=== PATIENT | female | born 1995 | race Caucasian/White ===

== ENCOUNTER 2022-11-03 11:28 | Emergency (ER) | payer MEDICAID, SELFPAY ==
[2022-11-03 11:31] VITALS: BP 125/95; PULSE 77; RESP 18; TEMP 36.7; O2SAT 98
--- NOTE | 2022-11-03 11:47 | ED.GENADUL1 ---
HPI - General Adult General Chief complaint: Weakness Stated complaint: GENERAL WEAKNESS Time Seen by Provider: 11/03/22 11:36 Source: patient Mode of arrival: walk-in Limitations: no limitations History of Present Illness HPI narrative: patient is a 27-year-old female presents to the Emergency Room with multiple concerns. Her chief concern is that her multiple complaints may be related to early . Patient states for the past week she has felt weak and tired, nauseous daily. Patient admits to having symptoms of a urinary tract infection last week but did not get treatment. Those symptoms have since resolved. Patient states she has had diarrhea frequently and a bhze-wq-wnttgzgn headache which she describes as a migraine. Paatient notes symptoms seem to come and go. Water makes her abdomen felt better. Patient states her last menstrual cycle was October 09. She is taken multiple home tests which have been negative. Patient states her [employer] is Dr. Esparza. She has been having hot flashes and cold intolerance over the past several months and reports having a order for thyroid testing out pt which was not preformed. is tolerating water at the bedside, notes nausea but denies any recent vomiting. Diarrhea occurs with meals. Pain Consistency: Reports other (denies pain, feels bloated at time) Relieving factors: Reports none Exacerbating factors: Reports none (food) Treatments prior to arrival: Reports other (water) Related Data Previous Rx's Medication Instructions Recorded ondansetron HCl 4 mg tablet 4 mg PO Q6H PRN nausea and 11/03/22 vomiting #12 tabs Allergies Allergy/AdvReac Type Severity Reaction Status Date / Time No Known Drug Allergies Allergy Verified 11/03/22 11:35 Review of Systems ROS Constitutional Denies: fever or chills Eyes Denies: change in vision or blurry vision Ears, nose, mouth, and throat Denies: throat pain, neck pain or throat swelling Cardiovascular Denies: chest pain, palpitations or edema Respiratory Denies: shortness of breath, cough or wheezing Gastrointestinal Reports: nausea, diarrhea and bloating; Denies: abdominal pain, vomiting, painful bowel movements or blood in stool Genitourinary Reports: urinary frequency (last week ( now resolved)) Musculoskeletal Denies: back pain Integumentary/Breast Denies: rash Neurological Reports: headache; Denies: numbness in extremities, weakness in extremities, lack of coordination or dizziness Psychiatric Denies: anxiety, mood swings or panic attacks Endocrine Reports: fatigue, cold intolerance and heat intolerance Hematologic/Lymphatic Denies: easy bruising Exam Narrative Exam Narrative: Nurses notes and vital signs reviewed and patient is not hypoxic. General: The patient appears well and in no apparent distress. Patient is resting comfortably on cart. Skin: Warm, dry, no pallor noted. Head: Normocephalic, atraumatic Neck: Supple, trachea mid-line, no tenderness, no lymphadenopathy Eye: Pupils are equal, round and reactive to light, EOMI Ears, Nose, Mouth, and Throat: TM are clear, normal light reflex, oral mucosa is moist, no posterior oropharynx erythema or hypertrophy, uvula is mid-line Cardiovascular: Regular Rate and Rhythm Respiratory: Patient is in no distress, no accessory muscle use, lungs are clear to auscultation, no wheezing, rales or rhonchi. Chest Wall: no tenderness Back: non-tender, no CVA tenderness Musculoskeletal: normal ROM, no tenderness, no swelling GI: Normal bowel sounds, no tenderness to palpation, no masses appreciated. No rebound, guarding, or rigidity noted.abdomen nonsurgical Neurological: A&O x4 Psychiatric: Cooperative Constitutional Vital Signs, click to edit/add: Last Vital Signs Temp 98.1 F 11/03/22 11:31 Pulse 77 11/03/22 11:31 Resp 18 11/03/22 11:31 BP 125/95 H 11/03/22 11:31 Pulse Ox 98 11/03/22 11:31 O2 Del Method Room Air 11/03/22 11:31 Course Vital Signs Vital signs: Vital Signs Temperature 98.1 F 11/03/22 11:31 Pulse Rate 77 11/03/22 11:31 Respiratory Rate 18 11/03/22 11:31 Blood Pressure 125/95 H 11/03/22 11:31 Pulse Oximetry 98 11/03/22 11:31 Oxygen Delivery Method Room Air 11/03/22 11:31 Temperature 98.1 F 11/03/22 11:31 Pulse Rate 77 11/03/22 11:31 Respiratory Rate 18 11/03/22 11:31 Blood Pressure 125/95 H 11/03/22 11:31 Pulse Oximetry 98 11/03/22 11:31 Oxygen Delivery Method Room Air 11/03/22 11:31 Medical Decision Making MDM Narrative Medical decision making narrative: patient medicated with Zofran and Tylenol for her nausea and headache. She presents with multiple symptoms, recommend urinalysis given symptoms of urinary tract infection last week that she did not seek treatment for. Discussed baseline labs with her diarrhea and concerns of and rule out electrolyte imbalance. reviewed laboratory studies, negative test, normal thyroid, electrolytes unremarkable. Recommend [id number] education for her diarrhea, follow-up to PCP if symptoms persist. Small prescription of Zofran given for her nausea. Discussed safe lifestyle practices if trying for . The patient is to followup with primary care physician in next 2-3 days or to return to the emergency department should any of the signs or symptoms worsen or new symptoms develop. Patient had questions answered. The patient agrees with the following Diagnosis and Treatment plan and the patient will be discharged home. Lab Data Lab results reviewed: Yes I reviewed the patient's lab results Labs: Lab Results 11/03/22 11/03/22 Range/Units 11:50 11:55 Sodium 140 (136-145) mmol/L Potassium 3.7 (3.5-5.1) mmol/L Chloride 104 (98-107) mmol/L Carbon Dioxide 23.0 (21.0-32.0) mmol/L Anion Gap 16.7 BUN 6.0 L (7.0-18.0) mg/dL Creatinine 0.66 (0.55-1.02) mg/dL Est GFR ( Amer) >60 (>=60) Est GFR (Non-Af Amer) >60 (>=60) BUN/Creatinine Ratio 9.1 Glucose 82 (74-106) mg/dL Calcium 9.0 (8.5-10.1) mg/dL TSH 1.355 (0.358-3.740) uIU/mL Serum HCG, Qual Negative (NEGATIVE) Urine Color Lt. yellow (YELLOW) Urine Clarity Clear (CLEAR) Urine pH 7.0 (5.0-9.0) Ur Specific [place] 1.015 (1.005-1.025) Urine Protein Negative (NEG/TRACE) mg/dL Urine Glucose (UA) Negative (NEGATIVE) mg/dL Urine Ketones Negative (NEGATIVE) mg/dL Urine Occult Blood Negative (NEGATIVE) Urine Nitrite Negative (NEGATIVE) Urine Bilirubin Negative (NEGATIVE) Urine Urobilinogen 0.2 (0.2-1.0) EU/dL Ur Leukocyte Esterase Negative (NEGATIVE) Discharge Plan Discharge Chief Complaint: Weakness Clinical Impression: Diarrhea, Nausea Patient Disposition: Home, Self-Care Time of Disposition Decision: 12:46 Condition: Good Prescriptions / Home Meds: New ondansetron HCl 4 mg tablet 4 mg PO Q6H PRN (Reason: nausea and vomiting) Qty: 12 0RF Instructions: Acute Diarrhea (ED), Nutrition Tips for Relief of Diarrhea (ED) Stand Alone Forms: Portal Instructions Referrals: Justin Caban MD [Physician] - 1 week
[2022-11-03 12:00] LABS: Bilirubin Urine NEGATIVE (NEGATIVE); Blood Urine NEGATIVE (NEGATIVE); Clarity Urine CLEAR (CLEAR); Color Urine LT. YELLOW (YELLOW); Glucose Urine UA NEGATIVE (NEGATIVE); Ketones Urine NEGATIVE (NEGATIVE); Leukocyte Esterase Urine NEGATIVE (NEGATIVE); Nitrite Urine NEGATIVE (NEGATIVE); Protein Urine NEGATIVE (NEG/TRACE); Specific Gravity Urine 1.015 (1.005-1.025); Urobilinogen Urine 0.2 EU/dL (0.2-1.0)
[2022-11-03 12:01] LABS: Urine Microscopic Indicated NO
[2022-11-03 12:16] LABS: HCG Qualitative NEGATIVE (NEGATIVE)
[2022-11-03 12:27] LABS: Thyroid Stimulating Hormone 1.355 uIU/mL (0.358-3.740)
[2022-11-03 12:34] LABS: Anion Gap 16.7; BUN Creatinine Ratio 9.1; Chloride 104 mmol/L (98-107); Estimated GFR (African America >60 (>=60); Estimated GFR (Non-African Ame >60 (>=60); Glucose 82 mg/dL (74-106); Potassium 3.7 mmol/L (3.5-5.1); Sodium 140 mmol/L (136-145)
[2022-11-03] MEDS: ONDANSETRON 4 MG RAPDIS TABLET SL (12:44)
[2022-11-03] MEDS: ACETAMINOPHEN 500 MG TABLET 1000 MG PO (12:44)
== END 2022-11-03 12:54 | disposition home or self-care (01) ==
PROVIDERS: Personal Emergency Response Attendant; Emergency Provider Emergency Medicine Emergency Medical Services
DX: R11.0 Nausea (principal); R19.7 Diarrhea, unspecified; R51.9 Headache, unspecified
CPT/HCPCS: 36415; 80048; 81003; 84443; 84703; 99283

== ENCOUNTER 2022-11-27 09:49 | Outpatient (OUT) | payer MEDICAID, SELFPAY ==
--- NOTE | 2022-11-27 09:58 | US_ITS ---
[address] [address] Patient Name: KRISHNA GLOVER MRN: [id number] date: 1995 Sex: F Assigned Patient Location: Current Patient Location: Accession/Order Number: [id number] Exam Date: 11/27/2022 09:58 Report Date: 11/27/2022 11:06 At the request of: MILAN GO Procedure: US pelvis w/ transvaginal EXAMINATION: US pelvis w/ transvaginal HISTORY: FEMALE INFERTILITY, PCOS COMPARISON: No relevant comparison available. TECHNIQUE: Transabdominal and/or transvaginal sonographic examination was performed as indicated by examination type. FINDINGS: UTERUS: Normal size and appearance. Uterus size: 10.0 x 4.2 x 5.9 cm ENDOMETRIUM: Normal homogeneous appearance. Endometrial thickness: 9 mm RIGHT OVARY: Contains multiple small similar size follicles in a peripheral distribution. Duplex Doppler demonstrates normal waveform and flow; resistive index 0.6. Ovary size: 3.3 x 1.7 x 3.3 cm LEFT OVARY: Normal size and appearance. Duplex Doppler demonstrates normal waveform and flow; resistive index 0.6. Ovary size: 3.8 x 2.0 x 3.0 cm CUL-DE-SAC: Unremarkable. No significant free fluid. BLADDER: Unremarkable. OTHER: None. US/US pelvis w/ transvaginal IMPRESSION: 1. The appearance of the right ovary would be compatible with polycystic ovarian syndrome, however, the left ovary is normal in appearance. 2. Unremarkable uterus and endometrium. Electronically authenticated by: IESHA LIZAMA Date: 11/27/2022 11:06
[2022-11-27 11:28] LABS: Basophils Percent Auto 0.4 % (0.2-2.0); Eosinophils Absolute Auto 0.2 10^3/uL (0.0-0.7); Eosinophils Percent Auto 3.4 % (0.9-7.0); Hematocrit 41.5 % (36.0-48.0); Hemoglobin 13.6 g/dL (12.0-16.0); Immature Granulocytes Abs Auto 0.01 10^3/uL (0.00-0.03); Immature Granulocytes Pct Auto 0.1 % (0.0-0.5); Lymphocytes Percent Auto 14.6 % (20.5-60.0); Mean Corpuscular HGB Conc 32.8 g/dL (29.9-35.2); Mean Corpuscular Hemoglobin 31.8 pg (26.7-34.0); Mean Platelet Volume 10.2 fL (9.5-13.5); Monocytes Absolute Auto 0.4 10^3/uL (0.3-0.8); Monocytes Percent Auto 6.1 % (1.7-12.0); Neutrophils Absolute Auto 5.3 10^3/uL (1.4-6.5); Neutrophils Percent Auto 75.4 % (43.0-75.0); Platelet Count 204 10^3/uL (150-450); Red Blood Count 4.28 10^6/uL (4.20-5.40); Red Cell Distribution Width 12.3 % (11.0-15.0); White Blood Count 7.1 10^3/uL (4.0-11.0)
[2022-11-27 11:57] LABS: Estimated Average Glucose 82 mg/dL; Glycohemoglobin A1C 4.5 % (4.5-6.2)
[2022-11-27 12:23] LABS: Free T4 0.74 ng/dL (0.76-1.46)
[2022-11-27 12:26] LABS: HCG Quantitative <1 mIU/mL; Thyroid Stimulating Hormone 1.789 uIU/mL (0.358-3.740)
[2022-11-28 04:07] LABS: FSH 4.2 mIU/mL (.); Luteinizing Hormone(LH) 9.6 mIU/mL (.); Progesterone 12.6 ng/mL (.)
[2022-11-30 13:07] LABS: Anti-Mullerian Hormone (AMH) 5.48 ng/mL (.)
== END 2022-11-27 09:50 | disposition home or self-care (01) ==
LOC: US 09:49
PROVIDERS: Visit Provider Obstetrics & Gynecology
DX: N97.9 Female infertility, unspecified (principal); E28.2 Polycystic ovarian syndrome
CPT/HCPCS: 36415; 76830; 76856; 82397; 82627; 83001; 83002; 83036; 84144; 84439; 84443; 84702; 85025

== ENCOUNTER 2022-12-02 11:41 | Outpatient (OUT) | payer MEDICAID, SELFPAY ==
[2022-12-02 13:35] LABS: HCG Quantitative <1 mIU/mL
== END 2022-12-02 11:42 | disposition home or self-care (01) ==
LOC: LAB 11:42
PROVIDERS: Visit Provider Obstetrics & Gynecology
DX: N97.9 Female infertility, unspecified (principal)
CPT/HCPCS: 36415; 84702

== ENCOUNTER 2022-12-26 09:10 | Outpatient (OUT) | payer MEDICAID, SELFPAY ==
[2022-12-27 04:07] LABS: Progesterone 18.3 ng/mL (.)
== END 2022-12-26 09:11 | disposition home or self-care (01) ==
PROVIDERS: Visit Provider Obstetrics & Gynecology
DX: N97.9 Female infertility, unspecified (principal); E28.2 Polycystic ovarian syndrome
CPT/HCPCS: 36415; 84144

== ENCOUNTER 2023-01-01 09:06 | Outpatient (RCR) | payer MEDICAID, SELFPAY ==
[2023-01-01 09:58] LABS: HCG Quantitative <1 mIU/mL
== END 2023-01-29 16:56 | disposition home or self-care (01) ==
LOC: LAB 09:06
PROVIDERS: Family Provider Nurse Practitioner Family; PCP Nurse Practitioner Family; Referring Provider Obstetrics & Gynecology; Visit Provider Obstetrics & Gynecology
DX: N97.9 Female infertility, unspecified (principal); E28.2 Polycystic ovarian syndrome
CPT/HCPCS: 36415; 84702

== ENCOUNTER 2023-01-23 11:18 | Outpatient (OUT) | payer MEDICAID, SELFPAY ==
[2023-01-24 07:09] LABS: Progesterone 13.9 ng/mL (.)
== END 2023-01-23 11:19 | disposition home or self-care (01) ==
LOC: LAB 11:19
PROVIDERS: Family Provider Nurse Practitioner Family; PCP Nurse Practitioner Family; Visit Provider Obstetrics & Gynecology
DX: N97.9 Female infertility, unspecified (principal); E28.2 Polycystic ovarian syndrome
CPT/HCPCS: 36415; 84144

== ENCOUNTER 2023-02-17 15:38 | Outpatient (OUT) | payer MEDICAID, SELFPAY ==
[2023-02-17 16:41] LABS: HCG Quantitative <1 mIU/mL
[2023-02-18 04:07] LABS: Progesterone 12.8 ng/mL (.)
== END 2023-02-17 15:39 | disposition home or self-care (01) ==
LOC: LAB 15:39
PROVIDERS: Family Provider Nurse Practitioner Family; PCP Nurse Practitioner Family; Visit Provider Obstetrics & Gynecology
DX: N97.9 Female infertility, unspecified (principal); E28.2 Polycystic ovarian syndrome
CPT/HCPCS: 36415; 84144; 84702

== ENCOUNTER 2023-02-27 13:26 | Outpatient (OUT) | payer MEDICAID, SELFPAY ==
--- OUTSIDE RECORDS SUMMARY | 2023-02-27 13:29 | XMS_ITS | CCD ---
Author Name Unknown Address [address] [place] [address] Organization [facility] Care Team Providers Care Food Service Tray Attendant Name Role Phone Bennett Esparza Unavailable Unavailable Petra Young Unavailable No, Physician Primary Care Provider Unavailabl e NO, PHYSICIAN Primary Care Unavailable IVANNA GOMEZ Attending Unavailable Sara Cooley Unavailable Scarlett Blankenship Unavailable PETRA YOUNG Primary Care Unavailable DONAVAN ., DR YATES Attending Unavailable DONAVAN ., DR YATES Consulting Unavailable DONAVAN ., DR YATES Admitting Unavailable Wisam Morales Consulting Unavailable REQUEST, DR LOUISE LISTED Consulting Unavaila PETRA Doll Primary Care Unavailable Wisam Morales Consulting Unavailable PAY ., DR ZALDIVAR Attending Unavailable PAY ., DR ZALDIVAR Admitting Unavailable GRECHNY ., JAVON NICOLE Consulting Unavailabl e PETRA YOUNG Admitting Unavailable PETRA YOUNG Attending Unavailable PETRA YOUNG Primary Care Unavailable Nba Guaman Attending Unavailable Nba Guaman Admitting Unavailable Provider, None Primary Care Unavailable Petra Young Attending Unavailable Petra Young Primary Care Unavailable Petra Young Admitting Unavailable Medications Current Medications Medication Drug Class(es) Dates Sig (Normalized) Sig (Original) [id number] 200 actuat albuterol 0.09 mg/actuat metered dose inhaler (20 sources) beta2-Adrenergic Agonist Start: 03-06-2020 take 2 puff(s) by inhalation every four hours as needed Albuterol Sulfate HFA 108 (90 Base) MCG/ACT 2 puffs as needed Inhalation every 4 hrs 13 Apr, 2021 Active Start: 03-06-2020 take 2 puff(s) by in halation every four hours as needed Albuterol Sulfate HFA 108 (90 Base) MCG/ACT 2 puffs as needed Inhalation every 4 hrs Apr, Active Apple Cider Vinegar (2 sources) Apple Cider Vinegar Active Ascorbic Acid (2 sources) Vitamin C Vitamin C Active Desogestrel / Ethinyl Estradiol (13 sources) Progestin, Estrogen Start: 02-19-2022 take 1 tablet by mouth once daily Isibloom 0.15-0.03 mg per tablet Take 1 (one) tablet by mouth daily . 0 02/19/2022 Active take 1 tablet by eleazar th every twenty-four hours Isibloom 0.15-30 MG-MCG 1 tablet Orally Once a day for 28 day(s) Active hydrOXYzine hydrochloride 10 mg oral tablet (8 sources) Antihistamine Start: 11-19-2021 take 1 tablet by mouth twice daily as needed hydrOXYzine HCl 10 MG 1 tablet as needed Orally twice daily for 30 day(s) Oct, Active ibuprofen 600 mg oral tablet (2 sources) Nonsteroidal Anti-inflammatory Drug take 1 tablet by mouth at mealtime as needed Ibuprofen 600 MG 1 tablet with food or milk as needed Orally PRN Active Lidocaine (2 sources) Antiarrhythmic, Amide Local Anesthetic Lidocaine Patch PRN Active 3 ml liraglutide 6 mg/ml pen injector (2 sources) GLP-1 Receptor Agonist Start: 06-18-2022 Victoza 18 MG/3ML Week one- 0.6mg daily, Week two thereafter- 1.2mg daily Subcutaneous Daily for 30 May, Active Vitamin D (2 sources) Vitamin D Active Completed/Discontinued Medications Medication Drug Class(es) Dates Sig (Normalized) Sig (Original) dextromethorphan hydrobromide 15 mg / guaiFENesin 400 mg / pseudoephedrine hydrochloride 60 mg oral tablet (8 sources) alpha-Adrenergic Agonist, Uncompetitive Q-umfbsd-M-aspartat e Receptor Antagonist, Sigma-1 Agonist Start: 03-06-2020 take 0.5-1 tablets by mouth every six hours as needed Capmist DM 60-15-400 MG 1/2 to 1 tablet as needed Orally every 6 hours Mar, Not-Taking docusate sodium 100 mg oral capsule (11 sources) Start: 09-19-2021 take 1 capsule by mouth every twelve hours Docusate Sodium 100 MG 1 capsule as needed Orally bid for 30 day(s) Aug, Not-Taking FLUoxetine 10 mg oral capsule (8 sources) Serotonin Reuptake Inhibitor Start: 11-19-2021 FLUoxetine HCl 10 MG 1 capsule Orally PRN for 30 days Oct, Not-Taking Start: 11-19-2021 take 1 capsule by [facility] once daily FLUoxetine HCl 10 MG 1 capsule Orally Once a day for 30 day(s) Oct, Not-Taking gabapentin 100 mg oral capsule (8 sources) Anti-epileptic Agent Start: 09-13-2019 take 1 capsule by mouth twice daily Gabapentin 100 MG 1 capsule Orally twice daily for 30 day(s) Aug, Not-Taking methylPREDNISolone 4 mg oral tablet (16 sources) Corticosteroid Start: 04-14-2021 methylPREDNISolone 4 MG as directed Orally Once a day for 6 days Apr, Not-Taking Start: 03-06-2020 Medrol (Juan) 4 MG half of daily dose in the morning with food and the rest at night with food Orally Mar, Not-Taking Seasonale (8 sources) Seasonale Not-Ta oren Seasonale Active 24 hr divalproex sodium 250 mg extended release oral tablet (10 sources) Mood Stabilizer, Anti-epileptic Agent Start: 10-17-2021 take 1 tablet by mouth every twelve hours Divalproex Sodium ER 250 MG 1 tablet Orally bid for 30 day(s) Sep, Not-Taking Problems Active Problems Problem Classification Problem Date Documented Date Episodic/Chronic Administrative/social admission (1 source) Persons encountering health services in other specified circumstances Episodic Alcohol-related disorders (3 sources) Nondependent alcohol abuse in remission; Translations: [Alcohol abuse, uncomplicated] Chronic Anxiety disorders (20 sources) Generalized anxiety disorder; Translations: [Generalized anxiety disorder] Chronic Coma; stupor; and brain damage (3 sources) Somnolence; Translations: [Excessive daytime sleepiness - normal night sleep] Episodic Contraceptive and procreative management (3 sources) Encounter for other general counseling and advice on contraception Onset: 06-11-2021 Resolved: 06-11-2021 Episodic Epilepsy; convulsions (12 sources) Seizure disorder; Translations: [Epilepsy, unspecified, not intractable, without status epilepticus] Chronic Essential hypertension (3 sources) Hypertensive disorder; Translations: [Essential (primary) hypertension] Chronic Headache; including migraine (3 sources) Migraine; Translations: [Migraine, unspecified, not intractable, without status migrainosus] Chronic Inflammation; infection of eye (except that caused by tuberculosis or sexually transmitteddisease) (16 sources) Chronic allergic conjunctivitis; Translations: [Other chronic allergic conjunctivitis] Chronic Menstrual disorders (16 sources) Amenorrhea; Translations: [Amenorrhea, unspecified] Chronic Mood disorders (3 sources) Major depressive disorder, single episode, unspecified; Translations: [Depression] Chronic Other acquired deformities (2 sources) Scoliosis deformity of spine; Translations: [Scoliosis, unspecified] Chronic Other acquired deformities (1 source) Scoliosis, unspecified Chronic Other aftercare (1 source) Encounter for follow-up examination after completed treatment for conditions other than malignant neoplasm Episodic Other ear and sense organ disorders (3 sources) Conductive hearing loss, unilateral, left ear, with unrestricted hearing on the contralateral side; Translations: [Conductive hearing loss, unilateral] Onset: 03-13-2022 Chronic Other ear and sense organ disorders (1 source) Otalgia of left ear; Translations: [Otalgia, left ear] Episodic Other ear and sense organ disorders (2 sources) Otalgia, left ear; Translations: [Otalgia, left ear] Onset: 03-13-2022 Episodic Other female genital disorders (4 sources) Abnormal uterine and vaginal bleeding, unspecified; Translations: [ABNORMAL UTERINE VAGINAL BLEED UNS] Onset: 07-07-2022 Chronic Other hereditary and degenerative nervous system conditions (16 sources) Restless legs; Translations: [Restless legs syndrome] Chronic Other hereditary and degenerative nervous system conditions (1 source) Restless legs syndrome Chronic Other nutritional; endocrine; and metabolic disorders (2 sources) Obesity; Translations: [Obesity, unspecified] Chronic Other nutritional; endocrine; and metabolic disorders (1 source) Obesity, unspecified Chronic Other nutritional; endocrine; and metabolic disorders (1 source) Overweight Episodic Otitis media and related conditions (3 sources) Acute non-suppurative otitis media - serous; Translations: [Acute serous otitis media, left ear] Onset: 03-13-2022 Episodic Spondylosis; intervertebral disc disorders; other back problems (1 source) Dorsalgia, unspecified Episodic Unclassified (1 source) Dietary counseling and surveillance; Translations: [Dietary counseling and surveillance] Onset: 06-18-2022 Past or Other Problems Problem Classification Problem Date Documented Date Episodic/Chronic Chronic obstructive pulmonary disease and bronchiectasis (2 sources) Bronchitis, not specified as acute or chronic Onset: 04-14-2021 Resolved: 04-14-2021 Episodic Epilepsy; convulsions (5 sources) Unspecified convulsions; Translations: [UNSPECIFIED CONVULSIONS] Onset: 09-03-2021 Resolved: 09-03-2021 Episodic Immunizations and screening for infectious disease (2 sources) Contact with and (suspected) exposure to other viral communicable diseases Onset: 04-14-2021 Resolved: 04-14-2021 Episodic Influenza (2 sources) Influenza due to other identified influenza virus with other respiratory manifestations Onset: 04-14-2021 Resolved: 04-14-2021 Episodic Other aftercare (1 source) alf (current) use of hormonal contraceptives; Translations: [CORRECTION HORMONAL CONTRACEPTIVES] Onset: 09-18-2021 Episodic Syncope (1 source) Syncope and collapse Onset: 09-03-2021 Resolved: 09-03-2021 Episodic Results Test Name Value Interpretation Reference Range Facility Coding Summaryon 07-07-2022 Coding Summary HTMLBase 64 XgbmerqwDXn0vAr+PGh lYWQ+BV1NWAWjH44ylU PiqL4LB7yUQH3JFOEAM RWFOO9ZRS4rfHU1BKcw F4HqbxKi KurumTPzAW98PGo8RIF 1bQtrCXzcfE9arECpX4 x3PkSvTZ58gI86IMtyH XKuVmK8AhEduudjaFQz A4sjLrPvsPUzSes+PHR hYmxlIHdpZHRoPScxMD MjUoMaqObrKC3yQg7iG GVyLWNvbGxhcHNlOiBj a1vwFLRhAJxaKN9bbKo vX2IqgKX3BJUww4x0Nc 48dHI+KEIzWON3oNhtF Wxug433EeEah4ixHGG4 sXEfTIcwZQL1T86jb8B 4RJXwPTKfKRG3rVN3pZ 0zxRctjltoG6AavNVfT uE2BUV3vLRtpW9fwNjl msyawF7oOqt+Q75HYF9 SFONHRH6LJsa5H8YyYg wvdHI+FV13VRQkFA55u SXdsUBqu3txkEl8NyHv PTVkURN3lZprEGdtf9I lSOMkQ10ndIXzj2D1NG EfkNtkdGLvVtJxpVW9c E1xOXljghfkk3hyoekq Wkqen1xsvp12wX73U52 wOUciBIAwTMX0EVRiTY PjfGxztq6fxZ3wAk4+I Qgdu2guz0uwxWk1UoQp AGWepiKsvMmrWXL9o9M dKy28F9CqzZvek5UsOv j5ob28aXInp2G7fDR3O OvmNDDzsD8nWJebJeZ7 YLQbFuQsmH22hUJzFWz cTe4crVftqWwqMH0jFI XpxddzSLEduA2vQJMjt NYiyQzhIP2sPJTpqtaf c426PaRlAVN5KVJbhWX cH8SdoQ5aBwHgSFHdXY WqA1ZxcYMtKNpqZ700T TnpCqX9ZNCeiwJnX3Zp VOPjyYjaZqV5q9Q2Ge6 Wu5YoqkndEYW6ETboIY E4IyY0PwMnDpL2N1BzJ rd9UJTesUmyGN3jX5Ec RUUqqxucciorsYL3YCL dRGQznN02gLWtBOjfKo 4uz7G1c088BSZuLSAjh X25Qj0rnZhmKRKjiCXB pM0tlbxvv3navoovOsR oURFoPSf0BMc7IPTfaE rkGdOiRVN0PdR4NJJ4l GYarI4fvJihyvptlZ7e Oyc+J84sdQ3aWZD4JRD 7fozvRBHxycLfWT64TN 01L6DsCqigyKDbiOB+P MSgjtHhdTucNP5iPxIg l8rtq8SfPZzeV4EcIKE rTOdgJrd4KZKkFWC4xJ C0uF3qLZCjQGnpu7E6n ZP9M7GaafHpto1ln0fa YIQtRVdkG78byNYbv9S 0HDEqjFJ9SKHnfYgxRf EcpR00Lgz+PGNvbGdyb 9LdHvixx2qdk7eveYx3 IjMwJSIgdmFsaWduPSJ 2v2NxNs51G29cCLhpZZ RoPSIxNSUiIHZhbGlnb r1qmD6fYl4+PGNvbCB3 kPG2aJ0mLYItWtV3QGw tP708XzCvyAElEhkmk9 vuh7bqsWp4YiLjIDYgd dFdjNuiRSH7y4GsMp96 Z36dFNyuFQJnGNPgLVM rCALadEgrke1jlO7rVy 8+QP8zn0hnej64rU66j HI+ALTyRFM8qJciTErv LQCipB6mAQypYeV4SQK rZlYnvQ54sJXvJNtjNy 7ohNpmyVjdTV6nDOVas rdjy828UcJae8egWKCg aRZmCLxdYFC0Z70gz1F 9XTQmKSJmTLV0mAR8pZ 1hbGlnbjogbGVmdDsgd xTdqBglHTsdVXwrJ865 IHRvcDsnPlBhdGllbnQ vDpZdBPt3K5QcZja5DD MmbTmjMY7pvQZvNCnvD f6gcYuzjVczHG8qTTJi vncjt434JkLsm5zxPWP qpZTmAWmtSKX7C99md8 S0PTBnSGOcEOM8iFA2c I6ccMnerqcqdNHeqZbh gcNnvHgcUNpkKGsjT50 6IHRvcDsnPkJpcnRoIE MeiGY9WI91XD61wHGdv 8T1uGT3J8YtONIhooqj kqblkOA5CLSnROZgxQ1 3Tm3joVvxRw8bBDTzTD E0FIZsoZSaO1AaaZ8eB cPyVYSlITWhO0AydRTp EXhmC824VIifWaW5BGP mvvNrZ5JwKMSflTmrCx V7r7L7Zf6RN6K0ZW49A S84kJZfh1H4nAH4Y3Tq WBVexlibggsvkEN7NGU oTAVafN65Qw3tyUmwEf 9eDSSgBJW7YHCdvRPkX 5UpbT2xGlDyLURhTIVe U3VeoQPtNYeqK745ZCh xRjJ3RUYkolLpR1PsDH BfuYlwGkV5v1H3Ny4PG Vh7EL87DC92lDHcj0O6 lYE5N6DkTUPvteuxrmt tiYK7LEWlVMDgjG71Vy 6xmBcsVy3yKCUkRYI6L CJgyMFvC3CetO6mTyGu JZPbBJVmT6LsfKJiUMz oE110SMpgIiT5WWWldf GvD7XpUOHleYqfYeR3j 4B6Sj2GCLHyQB34AVZ2 xEY9VH11ZA16D7OpLmb vdGFibGU+PHRhYmxlIH dpZHRoPScxMDAlJyBzd BldYG5eMf7jJRDqOUHk lJsvsRFbIsAcu4mpFNJ rHDxaGP4rjPrdN7WbyF B0NMSol7e0Lz82Q58iS 3JvdXA+DIBgdEV8sZH8 oF6tMfVrBiQ7KSysZ84 1CuOcxSMiQtdcl4yqq0 bodPi4MnI6XNErjvQep EhnBWI9x7OrOa58H57k IHdpZHRoPSIxNSUiIHZ xoTpsnq3baZ3mSl0+PG TazXB2lPB1cW6lNgCaM xR3EAwqE830WcSgyIAt Syhst0jip1fmdPm9NmT dVYEfqqOxnEhxDZU0i9 MzUs83H0JukBwyh5PqH eg3xd95xUSwj4S2uHM9 A2CzKPNbjaxhvBKchHi zWZ9tZLNprvolFPVqkB 5iCMCpU4t8WhGiHgY7Q ErnE3TrdtV0ZPLamQYn BIpzTSW9B04ex2Y5YQB cNYJlZGL4lFD4hX4ieF lnbjogbGVmdDsgdmVyd MbyVHglGRjxL478DBUa jDcqOXKniI4zHMUhnAJ xxUksHE3gMLTlwzctOm RPUlNFWSwgQUxFWEEgT jwvdGQ+NGVnEKG5eSeb UOpdIBRjtP9iVBXkY5l 5UbSgBbB7GFumS3GcJX HyplvmXj55qX5aEuHtZ uZ4VXcvB8FppzT6FDLk jUWuHInnWKJ5M23cr5F 5QXCnABVjRUZ0kJB1bD 1hbGlnbjogbGVmdDsgd sSsyKijLKsfYWtnH468 FMLkcFgiFuLjDfD5YiQ 9CBB6L2CeXgp8KZCamV rmEW3cbBOjUOkrCt5dk TnruSyfLW4wXNLdequn TQDeyG1gFGHwlGPxjHn gTV3rBXAoybvbs061Iu AgJVX5KODakPOjW6Dds Z4hEkLpWXVaJQCeH6Xn xOSuKNonS982LVzhWxA 8PCJkavVzQ9KfRSQaeS enWlW0o2G2Gz2aNhYWH WFyczwvdGQ+PHRkIHN0 gGnoUQojQESpfQ7eHAN vL0y2BtKgZrO7FLqeY2 OkKGLvfozdDc05sA8xP bKpNgP1ZMfaP6LiupH0 KWLzyWHjZNawJYQ8I20 hz0H4MKLwKIDfBXW8qC Y7sX8hbGxjjxshxUNki DsgdmVydGljYWwtYWxp T931XWNleNdyGpOYYAB MRTwvdGQ+OTIzFOA8lP zvCPygLLPwzI8wHBDrJ 7c0OxLhHbB1DBgoL5Cs JSTmozduXt69gR2gHeM yFtZ6JJgnX1PcmqG3LA IcvNZkBRjcNSS0N79qj 8D4XLZiUCXyWIF1wRD0 pQ8ypRfrmoqdlZUnbAa gdmVydGljYWwtYWxpZ2 46IHRvcDsnPkVtZXJnZ A2qeOdchKJ+JY41dl54 I6VqSbacGju0XSXpRCD 8tID8rO1wBVUiFFssp7 P2rLQ6C2KdldOmrk2mz 6kqMDNgJOugP20gpQUi g6T4SUZjuYK7OFNzhUt jInVpaW70Wvb+PGNvbG xdc6ItZjnxu1jwp6bgx Qi2IbUwICZplcQzfKgi OBL4z6PsTc17K22gXSd pZHRoPSIzMCUiIHZhbG kfhw5ttE8lBz6+PGNvb SQ9bLI1nA1eHbJpYlI2 LDppZ717UfEltNBcXpp nd0ala8fbqCo6YpFnWQ WoecRndTpfIKY8l1MlD k21D9HzkDgsd5QzAkd0 zf70cNNed5U0kJS2Z0A hZGRpbmctbGVmdDogMC 2lYMAgfjqvMEXymO5oN MRmO8u2KlJgXqT1MTqr R5JsghU5DSWypLZbYVY snGQGpH6mqeuzf1pqfl exVqQoFPReNEo5ZNh7L HPesNuvFkKrOJJ1FqY6 IBP8uLJwqJ4znZhacil nuK5dYbh+NVd9o7tvtU YzUX2cdMX8TQ77UG58i JYxh2P8rHL3T1MqESVn otfbjmwqyRI0DFGaEJX jnX57Oa1qsChjNt2mOZ WfYDY8YILwpDAuP6Puw L8tKyOnLTNwOIOwY2Ii xOYuNCbhJ904UYveSoV 7VNGieiUnR3PhWEJlpR rcHrF0f3M3Sq6KUL03Z P50YW90lMFyw9Y8kCZ4 U9IlIHWfshtrnkhqiEK 8DAZvVUTpzZ48Hj8goX ofKa3vJDGjWGV6EHQgg RSxA5KaxV6cKhTaHHMh SSLxF1HkiCQbKWfcD34 5VVfaUrL1GNLwrsKfL2 TiCUCioIkzRmV6w1O6K o6KJc03UG51SY61hHBq h3O1tRH0H4TeVNLdgak nawvktAR5DPAjQPYkqU 30Yb4lcQpcKp0dEBGlX NG4VZZwhIRmN5CywD1a PvDhZJCeGEJbH0UwvZU jLIyyO414UEsxDfH9ZH ElhwBoE3IdFBYspGwuF qM2j6W8Xj9MROtklmq3 J2LyNqcesZU+AA07EVQ rUX43mILwpQEqj1hgaB q6GlGpREOkWHU1wScaX Ddet2QhOHWkN22beWQg c2U (more content not included)... Normal [facility] US PELVIS AND TRANSVAGon US PELVIS AND TRANSVAG EXAMINATION: US PELVIS AND TRANSVAG HISTORY: Abnormal uterine bleeding unrelated to menstrual cycle COMPARISON: No relevant comparison available. TECHNIQUE: Transabdominal and transvaginal sonographic examination. FINDINGS: UTERUS: Normal size and appearance. Uterus size: 10.8 x 3.9 x 5.9 cm ENDOMETRIUM: Normal homogeneous appearance. Endometrial thickness: 7 mm RIGHT OVARY: Normal size and appearance. Duplex Doppler demonstrates normal waveform and flow; resistive index 0.6. Ovary size: 2.6 x 1.9 x 6.7 cm LEFT OVARY: Normal size and appearance. Duplex Doppler demonstrates normal waveform and flow; resistive index 0.6. Ovary size: 2.8 x 1.0 x 2.6 cm CUL-DE-SAC: Unremarkable. No significant free fluid. BLADDER: Unremarkable. OTHER: None. IMPRESSION: 1. Unremarkable pelvic ultrasound. No specific findings to account for patient's symptoms. Electronically authenticated by: WISAM MORALES Date: 2022-07-07 10:40 Normal [facility] C Throaton 07-03-2022 C Throat Ordered by Discern. Normal throat christian isolated No pathogens isolated [facility] Comment on above: Performed By: #### [id number] #### [facility] (DEFAULT) [address] [place] [address] .QC SARS-CoV-2 (COVID-19)/Fl u/RSV (GeneXpert)on 07-01-2022 Internal Control Pass Normal [facility] Comment on above: Order Comment: Order ed by [facility]cern. [[id number]] Performed By: #### [id number] #### [facility] (DEFAULT) [address] [place] [id number] COVID/Flu/RSV (GeneXpert)on 07-01-2022 Flu A (GXpert COVFLURSV) Negative Normal Negative [facility] Comment on above: Performed By: #### [id number] #### [facility] (DEFAULT) [address] [place] [address] [id number] Flu B (GXpert COVFLURSV) Negative Normal Negative [facility] Comment on above: Performed By: #### [id number] #### [facility] (DEFAULT) [address] [place] [address] [id number] RSV (GXpert COVFLURSV) Negative Normal Negative [facility] Comment on above: Performed By: #### [id number] #### [facility] (DEFAULT) [address] [place] [address] 35062 SARS-CoV-2 (COVID-19) RNA JOAN+probe Ql (Unsp spec) Negative Normal Negative [facility] Comment on above: Result Comment: Perf ormed by PCR methodology. Performed By: #### [id number] #### [facility] (DEFAULT) [address] [place] [address] [id number] ED Clinical Summaryon 2022 ED Clinical Summary [facility] - Emergency Department [address] [place] [address] [id number] ED Clinical Summary PERSON INFORMATION Name: KRISHNA GLOVER Age: 27 Years Sex: FEMALE : 1995 MRN: Acct#: Visit Reason: Headache; Ear pain; UC - Sore Throat; SORE THROAT, CONGESTION, BILAT EAR PAIN Arrival: 07/01/2022 09:15:55 Discharge: 07/01/2022 11:05:00 LOS: 000 01:50 Check In: 07/01/2022 09:15:55 Checkout:07/01/2022 11:05:00 Address: [address] [place] [address] PCP: Provider, None PROVIDER INFORMATION Provider Role Assigned Unassigned Nba Guaman MD ED Provider 07/01/2022 09:22:48 Samuel Cline ED Nurse 07/01/2022 09:29:11 VITALS INFORMATION Vital Sign Triage Latest Temperature Tympanic Temperature Temporal Artery Pulse Rate 105 bpm 105 bpm O2 Sat 99 % 99 % Respiratory Rate 18 br/min 18 br/min Blood Pressure /96 mmHg /96 mmHg MEDICAL INFORMATION Medications Given: Medication Dose Route acetaminophen (Tylenol) 1000 mg PO Allergy Information: No known allergies PHYSICIAN DOCUMENTATION DISCHARGE INFORMATION: Discharge Disposition: Home Discharge Location: Home PATIENT EDUCATION INFORMATION Instructions: Viral Illness, Adult; Hypertension, Adult, [id number] Follow-Up: With: Address: When: Follow up with primary care provider Within 3 to 5 days DIAGNOSIS: 1:Viral syndrome; 2:Elevated blood pressure reading Patient Understands: Yes - Patient/family/director critical care verbalizes understanding of instructions given Comment: Normal [facility] ED Patient Summaryon 023 ED Patient Summary [facility] - Emergency Department [address] [place] [address] [id number] PATIENT DISCHARGE INSTRUCTIONS Patient Information Name: KRISHNA GLOVER Age: 27 Years Date of : 1995 Reason For Visit: Headache; Ear pain; UC - Sore Throat; SORE THROAT, CONGESTION, BILAT EAR PAIN Arrival Time: 07/01/2022 09:15:55 Primary Care Physician: Provider, None Attending Physician: Nba Guaman MD Comment: Visit Diagnosis: Diagnoses This Visit Ear pain ([id number]) Elevated blood pressure reading (R03.0) Headache ([id number]) UC - Sore Throat ([id number]) Viral syndrome (B34.9) The Pharmacy at [facility] is open Thursday through Thursday from 9A to 6P and Thursday and Thursday from 9A to 5P Prescription Information: If you have been given a prescription for narcotics, seek immediate medical attention if you have any difficulty breathing or any sudden status changes such as confusion and sleepiness. If you or anyone you know is experiencing suicidal thoughts, mental health, alcohol and/or drug addiction problems; contact the [facility] 22/09 Crisis Hotline -Text 2MJKQ jh 425843. If you received any narcotics, sedation, or any other medication that causes drowsiness for the next 24 hours, unless otherwise directed: ? Do not drive a car. ? Do not operate machinery such as power tools, lawn mowers, drills, sewing machines, or stoves ? Avoid alcoholic beverages and drugs for allergies, nerves, or sleep ? Do not make important personal or business decisions or sign any legal documents With: Address: When: Follow up with primary care provider Within 3 to 5 days Medication Information: The exam and treatment you received today in the [facility] Emergency Department were for an urgent problem and are not intended as complete care. It is important for you to follow up with a doctor, nurse practitioner, or physician?s culinary assistant for ongoing care. If your symptoms become worse or you do not improve as expected and you are unable to reach your usual health care provider, you should return to the Emergency Department, we are available 24 hours a day. For those patients who have received Radiology results, the interpretation of your X-ray as given to you by our Emergency Department physician is only a preliminary report. The Radiologist will review your films and if there is a change in the diagnosis you will be notified by phone. Please make sure you have provided a working phone number so we can reach you if necessary. In the event that you had a lab culture while you were a patient in the Emergency Department, you will be notified by phone if there is a need to change your antibiotic. Please make sure you have provided a working phone number so we can reach you if necessary. [facility] Emergency Department has provided you with a complete list of medications post discharge. Please inform your field naturalist/provider of your visit and for further instruction on these medications. Any specific questions regarding your chronic medications and dosages should be discussed with your primary care physician(s) and/or pharmacist. Additional medications on your home medication list not specifically addressed. Please contact the ordering physician if you have questions about these medications. desogestrel-ethinyl estradiol (Isibloom 0.15 mg-0.03 mg oral tablet) TAKE 1 TABLET BY MOUTH EVERY DAY. liraglutide (Victoza 18 mg/3 mL subcutaneous solution) INJECT 0.6MG DAILY FOR THE FIRST WEEK THEN 1.2 MG DAILY THEREAFTER. Visit Information Allergies: Substance Reaction Symptoms Type Comments No known allergies Drug Vital Signs: Vitals and Measurements this Visit (last charted value for your 07/01/2022 visit) Vital Signs This Visit Temperature Oral: 36.8 DegC Peripheral Pulse Rate: 105 bpm Respiratory Rate: 18 br/min Systolic Blood Pressure: 125 mmHg Diastolic Blood Pressure: 96 mmHg SpO2: 99 % Oxygen Therapy: Room air Measurements This Visit Height/Length Dosin.560 cm Height/Length Estimated: 162.560 cm Weight Dosin.120 kg Weight Estimated: 72.120 kg Problems List: Problem Onset Comments No Problems found Patient Education Viral Illness, Adult Maintain hydration, use Tylenol and/or ibuprofen as needed for aches and pains. Follow-up with your primary care physician to review this emergency department visit. Return to the emergency department for any worsening symptoms. Viruses are tiny germs that can get into a person's body and cause illness. There are many different types of viruses, and they cause many types of illness. Viral illnesses can range from mild to severe. They can affect various parts of the body. Short-term conditions that are caused by a virus include colds and the flu (influenza). Long-term (more content not included)... Normal [facility] Strep Aon 07-01-2022 Strep procedure control Pass Normal [facility] Comment on above: Performed By: #### [id number] #### [facility] (DEFAULT) [address] [place] [address] Streptococcus A Negative Normal Negative [facility] Comment on above: Performed By: #### [id number] #### [facility] (DEFAULT) [address] [place] [address] CBC AUTO DIFFon 09-16-2021 BASO # 0.0 103/ul Normal 0.0-0.1 [facility] Comment on above: Performed By: #### C BC #### [facility] [address] [place] [address] Dr. Jake Gallardo Basophils/100 WBC (Bld) 0.3 % Normal 0.2-2.0 [facility] Comment on above: Performed By: #### C BC #### [facility] [address] [place] [address] Dr. Jake Gallardo EO # 0.1 103/ul Normal 0.0-0.7 [facility] Comment on above: Performed By: #### C BC #### [facility] [address] [place] [address] Dr. Jake Gallardo Eosinophils/100 WBC (Bld) 1.9 % Normal 0.9-7.0 [facility] Comment on above: Performed By: #### C BC #### [facility] [address] [place] [address] Dr. Jake Gallardo Erythrocyte distribution width (RBC) [Ratio] 12.6 % Normal 11.0-15.0 [facility] Comment on above: Performed By: #### C BC #### [facility] [address] [place] [address] Dr. Jake Gallardo Hematocrit (Bld) [Volume fraction] 42.4 % Normal 36.0-48.0 [facility] Comment on above: Performed By: #### C BC #### [facility] [address] [address] [address] Jake Gallardo Hemoglobin (Bld) [Mass/Vol] 14.0 g/dL Normal 12.0-16.0 [facility] Comment on above: Performed By: #### C BC #### [facility] [address] [address] [address] Jake Gallardo IG # 0.01 10e3/ul Normal 0.00-0.03 [facility] Comment on above: Performed By: #### C BC #### [facility] [address] [place] [address] Dr. Jake Gallardo IG % 0.1 % Normal 0.0-0.5 [facility] Comment on above: Performed By: #### C BC #### [facility] [address] [place] [address] Dr. Jake Gallardo LYMPH # 1.0 103/ul Critically low 1.2-3.8 [facility] Comment on above: Performed By: #### C BC #### [facility] [address] [place] [address] Dr. Jake Gallardo Lymphocytes/100 WBC (Bld) 14.9 % Critically low 20.5-60.0 [facility] Comment on above: Performed By: #### C BC #### [facility] [address] [place] [address] Dr. Jake Gallardo MANUAL DIFF REQ NO Normal [facility] Comment on above: Performed By: #### C BC #### [facility] [address] [place] [address] Dr. Jake Gallardo MCH (RBC) [Entitic mass] 30.4 pg Normal 26.7-34.0 [facility] Comment on above: Performed By: #### C BC #### [facility] [address] [place] [address] Dr. Jake Gallardo MCHC (RBC) [Mass/Vol] 33.0 g/dL Normal 29.9-35.2 [facility] Comment on above: Performed By: #### C BC #### [facility] [address] [address] [address] Jake Gallardo MCV (RBC) [Entitic vol] 92.2 fL Normal 81.0-99.0 [facility] Comment on above: Performed By: #### C BC #### [facility] [address] [address] [address] Jake Gallardo MONO # 0.3 103/ul Normal 0.3-0.8 [facility] Comment on above: Performed By: #### C BC #### [facility] [address] [place] [address] Dr. Jake Gallardo Monocytes/100 WBC (Bld) 4.9 % Normal 1.7-12.0 [facility] Comment on above: Performed By: #### C BC #### [facility] [address] [place] [address] Dr. Jake Gallardo NEUT # 5.2 103/ul Normal 1.4-6.5 [facility] Comment on above: Performed By: #### C BC #### [facility] [address] [place] [address] Dr. Jake Gallardo Neutrophils/100 WBC (Bld) 77.9 % Critically high 43.0-75.0 [facility] Comment on above: Performed By: #### C BC #### [facility] [address] [place] [address] Dr. Jake Gallardo Platelet mean volume (Bld) [Entitic vol] 10.5 fL Normal 9.5-13.5 [facility] Comment on above: Performed By: #### C BC #### [facility] [address] [place] [address] Dr. Jake Gallardo PLT 226 103/ul Normal 150-450 [facility] Comment on above: Performed By: #### C BC #### [facility] [address] [place] [address] Dr. Jake Gallardo RBC 4.60 106/ul Normal 4.20-5.40 [facility] Comment on above: Performed By: #### C BC #### [facility] [address] [address] [address] Jake Gallardo WBC 6.7 103/ul Normal 4.0-11.0 [facility] Comment on above: Performed By: #### C BC #### [facility] [address] [place] [address] HEAD WO CONon 09-16-2021 CT HEAD WO CON EXAMINATION: CT HEAD WO CON HISTORY: HEADACHE ; seizure today COMPARISON: CT HEAD 03/20/2013 TECHNIQUE: Axial CT images were obtained without IV contrast. Dose reduction techniques were achieved by using automated exposure control and/or adjustment of mA and/or kV according to patient size and/or use of iterative reconstruction technique. FINDINGS: BRAIN: No edema, hemorrhage, mass, acute infarction, or inappropriate atrophy. CSF SPACES: No hydrocephalus, subarachnoid hemorrhage, or mass. Appropriate for age. SKULL: No fracture. Chronic osseous protuberance projecting externally from the left occipital bone. SINUSES: No significant mucosal thickening or fluid on the limited views. ORBITS: No appreciable abnormality on the limited views. OTHER: Negative IMPRESSION: 1. No acute or suspicious findings to account for patient's symptoms. Electronically authenticated by: WISAM MORALES Date: 2021-09-16 15:09 Normal [facility] CULTURE URINEon 09-16-2021 CULTURE URINE Culture Observations: LIGHT GROWTH OF MIXED GENITAL CHRISTIAN. NO POTENTIAL PATHOGENS SEEN. Normal [facility] Comment on above: Performed By: #### U RCX #### [facility] [address] [place] [address] Dr. Jake Gallardo DRUG SCREEN RAPID (URINE)on 09-16-2021 AMP Negative Normal NEGATIVE [facility] Comment on above: Performed By: #### C BC #### [facility] [address] [place] [address] Dr. Jake Gallardo BAR Negative Normal NEGATIVE [facility] Comment on above: Performed By: #### C BC #### [facility] [address] [place] [address] Dr. Jake Gallardo BUP Negative Normal NEGATIVE [facility] Comment on above: Performed By: #### C BC #### [facility] [address] [place] [address] Dr. Jake Gallardo BZO Negative Normal NEGATIVE [facility] Comment on above: Performed By: #### C BC #### [facility] [address] [place] [address] Dr. Jake Gallardo SUNDEEP Negative Normal NEGATIVE [facility] Comment on above: Performed By: #### C BC #### [facility] [address] [place] [address] Dr. Jake Gallardo CUT-OFFS SEE BELOW Normal [facility] Comment on above: Result Comment: AMP (Amphetamine): 500ng/mL, BAR (Barbituates): 200 ng/mL, BZO (Benzodiazepines): 150 ng/mL, BUP (Buprenorphine): 10 ng/mL, SUNDEEP (Cocaine): 150 ng/mL, mAMP (Methamphetamine): 500 ng/mL, MTD (Methadone): 200 ng/mL, OPI (Opiates): 100 ng/mL, OXY (Oxycodone): 100 ng/mL, PCP (Phencyclidine): 25 ng/mL, PPX (Propoxyphene): 300 ng/mL, THC (Cannabinoids): 50 ng/mL, TCA (Trycyclic Antidepressants): 300 ng/mL Performed By: #### C BC #### [facility] [address] [place] [address] Dr. Jake Gallardo DRUG CUT HEADER DRUG CLASS TEST SYSTEM CUT-OFF CONCENTRATIONS ARE FOLLOWS: Normal [facility] Comment on above: Performed By: #### C BC #### [facility] [address] [place] [address] Dr. Jake Gallardo mAMP Negative Normal NEGATIVE [facility] Comment on above: Performed By: #### C BC #### [facility] [address] [place] [address] Dr. Jake Gallardo MTD Negative Normal NEGATIVE [facility] Comment on above: Performed By: #### C BC #### [facility] [address] [place] [address] Dr. Jake Gallardo OPI Negative Normal NEGATIVE [facility] Comment on above: Performed By: #### C BC #### [facility] [address] [place] [address] Dr. Jake Gallardo OXY Negative Normal NEGATIVE [facility] Comment on above: Performed By: #### C BC #### [facility] [address] [place] [address] Dr. Jake Galalrdo PCP Negative Normal NEGATIVE [facility] Comment on above: Performed By: #### C BC #### [facility] [address] [place] [address] Dr. Jake Gallardo PPX Negative Normal NEGATIVE [facility] Comment on above: Performed By: #### C BC #### [facility] [address] [place] [address] Dr. Jake Gallardo TCA Negative Normal NEGATIVE [facility] Comment on above: Performed By: #### C BC #### [facility] [address] [place] [address] Dr. Jake Gallardo THC Negative Normal NEGATIVE [facility] Comment on above: Performed By: #### C BC #### [facility] [address] [place] [address] Dr. Jake Gallardo ER URINE PROFILEon 2 Bilirubin Ql (U) Negative Normal NEGATIVE [facility] Comment on above: Performed By: #### C BC #### [facility] [address] [place] [address] Dr. Jake Gallardo Clarity (U) CLEAR Normal CLEAR [facility] Comment on above: Performed By: #### C BC #### [facility] [address] [place] [address] Dr. Jake Gallardo Color (U) LT. YELLOW Normal YELLOW [facility] Comment on above: Performed By: #### C BC #### [facility] [address] [place] [address] Dr. Jake Gallardo ERUAHD A micrscopic examination will be performed if indicated. Normal [facility] Comment on above: Performed By: #### C BC #### [facility] [address] [place] [address] Dr. Jake Gallardo Glucose Ql (U) Negative Normal NEGATIVE [facility] Comment on above: Performed By: #### C BC #### [facility] [address] [place] [address] Dr. Jake Gallardo Hemoglobin Ql (U) TRACE-INTACT Abnormal NEGATIVE [facility] Comment on above: Performed By: #### C BC #### [facility] [address] [place] [address] Dr. Jkae Gallardo Ketones Ql (U) Negative Normal NEGATIVE [facility] Comment on above: Performed By: #### C BC #### [facility] [address] [place] [address] Dr. Jake Gallardo LEUKOCYTES TRACE Abnormal NEGATIVE [facility] Comment on above: Performed By: #### C BC #### [facility] [address] [place] [address] Dr. Jake Gallardo Nitrite Ql (U) Negative Normal NEGATIVE [facility] Comment on above: Performed By: #### C BC #### [facility] [address] [place] [address] Dr. Jake Gallardo pH (U) 6.0 [pH] Normal 5-9 [facility] Comment on above: Performed By: #### C BC #### [facility] [address] [place] [address] Dr. Jake Gallardo SPEC GRAVITY 1.025 Normal 1.005-<=1.025 [facility] Comment on above: Performed By: #### C BC #### [facility] [address] [place] [address] Dr. Jake Gallardo UA PROTEIN Negative Normal NEGATIVE/ TRACE [facility] Comment on above: Performed By: #### C BC #### [facility] [address] [place] [address] Dr. Jake Gallardo UR MICRO IND INDICATED Normal [facility] Comment on above: Performed By: #### C BC #### [facility] [address] [place] [address] Dr. Jake Gallardo Urobilinogen Qn (U) 0.2 {Manny'U}/dL Normal 0.2 - 1.0 [facility] Comment on above: Performed By: #### C BC #### [facility] [address] [place] [address] Dr. Jake Gallardo PREG HCG QUALon 09-16-2021 , QUAL Negative Normal NEGATIVE [facility] Comment on above: Performed By: #### P REG #### [facility] [address] [place] [address] Dr. Jake Gallardo PROF 14(COMP METB)on 022 Albumin [Mass/Vol] 3.5 g/dL Normal 3.4-5.0 [facility] Comment on above: Performed By: #### C MP, TSH, HSTROPN #### [facility] [address] [place] [address] Dr. Jake Gallardo Albumin/Globulin [Mass ratio] 0.9 {ratio} Normal [facility] Comment on above: Performed By: #### C MP, TSH, HSTROPN #### [facility] [address] [place] [address] Dr. Jake Gallardo ALP [Catalytic activity/Vol] 42 U/L Critically low 46-116 [facility] Comment on above: Performed By: #### C MP, TSH, HSTROPN #### [facility] [address] [place] [address] Dr. Jake Gallardo ALT [Catalytic activity/Vol] 22 U/L Normal 14-59 [facility] Comment on above: Performed By: #### C MP, TSH, HSTROPN #### [facility] [address] [place] [address] Dr. Jake Gallardo Anion gap [Moles/Vol] 15.0 mmol/L Normal [facility] Comment on above: Performed By: #### C MP, TSH, HSTROPN #### [facility] [address] [place] [address] Dr. Jake Gallardo AST [Catalytic activity/Vol] 15 U/L Normal 15-37 [facility] Comment on above: Performed By: #### C MP, TSH, HSTROPN #### [facility] [address] [place] [address] Dr. Jake Gallardo Bilirubin [Mass/Vol] 0.4 mg/dL Normal 0.2-1.0 [facility] Comment on above: Performed By: #### C MP, TSH, HSTROPN #### [facility] [address] [address] [address] Jake Gallardo Calcium [Mass/Vol] 9.1 mg/dL Normal 8.5-10.1 [facility] Comment on above: Performed By: #### C MP, TSH, HSTROPN #### [facility] [address] [place] [address] Dr. Jake Gallardo Chloride [Moles/Vol] 106 mmol/L Normal 98-107 [facility] Comment on above: Performed By: #### C MP, TSH, HSTROPN #### [facility] [address] [place] [address] Dr. Jake Gallardo CO2 [Moles/Vol] 22.9 mmol/L Normal 21.0-32.0 [facility] Comment on above: Performed By: #### C MP, TSH, HSTROPN #### [facility] [address] [place] [address] Dr. Jake Gallardo Creatinine [Mass/Vol] 0.74 mg/dL Normal 0.55-1.02 [facility] Comment on above: Performed By: #### C MP, TSH, HSTROPN #### [facility] [address] [place] [address] Dr. Jake Gallardo EGFR-AF IRANIAN >60 Normal >=60 [facility] Comment on above: Performed By: #### C MP, TSH, HSTROPN #### [facility] [address] [place] [address] Dr. Jake Gallardo EGFR-NON AF IRANIAN >60 Normal >=60 [facility] Comment on above: Performed By: #### C MP, TSH, HSTROPN #### [facility] [address] [place] [address] Dr. Jake Gallardo Globulin (S) [Mass/Vol] 4.0 g/dL Normal [facility] Comment on above: Performed By: #### C MP, TSH, HSTROPN #### [facility] [address] [place] [address] Dr. Jake Gallardo Glucose [Mass/Vol] 84 mg/dL Normal 74-106 [facility] Comment on above: Performed By: #### C MP, TSH, HSTROPN #### [facility] [address] [address] [address] Jake Gallardo Potassium [Moles/Vol] 3.9 mmol/L Normal 3.5-5.1 [facility] Comment on above: Performed By: #### C MP, TSH, HSTROPN #### [facility] [address] [address] [address] Jake Gallardo Protein [Mass/Vol] 7.5 g/dL Normal 6.4-8.2 [facility] Comment on above: Performed By: #### C MP, TSH, HSTROPN #### [facility] [address] [address] [address] Jake Gallardo Sodium [Moles/Vol] 140 mmol/L Normal 136-145 [facility] Comment on above: Performed By: #### C MP, TSH, HSTROPN #### [facility] [address] [address] [address] Jake Gallardo Urea nitrogen [Mass/Vol] 8.0 mg/dL Normal 7.0-18.0 [facility] Comment on above: Performed By: #### C MP, TSH, HSTROPN #### [facility] [address] [address] [address] Jake Gallardo Urea nitrogen/Creatinin e [Mass ratio] 10.8 mg/mg Normal [facility] Comment on above: Performed By: #### C MP, TSH, HSTROPN #### [facility] [address] [address] [address] Jake Gallardo PROTIMEon 09-16-2021 INR Coag (PPP) [Relative time] 0.96 {INR} Normal [facility] Comment on above: Performed By: #### P T, PTT #### [facility] [address] [place] [address] Dr. Jake Gallardo INR GUIDELINES SEE BELOW Normal [facility] Comment on above: Result Comment: NASH RED INR: 2.0 - 3.0 CONDITIONS NOT LISTED BELOW 2.5 - 3.5 FOR PROSTHETIC HEART VALVE REPLACEMENT 2.5 - 3.5 RECURRENT THROMBOSIS Performed By: #### P T, PTT #### [facility] [address] [place] [address] Dr. Jake Gallardo PT Coag (PPP) [Time] 10.4 s Normal 9.0-11.6 [facility] Comment on above: Performed By: #### P T, PTT #### [facility] [address] [address] [address] Jake Gallardo PTTon 09-16-2021 aPTT Coag (Bld) [Time] 29.2 s Normal 22.3-36.2 [facility] Comment on above: Performed By: #### P T, PTT #### [facility] [address] [place] [address] Dr. Jake Gallardo TROPONIN, HIGH SENSITIVITYon 09-16-2021 HSTROP <4.0 Normal 4.0-51.3 [facility] Comment on above: Result Comment: CUT- OFF POINTS HAVE BEEN ESTABLISHED BASED ON THE FOURTH UNIVERSAL DEFINITIONS OF MYOCARDIAL INFARCTION. THE UPPER REFERENCE LIMIT (URL) OF TROPONIN, DEFINED THE 99TH PERCENTILE OF cTnI DISTRIBUTION IN A REFERENCE POPULATION, HAS BEEN CONFIRMED THE DECISION THRESHOLD FOR MS DIAGNOSIS. Performed By: #### C MP, TSH, HSTROPN #### [facility] [address] [place] [address] Dr. Jake Gallardo TSHon 09-16-2021 TSH 2.037 uIU/mL Normal 0.358-3.740 [facility] Comment on above: Performed By: #### C MP, TSH, HSTROPN #### [facility] [address] [place] [address] Dr. Jake Gallardo URINE MICROSCOPIC ONLYon BACTERIA SMALL Abnormal NONE SEEN [facility] Comment on above: Performed By: #### C BC #### [facility] [address] [place] [address] Dr. Jake Gallardo Bacteria identified Cx Nom (U) INDICATED Normal [facility] Comment on above: Performed By: #### C BC #### [facility] [address] [place] [address] Dr. Jake Gallardo CAST NONE SEEN Normal NONE SEEN [facility] Comment on above: Performed By: #### C BC #### [facility] [address] [place] [address] Dr. Jake Gallardo Crystals LM Nom (Urine sed) NONE SEEN Normal NONE SEEN [facility] Comment on above: Performed By: #### C BC #### [facility] [address] [place] [address] Dr. Jake Gallardo Epithelial cells LM Ql (Urine sed) FEW Abnormal NONE SEEN /RARE [facility] Comment on above: Performed By: #### C BC #### [facility] [address] [place] [address] Dr. Jake Gallardo MUCOUS NONE SEEN Normal NONE SEEN [facility] Comment on above: Performed By: #### C BC #### [facility] [address] [place] [address] Dr. Jake Gallardo RBC 0-2 Normal 0-2 [facility] Comment on above: Performed By: #### C BC #### [facility] [address] [place] [address] Dr. Jake Gallardo WBC 2-5 Abnormal NONE SEEN [facility] Comment on above: Performed By: #### C BC #### [facility] [address] [place] [address] Dr. Jake Gallardo COVID Quick Testingon 2021 Result Negative Proficiency Other Quick Fluon 04-14-2021 FLUAV Ab CF (S) [Titer] Positive Proficiency Other FLUBV Ab CF (S) [Titer] Negative Proficiency Other Quick Strepon 04-14-2021 S. pyogenes Org specific cx Ql (Throat) Negative Proficiency Other Quick Strep Proficiency Other 4 Proteinon 09-30-2017 Protein mass conc (24H U) 75 mg/24hr Normal 28-141 [facility] Comment on above: Performed By: #### 2 [id number] ####[facility] [id number] [place] [address] Albumin/Protein.to popeye Elph mass fraction (U) 21.4 mg/dL Invalid Interpretation Code [facility] Comment on above: Result Comment: The reference range and other method performance specifications have not been established for this test; results should be integrated into the clinical context for interpretation. Performed By: #### 2 [id number], [id number] ####[facility] [id number] [place] [address] U24 Total Volon 09-30-2017 Hrs Kenny 24 hour(s) Invalid Interpretation Code [facility] Comment on above: Order Comment: Order added by Discern Expert Performed By: #### 2 [id number] ####[facility] [id number] [place] [address] Specimen volume Unsp time (U) 350 mL Invalid Interpretation Code [facility] Comment on above: Order Comment: Order added by Discern Expert Performed By: #### 2 [id number], [id number] ####[facility] [id number] [place] [address] Vital Signs Date Time Vital Sign Value Performing Clinician Facility 06-18-2022 15:15-0400 Body height 162.56 cm Scarlett Blankenship Other [facility] Other 06-18-2022 15:15-0400 Body mass index (BMI) [Ratio] 29.92 kg/m2 Scarlett Blankenship Other [facility] Other 06-18-2022 15:15-0400 Body weight 79.06 kg Scarltet Blankneship Other [facility] Other 06-18-2022 15:15-0400 Diastolic blood pressure 86 mm[Hg] Scarlett Blankenship Other [facility] Other 06-18-2022 15:15-0400 Respiratory rate 18 /min Scarletther Patrickler Other [facility] Other 06-18-2022 15:15-0400 SaO2% (BldA) [Mass fraction] 96 % Scarlett Missler Other [facility] Other 06-18-2022 15:15-0400 Systolic blood pressure 122 mm[Hg] Scarletther Patrickler Other [facility] Other 04-24-2022 14:00-0500 Body height 165.1 cm Petra Benavidesault Other [facility] Other 04-24-2022 14:00-0500 Body mass index (BMI) [Ratio] 28.29 kg/m2 Petra Hector Other [facility] Other 04-24-2022 14:00-0500 Body temperature 98.6 [degF] Petra Hector Other [facility] Other 04-24-2022 14:00-0500 Body weight 77.11 kg Petra Hector Other [facility] Other 04-24-2022 14:00-0500 Diastolic blood pressure 83 mm[Hg] Petra Hector Other [facility] Other 04-24-2022 14:00-0500 Respiratory rate 18 /min Petra Hector Other [facility] Other 04-24-2022 14:00-0500 SaO2% (BldA) [Mass fraction] 97 % Petra Benavidesault Other [facility] Other 04-24-2022 14:00-0500 Systolic blood pressure 124 mm[Hg] Petra Benavidesault Other [facility] Other 03-13-2022 15:37-0500 Body weight 75.75 kg Ivanna Gomez MD Work Phone: [facility] 03-13-2022 15:37-0500 Diastolic blood pressure 83 mm[Hg] Ivanna Gomez MD Work Phone: [facility] 03-13-2022 15:37-0500 Heart rate 79 /min Ivanna Gomez MD Work Phone: [facility] 03-13-2022 15:37-0500 SaO2% (BldA) [Mass fraction] 99 % Ivanna Gomez MD Work Phone: [facility] 03-13-2022 15:37-0500 Systolic blood pressure 116 mm[Hg] Ivanna Gomez MD Work Phone: [facility] 12-31-2021 14:30-0400 Body height 165.1 cm Petra Benavidesault Other [facility] Other 12-31-2021 14:30-0400 Body mass index (BMI) [Ratio] 27.45 kg/m2 Petra Benavidesault Other [facility] Other 12-31-2021 14:30-0400 Body temperature 98.3 [degF] Petra Hector Other [facility] Other 12-31-2021 14:30-0400 Body weight 74.84 kg Petra Hector Other [facility] Other 12-31-2021 14:30-0400 Diastolic blood pressure 83 mm[Hg] Petra Young Other [facility] Other 12-31-2021 14:30-0400 Respiratory rate 18 /min Petra Young Other [facility] Other 12-31-2021 14:30-0400 SaO2% (BldA) [Mass fraction] 100 % Petra Young Other [facility] Other 12-31-2021 14:30-0400 Systolic blood pressure 124 mm[Hg] Petra Young Other [facility] Other 11-19-2021 15:00-0400 Body height 165.1 cm Petra Young Other [facility] Other 11-19-2021 15:00-0400 Body mass index (BMI) [Ratio] 26.36 kg/m2 Petra Young Other [facility] Other 11-19-2021 15:00-0400 Body temperature 97.7 [degF] Petra Young Other [facility] Other 11-19-2021 15:00-0400 Body weight 71.85 kg Petra Young Other [facility] Other 11-19-2021 15:00-0400 Diastolic blood pressure 89 mm[Hg] Petra Young Other [facility] Other 11-19-2021 15:00-0400 Respiratory rate 18 /min Petra Benavidesault Other [facility] Other 11-19-2021 15:00-0400 SaO2% (BldA) [Mass fraction] 99 % Petra Young Other [facility] Other 11-19-2021 15:00-0400 Systolic blood pressure 128 mm[Hg] Petra Benavidesault Other [facility] Other 09-03-2021 15:30-0400 Body height 165.1 cm Petra Benavidesault Other [facility] Other 09-03-2021 15:30-0400 Body mass index (BMI) [Ratio] 23.29 kg/m2 Petra Benavidesault Other [facility] Other 09-03-2021 15:30-0400 Body temperature 98.8 [degF] Petra Benavidesault Other [facility] Other 09-03-2021 15:30-0400 Body weight 63.5 kg Petra Benavidesault Other [facility] Other 09-03-2021 15:30-0400 Diastolic blood pressure 69 mm[Hg] Petra Benavidesault Other [facility] Other 09-03-2021 15:30-0400 Respiratory rate 18 /min Petra Benavidesault Other [facility] Other 09-03-2021 15:30-0400 SaO2% (BldA) [Mass fraction] 100 % Petra Benavidesault Other [facility] Other 09-03-2021 15:30-0400 Systolic blood pressure 135 mm[Hg] Petra Young Other [facility] Other 06-11-2021 15:30-0400 Body height 165.1 cm Petra Young Other [facility] Other 06-11-2021 15:30-0400 Body mass index (BMI) [Ratio] 24.63 kg/m2 Petra Young Other [facility] Other 06-11-2021 15:30-0400 Body temperature 97.8 [degF] Petra Young Other [facility] Other 06-11-2021 15:30-0400 Body weight 67.13 kg Petra Young Other [facility] Other 06-11-2021 15:30-0400 Diastolic blood pressure 97 mm[Hg] Petra Young Other [facility] Other 06-11-2021 15:30-0400 Respiratory rate 18 /min Petra Young Other [facility] Other 06-11-2021 15:30-0400 SaO2% (BldA) [Mass fraction] 100 % Petra Young Other [facility] Other 06-11-2021 15:30-0400 Systolic blood pressure 128 mm[Hg] Petra Young Other [facility] Other 04-14-2021 10:30-0500 Body height 165.1 cm Petra Benavidesault Other [facility] Other 04-14-2021 10:30-0500 Body mass index (BMI) [Ratio] 22.46 kg/m2 Petraantione Young Other [facility] Other 04-14-2021 10:30-0500 Body temperature 99.6 [degF] Petra Hector Other [facility] Other 04-14-2021 10:30-0500 Body weight 61.24 kg Petra Hector Other [facility] Other 04-14-2021 10:30-0500 Respiratory rate 18 /min Petra Benavidesault Other [facility] Other 04-14-2021 10:30-0500 SaO2% (BldA) [Mass fraction] 98 % Petra Young Other [facility] Other 04-14-2021 09:30-0500 Body height 165.1 cm Petra Young Other [facility] Other 04-14-2021 09:30-0500 Body mass index (BMI) [Ratio] 22.46 kg/m2 Petra Hector Other [facility] Other 04-14-2021 09:30-0500 Body temperature 99.6 [degF] Petra Hector Other [facility] Other 04-14-2021 09:30-0500 Body weight 61.24 kg Petra Hector Other [facility] Other 04-14-2021 09:30-0500 Respiratory rate 18 /min Petra Benavidesault Other [facility] Other 04-14-2021 09:30-0500 SaO2% (BldA) [Mass fraction] 98 % Petra Young Other [facility] Other Encounters Encounter Date Encounter Type Care Provider Facility Start: 08-18-2022 End: 08-18-2022 ambulatory Scarlett Blankenship Other [facility] Other Start: 08-18-2022 Telephone encounter Scarlett Blankenship [facility] Start: 07-07-2022 End: 07-08-2022 ambulatory PETRA YOUNG Facility: Start: 07-01-2022 End: 07-01-2022 Emergency department patient visit [facility] Facility:[facility] Start: 06-18-2022 End: 06-19-2022 ambulatory Petra Young [facility] Other Start: 06-18-2022 Nutrition therapy [facility] Blankenship [facility] Start: 04-28-2022 End: 04-28-2022 ambulatory Sara Landrumt Other [facility] Other Start: 04-28-2022 Telephone encounter Sara Cooley [facility] Start: 04-24-2022 End: 04-24-2022 ambulatory Petra Young Other [facility] Other Start: 04-24-2022 Office outpatient vi sit 15 minutes Petra Young [facility] Start: 04-07-2022 End: 04-07-2022 ambulatory Petra Young Other [facility] Other Start: 04-07-2022 Telephone encounter Petra cohn [facility] Start: 03-13-2022 End: 03-13-2022 ambulatory PHYSICIAN [facility] Start: 03-13-2022 End: 03-13-2022 Office outpatient new 30 minutes Ivanna Gomez MD Work Phone: [facility] Comment on above: Otalgia,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 Evaluation note* Encounter Date Diagnosis Assessment Notes Treatment Notes Treatment Clinical Notes Apr, Contact with and (suspected) exposure to other viral communicable diseases (ICD-10 - Z20.828) Today test was performed in office. Results are currently negative. That does not mean that you will not develop COVID or do not currently have a low viral count of COVID. The rapid test works best if symptoms have been over 72 hours and the results can vary if you are asymptomatic There is a higher chance of false negative results to occur if testing is performed too soon. It is recommended that even if results are negative and you have been exposed to someone that has COVID that you follow current CDC recommendations. These can be found at CDC.GOV. Follow up with primary care provider if symptoms persist or do not improve *VIRAL URI HANOUT GIVEN ON OTC TREATMENTS, FOLLOW UP AND WHEN TO SEEK EMERGENCY TREATMENT Apr, Influenza A (ICD-10 - J10.1) Symptoms presented today are related to the Flu. May use OTC medications such as Mucinex DM, Flu meds, etc. Kids can use Dimatapp or Delsym. Continue tylenol/ibu for general discomfort. Encourage fluids. Antibiotics will not treat the flu. Symptoms should improve within the next 4-7 days. Apr, Bronchitis (ICD-10 - J40) Take medications as directed. Rest and increase fluid intake. Take meds with food to prevent stomach upset. Use inhaler as needed for coughing spells and SOB. It is better to use inhaler a few times a day over the next 2-3 days. Follow up with primary care provider if symptoms do not improve with treatment plan, although it may take a few weeks for the cough to go away Apr, Other Additional time spent conducting pre-visit phone call, screening for symptoms, instructions on social distancing, application and removal of PPE, and cleaning of examination room, equipment and supplies was preformed. Patient education given for testing methodology and results. Patient care instructions given in writting by [facility] document. [facility] Other Evaluation noteNo InformationNort mPura Other Evaluation note* Diagnosis Otalgia, left- Primary Non-recurrent acute serous otitis media of left ear Conductive hearing loss of left ear with unrestricted hearing of right ear [facility] - [facility] Type Description Date Hospitalization History [facility] Proficiency Other Hisatsv general Narrative - Reported* Type Description Date Medical History seizures Hospitalization History [facility] Proficiency Other [facility] general Narrative - Reported* Type Description Date Medical History seizures Medical History Fractured back at 17 years old 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 Medical History Depression Medical History Anxiety Medical History Panic Attacks Medical History GERD Medical History Migraine Medical History Hypertension Medical History Ashtma Medical History Chronic low back pain that limit s Medical History Moderate disc and joint narrowin g Medical History Restless legs Medical History Scoliosis Hospitalization History [facility] Proficiency Other Summary Purpose Family History No Family History Records FoundNo Family History Records FoundNo Family History Records FoundNo Family History Records FoundNo Family History Records Found Advance Directives No Advanced Directives Records FoundNo Advanced Directives Records FoundNo Advanced Directives Records FoundNo Advanced Directives Records FoundNo Advanced Directives Records Found Reason for Referral Reason Patient would p refer to be seen in [facility] Diagnosis 1 Seizure disorder (G4 0.909) Referral Organization [facility] Referring Provider First Name Petra Referring Provider Last Name Hector Referring Provider Specialty Nurse Pract itioner Referred Organization [facility] Referred Address [address] ,[place],[address] Referred Provider Specialty Neurology Referral Priority Routine General Notes Sara Jackson 022 09:44:52 AM >Received today and waiting for office notes to be locked before sending referral Clinical Notes Office [phone] Reason withnessed seiz ure like activity for last few months Diagnosis 1 Observed seizure-lik e activity (R56.9) Diagnosis 2 Syncope, unspecified syncope type (R55) Referral Organization [facility] Referring Provider First Name Petra Referring Provider Last Name Hector Referring Provider Specialty Nurse Pract itioner Referred Organization [facility] Referred Provider Ulysses Schuler [facility] [address] [facility] [facility] [place],[address] Referred Provider Specialty Neurology Referral Priority Routine General Notes Sara Jackson 022 08:44:34 AM >Received today and waiting for office notes to be locked before sending referral Additional Source Comments INFORMATION SOURCE (unrecogn ized section and content) DATE CREATED AUTHOR 10/01/2017 [facility] DATE CREATED AUTHOR AUTHOR'S ORGANIZ ATION 03/14/2022 [facility] DATE CREATED AUTHOR AUTHOR'S ORGANIZ ATION 07/11/2022 [facility] DATE CREATED AUTHOR AUTHOR'S ORGANIZ ATION 07/14/2022 [facility] DATE CREATED AUTHOR AUTHOR'S ORGANIZ ATION 12/16/2022 [facility] REASON FOR VISIT (unrecogniz ed section and content) Reason Comments bulging ear drum New Patient Care Teams (unrecognized sec tion and content) Food Service Tray Attendant Relationship Specialty Start Date End Date No, Physician [facility] PCP - General 03/13/22 FOR RECORDS PERTAINING TO PATIENTS WHO ARE OR HAVE BEEN ENROLLED IN A CHEMICAL DEPENDENCY/SUBSTANCEABUSE PROGRAM, SOME INFORMATION MAY BE OMITTED. This clinical summary was aggregated from multiple sources. Caution should be exercised in using it in the provision of clinical care. This summary normalizes information from multiple sources, and as a consequence, information in this document may materially change the coding, format and clinical context of patient data. In addition, data may be omitted in some cases. CLINICAL DECISIONS SHOULD BE BASED ON THE PRIMARY CLINICAL RECORDS. [employer] [facility]. provides no warranty or guarantee of the accuracy or completeness of information in this document.
[2023-02-27 14:13] LABS: HCG Quantitative <1 mIU/mL
== END 2023-02-27 13:27 | disposition home or self-care (01) ==
LOC: LAB 13:27
PROVIDERS: Family Provider Nurse Practitioner Family; Visit Provider Obstetrics & Gynecology
DX: E28.2 Polycystic ovarian syndrome (principal); N83.9 Noninflammatory disorder of ovary, fallopian tube and broad ligament, unspecified; N97.9 Female infertility, unspecified
CPT/HCPCS: 36415; 84702

== ENCOUNTER 2023-02-27 13:30 | Day surgery (SDC) | payer MEDICAID, SELFPAY ==
--- OUTSIDE RECORDS SUMMARY | 2023-02-27 13:33 | XMS_ITS | CCD ---
Author Name Unknown Address [address] [place] [address] Organization [facility] Care Team Providers Care Hem Inspector Name Role Phone Bennett Esparza Unavailable Unavailable [...] Drug Class(es) Dates Sig (Normalized) Sig (Original) [id number] 200 actuat albuterol 0.09 mg/actuat metered dose [...] oral tablet (8 sources) alpha-Adrenergic Agonist, Uncompetitive Z-linrkd-Z-aspartat e Receptor Antagonist, Sigma-1 Agonist Start: 03-06-2020 [...] Not-Taking Start: 11-19-2021 take 1 capsule by [facility] once daily FLUoxetine HCl 10 MG 1 [...] Resolved: 04-14-2021 Episodic Other aftercare (1 source) [facility] (current) use of hormonal contraceptives; Translations: [CUSTODIAL HORMONAL CONTRACEPTIVES] Onset: 09-18-2021 Episodic Syncope (1 source) Syncope and collapse Onset: 09-03-2021 Resolved: 09-03-2021 Episodic Results Test Name Value Interpretation Reference Range Facility Coding Summaryon 07-07-2022 Coding Summary HTMLBase 64 GmgijuzzZNi4wBe+PGh lYWQ+YO9NDUUwL94etE RkpH2QB5qFMH2ZNAMEY HOCSX1GFA5slLY0RUkb C0LvypXa YzswsRCxWQ89PKs9PLJ 4hYliIWyheG7wsFOcJ7 z9ArAeFX13yE51EBfkN DPgTkP3NyIhrksgbBEu J3siWoXjlFSoSok+PHR hYmxlIHdpZHRoPScxMD CaDoPigIqhAT3nQg8yF GVyLWNvbGxhcHNlOiBj q2liEEXyLUfkQW2vgGc zH9YeoPV0NIJnw1y5Ju 48dHI+AUKjMGT7wEjdC Wpfm498XqIkm8apPYJ2 fQVvFMeoGMT0K43db9F 3SKApJTYbBWA4dNB0cE 0jzBadplohV3OlaZUxF vO9VDY2rHMpnI7xoYwu rvmigJ6xVfw+E88GGK9 NAMAQAS2DAcy6S7IjIw wvdHI+FX01QOOxCV59o MDycEHri5xisAy9EaYy QWBlKDF8bBfiZRljt1F vIELfJ05tnEJew6Q9HB VmzKpmoZMdFvCrhRN6x I8qPAlexhahs9ynlbny Khwiu7pnrf62vQ66W34 xEWvtVGKaVDN4VQTmAG RvuTvaku1oaR7zEb8+I Dbng3vav5dfnRl7CsQg ZABdfpNtiPhgIEP2p2A yJv56Q5VpsLfic1KvVj m8tz43mNNur4W8vER5Q EklWGSpaA1qONgnEgO0 YOXmWiCziC87eHZaEKx vIi6ujIbybEnzYP8yKF XivytfVAQqdO3eEEJza TYrxOqvYV9lYOZxivqk v261CbSvJTO8NRXjgPA hT5RmpE6tIqHnZAQvHB HuP5WofWXiAEgiJ188P JcyUbL7EXZcftEfT0Vs AOOceVyhImV6h3Z8Ht2 It9MdnohhWPL3CSjnFO V8ZeX4HyYmAwS9E9GqM nr2WQIuwXfvTB3wF0It KUPthkorwqajeBC5NMI nPHPgwV62pKBqEGwzOy 1le3R7v304HITsBZNvy Q41Vm4fyIddPTSdnMDP cN4djajoy2dzeepeJkQ xZYNpMKv4RBk9MLDktW uqJgIjXDG9RwC3SYU7c UEuaP6rjIwwwsdokG1i Oyc+H27nfY7gPGI7VMU 2linyVEFoyzIhZS90RC 80M9KnXmkpkVJrlIM+P HGftzOcjPpyFY5iPzGu o3pmx8VyNWixL9WkTGU oWPrcKfo9LEYjPMX4aI Q2sD9qIAJaZTuma0B9u UL3Y3RuojNqru2dq9no EBMhIMxyS09nlEAoc5W 4TWSdkOM1YPEcaOpuRm LemT21Wen+PGNvbGdyb 9FvVkgph3cyg4erdJz5 IjMwJSIgdmFsaWduPSJ 8w6UgOs71P03fIYvoSG RoPSIxNSUiIHZhbGlnb v2opF6zLs9+PGNvbCB3 oJL4aK8sBJWjSqX0RRl fP653FxFsxWWaRrbrd1 rsd4rvdGv9BuXiQCRjf kVvbYqgTPK9m9ZdMm84 A34xPNejFATbSBAcEDX mCRDjgHiqmc8xnD7hFc 8+DA7ky1yfmw01wR22i HI+XXUhBHB4vRqoYDam CUEvoG7uPFdkOrD6VBD iTkKytI53oTCjQNojUt 3noAjeiAitOH6xUPFlc crug693PjFcq3uoYUMe eZTvLJcjXDQ8W50uu3L 9UQOjAHToOMS1pPF3oC 1hbGlnbjogbGVmdDsgd eSrgNxuDVxhCLwvB991 IHRvcDsnPlBhdGllbnQ nTkTiWRk0B6XvDub9EM RwgYspFI7syPItQFpcI l7scBekxOrjPQ1hUXHy viiyq711JlVmt9qkSRH qgWTtALqqATX8M78xg4 F1MTPdCQYqBZG5yAW1g J8zyNvllljcuICttFze dbNmpZqbZAfhUPsbL57 6IHRvcDsnPkJpcnRoIE GmbCE4WV46DS46rHLdw 2R1aEF6G4KcANEfxxps cvkxpRD0XPSkXEDtcZ3 3Ri0sgLriLv3iZRWrSE Q1MOClvOZmP1GygN0dQ oXnLGHhNAWfA4DgbRUw DXgbM098NHfgUjQ5WWO rkbOjP7UxEFMnsIddIe F4u1O4Js2DP9B1LF78U C87vATet8M0dLA6A1Zn KWOtszkegusxlDZ7KSB xJZSyoN92Dd9guPvzGv 7cHEEyDPQ8TVXxyVGdW 0PhmQ4kObJwBELcFKXg J7PfnUUwQMuiV649WNr jWhJ1DMGnmxIpH5PbSW BlsHlbWgH8u5O4Xm2UY My5DM92PA82mPBqe0Z3 xCW4R8LbJHKuegawlbz snRY0HOFvRQRolS64Eg 1qlXouMc6kGJEfHPU5L PJjrAIyU8RxwY6xUqQi JPBtAOFbL1RswGBjBWy tB848TTswRmJ7RYFhob UuQ4HdPVFhqYmiNnB0f 8Z6Nw1BNUJoRC20VIV1 yWG3CT23VZ93U1JiReh vdGFibGU+PHRhYmxlIH dpZHRoPScxMDAlJyBzd UzsRG1aWb6aBVCkAFXv oJubbEZqIuKij9kkJTQ jZHzjMW5uiDlmT2LjuZ H0NUBkb1m8Ox63E33zF 3JvdXA+WUFufWS9cHE5 cQ8nHnTaWvC5ZSwvR88 8KkWukXWdPsxhh4kwx2 namUn6KcP6OLZgkeNcf ZfeUJI9f3FlPi19X82r IHdpZHRoPSIxNSUiIHZ hyPrnyp2ydC8gDy7+PG GtqLN9qTW5eK8oNcIoM kC7XEhoI665QvBtcJFt Pnnun1wsn8sesTb0UgU iOIQhkyUgvVwqHVK5c2 XeCd16M4PjqSqqj9BtB fi4ie33lNKun1M2vHB1 Q9OjZMGgdpztbIQsiOh qXV7eQEOoeyrkEAMjrF 6vOFJkC9o7BlGcYwK0N YgiK4AfycO7DYVspZMs CQwjRGS8Z30sh9Z1WIX qMFUyBKN8sUP9eS5mcL lnbjogbGVmdDsgdmVyd GkrFQcqMQfhH135YITy jLboEDUatO0iJVQqyWO gtXvhQJ0jTCUpfywdEt RPUlNFWSwgQUxFWEEgT jwvdGQ+EAUuAZK1mKhk MOjaXXCpdY5yDINrI7g 3KqVyXmT7GWyrR5GoCK TmbruvAa30kB7hFwYwY nI5TXrnM9CxqvN8HOFi hGWpVOucGXE2G48qi2J 5VULhWWLkERO5xNO6uP 1hbGlnbjogbGVmdDsgd aOhiEdvCFviBLnpB465 CLHwuPcgUrBjCcK2OsP 6UES5N9ZlJlh2ESIkkV bdFE2oxMMjXAoqEe3ur UbdhLikGC9iFUCklfqb HGBkxV6fMULkzFYsgDr aVM1vAGEetztdg967Cf GwXLO1RXOdtENsD6Bnc I0rHhHsRNGbHYTuJ9Sd tMRpJNljX911MZvwDxY 0PBYnqxJtL9DqCPGnpB zwGvB7t9T4Fy8jJoHDJ WFyczwvdGQ+PHRkIHN0 pWpdPRbjGAIrbZ9wGKC iA9q0ZcZcScN1GJsyE3 KpZGYbmqcfNb71jY3wE eCwJdA9DQksO2HvmdJ9 LMTnjRFfMLolJKB6N25 rv6T6YNGzKCLaYNZ5bJ D9bR0nlPxyjjvrdIWco DsgdmVydGljYWwtYWxp N817LZBjuUnsPzQNJOP MRTwvdGQ+VCZrRBS4sA oeLWbmAXUnnD3zIKWiI 6a3KvHpSeU6CXxxQ3Nb PGEmekliOk45oR0gIqC rPgU7AXonV2XreyF8BG VpqHOaSQvpPJI8Y83hb 4A2QGDkWJZoYEM7cVO8 vV2mvNirphmadGMqhDy gdmVydGljYWwtYWxpZ2 46IHRvcDsnPkVtZXJnZ B0bdSlboJN+NI45nu30 K8XeZhpnVid0TBXdWHI 5jJI0dV6pKSOeTCsho2 K9tEA7Z6SzehIigh2ij 0paCKTsBByuY15cjMSh e8E9XOEfoQO4NOUqkLs dVhKuhE31Tmd+PGNvbG ckt7EhQbbav9qix8lab Gu7FxHnJFLsxhRmlVdk SOX3u0MuEv46W55nYXi pZHRoPSIzMCUiIHZhbG jzlb4hvX2lYi4+PGNvb WR9cCT6wB7xIhDyPaD0 MUijC997NeLcmFVxSsy qv4yqu9lcsSk3JmOrLQ AorzDhbEyoXEP9x6FbF n83E5CkiGied7IaWat5 tl52hSLeh2H3bZS0A1A hZGRpbmctbGVmdDogMC 6xFBJubdltSOAqsQ6rV PBsD6q9FiXzVxP5RFfo M7OfqxX7VSJddCNzMOI qyPWQxV8fvhxbg1tjdo odJmIdNQQbDUh8RKp9R KLtgNxxRjGcKMP0NfB4 RTV4fADmpD1fxKddjzy xjS2lQoh+FRg5q1ccjE VwLH5zaJZ2QH10GG05g AZez7F1pSD9H9MbBUCh ewmkwspeiSQ3IHSaSLY vzU21Dx6mvDwiSa4eTF GiONT3OAXarQSfK5Hvu E3tXpBtEWZnQKAhI8Lx tURxAIntA459VEzzQjD 7ZEPhwrZzC3FhJUHekZ duPwK7i6Z8Qp7YKP00M N09NZ46fOZsp1K6bLC8 T1HnEGAnfsccdceamEU 1DUQlFZAbqD83Me9jcV xzEa0qGRWuNZZ7IXDgh EKjC0NliQ6xDtPoFGKx BCAxX4ZviZMpANwfR29 4KKcqAzO9GECohcQmG2 MiKVYnqTxcAlV6n9O7U t6DPg34RF36DP41nKLv m0I5fYE7U7UzSURirej ozhilkUQ3RVPzYCOiaX 21Rg4sfOsmGa1pVMReV YK9ZBKcaDLgW4LnzA7i QoVhHRYpFZTvH8CqjXB tBNgvZ191GSutPmQ5DY ZpwgRrK9AaWOCtxDidI hU7i9U4Uj8RCTixhqi1 P5YlCphljTZ+YV51MTA mOO73lBBtbHIxq7yutT v8WqJgPPEdCTP7wJlkS Hmsx8LdRPRcU38woTOh c2U (more content not included)... Normal [facility] US PELVIS AND TRANSVAGon US PELVIS [...] WISAM MORALES Date: 2022-07-07 10:40 Normal [facility] C Throaton 07-03-2022 C Throat Ordered by Discern. Normal throat christian isolated No pathogens isolated [facility] Comment on above: Performed By: #### [id number] #### [facility] (DEFAULT) [address] [place] [address] .QC SARS-CoV-2 (COVID-19)/Fl u/RSV (GeneXpert)on 07-01-2022 Internal Control Pass Normal [facility] Comment on above: Order Comment: Order ed by Discern. [[email or web address]] Performed By: #### 7 [id number] #### [facility] (DEFAULT) [address] [place] [address] COVID/Flu/RSV (GeneXpert)on 07-01-2022 Flu A (GXpert COVFLURSV) Negative Normal Negative [facility] Comment on above: Performed By: #### 7 [id number] #### [facility] (DEFAULT) [address] [place] [address]09 Flu B (GXpert COVFLURSV) Negative Normal Negative [facility] Comment on above: Performed By: #### 7 [id number] #### [facility] (DEFAULT) [address] [place] [address] 26577 RSV (GXpert COVFLURSV) Negative Normal Negative [facility] Comment on above: Performed By: #### 7 [id number] #### [facility] (DEFAULT) [address] [place] [address] SARS-CoV-2 (COVID-19) RNA JOAN+probe Ql (Unsp spec) Negative Normal Negative [facility] Comment on above: Result Comment: Perf ormed by PCR methodology. Performed By: #### 7 [id number] #### [facility] (DEFAULT) [address] [place] [address]45 ED Clinical Summaryon 2022 ED Clinical Summary [facility] - Emergency Department [address] [place] [address] [id number] ED Clinical Summary PERSON INFORMATION Name: KRISHNA GLOVER Age: 27 Years Sex: FEMALE : 1995 MRN: Acct#: Visit Reason: Headache; Ear pain; UC - Sore Throat; SORE THROAT, CONGESTION, BILAT EAR PAIN Arrival: 07/01/2022 09:15:55 Discharge: 07/01/2022 11:05:00 LOS: 000 01:50 Check In: 07/01/2022 09:15:55 Checkout:07/01/2022 11:05:00 Address: [address] [place] [address] PCP: Provider, None PROVIDER INFORMATION Provider Role [...] INFORMATION Instructions: Viral Illness, Adult; Hypertension, Adult, Clrd-he-Modc Follow-Up: With: Address: When: Follow up with primary care provider Within 3 to 5 days DIAGNOSIS: 1:Viral syndrome; 2:Elevated blood pressure reading Patient Understands: Yes - Patient/family/special needs caregiver verbalizes understanding of instructions given Comment: Normal [facility] ED Patient Summaryon 023 ED Patient Summary [facility] - Emergency Department [address] [place] [address] [id number] PATIENT DISCHARGE INSTRUCTIONS Patient Information Name: KRISHNA GLOVER Age: 27 Years Date of : 1995 Reason For Visit: Headache; Ear pain; UC - Sore Throat; SORE THROAT, CONGESTION, BILAT EAR PAIN Arrival Time: 07/01/2022 09:15:55 Primary Care Physician: Provider, None Attending Physician: bNa Guaman MD Comment: Visit Diagnosis: Diagnoses This Visit Ear pain ([id number]) Elevated blood pressure reading (R03.0) Headache ([id number]) UC - Sore Throat ([id number]) Viral syndrome (B34.9) The Pharmacy at [facility] is open Thursday through Thursday from 9A [...] alcohol and/or drug addiction problems; contact the [facility] 22/09 Crisis Hotline -Text 4CGAW vp [phone]. If you received any narcotics, sedation, or [...] and treatment you received today in the [facility] Emergency Department were for an urgent problem and are not intended as complete care. It is important for you to follow up with a doctor, nurse practitioner, or physician?s perioperative assistant for ongoing care. If your symptoms [...] so we can reach you if necessary. [facility] Emergency Department has provided you with a complete list of medications post discharge. Please inform your hr representative/provider of your visit and for further instruction [...] (influenza). Long-term (more content not included)... Normal [facility] Strep Aon 07-01-2022 Strep procedure control Pass Normal [facility] Comment on above: Performed By: #### 4 [id number] #### [facility] (DEFAULT) [address] [place] [address] Streptococcus A Negative Normal Negative [facility] Comment on above: Performed By: #### 4 [id number] #### [facility] (DEFAULT) [address] [place] [address] CBC AUTO DIFFon 09-16-2021 BASO # 0.0 103/ul Normal 0.0-0.1 [facility] Comment on above: Performed By: #### C BC #### [facility] [address] [place] [address] Dr. Jake Gallardo Basophils/100 WBC (Bld) 0.3 % Normal 0.2-2.0 [facility] Comment on above: Performed By: #### C BC #### [facility] [address] [place] [address] Dr. Jake Gallardo EO # 0.1 103/ul Normal 0.0-0.7 [facility] Comment on above: Performed By: #### C BC #### [facility] [address] [place] [address] Dr. Jake Gallardo Eosinophils/100 WBC (Bld) 1.9 % Normal 0.9-7.0 [facility] Comment on above: Performed By: #### C BC #### [facility] [address] [place] [address] Dr. Jake Gallardo Erythrocyte distribution width (RBC) [Ratio] 12.6 % Normal 11.0-15.0 [facility] Comment on above: Performed By: #### C BC #### [facility] [address] [place] [address] Dr. Jake Gallardo Hematocrit (Bld) [Volume fraction] 42.4 % Normal 36.0-48.0 [facility] Comment on above: Performed By: #### C BC #### [facility] [address] [address] [address] Jake Gallardo Hemoglobin (Bld) [Mass/Vol] 14.0 g/dL Normal 12.0-16.0 [facility] Comment on above: Performed By: #### C BC #### [facility] [address] [address] [address] Jake Gallardo IG # 0.01 10e3/ul Normal 0.00-0.03 [facility] Comment on above: Performed By: #### C BC #### [facility] [address] [place] [address] Dr. Jake Gallardo IG % 0.1 % Normal 0.0-0.5 [facility] Comment on above: Performed By: #### C BC #### [facility] [address] [place] [address] Dr. Jake Gallardo LYMPH # 1.0 103/ul Critically low 1.2-3.8 [facility] Comment on above: Performed By: #### C BC #### [facility] [address] [place] [address] Dr. Jake Gallardo Lymphocytes/100 WBC (Bld) 14.9 % Critically low 20.5-60.0 [facility] Comment on above: Performed By: #### C BC #### [facility] [address] [place] [address] Dr. Jake Gallardo MANUAL DIFF REQ NO Normal [facility] Comment on above: Performed By: #### C BC #### [facility] [address] [place] [address] Dr. Jake Gallardo MCH (RBC) [Entitic mass] 30.4 pg Normal 26.7-34.0 [facility] Comment on above: Performed By: #### C BC #### [facility] [address] [place] [address] Dr. Jake Gallardo MCHC (RBC) [Mass/Vol] 33.0 g/dL Normal 29.9-35.2 [facility] Comment on above: Performed By: #### C BC #### [facility] [address] [address] [address] Jake Gallardo MCV (RBC) [Entitic vol] 92.2 fL Normal 81.0-99.0 [facility] Comment on above: Performed By: #### C BC #### [facility] [address] [address] [address] Jake Gallardo MONO # 0.3 103/ul Normal 0.3-0.8 [facility] Comment on above: Performed By: #### C BC #### [facility] [address] [place] [address] Dr. Jake Gallardo Monocytes/100 WBC (Bld) 4.9 % Normal 1.7-12.0 [facility] Comment on above: Performed By: #### C BC #### [facility] [address] [place] [address] Dr. Jake Gallardo NEUT # 5.2 103/ul Normal 1.4-6.5 [facility] Comment on above: Performed By: #### C BC #### [facility] [address] [place] [address] Dr. Jake Gallardo Neutrophils/100 WBC (Bld) 77.9 % Critically high 43.0-75.0 [facility] Comment on above: Performed By: #### C BC #### [facility] [address] [place] [address] Dr. Jake Gallardo Platelet mean volume (Bld) [Entitic vol] 10.5 fL Normal 9.5-13.5 [facility] Comment on above: Performed By: #### C BC #### [facility] [address] [place] [address] Dr. Jake Gallardo PLT 226 103/ul Normal 150-450 [facility] Comment on above: Performed By: #### C BC #### [facility] [address] [place] [address] Dr. Jake Gallardo RBC 4.60 106/ul Normal 4.20-5.40 [facility] Comment on above: Performed By: #### C BC #### [facility] [address] [address] [address] Jake Gallardo WBC 6.7 103/ul Normal 4.0-11.0 [facility] Comment on above: Performed By: #### C BC #### [facility] [address] [place] [address] HEAD WO CONon [...] WISAM MORALES Date: 2021-09-16 15:09 Normal [facility] CULTURE URINEon 09-16-2021 CULTURE URINE Culture Observations: LIGHT GROWTH OF MIXED GENITAL CHRISTIAN. NO POTENTIAL PATHOGENS SEEN. Normal [facility] Comment on above: Performed By: #### U RCX #### [facility] [address] [place] [address] Dr. Jake Gallardo DRUG SCREEN RAPID (URINE)on 09-16-2021 AMP Negative Normal NEGATIVE [facility] Comment on above: Performed By: #### C BC #### [facility] [address] [place] [address] Dr. Jake Gallardo BAR Negative Normal NEGATIVE [facility] Comment on above: Performed By: #### C BC #### [facility] [address] [place] [address] Dr. Jake Gallardo BUP Negative Normal NEGATIVE [facility] Comment on above: Performed By: #### C BC #### [facility] [address] [place] [address] Dr. Jake Gallardo BZO Negative Normal NEGATIVE [facility] Comment on above: Performed By: #### C BC #### [facility] [address] [place] [address] Dr. Jake Gallardo SUNDEEP Negative Normal NEGATIVE [facility] Comment on above: Performed By: #### C BC #### [facility] [address] [place] [address] Dr. Jake Gallardo CUT-OFFS SEE BELOW Normal [facility] Comment on above: Result Comment: AMP [...] ng/mL Performed By: #### C BC #### [facility] [address] [place] [address] Dr. Jake Gallardo DRUG CUT HEADER DRUG CLASS TEST SYSTEM CUT-OFF CONCENTRATIONS ARE FOLLOWS: Normal [facility] Comment on above: Performed By: #### C BC #### [facility] [address] [place] [address] Dr. Jake Gallardo mAMP Negative Normal NEGATIVE [facility] Comment on above: Performed By: #### C BC #### [facility] [address] [place] [address] Dr. Jake Gallardo MTD Negative Normal NEGATIVE [facility] Comment on above: Performed By: #### C BC #### [facility] [address] [place] [address] Dr. Jake Gallardo OPI Negative Normal NEGATIVE [facility] Comment on above: Performed By: #### C BC #### [facility] [address] [place] [address] Dr. Jake Gallardo OXY Negative Normal NEGATIVE [facility] Comment on above: Performed By: #### C BC #### [facility] [address] [place] [address] Dr. Jake Gallardo PCP Negative Normal NEGATIVE [facility] Comment on above: Performed By: #### C BC #### [facility] [address] [place] [address] Dr. Jake Gallardo PPX Negative Normal NEGATIVE [facility] Comment on above: Performed By: #### C BC #### [facility] [address] [place] [address] Dr. Jake Gallardo TCA Negative Normal NEGATIVE [facility] Comment on above: Performed By: #### C BC #### [facility] [address] [place] [address] Dr. Jkae Gallardo THC Negative Normal NEGATIVE [facility] Comment on above: Performed By: #### C BC #### [facility] [address] [place] [address] Dr. Jake Gallardo ER URINE PROFILEon 2 Bilirubin Ql (U) Negative Normal NEGATIVE [facility] Comment on above: Performed By: #### C BC #### [facility] [address] [place] [address] Dr. Jake Gallardo Clarity (U) CLEAR Normal CLEAR [facility] Comment on above: Performed By: #### C BC #### [facility] [address] [place] [address] Dr. Jake Gallardo Color (U) LT. YELLOW Normal YELLOW [facility] Comment on above: Performed By: #### C BC #### [facility] [address] [place] [address] Dr. Jake Gallardo ERUAHD A micrscopic examination will be performed if indicated. Normal [facility] Comment on above: Performed By: #### C BC #### [facility] [address] [place] [address] Dr. Jake Gallardo Glucose Ql (U) Negative Normal NEGATIVE [facility] Comment on above: Performed By: #### C BC #### [facility] [address] [place] [address] Dr. Jake Gallardo Hemoglobin Ql (U) TRACE-INTACT Abnormal NEGATIVE [facility] Comment on above: Performed By: #### C BC #### [facility] [address] [place] [address] Dr. Jake Gallardo Ketones Ql (U) Negative Normal NEGATIVE [facility] Comment on above: Performed By: #### C BC #### [facility] [address] [place] [address] Dr. Jake Gallardo LEUKOCYTES TRACE Abnormal NEGATIVE [facility] Comment on above: Performed By: #### C BC #### [facility] [address] [place] [address] Dr. Jake Gallardo Nitrite Ql (U) Negative Normal NEGATIVE [facility] Comment on above: Performed By: #### C BC #### [facility] [address] [place] [address] Dr. Jake Gallardo pH (U) 6.0 [pH] Normal 5-9 [facility] Comment on above: Performed By: #### C BC #### [facility] [address] [place] [address] Dr. Jake Gallardo SPEC GRAVITY 1.025 Normal 1.005-<=1.025 [facility] Comment on above: Performed By: #### C BC #### [facility] [address] [place] [address] Dr. Jake Gallardo UA PROTEIN Negative Normal NEGATIVE/ TRACE [facility] Comment on above: Performed By: #### C BC #### [facility] [address] [place] [address] Dr. Jake Gallardo UR MICRO IND INDICATED Normal [facility] Comment on above: Performed By: #### C BC #### [facility] [address] [place] [address] Dr. Jake Gallardo Urobilinogen Qn (U) 0.2 {Manny'U}/dL Normal 0.2 - 1.0 [facility] Comment on above: Performed By: #### C BC #### [facility] [address] [place] [address] Dr. Jake Gallardo PREG HCG QUALon 09-16-2021 , QUAL Negative Normal NEGATIVE [facility] Comment on above: Performed By: #### P REG #### [facility] [address] [place] [address] Dr. Jake Gallardo PROF 14(COMP METB)on 022 Albumin [Mass/Vol] 3.5 g/dL Normal 3.4-5.0 [facility] Comment on above: Performed By: #### C MP, TSH, HSTROPN #### [facility] [address] [place] [address] Dr. Jake Gallardo Albumin/Globulin [Mass ratio] 0.9 {ratio} Normal [facility] Comment on above: Performed By: #### C MP, TSH, HSTROPN #### [facility] [address] [place] [address] Dr. Jake Gallardo ALP [Catalytic activity/Vol] 42 U/L Critically low 46-116 [facility] Comment on above: Performed By: #### C MP, TSH, HSTROPN #### [facility] [address] [place] [address] Dr. Jake Gallardo ALT [Catalytic activity/Vol] 22 U/L Normal 14-59 [facility] Comment on above: Performed By: #### C MP, TSH, HSTROPN #### [facility] [address] [place] [address] Dr. Jake Gallardo Anion gap [Moles/Vol] 15.0 mmol/L Normal [facility] Comment on above: Performed By: #### C MP, TSH, HSTROPN #### [facility] [address] [place] [address] Dr. Jake Gallardo AST [Catalytic activity/Vol] 15 U/L Normal 15-37 [facility] Comment on above: Performed By: #### C MP, TSH, HSTROPN #### [facility] [address] [place] [address] Dr. Jake Gallardo Bilirubin [Mass/Vol] 0.4 mg/dL Normal 0.2-1.0 [facility] Comment on above: Performed By: #### C MP, TSH, HSTROPN #### [facility] [address] [address] [address] Jake Gallardo Calcium [Mass/Vol] 9.1 mg/dL Normal 8.5-10.1 [facility] Comment on above: Performed By: #### C MP, TSH, HSTROPN #### [facility] [facility] [address] [place] [address] Dr. Jake Gallardo Chloride [Moles/Vol] 106 mmol/L Normal 98-107 [facility] Comment on above: Performed By: #### C MP, TSH, HSTROPN #### [facility] [address] [place] [address] Dr. Jake Gallardo CO2 [Moles/Vol] 22.9 mmol/L Normal 21.0-32.0 [facility] Comment on above: Performed By: #### C MP, TSH, HSTROPN #### [facility] [address] [place] [address] Dr. Jake Gallardo Creatinine [Mass/Vol] 0.74 mg/dL Normal 0.55-1.02 [facility] Comment on above: Performed By: #### C MP, TSH, HSTROPN #### [facility] [address] [place] [address] Dr. Jake Gallardo EGFR-AF ANDORRAN >60 Normal >=60 [facility] Comment on above: Performed By: #### C MP, TSH, HSTROPN #### [facility] [address] [place] [address] Dr. Jake Gallardo EGFR-NON AF ANDORRAN >60 Normal >=60 [facility] Comment on above: Performed By: #### C MP, TSH, HSTROPN #### [facility] [address] [place] [address] Dr. Jake Gallardo Globulin (S) [Mass/Vol] 4.0 g/dL Normal [facility] Comment on above: Performed By: #### C MP, TSH, HSTROPN #### [facility] [address] [place] [address] Dr. Jake Gallardo Glucose [Mass/Vol] 84 mg/dL Normal 74-106 [facility] Comment on above: Performed By: #### C MP, TSH, HSTROPN #### [facility] [address] [address] [address] Jake Gallardo Potassium [Moles/Vol] 3.9 mmol/L Normal 3.5-5.1 [facility] Comment on above: Performed By: #### C MP, TSH, HSTROPN #### [facility] [address] [address] [address] Jake Gallardo Protein [Mass/Vol] 7.5 g/dL Normal 6.4-8.2 [facility] Comment on above: Performed By: #### C MP, TSH, HSTROPN #### [facility] [address] [address] [address] Jake Gallardo Sodium [Moles/Vol] 140 mmol/L Normal 136-145 [facility] Comment on above: Performed By: #### C MP, TSH, HSTROPN #### [facility] [address] [address] [address] Jake Gallardo Urea nitrogen [Mass/Vol] 8.0 mg/dL Normal 7.0-18.0 [facility] Comment on above: Performed By: #### C MP, TSH, HSTROPN #### [facility] [address] [address] [address] Jake Gallardo Urea nitrogen/Creatinin e [Mass ratio] 10.8 mg/mg Normal [facility] Comment on above: Performed By: #### C MP, TSH, HSTROPN #### [facility] [address] [address] [address] Jake Gallardo PROTIMEon 09-16-2021 INR Coag (PPP) [Relative time] 0.96 {INR} Normal [facility] Comment on above: Performed By: #### P T, PTT #### [facility] [address] [place] [address] Dr. Jake Gallardo INR GUIDELINES SEE BELOW Normal The [facility] Comment on above: Result Comment: NASH RED INR: 2.0 - 3.0 CONDITIONS NOT LISTED BELOW 2.5 - 3.5 FOR PROSTHETIC HEART VALVE REPLACEMENT 2.5 - 3.5 RECURRENT THROMBOSIS Performed By: #### P T, PTT #### [facility] [address] [place] [address] Dr. Jake Gallardo PT Coag (PPP) [Time] 10.4 s Normal 9.0-11.6 [facility] Comment on above: Performed By: #### P T, PTT #### [facility] [address] [address] [address] Jake Gallardo PTTon 09-16-2021 aPTT Coag (Bld) [Time] 29.2 s Normal 22.3-36.2 [facility] Comment on above: Performed By: #### P T, PTT #### [facility] [address] [place] [address] Dr. Jake Gallardo TROPONIN, HIGH SENSITIVITYon 09-16-2021 HSTROP <4.0 Normal 4.0-51.3 [facility] Comment on above: Result Comment: CUT- OFF POINTS HAVE BEEN ESTABLISHED BASED ON THE FOURTH UNIVERSAL DEFINITIONS OF MYOCARDIAL INFARCTION. THE UPPER REFERENCE LIMIT (URL) OF TROPONIN, DEFINED THE 99TH PERCENTILE OF cTnI DISTRIBUTION IN A REFERENCE POPULATION, HAS BEEN CONFIRMED THE DECISION THRESHOLD FOR [place] DIAGNOSIS. Performed By: #### C MP, TSH, HSTROPN #### [facility] [address] [place] [address] Dr. Jake Gallardo TSHon 09-16-2021 TSH 2.037 uIU/mL Normal 0.358-3.740 [facility] Comment on above: Performed By: #### C MP, TSH, HSTROPN #### [facility] [address] [place] [address] Dr. Jake Gallardo URINE MICROSCOPIC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
--- NOTE | 2023-02-27 13:42 | FL_ITS ---
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 TECHNIQUE: Informed consent was obtained. A sterile vaginal speculum was introduced and, following cleansing of the cervix, a balloon-tipped catheter was inserted into the endometrial cavity. The procedure was then completed in the usual manner with water-soluble contrast. Standard level fluoroscopic mode of operation utilized. FINDINGS: FALLOPIAN TUBES: Significantly delayed spillage of contrast from both fallopian tubes. Both fallopian tubes dilated during contrast administration but did not spill into the peritoneal cavity after administration of 10 mL of contrast. An additional 5 mL was given with opening of both fallopian tubes and intraperitoneal spillage. ENDOMETRIAL CAVITY: No scarring, filling defects, or dilatation. OTHER: Negative. FL/FL Hysterosal cath placement IMPRESSION: 1. Patent fallopian tubes bilaterally after administration of contrast to assist in opening of the fallopian tubes. Electronically authenticated by: IESHA LIZAMA Date: 02/27/2023 15:30
--- NOTE | 2023-02-27 13:42 | FL_ITS ---
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 TECHNIQUE: Informed consent was obtained. A sterile vaginal speculum was introduced and, following cleansing of the cervix, a balloon-tipped catheter was inserted into the endometrial cavity. The procedure was then completed in the usual manner with water-soluble contrast. Standard level fluoroscopic mode of operation utilized. FINDINGS: FALLOPIAN TUBES: Significantly delayed spillage of contrast from both fallopian tubes. Both fallopian tubes dilated during contrast administration but did not spill into the peritoneal cavity after administration of 10 mL of contrast. An additional 5 mL was given with opening of both fallopian tubes and intraperitoneal spillage. ENDOMETRIAL CAVITY: No scarring, filling defects, or dilatation. OTHER: Negative. FL/AL hysterosalpingography IMPRESSION: 1. Patent fallopian tubes bilaterally after administration of contrast to assist in opening of the fallopian tubes. Electronically authenticated by: IESHA LIZAMA Date: 02/27/2023 15:30
--- NOTE | 2023-02-27 15:25 | SUR.PREOP ---
02/26/23 Pt instructed on procedure, date, time, and prep.
== END 2023-02-27 15:13 | disposition home or self-care (01) ==
LOC: FL 13:31
PROVIDERS: Radiology Diagnostic Radiology; Family Provider Nurse Practitioner Family; Visit Provider Obstetrics & Gynecology
DX: N92.6 Irregular menstruation, unspecified (principal); E28.2 Polycystic ovarian syndrome; N83.9 Noninflammatory disorder of ovary, fallopian tube and broad ligament, unspecified; N97.9 Female infertility, unspecified
CPT/HCPCS: 36415; 58340; 74740; 84702; Q9966

== ENCOUNTER 2023-03-23 09:27 | Outpatient (RCR) | payer MEDICAID, SELFPAY ==
[2023-03-23 10:18] LABS: HCG Quantitative 294 mIU/mL
== END 2023-03-23 09:28 | disposition home or self-care (01) ==
LOC: LAB 09:27
PROVIDERS: Family Provider Nurse Practitioner Family; Visit Provider Obstetrics & Gynecology
DX: N97.9 Female infertility, unspecified (principal); E28.2 Polycystic ovarian syndrome
CPT/HCPCS: 36415; 84144; 84702

== ENCOUNTER 2023-03-25 09:57 | Outpatient (RCR) | payer MEDICAID, SELFPAY ==
--- OUTSIDE RECORDS SUMMARY | 2023-03-25 10:03 | XMS_ITS | CCD ---
Author Name Unknown Address [address] [place] [address] Organization [facility] Care Team Providers Care Job Press Operator Name Role Phone Milan Esparza Unavailable Unavailable Petra Young Unavailable No, [...] Admitting Unavailable GRECHNY ., JAVON NICOLE Consulting UnavailPETRA Yanes Admitting Unavailable PETRA YOUNG Attending Unavailable PETRA YOUNG Primary Care Unavailable Nba Guaman Attending Unavailable Nba Guaman Admitting Unavailable Provider, None Primary Care Unavailable Petra Young Attending Unavailable Petra Young Primary Care Unavailable Petra Young Admitting Unavailable MILAN ESPARZA Attending Unavailable Medications Current Medications Medication Drug Class(es) Dates Sig (Normalized) Sig (Original) [id number] 200 actuat albuterol 0.09 mg/actuat metered dose inhaler (20 sources) beta2-Adrenergic Agonist Start: 03-06-2020 take 2 puff(s) by inhalation every four hours as needed Albuterol Sulfate HFA 108 (90 Base) MCG/ACT 2 puffs as needed Inhalation every 4 hrs Apr, Active Start: 03-06-2020 take 2 puff(s) by [...] oral tablet (8 sources) alpha-Adrenergic Agonist, Uncompetitive D-sjvdyk-Y-aspartat e Receptor Antagonist, Sigma-1 Agonist Start: 03-06-2020 [...] Not-Taking Start: 11-19-2021 take 1 capsule by [facility] once daily FLUoxetine HCl 10 MG 1 [...] Resolved: 04-14-2021 Episodic Other aftercare (1 source) 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; 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] Onset: 09-18-2021 Episodic Syncope (1 source) Syncope and collapse Onset: 09-03-2021 Resolved: 09-03-2021 Episodic Results Test Name Value Interpretation Reference Range Facility Coding Summaryon 07-07-2022 Coding Summary HTMLBase 64 SrxpwhtrGBs7tPo+PGh lYWQ+OE9AEXExH56loI TidM5BF1jCWC3ZMFOGZ CTXSU6OYI5qiRO6ZAnp K0GduwAp ZjniaPQgCI21DXh3OGH 2pJypXTuhtB1ktRYpQ3 q4TaImUU40wG47GIkpZ RSlOuG1ZfWpmxsesGDk V3odUrCbvKVdAou+PHR hYmxlIHdpZHRoPScxMD EdAbWazYdzUU6zTt6jR GVyLWNvbGxhcHNlOiBj t6twVTDtXSegGE4ahYx zA3YdsKV1KZAyw9b8Bi 48dHI+BRKyGOD4xTjmU Bguj581XlZnc3vtEVV6 qACdAMufBTG3A37ql4X 8IXLvEIDlVMJ2wTC6xG 1vwUsjpwneF2PlfQViZ aN7NJQ7lRVsqP8uuWvz fskytK9dYes+F22HRR1 WXFTQJF1JVvw5A3JpJb wvdHI+KE68KMGaFG42u WRuqDJwa9piiXw3PaVd DDHjNLR5lOxiIJpji1K aUHGwP62jbDOsg8V4EP NskQxcfJMdBuSlaWA8x Z1tWRbyzcpnf4nijttk Fifhv1toxw19yT77N79 jVXhnQKJtFHQ0YYYzLR HmpZcyko9iuZ3nBv8+I Fycd4cat4xheDs9EcNz PHOadxWbaBuyMQS8f4P xPx45C0JclZmwz8TpVe e0ua06sJFhw2K9pFN7G NybFAOmyD0tWCkjDpO1 XIJkYrZbtH00sIDmXNr dEs6xtQvwfBdfKP8iYB KthgliBCOshK3jKZIki JWxxLudEC4tHVOsqiyy n497QiVoAQR2KMBtkZA tI7FekP1kFuLbNXGyLR CiE3NnyMZwOGnbA649I HhwVmX5JYZfwoCwB8Tc VEGyiZwlPmZ3u7N2Sz7 Vx0QttkbnMTV1WAxcPU P7GaF5HeGeJkM0F4BjH us8KWKkyMkyQK1vK0Bw KYJtycofoolidYD3COZ lHPYzqY48eIIaODnvBl 7vm1K6u015SZPcCRRqq M12Vr2ejVkrYRWsgLUH kG5aynpav4vbifxfHaF wVPRaLZm8XIr5MFJdjD ofWhPdBSE7IcI2FWM2g BWzyW6rwUvvdsxzsO2d Oyc+N36ufU9vGRJ4FNM 6jkzvEJImerBaZW36WY 61W0ErSohpgXHmqFQ+P FMpffRylGuxQS2oYuTw i2kod6JfDYiwG3CpQUF wVSgkPhn5YGJmTVL6uD N5jY5uJKHqKLksd0I1u XG5A7FjzlZide4bj7xd YVEhMLnwA74swVXva8F 9IXXgyLM6VMRdyDefIy FxbJ33Qny+PGNvbGdyb 3DqYuztb1ucv7dzfSn1 IjMwJSIgdmFsaWduPSJ 5c6QeMw70Q25fISkbBP RoPSIxNSUiIHZhbGlnb g0fhF9fCv3+PGNvbCB3 iDQ4rT8pLSUsNeZ8BLp mU461ZmUwoDUjFckrz7 erm1btqYn2HcZjRJDzs lCwrPskHJJ8l1XcHk44 X28fOJobIXNpCAVzDEP vQYTbzKyfgg8rnR9yUl 8+TZ8nj3mwil77aQ68s HI+XKYvUXL6zWmaCXok QGAmzR0wUAchIlH7CMB tLjYemL26iUThGBlbEh 5cpUodoGfvWI0fLOLef biwl100CkWql2oyCXEt oHDoEFgtOJJ9O84qf5U 8SPYzOCEtVYQ2zTI6vS 1hbGlnbjogbGVmdDsgd wSbtSsjAEpcPPejJ964 IHRvcDsnPlBhdGllbnQ wPeWmHQt5I0CvSnm6PU GqtOxiXU5yuHDuKVhiR n0ffKaqmForWR2gFDIa hyyzb757JdGtw3ciMBB hnQZcERuzLQB9O73jh2 N2LUYsGVWkZDX3yQX0w C9gyEtbvmizxBAqbTgu znZlyViuMZplJZkbX15 6IHRvcDsnPkJpcnRoIE DorJT7YT54XD79kVFgb 4E9nMF4B9LtVTLsrzhf emphhPO5RWTnJJDrrC5 4Df0wlYznQe8pKMEhIC N3MULhfNVxE8ZelL9pP pBgZZIxUXPaL5XswVTg QDcqE498YPixGmK7LLX rhdMxV0AiSPLxqOtxRo R4i5U9Ht9IV0Y3LO86G F08bDKjo8C8xIE6X2Qd WQJpwvhdvhiszDQ6CSL fDLExtA57Tm8byEodHa 7tLWHjZJE7LHXwhATjI 8UhpK6mEtTkPEFkFHRl G3NnrLXjGWjrM461HPj lVxI0YGJpapIsZ7NkIO HsfUxeOsJ8v6I6Am3CQ Gd6QO84EP40yGJda1M0 nYS5Q2XeYYRllondscl oxSQ0NAMtCPLspG45Ut 5jlCzxCp3tWFPhTRR4L MYncOVqE5YwjD3jDfFx ZJLwYEPrS6CjuQGmPEr wF693QDjnDrG9XRDldt FsC4KdLRPjyGueIuO3s 5Z9Jm4GZGDkJS82FLD2 yMI1HA46NB58C3YeWpt vdGFibGU+PHRhYmxlIH dpZHRoPScxMDAlJyBzd GduKK5wYm4yDFUxSBJv oIyhfZAnNxAdn7xaXAB cHRtoDJ1uzLnaF9XnlS Q7DAKjh2z2Ip50Y17bT 3JvdXA+QIXkqGB8gHH3 rH1rQdLjKvI1DQigQ25 1LoXwrYThZruic0hpx9 oshCb1LnT7VYViooPja NbaETH4k9GiOy55I87s IHdpZHRoPSIxNSUiIHZ hyCqdmn7faN7tAj8+PG ZmiHS2lKW7dJ5tUpMtF rT5SBclM940IrXbhWFq Yzwpb9rei0zoaNf2NsU xUSJkmmTmyPfzLHX1b4 RdYq88O8VaiHkcd7MeZ lr6mu57pVBmw1D2mSO0 S4IkTOPtblcddMZqgBj qDY8qNEVbylcuBTKqzR 5oYXSwR9y4TtHeHmX6I QhwR2MtqnW3BLFirCKs TXlcEUC2U74oz4Q8PMD iPQCvXKK0gGH2fH8epV lnbjogbGVmdDsgdmVyd KgdFDgmIPplE042YADo tHpbDTJyyT5kZWFuiGY jcMsbJL3tZBMvyyliCj RPUlNFWSwgQUxFWEEgT jwvdGQ+PJZxUWG6pXrm ZXhmKDXkkK2vIMIbP9s 5EiGfIiI9CDipB5SzOO ScmrjnEq89mI7cGeVwR sT2PTqtW6NmctG1GBIe kPWeGTdcFGQ4L64hv0T 9WKPqTGWoDHL7tDA9oM 1hbGlnbjogbGVmdDsgd jDfxItcYDghTVteJ461 MCGvmZbcFeQsOjN8OlF 7QTU0P2UpLds4XSXzbA bbRO6suOKcGYxcMe7pt FdzyNscJO9hYEUxzuhe NVIfqS0sNCBfnOXsdKv aQW2mQIOukiwkz263Ef DzFZE9CNUgvPDeG2Gfs J2pXcLkPOJyCRUnW0Gc oKHtIQkbP696XSnfXgR 4KOBumuTfF4KiHPHlhQ jjViB8a0M5Ii2oKeRKA WFyczwvdGQ+PHRkIHN0 mWxzHGflMGVwrU1qGYA fY9k6UuFdYzA1TMzuP9 KeXIPegtsnVz55qM3eW bGyDaH4LOvoZ3VjyeJ5 MQQonPHaGHzvPNH0B58 eo8O5TMHjTNBoHDV3cU H3xX0ehOjwmskggMEep DsgdmVydGljYWwtYWxp W527YSHecTofZfUPVYE MRTwvdGQ+PYVoRSB7oW tsNPppAOSedM7gLBFiV 3u7UaCpFlQ5PTuyY3Mw AVMbmiuxUo32yT1mFbI cCpY7VMneX7CcalY2MN LllCEeULisRTV4P53jh 9J0BBVyKUCuAOE8yZK0 dF4haIvxgbvujQJsfEw gdmVydGljYWwtYWxpZ2 46IHRvcDsnPkVtZXJnZ B1vqAgjxDI+MM65ud02 R7EjLwleUsy8SYJhZBL 7fMZ6pE4gHBEwNUpls4 Z3vEE9Q5PvtuEbow8pu 5jhIPGqNIxiP48fxQHx j6T3SSEcuJZ4IFGwrQd iLsRikS17Djo+PGNvbG lfj3PgYprdv6qko6ahd Hw7AlHoISUkgnVdbTjt IKX9a4FlNb17M44kYKp pZHRoPSIzMCUiIHZhbG hnli6zzZ9qZn7+PGNvb IW9vJB8uV7qHjHcUmX5 YHsrT838FaCraMYkGhw qj4rpx1ambRc1BjBbJG LgtaVrhFieELR6e3JyW d68P5DizKgfw4SrYaw9 gs96nQBoz2V4mRS1E3R hZGRpbmctbGVmdDogMC 8xNSXaniytFPRhnD2nZ HFkM1t6OhOxJxV3MAzo R1CdzzS9SNVdfMNtKEO auZPMoH5qrqkaz6nydp ymRhBgUFJaNTl2KWf4I CLauSldVtDzRWI3JjW0 IVD6gMJeyS6vjAludbl heS3rKto+BJp8x3nzzO CpDL9rcTK1JF56UG70u LPeb3M2uBM9P8FgHOCu bkljrjcyyNJ7KZKhSCK shF38Zf6zxUfnIs3pWN IbHAA2VHHzdLQwL2Sba A8qMbRvYTLfLYOcV2Rm jMRwZEkkK784AZutEkF 5YBIryjAjY0EyNBGigO sfXkM5g9V5Ra9PVA40M G43RN50qSFyz8K5hAK3 Q7KmSLFlvbvyyqdfpXP 7EYUvQXUsvP13Rl6yfI obTc5dEAHqTOI7ISHvj ADqA7GhfA8oLzSgORWw RTAfP0AhrGUgNCnjM27 3QTvzVoX1AIHtnmTsL8 AjXDEdwFdpMoM2x5G3V m3ATd55UP63SM06sUAu t7N1uEM0Y6FqXVUlmgf rrfrwfBY9YBSbMSOblM 59Nq1jdTgrAh9uFAPrU FF2LFKvfUIdV2EvaD8s VdHoRXTsWKAhF3BvmKJ aEOfeJ352QRduOtD6WS AimgHuI0AsGOKfvSndP tV5a8I6Or3BKIxxkwy8 X6WqUzvszUC+TT32SFG mPU97yMEneDQoi2xgxR m4VtXgMXViRFB7zYigA Watb2UrHTZlP28vsKLr c2U (more content not included)... Normal [facility] US PELVIS AND TRANSVAGon US PELVIS [...] WISAM MORALES Date: 2022-07-07 10:40 Normal [facility] C Throaton 07-03-2022 C Throat Ordered by [facility]. Normal throat christian isolated No pathogens isolated [facility] Comment on above: Performed By: #### 4 [id number] #### [facility] (DEFAULT) [address] [place] [address] .QC SARS-CoV-2 (COVID-19)/Fl u/RSV (GeneXpert)on 07-01-2022 Internal Control Pass Normal [facility] Comment on above: Order Comment: Order ed by Gary. [[email or web address]] Performed By: #### 7 [id number], [id number] #### [facility] (DEFAULT) [address] [place] [address] COVID/Flu/RSV (GeneXpert)on 07-01-2022 Flu A (GXpert COVFLURSV) Negative Normal Negative [facility] Comment on above: Performed By: #### 7 [id number] #### [facility] (DEFAULT) [address] [place] [address] Flu B (GXpert COVFLURSV) Negative Normal Negative [facility] Comment on above: Performed By: #### 7 [id number], [id number] #### [facility] (DEFAULT) [address] [place] [address] RSV (GXpert COVFLURSV) Negative Normal Negative [facility] Comment on above: Performed By: #### 7 [id number] #### [facility] (DEFAULT) [address] [place] [address] SARS-CoV-2 (COVID-19) RNA JOAN+probe Ql (Unsp spec) Negative Normal Negative [facility] Comment on above: Result Comment: Perf ormed by PCR methodology. Performed By: #### 7 [id number], [id number] #### [facility] (DEFAULT) [address] [place] [id number] ED Clinical Summaryon 2022 ED Clinical Summary [facility] - Emergency Department [address] [place] [address] [id number] ED Clinical Summary PERSON INFORMATION Name: KRISHNA GLOVER Age: 27 Years Sex: FEMALE : 1995 MRN: Acct#: Visit Reason: Headache; Ear pain; UC - Sore Throat; SORE THROAT, CONGESTION, BILAT EAR PAIN Arrival: 07/01/2022 09:15:55 Discharge: 07/01/2022 11:05:00 LOS: 000 01:50 Check In: 07/01/2022 09:15:55 Checkout:07/01/2022 11:05:00 Address: [address] [place] [address] PCP: Provider, None PROVIDER INFORMATION Provider Role [...] INFORMATION Instructions: Viral Illness, Adult; Hypertension, Adult, [id number] Follow-Up: With: Address: When: Follow up with primary care provider Within 3 to 5 days DIAGNOSIS: 1:Viral syndrome; 2:Elevated blood pressure reading Patient Understands: Yes - 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 verbalizes understanding of instructions given Comment: Normal [facility] ED Patient Summaryon 023 ED Patient Summary [facility] - Emergency Department [address] [place] [address] [id number] PATIENT DISCHARGE INSTRUCTIONS Patient Information Name: KRISHNA GLOVER Age: 27 Years Date of : 1995 [facility]: [id number] Reason For Visit: Headache; Ear pain; UC - Sore Throat; SORE THROAT, CONGESTION, BILAT EAR PAIN Arrival Time: 07/01/2022 09:15:55 Primary Care Physician: Provider, None Attending Physician: Nba Guaman MD Comment: Visit Diagnosis: Diagnoses This Visit Ear pain ([id number]) Elevated blood pressure reading (R03.0) Headache ([id number]) UC - Sore Throat ([id number]) Viral syndrome (B34.9) The Pharmacy at [facility] is open Thursday through Thursday from 9A [...] alcohol and/or drug addiction problems; contact the [facility] 22/09 Crisis Hotline -Text 2HXMH io [phone]. If you received any narcotics, sedation, or [...] and treatment you received today in the [facility] Emergency Department were for an urgent problem and are not intended as complete care. It is important for you to follow up with a doctor, nurse practitioner, or physician?s bacteriology research assistant for ongoing care. If your symptoms [...] so we can reach you if necessary. [facility] Emergency Department has provided you with a complete list of medications post discharge. Please inform your senior quality analyst/provider of your visit and for further instruction [...] (influenza). Long-term (more content not included)... Normal [facility] Strep Aon 07-01-2022 Strep procedure control Pass Normal [facility] Comment on above: Performed By: #### 4 [id number] #### [facility] (DEFAULT) [address] [place] [address] Streptococcus A Negative Normal Negative [facility] Comment on above: Performed By: #### 4 [id number] #### [facility] (DEFAULT) [address] [place] [address] CBC AUTO DIFFon 09-16-2021 BASO # 0.0 103/ul Normal 0.0-0.1 [facility] Comment on above: Performed By: #### C BC #### [facility] [address] [place] [address] Dr. Jake Gallardo Basophils/100 WBC (Bld) 0.3 % Normal 0.2-2.0 [facility] Comment on above: Performed By: #### C BC #### [facility] [address] [place] [address] Dr. Jake Gallardo EO # 0.1 103/ul Normal 0.0-0.7 [facility] Comment on above: Performed By: #### C BC #### [facility] [address] [place] [address] Dr. Jake Gallardo Eosinophils/100 WBC (Bld) 1.9 % Normal 0.9-7.0 [facility] Comment on above: Performed By: #### C BC #### [facility] [address] [place] [address] Dr. Jake Gallardo Erythrocyte distribution width (RBC) [Ratio] 12.6 % Normal 11.0-15.0 [facility] Comment on above: Performed By: #### C BC #### [facility] [address] [place] [address] Dr. Jake Gallardo Hematocrit (Bld) [Volume fraction] 42.4 % Normal 36.0-48.0 [facility] Comment on above: Performed By: #### C BC #### [facility] [address] [place] [address] Dr. Jake Gallardo Hemoglobin (Bld) [Mass/Vol] 14.0 g/dL Normal 12.0-16.0 [facility] Comment on above: Performed By: #### C BC #### [facility] [address] [address] [address] Jake Gallardo IG # 0.01 10e3/ul Normal 0.00-0.03 [facility] Comment on above: Performed By: #### C BC #### [facility] [address] [place] [address] Dr. Jake Gallardo IG % 0.1 % Normal 0.0-0.5 [facility] Comment on above: Performed By: #### C BC #### [facility] [address] [place] [address] Dr. Jake Gallardo LYMPH # 1.0 103/ul Critically low 1.2-3.8 [facility] Comment on above: Performed By: #### C BC #### [facility] [address] [place] [address] Dr. Jake Gallardo Lymphocytes/100 WBC (Bld) 14.9 % Critically low 20.5-60.0 [facility] Comment on above: Performed By: #### C BC #### [facility] [address] [place] [address] Dr. Jake Gallardo MANUAL DIFF REQ NO Normal [facility] Comment on above: Performed By: #### C BC #### [facility] [address] [place] [address] Dr. Jake Gallardo MCH (RBC) [Entitic mass] 30.4 pg Normal 26.7-34.0 [facility] Comment on above: Performed By: #### C BC #### [facility] [address] [place] [address] Dr. Jake Gallardo MCHC (RBC) [Mass/Vol] 33.0 g/dL Normal 29.9-35.2 [facility] Comment on above: Performed By: #### C BC #### [facility] [address] [place] [address] Dr. Jake Gallardo MCV (RBC) [Entitic vol] 92.2 fL Normal 81.0-99.0 [facility] Comment on above: Performed By: #### C BC #### [facility] [address] [place] [address] Dr. Jake Gallardo MONO # 0.3 103/ul Normal 0.3-0.8 [facility] Comment on above: Performed By: #### C BC #### [facility] [address] [place] [address] Dr. Jake Gallardo Monocytes/100 WBC (Bld) 4.9 % Normal 1.7-12.0 [facility] Comment on above: Performed By: #### C BC #### [facility] [address] [place] [address] Dr. Jake Gallardo NEUT # 5.2 103/ul Normal 1.4-6.5 [facility] Comment on above: Performed By: #### C BC #### [facility] [address] [place] [address] Dr. Jake Gallardo Neutrophils/100 WBC (Bld) 77.9 % Critically high 43.0-75.0 [facility] Comment on above: Performed By: #### C BC #### [facility] [address] [place] [address] Dr. Jake Gallardo Platelet mean volume (Bld) [Entitic vol] 10.5 fL Normal 9.5-13.5 [facility] Comment on above: Performed By: #### C BC #### [facility] [address] [place] [address] Dr. Jake Gallardo PLT 226 103/ul Normal 150-450 [facility] Comment on above: Performed By: #### C BC #### [facility] [address] [place] [address] Dr. Jake Gallardo RBC 4.60 106/ul Normal 4.20-5.40 [facility] Comment on above: Performed By: #### C BC #### [facility] [address] [address] [address] Jake Gallardo WBC 6.7 103/ul Normal 4.0-11.0 [facility] Comment on above: Performed By: #### C BC #### [facility] [address] [address] HEAD WO CONon [...] WISAM MORALES Date: 2021-09-16 15:09 Normal [facility] CULTURE URINEon 09-16-2021 CULTURE URINE Culture Observations: LIGHT GROWTH OF MIXED GENITAL CHRISTIAN. NO POTENTIAL PATHOGENS SEEN. Normal [facility] Comment on above: Performed By: #### U RCX #### [facility] [address] [place] [address] Dr. Jake Gallardo DRUG SCREEN RAPID (URINE)on 09-16-2021 AMP Negative Normal NEGATIVE [facility] Comment on above: Performed By: #### C BC #### [facility] [address] [place] [address] Dr. Jake Gallardo BAR Negative Normal NEGATIVE [facility] Comment on above: Performed By: #### C BC #### [facility] [address] [place] [address] Dr. Jake Gallardo BUP Negative Normal NEGATIVE [facility] Comment on above: Performed By: #### C BC #### [facility] [address] [place] [address] Dr. Jake Gallardo BZO Negative Normal NEGATIVE [facility] Comment on above: Performed By: #### C BC #### [facility] [address] [place] [address] Dr. Jake Gallardo SUNDEEP Negative Normal NEGATIVE [facility] Comment on above: Performed By: #### C BC #### [facility] [address] [place] [address] Dr. Jake Gallardo CUT-OFFS SEE BELOW Normal [facility] Comment on above: Result Comment: AMP (Amphetamine): 500ng/mL, BAR (Barbituates): 200 ng/mL, BZO (Benzodiazepines): 150 ng/mL, BUP (Buprenorphine): 10 ng/mL, SUNDEEP (Cocaine): 150 ng/mL, mAMP (Methamphetamine): 500 ng/mL, MTD (Methadone): 200 ng/mL, OPI (Opiates): 100 ng/mL, OXY (Oxycodone): 100 ng/mL, PCP (Phencyclidine): 25 ng/mL, PPX (Propoxyphene): 300 ng/mL, THC (Cannabinoids): 50 ng/mL, TCA (Trycyclic Antidepressants): 300 ng/mL Performed By: #### C BC #### [facility] [address] [place] [address] Dr. Jake Gallardo DRUG CUT HEADER DRUG CLASS TEST SYSTEM CUT-OFF CONCENTRATIONS ARE FOLLOWS: Normal [facility] Comment on above: Performed By: #### C BC #### [facility] [address] [place] [address] Dr. Jake Gallardo mAMP Negative Normal NEGATIVE [facility] Comment on above: Performed By: #### C BC #### [facility] [address] [place] [address] Dr. Jake Gallardo MTD Negative Normal NEGATIVE [facility] Comment on above: Performed By: #### C BC #### [facility] [address] [place] [address] Dr. Jake Gallardo OPI Negative Normal NEGATIVE [facility] Comment on above: Performed By: #### C BC #### [facility] [address] [place] [address] Dr. Jake Gallardo OXY Negative Normal NEGATIVE [facility] Comment on above: Performed By: #### C BC #### [facility] [address] [place] [address] Dr. Jake Gallardo PCP Negative Normal NEGATIVE [facility] Comment on above: Performed By: #### C BC #### [facility] [address] [place] [address] Dr. Jake Gallardo PPX Negative Normal NEGATIVE [facility] Comment on above: Performed By: #### C BC #### [facility] [address] [place] [address] Dr. Jake Gallardo TCA Negative Normal NEGATIVE [facility] Comment on above: Performed By: #### C BC #### [facility] [address] [place] [address] Dr. Jake Gallardo THC Negative Normal NEGATIVE [facility] Comment on above: Performed By: #### C BC #### [facility] [address] [place] [address] Dr. Jake Gallardo ER URINE PROFILEon 2 Bilirubin Ql (U) Negative Normal NEGATIVE [facility] Comment on above: Performed By: #### C BC #### [facility] [address] [place] [address] Dr. Jake Gallardo Clarity (U) CLEAR Normal CLEAR [facility] Comment on above: Performed By: #### C BC #### [facility] [address] [place] [address] Dr. Jake Gallardo Color (U) LT. YELLOW Normal YELLOW [facility] Comment on above: Performed By: #### C BC #### [facility] [address] [place] [address] Dr. Jake TESFAYE A micrscopic examination will be performed if indicated. Normal [facility] Comment on above: Performed By: #### C BC #### [facility] [address] [place] [address] Dr. Jake Gallardo Glucose Ql (U) Negative Normal NEGATIVE [facility] Comment on above: Performed By: #### C BC #### [facility] [address] [place] [address] Dr. Jake Gallardo Hemoglobin Ql (U) TRACE-INTACT Abnormal NEGATIVE [facility] Comment on above: Performed By: #### C BC #### [facility] [address] [place] [address] Dr. Jake Gallardo Ketones Ql (U) Negative Normal NEGATIVE [facility] Comment on above: Performed By: #### C BC #### [facility] [address] [place] [address] Dr. Jake Gallardo LEUKOCYTES TRACE Abnormal NEGATIVE [facility] Comment on above: Performed By: #### C BC #### [facility] [address] [place] [address] Dr. Jake Gallardo Nitrite Ql (U) Negative Normal NEGATIVE [facility] Comment on above: Performed By: #### C BC #### [facility] [address] [place] [address] Dr. Jake Gallardo pH (U) 6.0 [pH] Normal 5-9 [facility] Comment on above: Performed By: #### C BC #### [facility] [address] [place] [address] Dr. Jake Gallardo SPEC GRAVITY 1.025 Normal 1.005-<=1.025 [facility] Comment on above: Performed By: #### C BC #### [facility] [address] [place] [address] Dr. Jake Gallardo UA PROTEIN Negative Normal NEGATIVE/ TRACE [facility] Comment on above: Performed By: #### C BC #### [facility] [address] [place] [address] Dr. Jake Gallardo UR MICRO IND INDICATED Normal [facility] Comment on above: Performed By: #### C BC #### [facility] [address] [place] [address] Dr. Jake Gallardo Urobilinogen Qn (U) 0.2 {Manny'U}/dL Normal 0.2 - 1.0 [facility] Comment on above: Performed By: #### C BC #### [facility] Laboratory [address] [address] [address] Jake Gallardo PREG HCG QUALon 09-16-2021 , QUAL Negative Normal NEGATIVE [facility] Comment on above: Performed By: #### P REG #### [facility] [address] [place] [address] Dr. Jake Gallardo PROF 14(COMP METB)on 022 Albumin [Mass/Vol] 3.5 g/dL Normal 3.4-5.0 [facility] Comment on above: Performed By: #### C MP, TSH, HSTROPN #### [facility] [address] [place] [address] Dr. Jake Gallardo Albumin/Globulin [Mass ratio] 0.9 {ratio} Normal [facility] Comment on above: Performed By: #### C MP, TSH, HSTROPN #### [facility] [address] [place] [address] Dr. Jake Gallardo ALP [Catalytic activity/Vol] 42 U/L Critically low 46-116 [facility] Comment on above: Performed By: #### C MP, TSH, HSTROPN #### [facility] [address] [place] [address] Dr. Jake Gallardo ALT [Catalytic activity/Vol] 22 U/L Normal 14-59 [facility] Comment on above: Performed By: #### C MP, TSH, HSTROPN #### [facility] [address] [place] [address] Dr. Jake Gallardo Anion gap [Moles/Vol] 15.0 mmol/L Normal [facility] Comment on above: Performed By: #### C MP, TSH, HSTROPN #### [facility] [address] [place] [address] Dr. Jake Gallardo AST [Catalytic activity/Vol] 15 U/L Normal 15-37 [facility] Comment on above: Performed By: #### C MP, TSH, HSTROPN #### [facility] [address] [place] [address] Dr. Jake Gallardo Bilirubin [Mass/Vol] 0.4 mg/dL Normal 0.2-1.0 [facility] Comment on above: Performed By: #### C MP, TSH, HSTROPN #### [facility] [address] [place] [address] Dr. Jake Gallardo Calcium [Mass/Vol] 9.1 mg/dL Normal 8.5-10.1 [facility] Comment on above: Performed By: #### C MP, TSH, HSTROPN #### [facility] [address] [place] [address] Dr. Jake Gallardo Chloride [Moles/Vol] 106 mmol/L Normal 98-107 [facility] Comment on above: Performed By: #### C MP, TSH, HSTROPN #### [facility] [address] [place] [address] Dr. Jake Gallardo CO2 [Moles/Vol] 22.9 mmol/L Normal 21.0-32.0 [facility] Comment on above: Performed By: #### C MP, TSH, HSTROPN #### [facility] [address] [place] [address] Dr. Jake Gallardo Creatinine [Mass/Vol] 0.74 mg/dL Normal 0.55-1.02 [facility] Comment on above: Performed By: #### C MP, TSH, HSTROPN #### [facility] [address] [place] [address] Dr. Jake Gallardo EGFR-AF ALGERIAN >60 Normal >=60 [facility] Comment on above: Performed By: #### C MP, TSH, HSTROPN #### [facility] [address] [place] [address] Dr. Jake Gallardo EGFR-NON AF ALGERIAN >60 Normal >=60 [facility] Comment on above: Performed By: #### C MP, TSH, HSTROPN #### [facility] [address] [place] [address] Dr. Jake Gallardo Globulin (S) [Mass/Vol] 4.0 g/dL Normal [facility] Comment on above: Performed By: #### C MP, TSH, HSTROPN #### [facility] [address] [address] [address] Jake Gallardo Glucose [Mass/Vol] 84 mg/dL Normal 74-106 [facility] Comment on above: Performed By: #### C MP, TSH, HSTROPN #### [facility] [address] [place] [address] Dr. Jake Gallardo Potassium [Moles/Vol] 3.9 mmol/L Normal 3.5-5.1 [facility] Comment on above: Performed By: #### C MP, TSH, HSTROPN #### [facility] [address] [place] [address] Dr. Jake Gallardo Protein [Mass/Vol] 7.5 g/dL Normal 6.4-8.2 [facility] Comment on above: Performed By: #### C MP, TSH, HSTROPN #### [facility] [address] [place] [address] Dr. Jake Gallardo Sodium [Moles/Vol] 140 mmol/L Normal 136-145 [facility] Comment on above: Performed By: #### C MP, TSH, HSTROPN #### [facility] [address] [place] [address] Dr. Jake Gallardo Urea nitrogen [Mass/Vol] 8.0 mg/dL Normal 7.0-18.0 [facility] Comment on above: Performed By: #### C MP, TSH, HSTROPN #### [facility] [address] [place] [address] Dr. Jake Gallardo Urea nitrogen/Creatinin e [Mass ratio] 10.8 mg/mg Normal [facility] Comment on above: Performed By: #### C MP, TSH, HSTROPN #### [facility] [address] [place] [address] Dr. Jake Gallardo PROTIMEon 09-16-2021 INR Coag (PPP) [Relative time] 0.96 {INR} Normal [facility] Comment on above: Performed By: #### P T, PTT #### [facility] [address] [place] [address] Dr. Jake Gallardo INR GUIDELINES SEE BELOW Normal [facility] Comment on above: Result Comment: NASH RED INR: 2.0 - 3.0 CONDITIONS NOT LISTED BELOW 2.5 - 3.5 FOR PROSTHETIC HEART VALVE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
[2023-03-25 10:54] LABS: HCG Quantitative 739 mIU/mL
[2023-03-27 11:53] LABS: HCG Quantitative 2916 mIU/mL
== END 2023-04-01 17:25 | disposition home or self-care (01) ==
LOC: LAB 09:57
PROVIDERS: Family Provider Nurse Practitioner Family; Visit Provider Obstetrics & Gynecology
DX: N97.9 Female infertility, unspecified (principal); E28.2 Polycystic ovarian syndrome
CPT/HCPCS: 36415; 84702

== ENCOUNTER 2023-04-02 09:08 | Outpatient (RCR) | payer MEDICAID, SELFPAY ==
[2023-04-02 11:59] LABS: HCG Quantitative 20217 mIU/mL
[2023-04-15 14:49] LABS: HCG Quantitative 105434 mIU/mL
== END 2023-04-30 17:42 | disposition home or self-care (01) ==
LOC: LAB 09:08
PROVIDERS: Family Provider Nurse Practitioner Family; Visit Provider Obstetrics & Gynecology
DX: N97.9 Female infertility, unspecified (principal); E28.2 Polycystic ovarian syndrome
CPT/HCPCS: 36415; 84702

== ENCOUNTER 2023-04-24 09:24 | Outpatient (OUT) | payer MEDICAID, SELFPAY ==
--- NOTE | 2023-04-24 09:28 | US_ITS ---
[address] [address] Patient Name: KRISHNA GLOVER MRN: [id number] date: 1995 Sex: F Assigned Patient Location: [facility] Current Patient Location: [facility] Accession/Order Number: [id number] Exam Date: 04/24/2023 09:28 Report Date: 04/24/2023 10:41 At the request of: MILAN GO Procedure: US OB transvaginal EXAMINATION: US OB transvaginal HISTORY: MISSED MENSES COMPARISON: No relevant comparison available. FINDINGS: GESTATIONAL SAC: Present and normal appearing. YOLK SAC: Present and normal appearing. POLE: Present and normal appearing. CARDIAC: Present. UTERUS: Normal size and appearance. OVARIES: Right: Normal. Left: Normal. CERVIX: 4.8 cm in length and closed. CUL-DE-SAC: Normal. OTHER: None. AGE BY LMP: 8 weeks 6 days DEBBY BY LMP: 11/28/2023 AGE BY US CRL: 9 weeks 1 day DEBBY BY US CRL: 11/26/2023 US/US OB transvaginal IMPRESSION: 1. Single live intrauterine . Electronically authenticated by: IESHA LIZAMA Date: 04/24/2023 10:41
--- OUTSIDE RECORDS SUMMARY | 2023-04-24 09:29 | XMS_ITS | CCD ---
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; Translations: [SIDEHAND HORMONAL CONTRACEPTIVES] Onset: 09-18-2021 Episodic Syncope (1 source) Syncope and collapse Onset: 09-03-2021 Resolved: 09-03-2021 Episodic Results Test Name Value Interpretation Reference Range Facility Coding Summaryon 07-07-2022 Coding Summary HTMLBase 64 XwiedireXHt4nCe+PGh lYWQ+UG1DSFTuV99fcH OhjN9AP7bRYL7AYRHUY XAUDM6FJQ5fhTN5CIuh O2PxwoJp ShxcyVJtUF70TCy1LEU 6fXrnXRggvF0fbWBkB4 c8ZkVpZX23xE81OStnW BXaBzI6QuTuahkuqLRx V4xlZrNriLWtXdp+PHR hYmxlIHdpZHRoPScxMD QzSrKgoBbdSW8zBj8cJ GVyLWNvbGxhcHNlOiBj k3crBUQlCCjrWG1mcKz oU4EiuSJ0LFVmk2r4Cp 48dHI+KIMwMXE0lLlwG Qwde714LoDta9zdBNB6 aDIwNGysDKV4H40je6Q 0PYAnXJQySNI6iUR7bW 5qnMjjzpxqC5VtbMJdO gZ4IRL5hRWtnI4rrWea hhqfwV8vNiu+K47CLM6 UQVKPYC0FOjz1E0JrHj wvdHI+QO38EOXhMS55b GZxuJPjb3lfqYg6LrTt OOVgUHQ6aNmhAKbij4P aXQGiP02quJQhe6L7RG TosXlfjHAwBrGgmZL7k K6oDGjenuupp7bxwysr Covea7svyk60bF38M23 gZThoQKUzGRL4EBYtNG DbdVyuzf7sbR0gRs3+I Jvzm1npw4zmzSr4XnPb LXCeksUvaEbmKTC3e3R cCx95E7JckUgtn8GnOc s5hb84uIQpv2A6sSP8N KlsEYGfrR1gITijQwU6 QRSbTxFyaE30oYWnCRd vVg2ijTjihRmwYZ2tVG JimihgXRLgdG9rBGSwj WFwwQmzPD3bHXGmbege l366BvXiQPU1ITTwwQP sQ1ZocZ1zBtZnGGElEQ GeC4JdoYExZLvtI811M TeoMlA4BNByyhDpP4Um FVKxoIokJeP0y9S4Ui6 Ej5YnuypzYNU1EKtmZX Q8XgM6QaScGeY3W3VhB wv6MDDaoQvjKN7tA8Yy CSWebsqhvchnxTC2KTJ xRELubW41oVYjXPovDf 8ka6E1e575OHYvBGEef L02Gy7caKtkMBUizEQY jA7ojmkzp0zpiaqkCzI kTEScLAn6ZCw1KLYhwP aaDlRuYJY1QyH3VZI6g YQboO6gjNtomewtqE9d Oyc+U11vzT1gPPS7OHY 9bzsbNJNtvcZgTK65PJ 48S6FfArfqbBLnxCB+P LRqraCthOzhAW6kNsZy a8hir5VpRYmlZ3MlKVW hLZhrVrc9SUBqRIE4kM M5fP6lLTGaLDmdm1Y8b MR1T7EjlcUoac3bw1ur TDApMCzgE92vdFCtr8Y 8UGAkkRZ7GJMduRtcAo UvfW59Tmv+PGNvbGdyb 9ZdBjavo6par0xozPj7 IjMwJSIgdmFsaWduPSJ 6n0FnRp99G64iIXrkWI RoPSIxNSUiIHZhbGlnb t5zbH9wWz9+PGNvbCB3 mAW4sZ0kWYOxNmN8AYz yY599CeDocIYcRyzry3 kzw5nihIy2JhDtYSIvy yXucTweROM4s4FhSw03 J48sSVqkIDDtMIYyWYV qDFUkbXhdvk7ruB2kOn 8+CE9ip5vjmm78qK78a HI+QPFpBSO9wQvxIZss IVVvqM5hHNszCkR0DZT xJsFohN05kHWeUBfqMk 2clEdnvIuhWM0eLDEwh dqtk967SdRhi2vkKCUw mWBcHNedUMG6W33yn8Y 5MIYdTTIrIPK7gSV1tT 1hbGlnbjogbGVmdDsgd mDhjJbaYFeyNLvwZ013 IHRvcDsnPlBhdGllbnQ mAvZrXRe1V4VfVhf6PQ RmjHajIS5nrCEgANnjU q3acHnlaBmmHN9rGUIg ngnhr242DiPfp5ipCOI ysDDaQMqzNZG1W49pu7 P7NRDqQEXkMTP2fRE4h M5etZesuzgfgIZzpLnw cySdhZpnJTrhMYpfI99 6IHRvcDsnPkJpcnRoIE SajDR0HF66SS84jKAks 2G9yUD7L1HwHKGcgdlk rtntoXD9KFSuIRIywR3 5Do0sbVyhUb9mSARjID Y3PXVtzCNsW6YxlF6jR uKrEWTzDRPrX6FnoFHm OJnbC319SIodObA5CSS vjzIuJ6FhFZBdmLzqCj T5g5Z0Qd2FC3Z4JI96U V77hSMxk0D7nVG9A9Wk JIRjkiujinauuYY1DZF qYSJhmC75Mk4qmRlaFr 1oSATmFAR2QJRytDRlJ 7GtyF9gYzKxXBYkPUYc K2TxdTSaZSchA228POt sNnQ0TDDsydPxV5HuKA ZfwDrxNlH0w7L5Lt3NY Mm1ZG98DL93gIBle5F8 zHM9B1MaFXKpumldabr fjNC1TPAaCSFjbY87Db 3kxZdvZb1gVLDsDXY6R CSicYUvA2TakY3sJlGy ESEwTCFtA7LqgAUnKJt vD509ROjxLnP3QFTktl FjJ6KqMROsyPlsEhX8k 8E4Wz4ISDLuNQ84NNP9 qWN8EY76BY81F4WqKym vdGFibGU+PHRhYmxlIH dpZHRoPScxMDAlJyBzd LtiBV0aGq3sVXRpSJFj uGspbHTiHkWfc7djOMP gFSodCM3zyLmrC7LdgV H0YFNml0o2Yw29D25dD 3JvdXA+XOZoxUK7kJQ1 eB5sVfVkJaY8BCggD18 3YxAwxFJcStvlz7nxt0 zbkNa7SwL8UDBrhzPef ElkZMD2o4XsPz04V69w IHdpZHRoPSIxNSUiIHZ jeCkboa7itI1dRb8+PG SmbQB2yGS0tA6xBsFyF gR5GXrjT758EyNtyNYf Kvekx0qlu3mxkIs3KhV nLUFljsOugKukTST8h0 TdIl98Y6VfgBnki7RhN dk4md07yIMrd0V0vJM7 Y5SpGJSksrgtxCEbwBb yRU2aNXMxjjukUCLnqQ 2dWPImR5w0SmKuUrM7I DssR2YsfuB2YXJilYMv TDrbICE0X39pc3B9VRT mSJHkREC9pAA4kF6rwG lnbjogbGVmdDsgdmVyd WriMDipGFzoP125TEVw kMrmFSOeoD1hFWQvzXM mcShvHF6cYZKlxdszOz RPUlNFWSwgQUxFWEEgT jwvdGQ+PUShYVT7aPyf NRviQPOlpS4iQUArN0p 3QjVaJgG2ANxaY3IpWS EsbrbpDa10sH0gHzQlE bS7LWzmO5VsblV5DXPo jWUzPKlrHMZ9L72yo0E 6GALeMUBcOZG1cTQ4oK 1hbGlnbjogbGVmdDsgd wOiaMljLJjsPLyvH819 AHXyjRnbFiWoAnO2VtC 2XYP8C8GlGpp6FQGnfQ kpFW0kjMGeFUdwXh4jm WcznJeiQJ5qKWTlcbwn INCpqR0rAGUnuYHrpMt kPE3uHSBxwbiew819Mp RpXXO9EAHxbKMwQ8Arz V5uWiUkORVdNJZxN8Rq zCJyPXzqH775UUhlCcL 4QMHaljHbV0YsEAKzpB xuWuC2o5J1Hb4qEyCCJ WFyczwvdGQ+PHRkIHN0 kOemTHugPRLdpD6nZCK hN6f1FkPqVwR1IPpoB8 WoHDZfjarlPd65zP9gG dKkNlH3EWqoI8UngeN5 PQSsdTHoSJnaSON6D86 fo4T8QCOiJRIeBYQ5qO Z6vO7goOrkdduhcQMql DsgdmVydGljYWwtYWxp F112LSPxtXdfXcKQYYB MRTwvdGQ+HOTnBOD8kK qfWDcjESKkaK4dVVCqW 5b5YnMoJzI9YGzdW7Gn BTJxmitnZi63fR7qKqS mGsG5XUjdK5SjmgM6JR RwtYWuGRvvYUT1G45yp 0M7MFHzPWHuMNB8lDD1 lH1cuPziajjjpLHncNd gdmVydGljYWwtYWxpZ2 46IHRvcDsnPkVtZXJnZ S0ziQwqkNN+VH16ke09 U1BsNfgqMct5BTXzHGY 1jFG8sG3mADPvNGiie8 P3iCY2N9HoaoFzti9af 5xdWJOxIRdgY17bsCTi i5F8PDCwtLL6XEWgbWb qXmTmxK24Buj+PGNvbG ndd7PqCgsld0vrq6eqm Ry8EvLoICIexbGzsTsi NEL0i6GfAg58C73rGVl pZHRoPSIzMCUiIHZhbG xoxj3vbP4yDy6+PGNvb DN4tTY3rJ2kMgLaMeT5 WGewK563JxGieBCkDkm bg7gof6vznJn1GrAhSX ZcodDwtClnQAT5m8ErA i16A3EfrOngd0CaMas8 eu31uJPvl1U9zYR8J8Q hZGRpbmctbGVmdDogMC 9mUXYzckamQYFuzU9tO NVeZ0k6YwUrRiL9KOwk T9RrveU2JWKwuHNtEFT kaKOCpK0gewfxc6xkil gcLvLyUTRmMQv4QVn4O WVkxUkyQcSgUGG7CzK7 SCE3wCWheT3yxLsujra zvP3wPul+EQd1i8udwK FmYS2ugGM0FU56AJ33l MUoy1T0uOU6C5OfYFLr dwgdkdyddDL2QFHfHAB ldS16Xf0jsVxgMl3kMQ VzCOH9KRVywZRhK0Sbj R5cZyFpPDDeBGYuD4Jy dBOsAHanI030HNazGuR 6XGYmlwUtN6UsLFLxsV rjOqG6o3G1Kc8VQR15A U68WX73mYFgo4H2mNI1 O5XqZVAuefphdvdaaTZ 1TJSrBPWpaD82Lo2vdH phAt8fJTIwUKT6MAKda BXdN4BocM6zTbFkNNCv JMEyD5YvmNPhPCjfH76 1HBxlWmJ0VRCyjwUuS5 HkOQJjfUzwVuS2s1P8M a5CGd67KN17OP98uFJu a5Z9yED9C4CmKELjrrs dsvnbiLD2AJKkXTNlfT 39Ne8adYprAj5iKMTlU IH4BMMxgFOeJ2YyaM4i ItQwQZEjJAFzZ7YmfEM sOTiuY556EQwmVwY2BE IjkzPcN5RyHYJhzMstO jF9v7Y5Ri6LMVzgwis9 A1NzZftynBI+EL80XKO bCM50fKGdqZOkv0qjuN d4KrSxBBRjAZY8vTepU Ylsw7OdVODnR65vmICd c2U (more content not included)... Normal [facility] US PELVIS AND TRANSVAGon US PELVIS [...] WISAM MORALES Date: 2022-07-07 10:40 Normal [facility] C Throaton 07-03-2022 C Throat Ordered by [employer]. Normal throat christian isolated No pathogens isolated [facility] Comment on above: Performed By: #### [id number] #### [facility] (DEFAULT) [address] [place] [address] .QC SARS-CoV-2 (COVID-19)/Fl u/RSV (GeneXpert)on 07-01-2022 Internal Control Pass Normal [facility] Comment on above: Order Comment: Order ed by Gary. [[email or web address]] Performed By: #### 7 [id number], [id number] #### [facility] (DEFAULT) [address] [place] [address] COVID/Flu/RSV (GeneXpert)on 07-01-2022 Flu A (GXpert COVFLURSV) Negative Normal Negative [facility] Comment on above: Performed By: #### 7 [id number] #### [facility] (DEFAULT) [address] [place] [address] Flu B (GXpert COVFLURSV) Negative Normal Negative [facility] Comment on above: Performed By: #### 7 [id number] #### [facility] (DEFAULT) [address] [place] [address] RSV (GXpert COVFLURSV) Negative Normal Negative [facility] Comment on above: Performed By: #### 7 [id number] #### [facility] (DEFAULT) [address] [place] [address] SARS-CoV-2 (COVID-19) RNA JOAN+probe Ql (Unsp spec) Negative Normal Negative [facility] Comment on above: Result Comment: Perf ormed by PCR methodology. Performed By: #### 7 [id number], [id number] #### [facility] (DEFAULT) [address] [place] [id number] ED Clinical Summaryon 2022 ED Clinical Summary [facility] - Emergency Department [address] [place] [address] [id number] ED Clinical Summary PERSON INFORMATION Name: KRISHNA GLOVER Age: 27 Years Sex: FEMALE : 1995 MRN: Acct#: Visit Reason: Headache; Ear pain; UC - Sore Throat; SORE THROAT, CONGESTION, BILAT EAR PAIN Arrival: 07/01/2022 09:15:55 Discharge: 07/01/2022 11:05:00 LOS: 000 01:50 Check In: 07/01/2022 09:15:55 Checkout:07/01/2022 11:05:00 Address: [address] [place] [address] PCP: Provider, None PROVIDER INFORMATION Provider Role [...] INFORMATION Instructions: Viral Illness, Adult; Hypertension, Adult, [id number] Follow-Up: With: Address: When: Follow up with primary care provider Within 3 to 5 days DIAGNOSIS: 1:Viral syndrome; 2:Elevated blood pressure reading Patient Understands: Yes - Patient/family/nurse healthcare manager verbalizes understanding of instructions given Comment: Normal [facility] ED Patient Summaryon 023 ED Patient Summary [facility] - Emergency Department [address] [place] [address] [id number] PATIENT DISCHARGE INSTRUCTIONS Patient Information Name: KRISHNA GLOVER Age: 27 Years Date of : 1995 [facility]: [id number] Reason For Visit: Headache; Ear pain; UC - Sore Throat; SORE THROAT, CONGESTION, BILAT EAR PAIN Arrival Time: 07/01/2022 09:15:55 Primary Care Physician: Provider, None Attending Physician: Nba Guaman MD Comment: Visit Diagnosis: Diagnoses This Visit Ear pain ([id number]) Elevated blood pressure reading (R03.0) Headache ([id number]) UC - Sore Throat ([id number]) Viral syndrome (B34.9) The Pharmacy at [facility] is open Thursday through Thursday from [...] alcohol and/or drug addiction problems; contact the [facility] 22/09 Crisis Hotline -Text 1BNEC vp 171961. If you received any narcotics, sedation, or [...] and treatment you received today in the [facility] Emergency Department were for an urgent problem and are not intended as complete care. It is important for you to follow up with a doctor, nurse practitioner, or physician?s medical lab assistant for ongoing care. If your symptoms [...] so we can reach you if necessary. [facility] Emergency Department has provided you with a complete list of medications post discharge. Please inform your quality control assistant/provider of your visit and for further instruction [...] (influenza). Long-term (more content not included)... Normal [facility] Strep Aon 07-01-2022 Strep procedure control Pass Normal [facility] Comment on above: Performed By: #### 4 [id number] #### [facility] (DEFAULT) [address] [place] [address] Streptococcus A Negative Normal Negative [facility] Comment on above: Performed By: #### 4 [id number] #### [facility] (DEFAULT) [address] [place] [address] CBC AUTO DIFFon 09-16-2021 BASO # 0.0 103/ul Normal 0.0-0.1 [facility] Comment on above: Performed By: #### C BC #### [facility] [address] [place] [address] Dr. Jake Gallardo Basophils/100 WBC (Bld) 0.3 % Normal 0.2-2.0 [facility] Comment on above: Performed By: #### C BC #### [facility] [address] [place] [address] Dr. Jake Gallardo EO # 0.1 103/ul Normal 0.0-0.7 [facility] Comment on above: Performed By: #### C BC #### [facility] [address] [place] [address] Dr. Jake Gallardo Eosinophils/100 WBC (Bld) 1.9 % Normal 0.9-7.0 [facility] Comment on above: Performed By: #### C BC #### [facility] [address] [place] [address] Dr. Jake Gallardo Erythrocyte distribution width (RBC) [Ratio] 12.6 % Normal 11.0-15.0 [facility] Comment on above: Performed By: #### C BC #### [facility] [address] [place] [address] Dr. Jake Gallardo Hematocrit (Bld) [Volume fraction] 42.4 % Normal 36.0-48.0 [facility] Comment on above: Performed By: #### C BC #### [facility] [address] [place] [address] Dr. Jake Gallardo Hemoglobin (Bld) [Mass/Vol] 14.0 g/dL Normal 12.0-16.0 [facility] Comment on above: Performed By: #### C BC #### [facility] [address] [address] [address] Jake Gallardo IG # 0.01 10e3/ul Normal 0.00-0.03 [facility] Comment on above: Performed By: #### C BC #### [facility] [address] [place] [address] Dr. Jake Gallardo IG % 0.1 % Normal 0.0-0.5 [facility] Comment on above: Performed By: #### C BC #### [facility] [address] [place] [address] Dr. Jake Gallardo LYMPH # 1.0 103/ul Critically low 1.2-3.8 [facility] Comment on above: Performed By: #### C BC #### [facility] [address] [place] [address] Dr. Jake Gallardo Lymphocytes/100 WBC (Bld) 14.9 % Critically low 20.5-60.0 [facility] Comment on above: Performed By: #### C BC #### [facility] [address] [place] [address] Dr. Jake Gallardo MANUAL DIFF REQ NO Normal [facility] Comment on above: Performed By: #### C BC #### [facility] [address] [place] [address] Dr. Jake Gallardo MCH (RBC) [Entitic mass] 30.4 pg Normal 26.7-34.0 [facility] Comment on above: Performed By: #### C BC #### [facility] [address] [place] [address] Dr. Jake Gallardo MCHC (RBC) [Mass/Vol] 33.0 g/dL Normal 29.9-35.2 [facility] Comment on above: Performed By: #### C BC #### [facility] [address] [place] [address] Dr. Jake Gallardo MCV (RBC) [Entitic vol] 92.2 fL Normal 81.0-99.0 [facility] Comment on above: Performed By: #### C BC #### [facility] [address] [place] [address] Dr. Jake Gallardo MONO # 0.3 103/ul Normal 0.3-0.8 [facility] Comment on above: Performed By: #### C BC #### [facility] [address] [place] [address] Dr. Jake Gallardo Monocytes/100 WBC (Bld) 4.9 % Normal 1.7-12.0 [facility] Comment on above: Performed By: #### C BC #### [facility] [address] [place] [address] Dr. Jake Gallardo NEUT # 5.2 103/ul Normal 1.4-6.5 [facility] Comment on above: Performed By: #### C BC #### [facility] [address] [place] [address] Dr. Jake Gallardo Neutrophils/100 WBC (Bld) 77.9 % Critically high 43.0-75.0 [facility] Comment on above: Performed By: #### C BC #### [facility] [address] [place] [address] Dr. Jake Gallardo Platelet mean volume (Bld) [Entitic vol] 10.5 fL Normal 9.5-13.5 [facility] Comment on above: Performed By: #### C BC #### [facility] [address] [place] [address] Dr. Jake Gallardo PLT 226 103/ul Normal 150-450 [facility] Comment on above: Performed By: #### C BC #### [facility] [address] [place] [address] Dr. Jake Gallardo RBC 4.60 106/ul Normal 4.20-5.40 [facility] Comment on above: Performed By: #### C BC #### [facility] [address] [address] [address] Jake Gallardo WBC 6.7 103/ul Normal 4.0-11.0 [facility] Comment on above: Performed By: #### C BC #### [facility] [address] [address] HEAD WO CONon [...] WISAM MORALES Date: 2021-09-16 15:09 Normal [facility] CULTURE URINEon 09-16-2021 CULTURE URINE Culture Observations: LIGHT GROWTH OF MIXED GENITAL CHRISTIAN. NO POTENTIAL PATHOGENS SEEN. Normal [facility] Comment on above: Performed By: #### U RCX #### [facility] [address] [place] [address] Dr. Jake Gallardo DRUG SCREEN RAPID (URINE)on 09-16-2021 AMP Negative Normal NEGATIVE [facility] Comment on above: Performed By: #### C BC #### [facility] [address] [place] [address] Dr. Jake Gallardo BAR Negative Normal NEGATIVE [facility] Comment on above: Performed By: #### C BC #### [facility] [address] [place] [address] Dr. Jake Gallardo BUP Negative Normal NEGATIVE [facility] Comment on above: Performed By: #### C BC #### [facility] [address] [place] [address] Dr. Jake Gallardo BZO Negative Normal NEGATIVE [facility] Comment on above: Performed By: #### C BC #### [facility] [address] [place] [address] Dr. Jake Gallardo SUNDEEP Negative Normal NEGATIVE [facility] Comment on above: Performed By: #### C BC #### [facility] [address] [place] [address] Dr. Jake Gallardo CUT-OFFS SEE BELOW Normal [facility] Comment on above: Result Comment: AMP (Amphetamine): 500ng/mL, BAR (Barbituates): 200 ng/mL, BZO (Benzodiazepines): 150 ng/mL, BUP (Buprenorphine): 10 ng/mL, SUNDEEP (Cocaine): 150 ng/mL, mAMP (Methamphetamine): 500 ng/mL, MTD (Methadone): 200 ng/mL, OPI (Opiates): 100 ng/mL, OXY (Oxycodone): 100 ng/mL, PCP (Phencyclidine): 25 ng/mL, PPX (Propoxyphene): 300 ng/mL, THC (Cannabinoids): 50 ng/mL, TCA (Trycyclic Antidepressants): 300 ng/mL Performed By: #### C BC #### [facility] [address] [place] [address] Dr. Jake Gallardo DRUG CUT HEADER DRUG CLASS TEST SYSTEM CUT-OFF CONCENTRATIONS ARE FOLLOWS: Normal [facility] Comment on above: Performed By: #### C BC #### [facility] [address] [place] [address] Dr. Jake Gallardo mAMP Negative Normal NEGATIVE [facility] Comment on above: Performed By: #### C BC #### [facility] [address] [place] [address] Dr. Jake Gallardo MTD Negative Normal NEGATIVE [facility] Comment on above: Performed By: #### C BC #### [facility] [address] [place] [address] Dr. Jake Gallardo OPI Negative Normal NEGATIVE [facility] Comment on above: Performed By: #### C BC #### [facility] [address] [place] [address] Dr. Jake Gallardo OXY Negative Normal NEGATIVE [facility] Comment on above: Performed By: #### C BC #### [facility] [address] [place] [address] Dr. Jake Gallardo PCP Negative Normal NEGATIVE [facility] Comment on above: Performed By: #### C BC #### [facility] [address] [place] [address] Dr. Jake Gallardo PPX Negative Normal NEGATIVE [facility] Comment on above: Performed By: #### C BC #### [facility] [address] [place] [address] Dr. Jake Gallardo TCA Negative Normal NEGATIVE [facility] Comment on above: Performed By: #### C BC #### [facility] [address] [place] [address] Dr. Jake Gallardo THC Negative Normal NEGATIVE [facility] Comment on above: Performed By: #### C BC #### [facility] [address] [place] [address] Dr. Jake Gallardo ER URINE PROFILEon 2 Bilirubin Ql (U) Negative Normal NEGATIVE [facility] Comment on above: Performed By: #### C BC #### [facility] [address] [place] [address] Dr. Jake Gallardo Clarity (U) CLEAR Normal CLEAR [facility] Comment on above: Performed By: #### C BC #### [facility] [address] [place] [address] Dr. Jake Gallardo Color (U) LT. YELLOW Normal YELLOW [facility] Comment on above: Performed By: #### C BC #### [facility] [address] [place] [address] Dr. Jake TESFAYE A micrscopic examination will be performed if indicated. Normal [facility] Comment on above: Performed By: #### C BC #### [facility] [address] [place] [address] Dr. Jake Gallardo Glucose Ql (U) Negative Normal NEGATIVE [facility] Comment on above: Performed By: #### C BC #### [facility] [address] [place] [address] Dr. Jake Gallardo Hemoglobin Ql (U) TRACE-INTACT Abnormal NEGATIVE [facility] Comment on above: Performed By: #### C BC #### [facility] [address] [place] [address] Dr. Jake Gallardo Ketones Ql (U) Negative Normal NEGATIVE [facility] Comment on above: Performed By: #### C BC #### [facility] [address] [place] [address] Dr. Jake Gallardo LEUKOCYTES TRACE Abnormal NEGATIVE [facility] Comment on above: Performed By: #### C BC #### [facility] [address] [place] [address] Dr. Jake Gallardo Nitrite Ql (U) Negative Normal NEGATIVE [facility] Comment on above: Performed By: #### C BC #### [facility] [address] [place] [address] Dr. Jake Gallardo pH (U) 6.0 [pH] Normal 5-9 [facility] Comment on above: Performed By: #### C BC #### [facility] [address] [place] [address] Dr. Jake Gallardo SPEC GRAVITY 1.025 Normal 1.005-<=1.[address] [facility] Comment on above: Performed By: #### C BC #### [facility] [address] [place] [address] Dr. Jake Gallardo UA PROTEIN Negative Normal NEGATIVE/ TRACE [facility] Comment on above: Performed By: #### C BC #### [facility] [address] [place] [address] Dr. Jake Gallardo UR MICRO IND INDICATED Normal [facility] Comment on above: Performed By: #### C BC #### [facility] [address] [place] [address] Dr. Jake Gallardo Urobilinogen Qn (U) 0.2 {Manny'U}/dL Normal 0.2 - 1.0 [facility] Comment on above: Performed By: #### C BC #### [facility] [address] [address] [address] Jake Gallardo PREG HCG QUALon 09-16-2021 , QUAL Negative Normal NEGATIVE [facility] Comment on above: Performed By: #### P REG #### [facility] [address] [place] [address] Dr. Jake Gallardo PROF 14(COMP METB)on 022 Albumin [Mass/Vol] 3.5 g/dL Normal 3.4-5.0 [facility] Comment on above: Performed By: #### C MP, TSH, HSTROPN #### [facility] [address] [place] [address] Dr. Jake Gallardo Albumin/Globulin [Mass ratio] 0.9 {ratio} Normal [facility] Comment on above: Performed By: #### C MP, TSH, HSTROPN #### [facility] [address] [place] [address] Dr. Jake Gallardo ALP [Catalytic activity/Vol] 42 U/L Critically low 46-116 [facility] Comment on above: Performed By: #### C MP, TSH, HSTROPN #### [facility] [address] [place] [address] Dr. Jake Gallardo ALT [Catalytic activity/Vol] 22 U/L Normal 14-59 [facility] Comment on above: Performed By: #### C MP, TSH, HSTROPN #### [facility] [address] [place] [address] Dr. Jake Gallardo Anion gap [Moles/Vol] 15.0 mmol/L Normal [facility] Comment on above: Performed By: #### C MP, TSH, HSTROPN #### [facility] [address] [place] [address] Dr. Jake Gallardo AST [Catalytic activity/Vol] 15 U/L Normal 15-37 [facility] Comment on above: Performed By: #### C MP, TSH, HSTROPN #### [facility] [address] [place] [address] Dr. Jake Gallardo Bilirubin [Mass/Vol] 0.4 mg/dL Normal 0.2-1.0 [facility] Comment on above: Performed By: #### C MP, TSH, HSTROPN #### [facility] [address] [place] [address] Dr. Jake Gallardo Calcium [Mass/Vol] 9.1 mg/dL Normal 8.5-10.1 [facility] Comment on above: Performed By: #### C MP, TSH, HSTROPN #### [facility] [address] [place] [address] Dr. Jake Gallardo Chloride [Moles/Vol] 106 mmol/L Normal 98-107 [facility] Comment on above: Performed By: #### C MP, TSH, HSTROPN #### [facility] [address] [place] [address] Dr. Jake Gallardo CO2 [Moles/Vol] 22.9 mmol/L Normal 21.0-32.0 [facility] Comment on above: Performed By: #### C MP, TSH, HSTROPN #### [facility] [address] [place] [address] Dr. Jake Gallardo Creatinine [Mass/Vol] 0.74 mg/dL Normal 0.55-1.02 [facility] Comment on above: Performed By: #### C MP, TSH, HSTROPN #### [facility] [address] [place] [address] Dr. Jake Gallardo EGFR-AF NAURUAN >60 Normal >=60 [facility] Comment on above: Performed By: #### C MP, TSH, HSTROPN #### [facility] [address] [place] [address] Dr. Jake Gallardo EGFR-NON AF NAURUAN >60 Normal >=60 [facility] Comment on above: Performed By: #### C MP, TSH, HSTROPN #### [facility] [address] [place] [address] Dr. Jake Gallardo Globulin (S) [Mass/Vol] 4.0 g/dL Normal [facility] Comment on above: Performed By: #### C MP, TSH, HSTROPN #### [facility] [address] [address] [address] Jake Gallardo Glucose [Mass/Vol] 84 mg/dL Normal 74-106 [facility] Comment on above: Performed By: #### C MP, TSH, HSTROPN #### [facility] [address] [place] [address] Dr. Jake Gallardo Potassium [Moles/Vol] 3.9 mmol/L Normal 3.5-5.1 [facility] Comment on above: Performed By: #### C MP, TSH, HSTROPN #### [facility] [address] [place] [address] Dr. Jake Gallardo Protein [Mass/Vol] 7.5 g/dL Normal 6.4-8.2 [facility] Comment on above: Performed By: #### C MP, TSH, HSTROPN #### [facility] [address] [place] [address] Dr. Jake Gallardo Sodium [Moles/Vol] 140 mmol/L Normal 136-145 [facility] Comment on above: Performed By: #### C MP, TSH, HSTROPN #### [facility] [address] [place] [address] Dr. Jake Gallardo Urea nitrogen [Mass/Vol] 8.0 mg/dL Normal 7.0-18.0 [facility] Comment on above: Performed By: #### C MP, TSH, HSTROPN #### [facility] [address] [place] [address] Dr. Jake Gallardo Urea nitrogen/Creatinin e [Mass ratio] 10.8 mg/mg Normal [facility] Comment on above: Performed By: #### C MP, TSH, HSTROPN #### [facility] [address] [place] [address] Dr. Jake Gallardo PROTIMEon 09-16-2021 INR Coag (PPP) [Relative time] 0.96 {INR} Normal [facility] Comment on above: Performed By: #### P T, PTT #### [facility] [address] [place] [address] Dr. Jake Gallardo INR GUIDELINES SEE BELOW Normal [facility] Comment on above: Result Comment: NASH RED INR: 2.0 - 3.0 CONDITIONS NOT LISTED BELOW 2.5 - 3.5 FOR PROSTHETIC HEART VALVE REPLACEMENT 2.5 - 3.5 RECURRENT THROMBOSIS Performed By: #### P T, PTT #### [facility] [address] [place] [address] Dr. Jake Gallardo PT Coag (PPP) [Time] 10.4 s Normal 9.0-11.6 [facility] Comment on above: Performed By: #### P T, PTT #### [facility] [address] [place] [address] Dr. Jake Gallardo PTTon 09-16-2021 aPTT Coag (Bld) [Time] 29.2 s Normal 22.3-36.2 [facility] Comment on above: Performed By: #### P T, PTT #### [facility] [address] [place] [address] Dr. Jake Gallardo TROPONIN, HIGH SENSITIVITYon 09-16-2021 HSTROP <4.0 Normal 4.0-51.3 [facility] Comment on above: Result Comment: CUT- OFF POINTS HAVE BEEN ESTABLISHED BASED ON THE FOURTH UNIVERSAL DEFINITIONS OF MYOCARDIAL INFARCTION. THE UPPER REFERENCE LIMIT (URL) OF TROPONIN, DEFINED THE 99TH PERCENTILE OF cTnI DISTRIBUTION IN A REFERENCE POPULATION, HAS BEEN CONFIRMED THE DECISION THRESHOLD FOR [place]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
== END 2023-04-24 09:25 | disposition home or self-care (01) ==
LOC: NOMS 09:24
PROVIDERS: Family Provider Nurse Practitioner Family; Visit Provider Obstetrics & Gynecology
DX: Z34.91 Encounter for supervision of normal pregnancy, unspecified, first trimester (principal); Z3A.09 9 weeks gestation of pregnancy; N92.6 Irregular menstruation, unspecified
CPT/HCPCS: 76817

== ENCOUNTER 2023-04-30 09:02 | Outpatient (OUT) | payer MEDICAID, SELFPAY ==
[2023-04-30 10:52] LABS: Estimated Average Glucose 94 mg/dL; Glycohemoglobin A1C 4.9 % (4.5-6.2)
[2023-04-30 11:52] LABS: Basophils Percent Auto 0.4 % (0.2-2.0); Eosinophils Absolute Auto 0.1 10^3/uL (0.0-0.7); Eosinophils Percent Auto 1.5 % (0.9-7.0); Hematocrit 40.8 % (36.0-48.0); Hemoglobin 13.4 g/dL (12.0-16.0); Immature Granulocytes Abs Auto 0.03 10^3/uL (0.00-0.03); Immature Granulocytes Pct Auto 0.4 % (0.0-0.5); Lymphocytes Percent Auto 12.1 % (20.5-60.0); Mean Corpuscular HGB Conc 32.8 g/dL (29.9-35.2); Mean Corpuscular Hemoglobin 30.7 pg (26.7-34.0); Mean Corpuscular Volume 93.4 fL (81.0-99.0); Mean Platelet Volume 11.1 fL (9.5-13.5); Monocytes Absolute Auto 0.5 10^3/uL (0.3-0.8); Monocytes Percent Auto 5.7 % (1.7-12.0); Neutrophils Absolute Auto 6.5 10^3/uL (1.4-6.5); Neutrophils Percent Auto 79.9 % (43.0-75.0); Platelet Count 212 10^3/uL (150-450); Red Blood Count 4.37 10^6/uL (4.20-5.40); Red Cell Distribution Width 13.7 % (11.0-15.0); White Blood Count 8.2 10^3/uL (4.0-11.0)
[2023-05-01 07:11] LABS: Rubella Antibodies, IgG 1.02 index (Immune >0.99)
[2023-05-01 12:11] LABS: Rapid Plasma Reagin, Quant Non Reactive titer (NonRea<1:1)
== END 2023-04-30 09:03 | disposition home or self-care (01) ==
LOC: LAB 09:03
PROVIDERS: Family Provider Nurse Practitioner Family; Visit Provider Obstetrics & Gynecology
DX: N92.6 Irregular menstruation, unspecified (principal); Z36.0 Encounter for antenatal screening for chromosomal anomalies; N97.9 Female infertility, unspecified; E28.2 Polycystic ovarian syndrome
CPT/HCPCS: 36415; 83036; 85025; 86592; 86762; 86803; 86850; 86900; 86901; 87086; 87340; 87389

== ENCOUNTER 2023-06-02 13:45 | Emergency (ER) | payer MEDICAID, SELFPAY ==
[2023-06-02 13:51] VITALS: BP 139/104; PULSE 101; TEMP 36.8; O2SAT 99; BMI 31.8
--- NOTE | 2023-06-02 14:04 | US_ITS ---
The [address] [address] Patient Name: KRISHNA GLOVER MRN: [id number] date: 1995 Sex: F Assigned Patient Location: ER Current Patient Location: ER Accession/Order Number: [id number] Exam Date: 06/02/2023 14:04 Report Date: 06/02/2023 14:59 At the request of: GOPAL TY Procedure: US OB placenta EXAMINATION: US OB placenta HISTORY: 15 weeks, bleeding COMPARISON: No relevant comparison available. FINDINGS: Heart Rate: 143.6 bpm Number: 1.0 Position: BREECH Amniotic Fluid Volume: Subjectively normal BIOMETRY: BPD: 2.7 cm cm; 14 weeks 6 days HC: 10.7 cmcm; 15 weeks 1 days AC: 9.0 cm cm; 15 weeks 2 days FL: 1.4 cm cm; 14 weeks 0 days EFW: 104.0 grams FL/AC: 15.3 FL/BPD: 50.5 HC/AC: 1.2 GESTATIONAL AGE: Age by EDC: 14 weeks 5 days DEBBY by EDC: 11/26/2023 Age by US: 14 weeks 6 days DEBBY by US: 11/25/2023 US/US OB placenta IMPRESSION: 1. Single live intrauterine . No acute or suspicious findings to suggest impending . 2. Posterior placenta without appreciable abruption or subchorionic hematoma. Umbilical cord insertion is 1.7 cm from margin of placenta. Electronically authenticated by: IESHA LIZAMA Date: 06/02/2023 14:59
--- NOTE | 2023-06-02 14:07 | ED.PREGNANC1 ---
HPI - General Chief complaint: Vaginal Bleeding Stated complaint: BLEEDING VAGINALY 15 WKS Time Seen by Provider: 06/02/23 14:01 Source: patient Mode of arrival: walk-in Limitations: no limitations History of Present Illness HPI Narrative: 28-year-old female who is 4 para 2 A1 presents for vaginal bleeding. It started about an hour ago while she was sitting on the toilet and some dark brown blood came out. Her legs hurt a little bit but her abdomen does not. No trauma or fever. 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 She has had an ultrasound during this . Related Data Home Medications ?Medication ?Instructions ?Recorded ?Confirmed metformin 500 mg tablet,extended 500 mg PO DAILY 02/27/23 02/27/23 release 24 hr Allergies Allergy/AdvReac Type Severity Reaction Status Date / Time No Known Drug Allergies Allergy Verified 02/27/23 15:24 Review of Systems ROS Narrative A ten point review of systems is negative except as noted above. [facility] Medical History (Updated 06/02/23 @ 15:31 by Minh Petersen MD) Infertility PCOS (polycystic ovarian syndrome) ?E28.2 - Polycystic ovarian syndrome (ICD-10) Exam Narrative Exam Narrative: Nurses note and vital signs reviewed and patient is not hypoxic. General: The patient appears well and in no apparent distress. Patient is resting comfortably on cart. Skin: Warm, dry, no pallor noted. There is no rash noted. Head: Normocephalic, atraumatic Eye: Normal conjunctiva, no drainage Ears, Nose, Mouth, and Throat: oral mucosa is moist. Nares patent. Cardiovascular: Regular Rate and Rhythm Respiratory: Patient is in no distress, no accessory muscle use, lungs are clear to auscultation, no wheezing, rales or rhonchi Back: non-tender GI: Soft and nontender. Musculoskeletal: The patient has no evidence of calf tenderness, no pitting edema, symmetrical pulses noted bilaterally Neurological: A&O, normal speech Psychiatric: Cooperative Constitutional Vital Signs, click to edit/add: Last Vital Signs Temp 98.2 F 06/02/23 13:51 Pulse 101 H 06/02/23 13:51 Resp 17 06/02/23 13:51 BP 139/104 H 06/02/23 13:51 Pulse Ox 99 06/02/23 13:51 O2 Del Method Room Air 06/02/23 13:51 Course Vital Signs Vital signs: Vital Signs Temperature 98.2 F 06/02/23 13:51 Pulse Rate 101 H 06/02/23 13:51 Respiratory Rate 17 06/02/23 13:51 Blood Pressure 139/104 H 06/02/23 13:51 Pulse Oximetry 99 06/02/23 13:51 Oxygen Delivery Method Room Air 06/02/23 13:51 Temperature 98.2 F 06/02/23 13:51 Pulse Rate 101 H 06/02/23 13:51 Respiratory Rate 17 06/02/23 13:51 Blood Pressure 139/104 H 06/02/23 13:51 Pulse Oximetry 99 06/02/23 13:51 Oxygen Delivery Method Room Air 06/02/23 13:51 MDM - OB/Uterine Contractions MDM Narrative Medical decision making narrative: She is Rh+. Blood work nonspecific and ultrasound shows IUP. No evidence of abruption or subchorionic hemorrhage. Findings were discussed with Dr. Esparza and the patient is released home after discussing the case with her thoroughly. Treatment diagnosis and follow-up were discussed thoroughly. Differential Diagnosis Differential diagnosis: Likely other (Threatened miscarriage, miscarriage, abruption, subchorionic hemorrhage) Lab Data Attestation: I reviewed the patient's lab results. Labs: Lab Results 06/02/23 Range/Units 14:13 WBC 10.6 (4.0-11.0) 10^3/uL RBC 4.53 (4.20-5.40) 10^6/uL Hgb 13.8 (12.0-16.0) g/dL Hct 42.0 (36.0-48.0) % MCV 92.7 (81.0-99.0) fL MCH 30.5 (26.7-34.0) pg MCHC 32.9 (29.9-35.2) g/dL RDW 13.6 (11.0-15.0) % Plt Count 233 (150-450) 10^3/uL MPV 9.9 (9.5-13.5) fL Neut % (Auto) 86.8 H (43.0-75.0) % Lymph % (Auto) 8.0 L (20.5-60.0) % Kendall % (Auto) 3.9 (1.7-12.0) % Eos % (Auto) 0.8 L (0.9-7.0) % Baso % (Auto) 0.3 (0.2-2.0) % Neut # (Auto) 9.2 H (1.4-6.5) 10^3/uL Lymph # (Auto) 0.9 L (1.2-3.8) 10^3/uL Kendall # (Auto) 0.4 (0.3-0.8) 10^3/uL Eos # (Auto) 0.1 (0.0-0.7) 10^3/uL Baso # (Auto) 0.0 (0.0-0.1) 10^3/uL Abs Immat Gran (auto) 0.02 (0.00-0.03) 10^3/uL Imm/Tot Granulo (auto) 0.2 (0.0-0.5) % Sodium 137 (136-145) mmol/L Potassium 4.3 (3.5-5.1) mmol/L Chloride 102 (98-107) mmol/L Carbon Dioxide 25.3 (21.0-32.0) mmol/L Anion Gap 14.0 BUN 4.0 L (7.0-18.0) mg/dL Creatinine 0.68 (0.55-1.02) mg/dL Est GFR ( Amer) >60 (>=60) Est GFR (Non-Af Amer) >60 (>=60) BUN/Creatinine Ratio 5.9 Glucose 86 (74-106) mg/dL Calcium 9.1 (8.5-10.1) mg/dL Imaging Data Pelvic ultrasound: Radiologist's impression: ITS Impressions Obstetrics Ultrasound 06/02/23 14:04 IMPRESSION: 1. Single live intrauterine . No acute or suspicious findings to suggest impending . 2. Posterior placenta without appreciable abruption or subchorionic hematoma. Umbilical cord insertion is 1.7 cm from margin of placenta. Electronically authenticated by: IESHA LIZAMA Date: 06/02/2023 14:59 Discharge Plan Discharge Stand Alone Forms: Portal Instructions Chief Complaint: Vaginal Bleeding Clinical Impression: Threatened miscarriage Patient Disposition: Home, Self-Care Time of Disposition Decision: 15:30 Condition: Good Mode of Transportation: Private Vehicle Prescriptions / Home Meds: No Action metformin 500 mg tablet extended release 24 hr 500 mg PO DAILY Print Language: Citizen [place] Instructions: Threatened Miscarriage (ED) Additional Instructions: Follow-up with Dr. Esparza as needed Referrals: Physician,Non-Staff, MD [Primary Care Provider] - 1 week
[2023-06-02 14:23] LABS: Basophils Percent Auto 0.3 % (0.2-2.0); Eosinophils Absolute Auto 0.1 10^3/uL (0.0-0.7); Eosinophils Percent Auto 0.8 % (0.9-7.0); Hemoglobin 13.8 g/dL (12.0-16.0); Immature Granulocytes Abs Auto 0.02 10^3/uL (0.00-0.03); Immature Granulocytes Pct Auto 0.2 % (0.0-0.5); Lymphocytes Absolute Auto 0.9 10^3/uL (1.2-3.8); Mean Corpuscular HGB Conc 32.9 g/dL (29.9-35.2); Mean Corpuscular Hemoglobin 30.5 pg (26.7-34.0); Mean Corpuscular Volume 92.7 fL (81.0-99.0); Mean Platelet Volume 9.9 fL (9.5-13.5); Monocytes Absolute Auto 0.4 10^3/uL (0.3-0.8); Monocytes Percent Auto 3.9 % (1.7-12.0); Neutrophils Absolute Auto 9.2 10^3/uL (1.4-6.5); Neutrophils Percent Auto 86.8 % (43.0-75.0); Platelet Count 233 10^3/uL (150-450); Red Blood Count 4.53 10^6/uL (4.20-5.40); Red Cell Distribution Width 13.6 % (11.0-15.0); White Blood Count 10.6 10^3/uL (4.0-11.0)
[2023-06-02 14:29] LABS: BUN Creatinine Ratio 5.9; Calcium 9.1 mg/dL (8.5-10.1); Carbon Dioxide 25.3 mmol/L (21.0-32.0); Chloride 102 mmol/L (98-107); Estimated GFR (African America >60 (>=60); Estimated GFR (Non-African Ame >60 (>=60); Glucose 86 mg/dL (74-106); Potassium 4.3 mmol/L (3.5-5.1); Sodium 137 mmol/L (136-145)
[2023-06-02 15:39] VITALS: BP 128/84; PULSE 88; TEMP 37.2; O2SAT 98
== END 2023-06-02 15:41 | disposition home or self-care (01) ==
PROVIDERS: Emergency Provider Emergency Medicine; Family Provider Nurse Practitioner Family
DX: O20.0 Threatened abortion (principal); O99.282 Endocrine, nutritional and metabolic diseases complicating pregnancy, second trimester; E28.2 Polycystic ovarian syndrome; Z3A.15 15 weeks gestation of pregnancy
CPT/HCPCS: 36415; 76815; 80048; 85025; 99284

== ENCOUNTER 2023-06-23 21:29 | Outpatient (REF) | payer MEDICAID, SELFPAY ==
--- OUTSIDE RECORDS SUMMARY | 2023-06-23 21:40 | XMS_ITS | CCD ---
Author Organization [facility] Care Team Providers Care Camera Storage Clerk Name Role Phone Milan Esparza Unavailable Unavailable Petra Young Unavailable No, Physician Primary Care Provider Unavailabl e NO, PHYSICIAN Primary Care Unavailable IVANNA GOMEZ Attending Unavailable Sara Cooley Unavailable ramo Scarlett Unavailable PETRA YOUNG Primary Care Unavailable DONAVAN ., DR YATES Attending Unavailable DONAVAN ., DR YATES Consulting Unavailable DONAVAN ., DR YATES Admitting Unavailable Wisam Morales Consulting Unavailable REQUEST, DR LOUISE LISTED Consulting Unavaila PETRA Doll Primary Care Unavailable Wisam Morales Consulting Unavailable PAY ., DR ZALDIVAR Attending Unavailable PAY ., DR ZALDIVAR Admitting Unavailable GRECHNY ., JAVON NICOLE Consulting Unavailabl e HECTOR, PETRA Admitting Unavailable PETRA YOUNG Attending Unavailable HECTOR, PETRA Primary Care Unavailable Nba Guaman Attending Unavailable Nba Guaman Admitting Unavailable Provider, None Primary Care Unavailable Petra Young Attending Unavailable Hector, Petra Primary Care Unavailable Petra Young Admitting Unavailable MILAN ESPARZA Attending Unavailable MILAN ESPARZA Attending Unavailable Medications Current Medications Medication Drug Class(es) Dates Sig (Normalized) Sig (Original) [id number] 200 actuat albuterol 0.09 mg/actuat metered dose inhaler (20 sources) beta2-Adrenergic Agonist Start: 03-06-2020 take 2 puff(s) by inhalation every four hours as needed Albuterol Sulfate HFA 108 (90 Base) MCG/ACT 2 puffs as needed Inhalation every 4 hrs 13 Feb, 2022 Active Start: 03-06-2020 take 2 puff(s) by [...] oral tablet (8 sources) alpha-Adrenergic Agonist, Uncompetitive L-ujnlnb-L-aspartat e Receptor Antagonist, Sigma-1 Agonist Start: 03-06-2020 [...] Not-Taking Start: 11-19-2021 take 1 capsule by [facility] once daily FLUoxetine HCl 10 MG 1 [...] Resolved: 04-14-2021 Episodic Other aftercare (1 source) 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; Translations: [SENIOR LIVING HORMONAL CONTRACEPTIVES] Onset: 09-18-2021 Episodic Syncope (1 source) Syncope and collapse Onset: 09-03-2021 Resolved: 09-03-2021 Episodic Results Test Name Value Interpretation Reference Range Facility Coding Summaryon 07-07-2022 Coding Summary HTMLBase 64 XszzspjlUKk9qAh+PGh lYWQ+JM8GUHCvU10nxG KwjM2QV4tUHX8YGSVMR XJYNZ6CSO7yoYB6ETbv V5CdavKb VilhfHSyKL96XIj0GUH 2yLggNTrjpJ4ehJQlT0 w3ZzHwCW34sD03IShpY VIdUkR3TtZasmqhhZGk I0xbWqCnyEVeOms+PHR hYmxlIHdpZHRoPScxMD ExCnXyyEfyQQ4kEm2vP GVyLWNvbGxhcHNlOiBj q2knQVMcLFpfVW3dtPu cK0EuxCM9SMUoz3x5Fv 48dHI+AZAmFQO5vNfvA Bbmt479AiGsj6kfEEZ4 lXIsXOlyHRM0Y12oi6D 3VPHhMERaYKV1nQY4hL 7ojXgacbgsB2WvoYUeQ nT5LPB5tCYhqA7asUtp ancpkF3pQfr+B33UBS3 EMBEWOA9IJcu0D9ByTy wvdHI+TU99TQLjRM32b GPshHUpm8cuyNr4SpJu XUAdJMW0nIsjWCiac1U jQSStK58yoLLhh6S1DK YfkAhifAXpZuKedKE2o M5pZXnrduskg2hgneiv Vncyx2vlyy58fO29V40 zRWrtRGTtAQR6KOEtDM CvpPwzxz3irD8eYy3+I Dkko2vmh6rlhZs5DvOg TNNjixDglNngRCB8q9Z uAe26Q0FerLlmx0WlMc x1vj17eIPoj5Q1oNA1X EztDKBhqD9tQNxgTzD8 WZSwUgHvmD76jOVdHUo zLs9mrEfqcMylLI9fYQ EfgvhgKCMeyZ9hWVEoc FIneYrpLM9iTRZyzhoc i588NrUcJPM4JOGwyRM mL0LnoO9vMdPmPSJnOY JiA0IjhQWrPZhzL560U RwsVwY5TEDjqxDxH4Rh JHIwjKxeYfX5m6I0Ax3 Le1CuslznIGF6DMooXN M5VpU9VtGeNaD1D8KqH ag9WHDyrWygEW6sT9Mb NRPsfbytgydkgDA4DMU nJZUhfB55mWJsRBqnSx 5ng0U7l543VIKhVTZtu G54Sq1ojQpwIROagIZC aR8xsqapx6bpptkgDiX cGNBkAFy3KJa1VMPabV beFuSaZHY6AnI2YHW2h EJsoW6gsJjgbykefA6c Oyc+N46osY6wUFE5SEN 0hkouQGQwhqCmWK70KE 11O2QjXpfiwDJhdLG+P SLnzkWjiVmhQF9mFrHj k9kou5PrLAibJ5MaFRX jBMjbNsx6XJThMHI2kU Z8xZ6iSNLjOWown0R5j QU9H2GahsRxyi6xu6ij YKHzIWksG11ucINrr3G 9OEZgfCP5LECakGjlGp UoxN51Vzt+PGNvbGdyb 6VdRaawo3fvy3ufjGd0 IjMwJSIgdmFsaWduPSJ 9j2CxSf16S83tMFmzXY RoPSIxNSUiIHZhbGlnb u9aeH3fRv0+PGNvbCB3 oKZ2aC2qDWTsVyP0QVv gL563BaPtjTHzXfzhk8 zny5cmyEa9FqNoQPIke cLmiRadWQD4i7DyBc80 Z02sWUwyLECnQPEeCIG nQOVwtAehrw5ewA0iQm 8+CJ3lr0vcpj74gO88d HI+ZZApXMS0yVqeIQrf EGAveS6iTTltDiX5IHT nXkMjoI69sVIyJUtaRn 2xvXgftElmVW3iNNCji hdoh383MqWkb9cnXENw oHIjBXijSWA3W00ff4B 7JQOsIAUhPKV8vOB1lM 1hbGlnbjogbGVmdDsgd sMjrTooXNmiSTehG201 IHRvcDsnPlBhdGllbnQ iYnRwOHe6I9SjWrd1KM JryQrdBI1iiTTsACsoX w7zwAshsVreGA2jKNHb shldp304EeEem5fwBTF jeVPsXNrrDJU4L54cx8 B5BLSrHZYhXHG9dJZ2f P2hbQznsgcwlZMdhRqo jmWyyEbbVTnrCHtgP97 6IHRvcDsnPkJpcnRoIE TbeAV9WS37BK16cTRgd 1F4oDA2J5PbYCLqctzb odlgsQJ4TQXrQEDwdE7 5Cx7epVbzHt2dGAJgCE J1TIDteUUyW7GgaC4sV cEgSTPjOLSiS3EigWZp XTitH919RBjqFtB8BOE warOnL9LtCIWoeIpgFs A8l8K6Gk9ES2X0AS13Q P64oGHxi7D1zBT0X6Sb WOKzkvwrjtqdmIY7QEX fDSWqhO84Ec2ndCvxSj 4nRABoZIF8USLkeLMxI 9BusO0jOfRyNKVcPQVd B0VnwMHoXZczB568BGv wOvK1IDBwccMnM1JuUD FvhGyeKnN0d3A6Uq6NO Jl6PD71PV45sOXke0B7 dGN0D8YpBDEqkzaljdg wgXK7HCIoYYRnoM95If 7gaWkhPd4wCQLbCUQ3P SIuvOUkA7BflK0ePqMc RJMrVVBlL0JmjRJcIMb iX024VJuoMlM4TKBqwc QsP1IgKYQvwHzaNwO3m 9S4Fm5MCRChHS05GAV0 iAD1CP05CY21M9CiLsa vdGFibGU+PHRhYmxlIH dpZHRoPScxMDAlJyBzd YcpXP6wSj4mSXHqXBFm zKzytEVsQbCgu6nnZMW tBYatWV5akKjwK4EwmZ S3SVSwc3s5Kd00C97aO 3JvdXA+PVDsyXW1iEJ1 kX6iCdXvWcE5KAasV24 6OwIjeQFjXghgn2lcs2 rlxXi1FgM1PGEvufPco ZidKXS2q4GoTh07F33m IHdpZHRoPSIxNSUiIHZ prWrmsy7mfJ3pFh5+PG OolRG1oAW0gH6fJjVrS bO1MOzvC530OxMbrQVi Jfogd3ang8ivsBg5JwL oUUDoqjZqzExcOVG2l9 IyWz75H5EetLhth9LnI vf9sn85rLIqp9T8pZC7 Z1NkCOQskkmtiDDhcQw iFU3tFVZigmxgFOTdfZ 4vQZKjP6k7EuZoBeH1H UkbX5ZzudW5OPYqdKJc AOfaYDV5O14zi0K5JTH rQLGbEHY7eML6fP2ibC lnbjogbGVmdDsgdmVyd YcbVDdlYDlaD725ACYq rNliNXLbaF6qGJJryKI bzFcnRL5sIVYedumsWc RPUlNFWSwgQUxFWEEgT jwvdGQ+IIYiOWW1kMzn WGnoYKIoxN5lJSZrI2r 9IaRbQoA2XOwiX2NgLV CfrdudJi06zU4pAzJkR pE7JKzaQ4RcovI0VXCa lZPbTJliGPG0F93vy8Q 5ICOqEJVpOHO7iMR0uA 1hbGlnbjogbGVmdDsgd lLspTgeYTwdDFvgI628 WXNhaUrdXtXgYbB7PqM 7ARO4Z4RaOry7JUIarF ogMI3uoEUqLCgrZw5uq PielCqsAJ8wPGOpcnfg IGIloH5pAYLxfQDcuGq kOZ7wLNGupovth054Fv AoHRA3KZWwtIYiQ9Dxk V6xAtMbQOWwGNInL7Iv oZZzFKopG960DKjdWrI 8MHUnyvWhF2YpBDShbF pbPfC6s5E3Gc8pDmMIE WFyczwvdGQ+PHRkIHN0 yCrqBCirDOOhrI2dCYV sR0q9JiMyIfS5STeeJ5 AeYNDqdbvkVg75sW5xZ oUfBdV8KAadO8XqgzN0 MGVztUKaUNocXAS0G88 rw0P8IAYvMVYrNCR0lG V9tJ9taIyqqrhjtYQep DsgdmVydGljYWwtYWxp G262SFJeqSdvHvLKRHM MRTwvdGQ+YRQsZKP1aL bxWLxiWOFcwK6oKPShO 0z2MwMbTpE6HHtsF1Vu DGCzcqsiLk27xY4jWaV rTwB1AXioA1CkrwF8NY KfzUXyUDgvJCS8I83uw 8F4HZLfNXAxNIF3iBT0 fR7lrCeqkbaisHFtiYe gdmVydGljYWwtYWxpZ2 46IHRvcDsnPkVtZXJnZ O2duJuhbWN+IN21rn60 F5BnBxdyTyg0IYAnFGC 6oAF6kQ8oPGMlMSlzp5 O0lUJ2C0EyssXhbz3bb 5ikBZExKUjsR81ovOUx h0V9XULvrUS9CBBljOb rBhOwdT20Qpz+PGNvbG dkb4VyZghfn5zne9mqd Na0EyFdJBJaaeZrbBun TVY8r9PoGn02X79oTLi pZHRoPSIzMCUiIHZhbG xxho9eqY6uHk0+PGNvb CO3kIG7oZ6iBiMhEoT7 QLwxF213IcMgkVKrJxf sd5vyz3qehGi4NrEiPJ GuckVwiAmcRPP2m9ZuP d22R1LecKyfu7TwRjp5 ai34gQFho5G4hWC2X3L hZGRpbmctbGVmdDogMC 9pAZKjjfzoEWNnkD2xT NUwT8n5DmJuMuI1VSnb L5WzsgP2ZYTsnMRfIVH alDXVrQ5yhatbw0afzr laJgZrYAKuNDl6TUm0H LQjqFnoWzDiBMN5VtW3 UDX9tJOqrT8ktSmajtd ozK8tOxn+RJe5x7xtyS HjMU2uwKI0CR74VL92j MUbb4X7nZR1I5YcPIZw vuwraudjtQM2MQJbEYZ ohW83Ga1sjRwrDn2lHU OlWTH4TJNkpCFvW7Iwn G9bAoKhKWYkBAIpL9Cv fFHiBRlzG767NDfcTsT 0YXIypzWpJ2XqAXUydB stVjR1b8D9Da8DWL78D P06XQ96wVDsy3U9wQG9 A3CcMAKlyvdfnhaflRL 3USCeVWAudR86Lj1lwQ orJu9aSWPmACV3NHBhn FWhW2WyuN7nHnYjTWSf KJNvX1OebEPfXSclD43 6WShkJnQ6UTSiclJhV0 JhHIUkcIjyCaA8x2N9A r9AKb11RC48ZT04oZTt q1H1wTU3Q6CcWAIwoie gmvnwmGC6GYToFVUdsV 78Qa8jaUuiEc5sLWClO CF7RQQdbRHaV3SrxU3g OlGnIJDbHVYzJ6RxtJW pNUijK931IPhiAbR4RX NuwgJbJ5FvLLUbtEzeO uY5u7E1Hj7OIMdvogw2 I5RmKyfexZU+VJ89DXL zDE16yTXwvEDkv1cbtY u3JhQoOKGvWUF2rTdvV Lapt0TsIFLzR75epWJx c2U (more content not included)... Normal [facility] US PELVIS AND TRANSVAGon US PELVIS AND [...] WISAM MORALES Date: 2022-07-07 10:40 Normal [facility] C Throaton 07-03-2022 C Throat Ordered by Discern. Normal throat christian isolated No pathogens isolated [facility] Comment on above: Performed By: #### [id number] #### [facility] (DEFAULT) [address] [place] [address] .QC SARS-CoV-2 (COVID-19)/Fl u/RSV (GeneXpert)on 07-01-2022 Internal Control Pass Normal [facility] Comment on above: Order Comment: Order ed by Discern. [[email or web address]] Performed By: #### 7 [id number] #### [facility] (DEFAULT) [address] [place] [address] COVID/Flu/RSV (GeneXpert)on 07-01-2022 Flu A (GXpert COVFLURSV) Negative Normal Negative [facility] Comment on above: Performed By: #### 7 [id number] #### [facility] (DEFAULT) [address] [place] [address] Flu B (GXpert COVFLURSV) Negative Normal Negative [facility] Comment on above: Performed By: #### 7 [id number] #### [facility] (DEFAULT) [address] [place] [address] RSV (GXpert COVFLURSV) Negative Normal Negative [facility] Comment on above: Performed By: #### 7 [id number] #### [facility] (DEFAULT) [address] [place] [address] SARS-CoV-2 (COVID-19) RNA JOAN+probe Ql (Unsp spec) Negative Normal Negative [facility] Comment on above: Result Comment: Perf ormed by PCR methodology. Performed By: #### 7 [id number] #### [facility] (DEFAULT) [address] [place] [address] ED Clinical Summaryon 2022 ED Clinical Summary [facility] - Emergency Department [address] [place] [address] [id number] ED Clinical Summary PERSON INFORMATION Name: KRISHNA GLOVER Age: 27 Years Sex: FEMALE : 1995 MRN: Acct#: Visit Reason: Headache; Ear pain; UC - Sore Throat; SORE THROAT, CONGESTION, BILAT EAR PAIN Arrival: 07/01/2022 09:15:55 Discharge: 07/01/2022 11:05:00 LOS: 000 01:50 Check In: 07/01/2022 09:15:55 Checkout:07/01/2022 11:05:00 Address: [address] [place] [address] PCP: Provider, None PROVIDER INFORMATION Provider Role [...] INFORMATION Instructions: Viral Illness, Adult; Hypertension, Adult, Yhaj-dd-Dubg Follow-Up: With: Address: When: Follow up with primary care provider Within 3 to 5 days DIAGNOSIS: 1:Viral syndrome; 2:Elevated blood pressure reading Patient Understands: Yes - Patient/family/foster care therapist verbalizes understanding of instructions given Comment: Normal [facility] ED Patient Summaryon 023 ED Patient Summary [facility] - Emergency Department [address] [place] [address] [id number] PATIENT DISCHARGE INSTRUCTIONS Patient Information Name: KRISHNA GLOVER Age: 27 Years Date of : 1995 [facility]: [id number] Reason For Visit: Headache; Ear pain; UC - Sore Throat; SORE THROAT, CONGESTION, BILAT EAR PAIN Arrival Time: 07/01/2022 09:15:55 Primary Care Physician: Provider, None Attending Physician: Nba Guaman MD Comment: Visit Diagnosis: Diagnoses This Visit Ear pain ([id number]) Elevated blood pressure reading (R03.0) Headache ([id number]) UC - Sore Throat ([id number]) Viral syndrome (B34.9) The Pharmacy at [facility] is open Thursday through Thursday from 9A [...] alcohol and/or drug addiction problems; contact the [facility] 22/09 Crisis Hotline -Text [id number] el [phone]. If you received any narcotics, sedation, or [...] in the [facility] Emergency Department were for an urgent problem and are not intended as complete care. It is important for you to follow up with a doctor, nurse practitioner, or physician?s quality assistant for ongoing care. If your symptoms [...] so we can reach you if necessary. [facility] Emergency Department has provided you with a complete list of medications post discharge. Please inform your pipe setter/provider of your visit and for further instruction [...] (influenza). Long-term (more content not included)... Normal [facility] Strep Aon 07-01-2022 Strep procedure control Pass Normal [facility] Comment on above: Performed By: #### [id number] #### [facility] (DEFAULT) [address] [place] [address] Streptococcus A Negative Normal Negative [facility] Comment on above: Performed By: #### [id number] #### [facility] (DEFAULT) [address] [place] [address] CBC AUTO DIFFon 09-16-2021 BASO # 0.0 103/ul Normal 0.0-0.1 [facility] Comment on above: Performed By: #### C BC #### [facility] [address] [place] [address] Dr. Jake Gallardo Basophils/100 WBC (Bld) 0.3 % Normal 0.2-2.0 [facility] Comment on above: Performed By: #### C BC #### [facility] [address] [place] [address] Dr. Jake Gallardo EO # 0.1 103/ul Normal 0.0-0.7 [facility] Comment on above: Performed By: #### C BC #### [facility] [address] [place] [address] Dr. Jake Gallardo Eosinophils/100 WBC (Bld) 1.9 % Normal 0.9-7.0 [facility] Comment on above: Performed By: #### C BC #### [facility] [address] [place] [address] Dr. Jake Gallarod Erythrocyte distribution width (RBC) [Ratio] 12.6 % Normal 11.0-15.0 [facility] Comment on above: Performed By: #### C BC #### [facility] [address] [place] [address] Dr. Jake Gallardo Hematocrit (Bld) [Volume fraction] 42.4 % Normal 36.0-48.0 [facility] Comment on above: Performed By: #### C BC #### [facility] [address] [place] [address] Dr. Jake Gallardo Hemoglobin (Bld) [Mass/Vol] 14.0 g/dL Normal 12.0-16.0 [facility] Comment on above: Performed By: #### C BC #### [facility] [address] [place] [address] Dr. Jake Gallardo IG # 0.01 10e3/ul Normal 0.00-0.03 [facility] Comment on above: Performed By: #### C BC #### [facility] [address] [place] [address] Dr. Jake Gallardo IG % 0.1 % Normal 0.0-0.5 [facility] Comment on above: Performed By: #### C BC #### [facility] [address] [place] [address] Dr. Jaek Gallardo LYMPH # 1.0 103/ul Critically low 1.2-3.8 [facility] Comment on above: Performed By: #### C BC #### [facility] [address] [place] [address] Dr. Jake Gallardo Lymphocytes/100 WBC (Bld) 14.9 % Critically low 20.5-60.0 [facility] Comment on above: Performed By: #### C BC #### [facility] [address] [place] [address] Dr. Jake Gallardo MANUAL DIFF REQ NO Normal [facility] Comment on above: Performed By: #### C BC #### [facility] [address] [place] [address] Dr. Jake Gallardo MCH (RBC) [Entitic mass] 30.4 pg Normal 26.7-34.0 [facility] Comment on above: Performed By: #### C BC #### [facility] [address] [place] [address] Dr. Jake Gallardo MCHC (RBC) [Mass/Vol] 33.0 g/dL Normal 29.9-35.2 [facility] Comment on above: Performed By: #### C BC #### [facility] [address] [address] [address] Jake Gallardo MCV (RBC) [Entitic vol] 92.2 fL Normal 81.0-99.0 [facility] Comment on above: Performed By: #### C BC #### [facility] [address] [address] [address] Jake Gallardo MONO # 0.3 103/ul Normal 0.3-0.8 [facility] Comment on above: Performed By: #### C BC #### [facility] [address] [address] [address] Jake Gallardo Monocytes/100 WBC (Bld) 4.9 % Normal 1.7-12.0 [facility] Comment on above: Performed By: #### C BC #### [facility] [address] [address] [address] Jake Gallardo NEUT # 5.2 103/ul Normal 1.4-6.5 [facility] Comment on above: Performed By: #### C BC #### [facility] [address] [address] [address] Jake Gallardo Neutrophils/100 WBC (Bld) 77.9 % Critically high 43.0-75.0 [facility] Comment on above: Performed By: #### C BC #### [facility] [address] [address] [address] Jake Gallardo Platelet mean volume (Bld) [Entitic vol] 10.5 fL Normal 9.5-13.5 [facility] Comment on above: Performed By: #### C BC #### [facility] [address] [address] [address] Jake Gallardo PLT 226 103/ul Normal 150-450 [facility] Comment on above: Performed By: #### C BC #### [facility] [address] [address] [address] Jake Gallardo RBC 4.60 106/ul Normal 4.20-5.40 [facility] Comment on above: Performed By: #### C BC #### [facility] [address] [address] [address] Jake Gallardo WBC 6.7 103/ul Normal 4.0-11.0 [facility] Comment on above: Performed By: #### C BC #### [facility] [id number] Jake Gallardo CT HEAD WO CONon [...] WISAM MORALES Date: 2021-09-16 15:09 Normal [facility] CULTURE URINEon 09-16-2021 CULTURE URINE Culture Observations: LIGHT GROWTH OF MIXED GENITAL CHRISTIAN. NO POTENTIAL PATHOGENS SEEN. Normal [facility] Comment on above: Performed By: #### U RCX #### [facility] [address] [address] [address] Jake Gallardo DRUG SCREEN RAPID (URINE)on 09-16-2021 AMP Negative Normal NEGATIVE [facility] Comment on above: Performed By: #### C BC #### [facility] [address] [address] [address] Jake Gallardo BAR Negative Normal NEGATIVE [facility] Comment on above: Performed By: #### C BC #### [facility] [address] [address] [address] Jake Gallardo BUP Negative Normal NEGATIVE [facility] Comment on above: Performed By: #### C BC #### [facility] [address] [place] [address] Dr. Jake Gallardo BZO Negative Normal NEGATIVE [facility] Comment on above: Performed By: #### C BC #### [facility] [address] [place] [address] Dr. Jake Gallardo SUNDEEP Negative Normal NEGATIVE [facility] Comment on above: Performed By: #### C BC #### [facility] [address] [place] [address] Dr. Jake Gallardo CUT-OFFS SEE BELOW Normal [facility] Comment on above: Result Comment: [...] ng/mL Performed By: #### C BC #### [facility] [address] [place] [address] Dr. Jake Gallardo DRUG CUT HEADER DRUG CLASS TEST SYSTEM CUT-OFF CONCENTRATIONS ARE FOLLOWS: Normal [facility] Comment on above: Performed By: #### C BC #### [facility] [address] [place] [address] Dr. Jake Gallardo mAMP Negative Normal NEGATIVE [facility] Comment on above: Performed By: #### C BC #### [facility] [address] [place] [address] Dr. Jake Gallardo MTD Negative Normal NEGATIVE [facility] Comment on above: Performed By: #### C BC #### [facility] [address] [place] [address] Dr. Jake Gallardo OPI Negative Normal NEGATIVE [facility] Comment on above: Performed By: #### C BC #### [facility] [address] [place] [address] Dr. Jake Gallardo OXY Negative Normal NEGATIVE [facility] Comment on above: Performed By: #### C BC #### [facility] [address] [place] [address] Dr. Jake Gallardo PCP Negative Normal NEGATIVE [facility] Comment on above: Performed By: #### C BC #### [facility] [address] [place] [address] Dr. Jake Gallardo PPX Negative Normal NEGATIVE [facility] Comment on above: Performed By: #### C BC #### [facility] [address] [place] [address] Dr. Jake Gallardo TCA Negative Normal NEGATIVE [facility] Comment on above: Performed By: #### C BC #### [facility] [address] [place] [address] Dr. Jake Gallardo THC Negative Normal NEGATIVE [facility] Comment on above: Performed By: #### C BC #### [facility] [address] [place] [address] Dr. Jake Gallardo ER URINE PROFILEon 2 Bilirubin Ql (U) Negative Normal NEGATIVE [facility] Comment on above: Performed By: #### C BC #### [facility] [address] [place] [address] Dr. Jake Gallardo Clarity (U) CLEAR Normal CLEAR [facility] Comment on above: Performed By: #### C BC #### [facility] [address] [place] [address] Dr. Jake Gallardo Color (U) LT. YELLOW Normal YELLOW [facility] Comment on above: Performed By: #### C BC #### [facility] [address] [place] [address] Dr. Jake Gallardo ERUAHD A micrscopic examination will be performed if indicated. Normal [facility] Comment on above: Performed By: #### C BC #### [facility] [address] [place] [address] Dr. Jake Gallardo Glucose Ql (U) Negative Normal NEGATIVE [facility] Comment on above: Performed By: #### C BC #### [facility] [address] [place] [address] Dr. Jake Gallardo Hemoglobin Ql (U) TRACE-INTACT Abnormal NEGATIVE [facility] Comment on above: Performed By: #### C BC #### [facility] [address] [place] [address] Dr. Jake Gallardo Ketones Ql (U) Negative Normal NEGATIVE [facility] Comment on above: Performed By: #### C BC #### [facility] [address] [place] [address] Dr. Jake Gallardo LEUKOCYTES TRACE Abnormal NEGATIVE [facility] Comment on above: Performed By: #### C BC #### [facility] [address] [place] [address] Dr. Jake Gallardo Nitrite Ql (U) Negative Normal NEGATIVE [facility] Comment on above: Performed By: #### C BC #### [facility] [address] [place] [address] Dr. Jake Gallardo pH (U) 6.0 [pH] Normal 5-9 [facility] Comment on above: Performed By: #### C BC #### [facility] [address] [place] [address] Dr. Jake Gallardo SPEC GRAVITY 1.025 Normal 1.005-<=1.025 [facility] Comment on above: Performed By: #### C BC #### [facility] [address] [place] [address] Dr. Jake Gallardo UA PROTEIN Negative Normal NEGATIVE/ TRACE [facility] Comment on above: Performed By: #### C BC #### [facility] [address] [place] [address] Dr. Jake Gallardo UR MICRO IND INDICATED Normal [facility] Comment on above: Performed By: #### C BC #### [facility] [address] [place] [address] Dr. Jake Gallardo Urobilinogen Qn (U) 0.2 {Manny'U}/dL Normal 0.2 - 1.0 [facility] Comment on above: Performed By: #### C BC #### [facility] [address] [place] [address] Dr. Jake Gallardo PREG HCG QUALon 09-16-2021 , QUAL Negative Normal NEGATIVE [facility] Comment on above: Performed By: #### P REG #### [facility] [address] [address] [address] Jake Gallardo PROF 14(COMP METB)on 022 Albumin [Mass/Vol] 3.5 g/dL Normal 3.4-5.0 [facility] Comment on above: Performed By: #### C MP, TSH, HSTROPN #### [facility] [address] [address] [address] Jake Gallardo Albumin/Globulin [Mass ratio] 0.9 {ratio} Normal [facility] Comment on above: Performed By: #### C MP, TSH, HSTROPN #### [facility] [address] [place] [address] Dr. Jake Gallardo ALP [Catalytic activity/Vol] 42 U/L Critically low 46-116 [facility] Comment on above: Performed By: #### C MP, TSH, HSTROPN #### [facility] [address] [address] [address] Jake Gallardo ALT [Catalytic activity/Vol] 22 U/L Normal 14-59 [facility] Comment on above: Performed By: #### C MP, TSH, HSTROPN #### [facility] [address] [address] [address] Jake Gallardo Anion gap [Moles/Vol] 15.0 mmol/L Normal [facility] Comment on above: Performed By: #### C MP, TSH, HSTROPN #### [facility] [address] [address] [address] Jake Gallardo AST [Catalytic activity/Vol] 15 U/L Normal 15-37 [facility] Comment on above: Performed By: #### C MP, TSH, HSTROPN #### [facility] [address] [address] [address] Jake Gallardo Bilirubin [Mass/Vol] 0.4 mg/dL Normal 0.2-1.0 [facility] Comment on above: Performed By: #### C MP, TSH, HSTROPN #### [facility] [address] [address] [address] Jake Gallardo Calcium [Mass/Vol] 9.1 mg/dL Normal 8.5-10.1 [facility] Comment on above: Performed By: #### C MP, TSH, HSTROPN #### [facility] [address] [place] [address] Dr. Jake Gallardo Chloride [Moles/Vol] 106 mmol/L Normal 98-107 [facility] Comment on above: Performed By: #### C MP, TSH, HSTROPN #### [facility] [address] [place] [address] Dr. Jake Gallardo CO2 [Moles/Vol] 22.9 mmol/L Normal 21.0-32.0 [facility] Comment on above: Performed By: #### C MP, TSH, HSTROPN #### [facility] [address] [place] [address] Dr. Jake Gallardo Creatinine [Mass/Vol] 0.74 mg/dL Normal 0.55-1.02 [facility] Comment on above: Performed By: #### C MP, TSH, HSTROPN #### [facility] [address] [place] [address] Dr. Jake Gallardo EGFR-AF FINNISH >60 Normal >=60 [facility] Comment on above: Performed By: #### C MP, TSH, HSTROPN #### [facility] [address] [place] [address] Dr. Jake Gallardo EGFR-NON AF FINNISH >60 Normal >=60 [facility] Comment on above: Performed By: #### C MP, TSH, HSTROPN #### [facility] [address] [place] [address] Dr. Jake Gallardo Globulin (S) [Mass/Vol] 4.0 g/dL Normal [facility] Comment on above: Performed By: #### C MP, TSH, HSTROPN #### [facility] [address] [address] [address] Jake Gallardo Glucose [Mass/Vol] 84 mg/dL Normal 74-106 [facility] Comment on above: Performed By: #### C MP, TSH, HSTROPN #### [facility] [address] [place] [address] Dr. Jake Gallardo Potassium [Moles/Vol] 3.9 mmol/L Normal 3.5-5.1 [facility] Comment on above: Performed By: #### C MP, TSH, HSTROPN #### [facility] [address] [place] [address] Dr. Jake Gallardo Protein [Mass/Vol] 7.5 g/dL Normal 6.4-8.2 [facility] Comment on above: Performed By: #### C MP, TSH, HSTROPN #### [facility] [address] [place] [address] Dr. Jake Gallardo Sodium [Moles/Vol] 140 mmol/L Normal 136-145 [facility] Comment on above: Performed By: #### C MP, TSH, HSTROPN #### [facility] [address] [place] [address] Dr. Jake Gallardo Urea nitrogen [Mass/Vol] 8.0 mg/dL Normal 7.0-18.0 [facility] Comment on above: Performed By: #### C MP, TSH, HSTROPN #### [facility] [address] [place] [address] Dr. Jake Gallardo Urea nitrogen/Creatinin e [Mass ratio] 10.8 mg/mg Normal [facility] Comment on above: Performed By: #### C MP, TSH, HSTROPN #### [facility] [address] [place] [address] Dr. Jake Gallardo PROTIMEon 09-16-2021 INR Coag (PPP) [Relative time] 0.96 {INR} Normal [facility] Comment on above: Performed By: #### P T, PTT #### [facility] [address] [place] [address] Dr. Jake Gallardo INR GUIDELINES SEE BELOW Normal [facility] Comment on above: Result Comment: NASH RED INR: 2.0 - 3.0 CONDITIONS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
== END 2023-06-23 21:30 | disposition home or self-care (01) ==
LOC: LAB 21:29
PROVIDERS: Family Provider Nurse Practitioner Family; Visit Provider Obstetrics & Gynecology
DX: Z01.419 Encounter for gynecological examination (general) (routine) without abnormal findings (principal)
CPT/HCPCS: G0145

== ENCOUNTER 2023-07-13 11:24 | Outpatient (OUT) | payer MEDICAID, SELFPAY ==
--- NOTE | 2023-07-13 11:26 | US_ITS ---
[address] [address] Patient Name: KRISHNA GLOVER MRN: [id number] date: 1995 Sex: F Assigned Patient Location: [facility] Current Patient Location: [facility] Accession/Order Number: [id number] Exam Date: 07/13/2023 11:27 Report Date: 07/13/2023 13:06 At the request of: MILAN GO Procedure: US OB anatomy EXAMINATION: US OB anatomy, US OB cervical length HISTORY: ANATOMY COMPARISON: No relevant comparison available. TECHNIQUE: Transabdominal sonographic examination was performed for obstetrical and evaluation. FINDINGS: Number: 1 Heart Rate: 145.0 bpm H.B. /min Amniotic Fluid Volume: Subjectively normal position: Variable Placental Location: Posterior, the placental edge is 5.2 cm from the internal os Cervix Length: 4.6 cm , closed Normal anatomy: Lateral ventricles, cerebellum, posterior fossa, nose, lips, orbits, four-chamber heart, RVOT, LVOT, diaphragm, stomach, kidneys, abdominal cord insertion, bladder, umbilical arteries, three-vessel cord, spine, extremities BIOMETRY: BPD: 4.8 cm 20 weeks 3 days , 46% HC: 18.4 cm 20 weeks 5 days, 51% AC: 15.8 cm 20 weeks 6 days, 56% FL: 3.4 cm 20 weeks 5 days , 47% EFW:378.9 grams; 13 ounces, 59% FL/AC: 21.6 FL/BPD: 71.2 HC/AC: 1.2 GESTATIONAL AGE: Age by EDC: 20 weeks 4 days Age by current US: 20 weeks 5 days DEBBY by current US: 11/25/2023 DEBBY by EDC: 11/26/2023 US/US OB anatomy IMPRESSION: Normal anatomy scan Closed cervix measuring 4.6 cm in length *Reference: [employer] Practice Guideline for the performance of Obstetric Ultrasound Examinations, November 30, 2006. Electronically authenticated by: SY WELDON Date: 07/13/2023 13:06
--- NOTE | 2023-07-13 11:26 | US_ITS ---
[address] [address] Patient Name: KRISHNA GLOVER MRN: [id number] date: 1995 Sex: F Assigned Patient Location: [facility] Current Patient Location: [facility] Accession/Order Number: [id number] Exam Date: 07/13/2023 11:26 Report Date: 07/13/2023 13:06 At the request of: MILAN GO Procedure: US OB cervical length EXAMINATION: US OB anatomy, US OB cervical length HISTORY: ANATOMY COMPARISON: No relevant comparison available. TECHNIQUE: Transabdominal sonographic examination was performed for obstetrical and evaluation. FINDINGS: Number: 1 Heart Rate: 145.0 bpm H.B. /min Amniotic Fluid Volume: Subjectively normal position: Variable Placental Location: Posterior, the placental edge is 5.2 cm from the internal os Cervix Length: 4.6 cm , closed Normal anatomy: Lateral ventricles, cerebellum, posterior fossa, nose, lips, orbits, four-chamber heart, RVOT, LVOT, diaphragm, stomach, kidneys, abdominal cord insertion, bladder, umbilical arteries, three-vessel cord, spine, extremities BIOMETRY: BPD: 4.8 cm 20 weeks 3 days , 46% HC: 18.4 cm 20 weeks 5 days, 51% AC: 15.8 cm 20 weeks 6 days, 56% FL: 3.4 cm 20 weeks 5 days , 47% EFW:378.9 grams; 13 ounces, 59% FL/AC: 21.6 FL/BPD: 71.2 HC/AC: 1.2 GESTATIONAL AGE: Age by EDC: 20 weeks 4 days Age by current US: 20 weeks 5 days DEBBY by current US: 11/25/2023 DEBBY by EDC: 11/26/2023 US/US OB cervical length IMPRESSION: Normal anatomy scan Closed cervix measuring 4.6 cm in length *Reference: [employer] Practice Guideline for the performance of Obstetric Ultrasound Examinations, November 30, 2006. Electronically authenticated by: SY WELDON Date: 07/13/2023 13:06
--- OUTSIDE RECORDS SUMMARY | 2023-07-13 11:39 | XMS_ITS | CCD ---
Author Organization [facility] Care Team Providers Care Product Development Chemist Name Role Phone Milan Esparza Unavailable Unavailable Petra Young Unavailable No, Physician Primary Care Provider Unavailabl e NO, PHYSICIAN Primary Care Unavailable IVANNA GOMEZ Attending Unavailable Sara Cooley Unavailable Kirti ralphher Unavailable PETRA YOUNG Primary Care Unavailable DONAVAN [...] ESPARZA Attending Unavailable MILAN ESPARZA Attending Unavailable MILAN ESPARZA Attending Unavailable Medications Current Medications Medication Drug Class(es) Dates Sig (Normalized) Sig (Original) [id number] 200 actuat albuterol 0.09 mg/actuat metered dose [...] two thereafter- 1.2mg daily Subcutaneous Daily for May, Active Vitamin D (2 sources) Vitamin D Active Completed/Discontinued Medications Medication Drug Class(es) Dates Sig (Normalized) Sig (Original) dextromethorphan hydrobromide 15 mg / guaiFENesin 400 mg / pseudoephedrine hydrochloride 60 mg oral tablet (8 sources) alpha-Adrenergic Agonist, Uncompetitive D-uflejd-U-aspartat e Receptor Antagonist, Sigma-1 Agonist Start: 03-06-2020 [...] Not-Taking Start: 11-19-2021 take 1 capsule by [facility] once daily FLUoxetine HCl 10 MG [...] Resolved: 04-14-2021 Episodic Other aftercare (1 source) 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) use of hormonal contraceptives; Translations: [USP HORMONAL CONTRACEPTIVES] Onset: 09-18-2021 Episodic Syncope (1 source) Syncope and collapse Onset: 09-03-2021 Resolved: 09-03-2021 Episodic Results Test Name Value Interpretation Reference Range Facility Coding Summaryon 07-07-2022 Coding Summary HTMLBase 64 CsjjyllmFHn4zTp+PGh lYWQ+JS6XRARxL06ncR MuhY6EY0uZLI1YVCVLP MAZGY7JRD3lbNN5QDgc U8TgliUj CmpzjEXxXL90QDf1DMR 1iKhtEUptbP6gfCOqC2 z3VpZlZW22lG92AAmtP YSlKdX8TyJpqiayuVCz X6syMpDdoZPrJav+PHR hYmxlIHdpZHRoPScxMD SeIzAleIxgHV1jNq1kS GVyLWNvbGxhcHNlOiBj z1ktDKPyBXmpVG9qeLd vV6ApfME1KTPax3h8Tg 48dHI+XGClARR9yTbbW Wwyy691TlXip0mfNJQ4 yHIqNIpeAPM1L27ku0E 3RUSiYCSgWHP4yQT6iR 2cxBbajsenB0BqnOFzC rB9ZAV0oUAdzC0tmFby bcljlM5qTxb+Y95CPZ0 TEWDFTE0QUzn4A5DaRi wvdHI+SU88OXIrNM46t ZAmrMUaf5hmwHp4UwUw FJXnNZH2xMbxKQwnd0E sTFZmY57hoVQld1Y1SX LasLcoxRKrSuNttBR1a O7yOXaltngii4uxnpen Pvncq5zvxc82jB18V66 zBCopSEDfKTF1OXVjEC XtrRakpf9goK3qIc5+I Rhqk1jlg4nlgQo3XxUp SKUpbzCacNnnBSU2x3L dHs78T7UylBmnh7HdYj a5vz46qISff3B7vRY3K AsjRRNlmT5eGAmmUlI7 DXXqSrKqnR75oXXpGLl tLq8xxHhzlUikFX3eRZ ZwttykVBHpdQ8wAJFfw XIvsFpuRA2kZGObcihc b401WrXwUFP1ZVIqnYT gY6YgeJ5oLzFcUQKuHZ HfK4QupCKhAIriD341I XqwCeJ8QJVjssIoG6Yg LJHkuFksZrY2m9E0Ak9 Xm2OkwpflLAN2LXymAS E6NvP3MrWkXhG2H3InE zx5UTSipUxuES8kT6Ze MHAmggngqxlegVO4CBW bNSQztO55qHZsBScnFp 2ht9F4j720TUIsPNHbo O92Ul7cjSisUOUjiTHY cN6uedcrv5bhwoqoFgW qMUViYHu0KLa3YLKhyG nwLvGaGGZ4UuB0UXU2c DPosA0ouFbyajdwvW3r Oyc+B81qxS5mMZS2XYR 6fvbvRHIaxxWjZJ89NM 66D8SyNbkavDTfnJQ+P ZHmskRamHdgMR9tQyZi p0nyo4MyQWbiX2JdBIL tKMepJaz9JMCaHPJ1cT L6nM8jHIFgFJmrr0L2l KI3A1SxvfZjvl5fz4nx ZWKwOEtcO84lfBVlm4S 8ESMxwLP8GMXlvCusSa PbtU75Kzi+PGNvbGdyb 0OeIewnw2jvv9yzhCd0 IjMwJSIgdmFsaWduPSJ 6w4BtPe79X35tUHywSJ RoPSIxNSUiIHZhbGlnb g0eyN4oFp9+PGNvbCB3 wBE2dB3iMIGcScJ7MJh iY478LyGtrXEaPyxdf9 vee9oaaBh3BsPxXZCej tDqxBbvLMA3f6DvKe85 K45kEScvIVAmAWVuYUD aHZBcbVoapd2wvL6yEi 8+RU7yt1wdoj01xO10t HI+DGWqIQT5wOngVMot GTBwkQ4lDKkdPwW1YTI cFqNiiS54zWAcHUkmUb 5udSzmpQxaZC2bNLJaf wbbe480McFkl9fbQTPe lABxFNyhVTC2D81jt1B 0SABfDTGfLKJ2qWW6kC 1hbGlnbjogbGVmdDsgd gCxlTtoIIqiBAwmG795 IHRvcDsnPlBhdGllbnQ kHqVcWIh8W9PcDjs2CX QquFmxDB3drEFjYDouI q0ldKviuPlsZU7aYEIa wguec825ZoWfb9eqGBB ylFXiWRigJIP0W80eh2 I9XVYhGLGfSXE0bVM2z B6biUelcjuudCUxnJkc teBznFgaBWkoVYbiM54 6IHRvcDsnPkJpcnRoIE HedNI8NU74SF76mQHjb 4H6dLY8E4EeICZsfhsh rpdcbRH9NJTrJPVfiS9 1Hg7jgZdtYy6eEXDnHA W5HTFagJVmN0JgxZ8iK eMhXIGkKFXdM3DntEJc WEdfD109LAbkExQ8QQA uicTnM8JhKILzrMeeVl Y1t8J3Er9UF2W6HC74J O22aIWgq9X0xSH9F0Gs TPTkvdszuuixsKA1ZRX kDBJxcC40Hn5vhLabHp 7bIECgYQG3VEAngRKeZ 6TasD0gOoMlZTXuMVCr N7LlxUZdMLzeX411JSg dOpD7MZKncnDqO5LoEV OcjIhcLoF0j5Q8Cp0MO Dy8YJ64TY94uPOyl9C8 nCE4N1CbZTUismtmphk rnKR3PEGhKWIjvF64Jo 0qrOedEn4pHTFvUEQ7M CYiwMFpE8QglJ8cLzCg CUDoHSFjV9BlqCQdCIn zC999YTqlUnQ5QYUwsy OaA8HnZGJzwIliTwQ7u 8M5Pe7UHEMpFB03PBI7 cRI5KF93ST19T0FvEza vdGFibGU+PHRhYmxlIH dpZHRoPScxMDAlJyBzd XkcOI7hBc6zDBKcUTYg iQjsrNMaHxWtr7bwHDR qFXlhMU0ihVshJ5UfnO V0YVVjq9o6Ow23K37sT 3JvdXA+CPAnlGY7wVN8 gP7pTaXrCcB6BIofZ30 7LcJyjSMlVjbww9qli1 lbmWs7BbY0XMPcgsOuz TxhESZ9u8OcVs20Z82m IHdpZHRoPSIxNSUiIHZ psDhvlj3saI9pYk5+PG TfpZV1hZM1wB6hBtYoC xL6CHgrT573EuVwbNIv Sqmyx2ida1orwLw1RkH fLWVwnoUaqLodVZD9z3 SgAb31J9XhvZpue7UyC vw2qy62aFQmo0D4dIB7 Q2MoBFRfugypsWHkuLo eNY1vMBQotetcUPOrbR 6fJFIlY5b6EfGhOyD4C QhyW4QfwoE6XGYdoSHk XNpyRAI5E41lo9I2EAU aTDVjSDD0xNX1bH7xvF lnbjogbGVmdDsgdmVyd QzlHVkcJKrjJ304SPMe xRsuCUPmtU6xZRXtnAJ qmEwfIN0iRXKdnozrAg RPUlNFWSwgQUxFWEEgT jwvdGQ+QENrFMD3wXln NXbqCNWrsZ0eQNBtF3z 2PcNpTvF0XJuyO3KmYI TgcxznMo69zV0xZvSmR hY3FMpaD1BfrlX2QTGa nWYjRXqnAVZ7I86vm2Y 3XVGiTQJzHOK8zYT8sT 1hbGlnbjogbGVmdDsgd dOciKvcVGrxDTffL421 ZERqjVipLrGkJnU1LdW 4JQS0V1NoAnu2CQNnhD enGG7raUYcUEnzYe2ga JkxdPxxYX9mXPScqphq OHKwhG9rIBHluRLbiVe xEC5vBNZeymsdg074Zk UhLMZ5PGIymLIuJ7Plf Y8tBjIeHDXtGTJbT1Qs wFBkJHlwM173PZxbKeB 5LJDhgiQlD2RfKDZwhA oqXcS1z5Y3Ze0hFiXOX WFyczwvdGQ+PHRkIHN0 aLejBRrwKRNrhR9mICC lF4i5VyJiNiM5FPnyS2 DyHCXhbeceIb87jG4yW rXhMmL9LOctF2RmpzP9 LMUrxNMrABtzHIQ3W10 kc6Z9WMHxFQVqJTJ8pP B1jS3weSyxbsmubEUgz DsgdmVydGljYWwtYWxp Z861WVLvxIihEkEWRCC MRTwvdGQ+ZSXaZRQ4dY ogUVnlDHTmkN7oCMGqY 2c1KoOrDfY8BFnoK2Yr BQYcmgduIk55zB4qHsC xUeT8UDaqC5NujtP6QP AzxLLpZUfqQGS6T68bt 0Q8LVDkDYYuQWA9oFW5 gN1lsHijgfuscLRnrWi gdmVydGljYWwtYWxpZ2 46IHRvcDsnPkVtZXJnZ P6wbAdnuUC+FH40lf01 A4YgXjmlOzn5TEKfEMH 9aKN1zL6pAJEoWPisa7 G6lQX4B6OcclMyrl9aa 8fiNGNtNYyrN88pbKIx e2Z5NJVqkIV7ZRNfjFt fMfJtxD85Rfu+PGNvbG cbs6GcTiows6wso2cov Fa3LzBkBGRiwxYlpCzu AYB5a9XjZu73B36cYCf pZHRoPSIzMCUiIHZhbG opmo6xxV8xRl4+PGNvb YP8wQO4oE5sHyBuGdX2 CKhkL548HtTwbSTzIqz de6iaj7fscEr6HiKrZT TeutMosLklTYP7j9BmC q09C8ZrjEnqw8KxCfy8 fj63fDWob8Y5fCM9Q5F hZGRpbmctbGVmdDogMC 5vPEHwyvvhLHMaoU0cZ DNfO9u2BeJsTxD5FQkn G2ChybE8KPWsfLPkHPB saZKNxX2lclbaf4nbdk rlJoZlIMHkHLk2SWo9C CJtiLxgSmMgROS4UfQ0 RNA3rBXltA9mwXluxca gfH3jPqz+KNo5f6dqvU CfWH0sdMI1DN92TK55c OWsx3Y0dTV1U7NvSLBo epgbgsczpMI9YZTuGSZ gzS34Aq4coDhyZh5vNB EnMDS9FCIluWZxT8Nad S2kUtNfQBGhAIAfW4Ms jFXcWNocT716USwfKxD 0MOUnhiXwJ2XsWDMhrP xmFaY0x0O3Mk2LRO73S G59GF96dTMhg8I3nTQ5 A5RaKZFyffieqvuyqHL 6OTHxILFwpU98Te5vdF doJe1rISWdZXI6PRDuz RMaV3VjgZ2eJiZxLWQe FNTqK4GsbIUvIMtsL02 4NDbbGgP2BGBpuoVoS5 JdASDpeMduIeE2j2X1R r1QNk73UV42JR62zPBd c7Q1oGV6L1TcKTSfmnd ctawdfYO1APOvIRQwvL 78Jf7dzFpkFa0wFYXgC XR9GAKdbSGpP6FgbM1s NiYaZPQgXNDtS5SmmJF lPAqvZ632YYhbQdN1DP RkosVgA7OiTHBsdYslN nV8h6R7Bk1GLUykyyy7 V2UiAwhvaYJ+BH52TZP dHC98lPLhzMJor3ubuI m1OdLoJWMgCSC5tMpwJ Nauz8SoVPPuF28luMMn c2U (more content not included)... Normal [facility] US PELVIS AND TRANSVAGon US PELVIS [...] WISAM MORALES Date: 2022-07-07 10:40 Normal [facility] C Throaton 07-03-2022 C Throat Ordered by [employer]. Normal throat christian isolated No pathogens isolated [facility] Comment on above: Performed By: #### [id number] #### [facility] (DEFAULT) [address] [place] [address] .QC SARS-CoV-2 (COVID-19)/Fl u/RSV (GeneXpert)on 07-01-2022 Internal Control Pass [facility] Comment on above: Order Comment: Order ed by Gary. [[email or web address]] Performed By: #### [id number] #### [facility] (DEFAULT) [address] [place] [address] COVID/Flu/RSV (GeneXpert)on 07-01-2022 Flu A (GXpert COVFLURSV) Negative Normal Negative [facility] Comment on above: Performed By: #### [id number] #### [facility] (DEFAULT) [address] [place] [address] Flu B (GXpert COVFLURSV) Negative Normal Negative [facility] Comment on above: Performed By: #### 7 [id number] #### [facility] (DEFAULT) [address] [place] [address] RSV (GXpert COVFLURSV) Negative Normal Negative [facility] Comment on above: Performed By: #### 7 [id number] #### [facility] (DEFAULT) [address] [place] [address]23 SARS-CoV-2 (COVID-19) RNA JOAN+probe Ql (Unsp spec) Negative Normal Negative [facility] Comment on above: Result Comment: Perf ormed by PCR methodology. Performed By: #### 7 [id number] #### [facility] (DEFAULT) [address] [place] [address]406 ED Clinical Summaryon 2022 ED Clinical Summary [facility] - Emergency Department [address] [place] [address] [id number] ED Clinical Summary PERSON INFORMATION Name: KRISHNA GLOVER Age: 27 Years Sex: FEMALE : 1995 MRN: Acct#: Visit Reason: Headache; Ear pain; UC - Sore Throat; SORE THROAT, CONGESTION, BILAT EAR PAIN Arrival: 07/01/2022 09:15:55 Discharge: 07/01/2022 11:05:00 LOS: 000 01:50 Check In: 07/01/2022 09:15:55 Checkout:07/01/2022 11:05:00 Address: [address] [place] [address] PCP: Provider, None PROVIDER INFORMATION Provider Role [...] INFORMATION Instructions: Viral Illness, Adult; Hypertension, Adult, Bwhk-kj-Qnec Follow-Up: With: Address: When: Follow up with primary care provider Within 3 to 5 days DIAGNOSIS: 1:Viral syndrome; 2:Elevated blood pressure reading Patient Understands: Yes - Patient/family/landcare facilitator verbalizes understanding of instructions given Comment: Normal [facility] ED Patient Summaryon 023 ED Patient Summary [facility] - Emergency Department [address] [place] [address] [id number] PATIENT DISCHARGE INSTRUCTIONS Patient Information Name: KRISHNA GLOVER Age: 27 Years Date of : 1995 [facility]: [id number] Reason For Visit: Headache; Ear pain; UC - Sore Throat; SORE THROAT, CONGESTION, BILAT EAR PAIN Arrival Time: 07/01/2022 09:15:55 Primary Care Physician: Provider, None Attending Physician: Nba Guaman MD Comment: Visit Diagnosis: Diagnoses This Visit Ear pain ([id number]) Elevated blood pressure reading (R03.0) Headache ([id number]) UC - Sore Throat ([id number]) Viral syndrome (B34.9) The Pharmacy at [facility] is open Thursday through Thursday from [...] alcohol and/or drug addiction problems; contact the [facility] 22/09 Crisis Hotline -Text 3BSFC pi [phone]. If you received any narcotics, sedation, or [...] and treatment you received today in the [facility] Emergency Department were for an urgent problem and are not intended as complete care. It is important for you to follow up with a doctor, nurse practitioner, or physician?s assistant guest services manager for ongoing care. If your symptoms become [...] so we can reach you if necessary. [facility] Emergency Department has provided you with a complete list of medications post discharge. Please inform your c web developer/provider of your visit and for further instruction [...] (influenza). Long-term (more content not included)... Normal [facility] Strep Aon 07-01-2022 Strep procedure control Pass Normal [facility] Comment on above: Performed By: #### [id number] #### [facility] (DEFAULT) [address] [place] [address] Streptococcus A Negative Normal Negative [facility] Comment on above: Performed By: #### [id number] #### [facility] (DEFAULT) [address] [place] [address] CBC AUTO DIFFon 09-16-2021 BASO # 0.0 103/ul Normal 0.0-0.1 [facility] Comment on above: Performed By: #### C BC #### [facility] [address] [place] [address] Dr. Jake Gallardo Basophils/100 WBC (Bld) 0.3 % Normal 0.2-2.0 [facility] Comment on above: Performed By: #### C BC #### [facility] [address] [place] [address] Dr. Jake Gallardo EO # 0.1 103/ul Normal 0.0-0.7 [facility] Comment on above: Performed By: #### C BC #### [facility] [address] [place] [address] Dr. Jake Gallardo Eosinophils/100 WBC (Bld) 1.9 % Normal 0.9-7.0 [facility] Comment on above: Performed By: #### C BC #### [facility] [address] [place] [address] Dr. Jake Gallardo Erythrocyte distribution width (RBC) [Ratio] 12.6 % Normal 11.0-15.0 [facility] Comment on above: Performed By: #### C BC #### [facility] [address] [place] [address] Dr. Jake Gallardo Hematocrit (Bld) [Volume fraction] 42.4 % Normal 36.0-48.0 [facility] Comment on above: Performed By: #### C BC #### [facility] [address] [place] [address] Dr. Jake Gallardo Hemoglobin (Bld) [Mass/Vol] 14.0 g/dL Normal 12.0-16.0 [facility] Comment on above: Performed By: #### C BC #### [facility] [address] [place] [address] Dr. Jake Gallardo IG # 0.01 10e3/ul Normal 0.00-0.03 [facility] Comment on above: Performed By: #### C BC #### [facility] [address] [place] [address] Dr. Jake Gallardo IG % 0.1 % Normal 0.0-0.5 [facility] Comment on above: Performed By: #### C BC #### [facility] [address] [place] [address] Dr. Jake Gallardo LYMPH # 1.0 103/ul Critically low 1.2-3.8 [facility] Comment on above: Performed By: #### C BC #### [facility] [address] [place] [address] Dr. Jake Gallardo Lymphocytes/100 WBC (Bld) 14.9 % Critically low 20.5-60.0 [facility] Comment on above: Performed By: #### C BC #### [facility] [address] [place] [address] Dr. Jake Gallardo MANUAL DIFF REQ NO Normal [facility] Comment on above: Performed By: #### C BC #### [facility] [address] [place] [address] Dr. Jake Gallardo MCH (RBC) [Entitic mass] 30.4 pg Normal 26.7-34.0 [facility] Comment on above: Performed By: #### C BC #### [facility] [address] [place] [address] Dr. Jake Gallardo MCHC (RBC) [Mass/Vol] 33.0 g/dL Normal 29.9-35.2 [facility] Comment on above: Performed By: #### C BC #### [facility] [address] [address] [address] Jake Gallardo MCV (RBC) [Entitic vol] 92.2 fL Normal 81.0-99.0 [facility] Comment on above: Performed By: #### C BC #### [facility] [address] [address] [address] Jake Gallardo MONO # 0.3 103/ul Normal 0.3-0.8 [facility] Comment on above: Performed By: #### C BC #### [facility] [address] [place] [address] Dr. Jake Gallardo Monocytes/100 WBC (Bld) 4.9 % Normal 1.7-12.0 [facility] Comment on above: Performed By: #### C BC #### [facility] [address] [place] [address] Dr. Jake Gallardo NEUT # 5.2 103/ul Normal 1.4-6.5 [facility] Comment on above: Performed By: #### C BC #### [facility] [address] [place] [address] Dr. Jake Gallardo Neutrophils/100 WBC (Bld) 77.9 % Critically high 43.0-75.0 [facility] Comment on above: Performed By: #### C BC #### [facility] [address] [place] [address] Dr. Jake Gallardo Platelet mean volume (Bld) [Entitic vol] 10.5 fL Normal 9.5-13.5 [facility] Comment on above: Performed By: #### C BC #### [facility] [address] [place] [address] Dr. Jake Gallardo PLT 226 103/ul Normal 150-450 [facility] Comment on above: Performed By: #### C BC #### [facility] [address] [place] [address] Dr. Jake Gallardo RBC 4.60 106/ul Normal 4.20-5.40 [facility] Comment on above: Performed By: #### C BC #### [facility] [address] [address] [address] Jake Gallardo WBC 6.7 103/ul Normal 4.0-11.0 [facility] Comment on above: Performed By: #### C BC #### [facility] [address] [address] [address] HEAD WO CONon [...] WISAM MORALES Date: 2021-09-16 15:09 Normal [facility] CULTURE URINEon 09-16-2021 CULTURE URINE Culture Observations: LIGHT GROWTH OF MIXED GENITAL CHRISTIAN. NO POTENTIAL PATHOGENS SEEN. Normal [facility] Comment on above: Performed By: #### U RCX #### [facility] [address] [place] [address] Dr. Jake Gallardo DRUG SCREEN RAPID (URINE)on 09-16-2021 AMP Negative Normal NEGATIVE [facility] Comment on above: Performed By: #### C BC #### [facility] [address] [address] [address] Jake Gallardo BAR Negative Normal NEGATIVE [facility] Comment on above: Performed By: #### C BC #### [facility] [address] [place] [address] Dr. Jake Gallardo BUP Negative Normal NEGATIVE [facility] Comment on above: Performed By: #### C BC #### [facility] [address] [place] [address] Dr. Jake Gallardo BZO Negative Normal NEGATIVE [facility] Comment on above: Performed By: #### C BC #### [facility] [address] [place] [address] Dr. Jake Gallardo SUNDEEP Negative Normal NEGATIVE [facility] Comment on above: Performed By: #### C BC #### [facility] [address] [place] [address] Dr. Jake Gallardo CUT-OFFS SEE BELOW Normal [facility] Comment on above: Result Comment: [...] ng/mL Performed By: #### C BC #### [facility] [address] [place] [address] Dr. Jake Gallardo DRUG CUT HEADER DRUG CLASS TEST SYSTEM CUT-OFF CONCENTRATIONS ARE FOLLOWS: Normal [facility] Comment on above: Performed By: #### C BC #### [facility] [address] [place] [address] Dr. Jake Gallardo mAMP Negative Normal NEGATIVE [facility] Comment on above: Performed By: #### C BC #### [facility] [address] [place] [address] Dr. Jake Gallardo MTD Negative Normal NEGATIVE [facility] Comment on above: Performed By: #### C BC #### [facility] [address] [place] [address] Dr. Jake Gallardo OPI Negative Normal NEGATIVE [facility] Comment on above: Performed By: #### C BC #### [facility] [address] [place] [address] Dr. Jake Gallardo OXY Negative Normal NEGATIVE [facility] Comment on above: Performed By: #### C BC #### [facility] [address] [place] [address] Dr. Jake Gallardo PCP Negative Normal NEGATIVE [facility] Comment on above: Performed By: #### C BC #### [facility] [address] [place] [address] Dr. Jake Gallardo PPX Negative Normal NEGATIVE [facility] Comment on above: Performed By: #### C BC #### [facility] [address] [place] [address] Dr. Jake Gallardo TCA Negative Normal NEGATIVE [facility] Comment on above: Performed By: #### C BC #### [facility] [address] [place] [address] Dr. Jake Gallardo THC Negative Normal NEGATIVE [facility] Comment on above: Performed By: #### C BC #### [facility] [address] [place] [address] Dr. Jake Gallardo ER URINE PROFILEon 2 Bilirubin Ql (U) Negative Normal NEGATIVE [facility] Comment on above: Performed By: #### C BC #### [facility] [address] [place] [address] Dr. Jake Gallardo Clarity (U) CLEAR Normal CLEAR [facility] Comment on above: Performed By: #### C BC #### [facility] [address] [place] [address] Dr. Jake Gallardo Color (U) LT. YELLOW Normal YELLOW [facility] Comment on above: Performed By: #### C BC #### [facility] [address] [place] [address] Dr. Jake TESFAYE A micrscopic examination will be performed if indicated. Normal [facility] Comment on above: Performed By: #### C BC #### [facility] [address] [place] [address] Dr. Jake Gallardo Glucose Ql (U) Negative Normal NEGATIVE [facility] Comment on above: Performed By: #### C BC #### [facility] [address] [place] [address] Dr. Jake Gallardo Hemoglobin Ql (U) TRACE-INTACT Abnormal NEGATIVE [facility] Comment on above: Performed By: #### C BC #### [facility] [address] [place] [address] Dr. Jake Gallardo Ketones Ql (U) Negative Normal NEGATIVE [facility] Comment on above: Performed By: #### C BC #### [facility] [address] [place] [address] Dr. Jake Gallardo LEUKOCYTES TRACE Abnormal NEGATIVE [facility] Comment on above: Performed By: #### C BC #### [facility] [address] [place] [address] Dr. Jake Gallardo Nitrite Ql (U) Negative Normal NEGATIVE [facility] Comment on above: Performed By: #### C BC #### [facility] [address] [place] [address] Dr. Jake Gallardo pH (U) 6.0 [pH] Normal 5-9 [facility] Comment on above: Performed By: #### C BC #### [facility] [address] [place] [address] Dr. Jake Gallardo SPEC GRAVITY 1.025 Normal 1.005-<=1.025 [facility] Comment on above: Performed By: #### C BC #### [facility] [address] [place] [address] Dr. Jake Gallardo UA PROTEIN Negative Normal NEGATIVE/ TRACE [facility] Comment on above: Performed By: #### C BC #### [facility] [address] [place] [address] Dr. Jake Gallardo UR MICRO IND INDICATED Normal [facility] Comment on above: Performed By: #### C BC #### [facility] [address] [place] [address] Dr. Jake Gallardo Urobilinogen Qn (U) 0.2 {Manny'U}/dL Normal 0.2 - 1.0 [facility] Comment on above: Performed By: #### C BC #### [facility] [address] [address] [address] Jake Gallardo PREG HCG QUALon 09-16-2021 , QUAL Negative Normal NEGATIVE [facility] Comment on above: Performed By: #### P REG #### [facility] [address] [address] [address] Jake Gallardo PROF 14(COMP METB)on 022 Albumin [Mass/Vol] 3.5 g/dL Normal 3.4-5.[address] [facility] Comment on above: Performed By: #### C MP, TSH, HSTROPN #### [facility] [facility] [address] [address] [address] Jake Gallardo Albumin/Globulin [Mass ratio] 0.9 {ratio} Normal [facility] Comment on above: Performed By: #### C MP, TSH, HSTROPN #### [facility] [address] [address] [address] Jake Gallardo ALP [Catalytic activity/Vol] 42 U/L Critically low 46-116 [facility] Comment on above: Performed By: #### C MP, TSH, HSTROPN #### [facility] [address] [address] [address] Jake Gallardo ALT [Catalytic activity/Vol] 22 U/L Normal 14-59 [facility] Comment on above: Performed By: #### C MP, TSH, HSTROPN #### [facility] [address] [address] [address] Jake Gallardo Anion gap [Moles/Vol] 15.0 mmol/L Normal [facility] Comment on above: Performed By: #### C MP, TSH, HSTROPN #### [facility] [address] [address] [address] Jake Gallardo AST [Catalytic activity/Vol] 15 U/L Normal 15-37 [facility] Comment on above: Performed By: #### C MP, TSH, HSTROPN #### [facility] [address] [address] [address] Jake Gallardo Bilirubin [Mass/Vol] 0.4 mg/dL Normal 0.2-1.0 [facility] Comment on above: Performed By: #### C MP, TSH, HSTROPN #### [facility] [address] [place] [address] Dr. Jake Gallardo Calcium [Mass/Vol] 9.1 mg/dL Normal 8.5-10.[address] [facility] Comment on above: Performed By: #### C MP, TSH, HSTROPN #### [facility] [address] [place] [address] Dr. Jake Gallardo Chloride [Moles/Vol] 106 mmol/L Normal 98-107 [facility] Comment on above: Performed By: #### C MP, TSH, HSTROPN #### [facility] [address] [place] [address] Dr. Jake Gallardo CO2 [Moles/Vol] 22.9 mmol/L Normal 21.0-32.0 [facility] Comment on above: Performed By: #### C MP, TSH, HSTROPN #### [facility] [address] [place] [address] Dr. Jake Gallardo Creatinine [Mass/Vol] 0.74 mg/dL Normal 0.55-1.02 [facility] Comment on above: Performed By: #### C MP, TSH, HSTROPN #### [facility] [address] [place] [address] Dr. Jake Gallardo EGFR-AF MARTINIQUAIS >60 Normal >=60 [facility] Comment on above: Performed By: #### C MP, TSH, HSTROPN #### [facility] [address] [place] [address] Dr. Jake Gallardo EGFR-NON AF MARTINIQUAIS >60 Normal >=60 [facility] Comment on above: Performed By: #### C MP, TSH, HSTROPN #### [facility] [address] [place] [address] Dr. Jake Gallardo Globulin (S) [Mass/Vol] 4.0 g/dL Normal [facility] Comment on above: Performed By: #### C MP, TSH, HSTROPN #### [facility] [address] [address] [address] Jake Gallardo Glucose [Mass/Vol] 84 mg/dL Normal 74-106 [facility] Comment on above: Performed By: #### C MP, TSH, HSTROPN #### [facility] [address] [address] [address] Jake Gallardo Potassium [Moles/Vol] 3.9 mmol/L Normal 3.5-5.1 [facility] Comment on above: Performed By: #### C MP, TSH, HSTROPN #### [facility] [address] [place] [address] Dr. Jake Gallardo Protein [Mass/Vol] 7.5 g/dL Normal 6.4-8.2 [facility] Comment on above: Performed By: #### C MP, TSH, HSTROPN #### [facility] [address] [place] [address] Dr. Jake Gallardo Sodium [Moles/Vol] 140 mmol/L Normal 136-145 [facility] Comment on above: Performed By: #### C MP, TSH, HSTROPN #### [facility] [address] [place] [address] Dr. Jake Gallardo Urea nitrogen [Mass/Vol] 8.0 mg/dL Normal 7.0-18.0 [facility] Comment on above: Performed By: #### C MP, TSH, HSTROPN #### [facility] [address] [place] [address] Dr. Jake Gallardo Urea nitrogen/Creatinin e [Mass ratio] 10.8 mg/mg Normal [facility] Comment on above: Performed By: #### C MP, TSH, HSTROPN #### [facility] [address] [place] [address] Dr. Jake Gallardo PROTIMEon 09-16-2021 INR Coag (PPP) [Relative time] 0.96 {INR} Normal [facility] Comment on above: Performed By: #### P T, PTT #### [facility] [address] [place] [address] Dr. Jake Gallardo INR GUIDELINES SEE BELOW Normal [facility] Comment on above: Result Comment: NASH RED INR: 2.0 - 3.0 CONDITIONS NOT LISTED BELOW 2.5 - 3.5 FOR PROSTHETIC HEART VALVE REPLACEMENT 2.5 - 3.5 RECURRENT THROMBOSIS Performed By: #### P T, PTT #### [facility] [address] [place] [address] Dr. Jake Gallardo PT Coag (PPP) [Time] 10.4 s Normal 9.0-11.6 [facility] Comment on above: Performed By: #### P T, PTT #### [facility] [address] [place] [address] Dr. Jake Gallardo PTTon 09-16-2021 aPTT Coag (Bld) [Time] 29.2 s Normal 22.3-36.2 [facility] Comment on above: Performed By: #### P T, PTT #### [facility] [address] [place] [address] Dr. Jake Gallardo TROPONIN, HIGH SENSITIVITYon 09-16-2021 HSTROP <4.0 Normal 4.0-51.3 [facility] Comment on above: Result Comment: CUT- OFF POINTS HAVE BEEN ESTABLISHED BASED ON THE FOURTH UNIVERSAL DEFINITIONS OF MYOCARDIAL INFARCTION. THE UPPER REFERENCE LIMIT (URL) OF TROPONIN, DEFINED THE 99TH PERCENTILE OF cTnI DISTRIBUTION IN A REFERENCE POPULATION, HAS BEEN CONFIRMED THE DECISION THRESHOLD FOR KS DIAGNOSIS. Performed By: #### C MP, TSH, HSTROPN #### [facility] [address] [place] [address] Dr. Jake Gallardo TSHon 09-16-2021 TSH 2.037 uIU/mL Normal 0.358-3.740 [facility] Comment on above: Performed By: #### C MP, TSH, HSTROPN #### [facility] [address] [place] [address] Dr. Jake Gallardo URINE MICROSCOPIC ONLYon BACTERIA SMALL Abnormal NONE SEEN [facility] Comment on above: Performed By: #### C BC #### [facility] [address] [place] [address] Dr. Jake Gallardo Bacteria identified Cx Nom (U) INDICATED Normal [facility] Comment on above: Performed By: #### C BC #### [facility] [address] [place] [address] Dr. Jake Gallardo CAST NONE SEEN Normal NONE SEEN [facility] Comment on above: Performed By: #### C BC #### [facility] [address] [place] [address] Dr. Jake Gallardo Crystals LM Nom (Urine sed) NONE SEEN Normal NONE SEEN [facility] Comment on above: Performed By: #### C BC #### [facility] [address] [place] [address] Dr. Jake Gallardo Epithelial cells LM Ql (Urine sed) FEW Abnormal NONE SEEN /RARE [facility] Comment on above: Performed By: #### C BC #### [facility] [address] [place] [address] Dr. Jake Gallardo MUCOUS NONE SEEN Normal NONE SEEN [facility] Comment on above: Performed By: #### C BC #### [facility] [address] [place] [address] Dr. Jake Gallardo RBC 0-2 Normal 0-2 [facility] Comment on above: Performed By: #### C BC #### [facility] [address] [place] [address] Dr. Jake Gallardo WBC 2-5 Abnormal NONE SEEN [facility] Comment on above: Performed By: #### C BC #### [facility] [address] [place] [address] Dr. Jake Gallardo COVID Quick Testingon 2021 Result Negative [facility] Other Quick Fluon 04-14-2021 FLUAV Ab CF (S) [Titer] Positive [facility] Other FLUBV Ab CF (S) [Titer] Negative [facility] Other Quick Strepon 04-14-2021 S. pyogenes Org specific cx Ql (Throat) Negative [facility] Other Quick Strep [facility] Other U28 Proteinon 09-30-2017 Protein mass conc (24H U) 75 mg/24hr Normal 28-141 [facility] Comment on above: Performed By: #### 2 [id number] ####[facility] [address] [place] [address] Albumin/Protein.to popeye Elph mass fraction (U) 21.4 mg/dL Invalid Interpretation Code [facility] Comment on above: Result Comment: The reference range and other method performance specifications have not been established for this test; results should be integrated into the clinical context for interpretation. Performed By: #### 2 [id number] ####[facility] [address] [place] [address] U24 Total Volon 09-30-2017 Hrs Kenny 24 hour(s) Invalid Interpretation Code [facility] Comment on above: Order Comment: Order added by Discern Expert Performed By: #### 2 [id number] ####[facility] [address] [place] [address] Specimen volume Unsp time (U) 350 mL Invalid Interpretation Code [facility] Comment on above: Order Comment: Order added by Discern Expert Performed By: #### 2 [id number], [id number] ####[facility] [address] [place] [address] Vital Signs Date Time Vital Sign Value Performing Clinician Facility 06-18-2022 15:15-0400 Body height 162.56 cm Scarlett Blankenship Other [facility] Other 06-18-2022 15:15-0400 Body mass index (BMI) [Ratio] 29.92 kg/m2 Scarltet Blankenship Other [facility] Other 06-18-2022 15:15-0400 Body weight 79.06 kg Scarlett Blankenship Other [facility] Other 06-18-2022 15:15-0400 Diastolic blood pressure 86 mm[Hg] Scarlett Missler Other [facility] Other 06-18-2022 15:15-0400 Respiratory rate 18 /min Scarlett Missler Other [facility] Other 06-18-2022 15:15-0400 SaO2% (BldA) [Mass fraction] 96 % Scarlett Missler Other [facility] Other 06-18-2022 15:15-0400 Systolic blood pressure 122 mm[Hg] Scarlett Missler Other [facility] Other 04-24-2022 14:00-0500 Body height 165.1 cm Petra Benavidesault Other [facility] Other 04-24-2022 14:00-0500 Body mass index (BMI) [Ratio] 28.29 kg/m2 Petra Benavidesault Other [facility] Other 04-24-2022 14:00-0500 Body temperature 98.6 [degF] Petra Hector Other [facility] Other 04-24-2022 14:00-0500 Body weight 77.11 kg Petra Hector Other [facility] Other 04-24-2022 14:00-0500 Diastolic blood pressure 83 mm[Hg] Petra Hector Other [facility] Other 04-24-2022 14:00-0500 Respiratory rate 18 /min Petra Hector Other [facility] Other 04-24-2022 14:00-0500 SaO2% (BldA) [Mass fraction] 97 % Petra Young Other [facility] Other 04-24-2022 14:00-0500 Systolic blood pressure 124 mm[Hg] Petra Young Other [facility] Other 03-13-2022 15:37-0500 Body weight 75.75 kg Ivanna Gomez MD Work Phone: [facility] 03-13-2022 15:37-0500 Diastolic blood pressure 83 mm[Hg] Ivanna Gomez MD Work Phone: [facility] 03-13-2022 15:37-0500 Heart rate 79 /min Ivanna Gomez MD Work Phone: [facility] 03-13-2022 15:37-0500 SaO2% (BldA) [Mass fraction] 99 % Ivanna Gomez MD Work Phone: [facility] 03-13-2022 15:37-0500 Systolic blood pressure 116 mm[Hg] Ivanna Gomez MD Work Phone: [facility] 12-31-2021 14:30-0400 Body height 165.1 cm Petra Young Other [facility] Other 12-31-2021 14:30-0400 Body mass index (BMI) [Ratio] 27.45 kg/m2 Petra Young Other [facility] Other 12-31-2021 14:30-0400 Body temperature 98.3 [degF] Petra Benavidesault Other [facility] Other 12-31-2021 14:30-0400 Body weight 74.84 kg Petra Benavidesault Other [facility] Other 12-31-2021 14:30-0400 Diastolic blood pressure 83 mm[Hg] Petra Benavidesault Other [facility] Other 12-31-2021 14:30-0400 Respiratory rate 18 /min Petra Benavidesault Other [facility] Other 12-31-2021 14:30-0400 SaO2% (BldA) [Mass fraction] 100 % Petra Benavidesault Other [facility] Other 12-31-2021 14:30-0400 Systolic blood pressure 124 mm[Hg] Petra Benavidesault Other [facility] Other 11-19-2021 15:00-0400 Body height 165.1 cm Petra Benavidesault Other [facility] Other 11-19-2021 15:00-0400 Body mass index (BMI) [Ratio] 26.36 kg/m2 Petra Benavidesault Other [facility] Other 11-19-2021 15:00-0400 Body temperature 97.7 [degF] Petra Benavidesault Other [facility] Other 11-19-2021 15:00-0400 Body weight 71.85 kg Petra Benavidesault Other [facility] Other 11-19-2021 15:00-0400 Diastolic blood pressure 89 mm[Hg] Petra Benavidesault Other [facility] Other 11-19-2021 15:00-0400 Respiratory rate 18 /min Petra Hector Other [facility] Other 11-19-2021 15:00-0400 SaO2% (BldA) [Mass fraction] 99 % Petra Young Other [facility] Other 11-19-2021 15:00-0400 Systolic blood pressure 128 mm[Hg] Petra Young Other [facility] Other 09-03-2021 15:30-0400 Body height 165.1 cm Petra Benavidesault Other [facility] Other 09-03-2021 15:30-0400 Body mass index (BMI) [Ratio] 23.29 kg/m2 Petra Young Other [facility] Other 09-03-2021 15:30-0400 Body temperature 98.8 [degF] Petra Young Other [facility] Other 09-03-2021 15:30-0400 Body weight 63.5 kg Petra Young Other [facility] Other 09-03-2021 15:30-0400 Diastolic blood pressure 69 mm[Hg] Petra Benavidesault Other [facility] Other 09-03-2021 15:30-0400 Respiratory rate 18 /min Petra Benavidesault Other [facility] Other 09-03-2021 15:30-0400 SaO2% (BldA) [Mass fraction] 100 % Petra Benavidesault Other [facility] Other 09-03-2021 15:30-0400 Systolic blood pressure 135 mm[Hg] Petra Young Other [facility] Other 06-11-2021 15:30-0400 Body height 165.1 cm Petra Young Other [facility] Other 06-11-2021 15:30-0400 Body mass index (BMI) [Ratio] 24.63 kg/m2 Petra Young Other [facility] Other 06-11-2021 15:30-0400 Body temperature 97.8 [degF] Petra Young Other [facility] Other 06-11-2021 15:30-0400 Body weight 67.13 kg Petra Young Other [facility] Other 06-11-2021 15:30-0400 Diastolic blood pressure 97 mm[Hg] Petra Young Other [facility] Other 06-11-2021 15:30-0400 Respiratory rate 18 /min Petra Young Other [facility] Other 06-11-2021 15:30-0400 SaO2% (BldA) [Mass fraction] 100 % Petra Young Other [facility] Other 06-11-2021 15:30-0400 Systolic blood pressure 128 mm[Hg] Petra Benavidesault Other [facility] Other 04-14-2021 10:30-0500 Body height 165.1 cm Petra Benavidesault Other [facility] Other 04-14-2021 10:30-0500 Body mass index (BMI) [Ratio] 22.46 kg/m2 Petraantione Young Other [facility] Other 04-14-2021 10:30-0500 Body temperature 99.6 [degF] Petra Hector Other [facility] Other 04-14-2021 10:30-0500 Body weight 61.24 kg Petraantione Young Other [facility] Other 04-14-2021 10:30-0500 Respiratory rate 18 /min Petra Benavidesault Other [facility] Other 04-14-2021 10:30-0500 SaO2% (BldA) [Mass fraction] 98 % Petra Benavidesault Other [facility] Other 04-14-2021 09:30-0500 Body height 165.1 cm Petra Young Other [facility] Other 04-14-2021 09:30-0500 Body mass index (BMI) [Ratio] 22.46 kg/m2 Petra Benavidesault Other [facility] Other 04-14-2021 09:30-0500 Body temperature 99.6 [degF] Petra Hector Other [facility] Other 04-14-2021 09:30-0500 Body weight 61.24 kg Petra Hector Other [facility] Other 04-14-2021 09:30-0500 Respiratory rate 18 /min Petra Hector Other [facility] Other 04-14-2021 09:30-0500 SaO2% (BldA) [Mass fraction] 98 % Petra Young Other [facility] Other Encounters Encounter Date Encounter Type Care Provider Facility Start: 06-23-2023 End: 06-23-2023 ambulatory MILAN DONAVAN Not Available Start: 05-25-2023 End: 05-25-2023 ambulatory MILAN DONAVAN Not Available Start: 04-24-2023 End: 04-24-2023 ambulatory MILAN DONAVAN Not Available Start: 03-23-2023 End: 03-23-2023 ambulatory MILAN DONAVAN Not Available Start: 08-18-2022 End: 08-18-2022 ambulatory Scarlett Blankenship Other [facility] Other Start: 08-18-[facility] Start: 07-07-2022 End: 07-08-2022 ambulatory PETRA YOUNG Facility: Start: 07-01-2022 End: 07-01-2022 Emergency department patient visit [facility] Facility:[facility] Start: 06-18-2022 End: 06-19-2022 ambulatory Petra Young [facility] Other Start: 06-18-2022 Nutrition therapy Scarlett Blankenship [facility] Start: 04-28-2022 End: 04-28-2022 ambulatory Sara Cooley Other [facility] Other Start: 04-28-2022 Telephone encounter Sara Cooley [facility] Start: 04-24-2022 End: 04-24-2022 ambulatory Petra Young Other [facility] Other Start: 04-24-2022 Office outpatient vi sit 15 minutes Petra Hector [facility] Start: 04-07-2022 End: 04-07-2022 ambulatory Petraantione Young Other [facility] Other Start: 04-07-2022 Telephone encounter Petraantione Turnerl t [facility] Start: 03-13-2022 End: 03-13-2022 ambulatory PHYSICIAN NO [facility] Start: 03-13-2022 End: 03-13-2022 Office outpatient new 30 minutes Ivanna Gomez MD Work Phone: [facility] Comment on above: Otalgia, left (Prima ry Dx); Non-recurrent acute serous otitis media of left ear; Conductive hearing loss of left ear with unrestricted hearing of right ear Start: 02-04-2022 End: 02-04-2022 ambulatory Petra Young Other [facility] Other Start: 02-04-2022 Telephone encounter Petraantione Turnerl t [facility] Start: 12-31-2021 End: 12-31-2021 ambulatory Petraantione Young Other [facility] Other Start: 12-31-2021 Office outpatient vi sit 15 minutes Petrajamarcus Young [facility] Start: 11-19-2021 End: 11-19-2021 ambulatory Petraantione Young Other [facility] Other Start: 11-19-2021 Office outpatient vi sit 25 minutes Petra Hector [facility] Start: 10-28-2021 End: 10-28-2021 ambulatory Petraantione Young Other [facility] Other Start: 10-28-2021 Telephone encounter Petra Breaul t [facility] Start: 10-15-2021 End: 10-15-2021 ambulatory Petraantione Young Other [facility] Other Start: 10-15-2021 Telephone encounter Petra Breaul t [facility] Start: 09-18-2021 End: 09-18-2021 ambulatory Petra Hector Other [facility] Other Start: 09-18-2021 Telephone encounter Petra Breaul t [facility] Start: 09-16-2021 End: 09-16-2021 ambulatory PETRA HECTOR Facility: Start: 09-09-2021 End: 09-09-2021 ambulatory Petra Hector Other [facility] Other Start: 09-09-2021 Telephone encounter Petra Breaul t [facility] Start: 09-03-2021 End: 09-03-2021 ambulatory PETRA HECTOR [facility] Start: 09-03-2021 Office outpatient vi sit 15 minutes Petra Hector [facility] Start: 06-11-2021 End: 06-11-2021 ambulatory Petra Hector Other [facility] Other Start: 06-11-2021 Office outpatient vi sit 10 minutes Petra Hector [facility] Start: 04-14-2021 End: 04-14-2021 ambulatory Petra Hector Other [facility] Start: 04-14-2021 Office outpatient vi sit 15 minutes Petra Hector [facility] Start: 09-30-2017 End: 10-01-2017 Patient encounter Milan Esparza Facility:[facility] Plan of Treatment Date Care Activity Detail Author Start: 03-19-2023 Tetanus vaccination Tetanus: Every 10yrs [facility] Start: 06-12-2022 End: 06-12-2022 Patient encounter procedure 06/12/2022 Office Visit Otolaryngology Ivanna Gomez MD [address] [place] [id number] [facility] Start: 10-31-2021 Influenza vaccination Sequential Influenza Vaccine (#1) [facility] Start: 07-08-2021 COVID-19 Vaccine (3 - Booster for Moderna series) COVID-19 Vaccine (3 - Booster for Moderna series) [facility] Start: 04-29-2013 Hepatitis C screening Hepatitis C Screening [facility] Start: 04-29-2010 HIV screening HIV Screening [facility] Start: 2007 Depression screening using PHQ-9 (Patient Health Questionnaire 9) score Depression Screening (PHQ-2/9) [facility] Start: 04-29-1998 History and physical examination, annual for health maintenance Wellness Visit [facility] Start: 1995 Screening for malignant neoplasm of cervix Pap Smear [facility] Payers Date Payer Category Payer Private Health Insurance 2022 Medicaid MEDICAID [facility] [id number] 2022-Present [phone] [address] [place] [address] [id number] 1.315 1995 Unknown [id number] 1995 Unknown [id number] [id number] 1995 Unknown [id number] [id number] 1995 Unknown [id number] [id number] 1995 Unknown [id number] [id number] 1995 Unknown [id number] [id number] 1995 Unknown [id number] [id number] 1995 Unknown [id number] [id number] 1995 Unknown [id number] [id number] 1959 Medicaid [id number] 2. [id number] 1959 Self-pay [facility] [id number] 83.19 Unknown [id number] Unknown [id number] 2. [id number] Unknown [id number] Social History Date Type Detail Facility Unknown if ever smoked [facility] Other Sex Assigned At Sex Assigned At Bir th [facility] Other Start: 03-13-2022 Tobacco smoking status GAIS Smokes tobacco daily [facility] History of tobacco use Cigarette Smoker [facility] Start: 03-13-2022 Tobacco use and exposure User of smokeless tobacco [facility] Start: 03-13-2022 Alcohol intake Lifetime non-d isael (finding) [facility] Start: 1995 Sex Assigned At Not on file [facility] Start: 03-03-2022 End: 03-13-2022 Exposure to SARS-CoV-2 (event) Not sure [facility] Medical Equipment Procedure Code Equipment Code Equipment Origin al Text Equipment Identifier Dates Pen [place] 32G X 4 MM Start: 06-18-2022 Clinical [...] Restless legs Medical History Scoliosis Hospitalization History [facility] Other 05-02-2023 NoteEducation Materials Cardiovascular Hypertension, Adult [...] doctor. This is important. Medicines ? Take pnly-rxk-firbmhk and prescription medicines only as told by [...] weak or numb. ? (more content not included)...[id number]* Encounter Date Diagnosis Assessment Notes [...] to reestablish with a PCP, list to [facility] providers available in the area [...] the week. Encouraged to take advantage of fisher scallop available at [facility] that can help work around limitations. May, Scoliosis (ICD-10 - M41.9) [facility] Other 02-23-2023 Evaluation note* Encounter Date Diagnosis Assessment Notes Treatment Notes Treatment Clinical Notes Apr, Overweight (BMI 25.0-29.9) (ICD-10 - E66.3) Referral being sent to Weight management to help [facility] Other 02-06-2023 Evaluation note* Encounter Date Diagnosis Assessment Notes Treatment Notes Treatment Clinical Notes Apr, Seizure disorder (ICD-10 - G40.909) Apr, control counseling (ICD-10 - Z30.09) [facility] Other 01-12-2023 History of Present illness Narrative* Ivanna Gomez MD - 03/13/2022 3:47 PM EST [facility] [address] [facility] (11) [facility] [address] [facility] MEDICAL OFFICE [facility] [address] Dept: [phone] Loc: [phone] Ivanna Gomez MD [facility] 26 y.o. female Patient presents with [...] subma ndibular glands, clear salivary flow from Rappahannock's ducts, no stones of Mariya's ducts Temporomandibular Joint: no crepitus with motion, [...] mood, normal affect MYRINGOTOMY WITH ASPIRATION NOTE ([id number]) PROCEDURE PERFORMED BY: Ivanna Gomez MD PROCEDURE [...] well tolerated in the office today with oriental orthodox of her hearing in the left ear. [...] Hematological: Negative. Psychiatric/Behavioral: Negative. documented in this [id number] Evaluation note* Encounter Date Diagnosis Assessment Notes Treatment Notes Treatment Clinical Notes Dec, Seizure disorder (ICD-10 - G40.909) Continue to take Depakote. Spoke about importance of follow up with neurology so we can determine cause of seizures Dec, control counseling (ICD-10 - Z30.09) Discussed patient options for control. Recommend follow up with Dr. Esparza to discuss options such as Mirena and [employer] [facility] Other 09-20-2022 Evaluation note* Encounter Date Diagnosis [...] to be seen. Also always know the [facility] Emergency Number is 24 hours a day available, even on holidays there is someone you can reach out to. Also we will check other labs yearly to screen for other health issues. Please remember we are a team and your opinion is very important in all of your healthcare decisions [employer] Other 07-05-2022 Evaluation note* Encounter Date Diagnosis [...] and family are in agreement with plan. [facility] Other 04-12-2022 Evaluation note* Encounter Date Diagnosis Assessment Notes Treatment Notes Treatment Clinical Notes May, control counseling (ICD-10 - Z30.09) Patient would like to stay on her current dose and form of OBC. [facility] Other 02-13-2022 Evaluation note* Encounter Date Diagnosis [...] care instructions given in writting by [facility] document. [employer] Other Evaluation noteNo InformationNort [employer] Other Evaluation note* Diagnosis Otalgia, left- Primary Non-recurrent acute serous otitis media of left ear Conductive hearing loss of left ear with unrestricted hearing of right ear documented in this encounter [facility] general Narrative - Reported* Type Description Date Hospitalization History [facility] Other [facility] general Narrative - Reported* Type Description Date Medical History seizures Hospitalization History [facility] Other [facility] general Narrative - Reported* Type Description Date [...] Restless legs Medical History Scoliosis Hospitalization History [facility] Other Summary Purpose Family History No Family [...] p refer to be seen in [facility] facilility Diagnosis 1 Seizure disorder (G4 0.909) Referral Organization [facility] Referring Provider First Name Petra Referring Provider Last Name Hector Referring Provider Specialty Nurse Pract itelana Referred Organization [facility] Referred Address [address] ,[place], [place],[address] Referred Provider Specialty Neurology Referral Priority Routine General Notes [facility] 022 09:44:52 AM >Received today and waiting for office notes to be locked before sending referral Clinical Notes Office [phone] Reason withnessed seiz ure like activity for last few months Diagnosis 1 Observed seizure-lik e activity (R56.9) Diagnosis 2 Syncope, unspecified syncope type (R55) Referral Organization [facility] Referring Provider First Name Petra Referring Provider Last Name Hector Referring Provider Specialty Nurse Pract itelana Referred Organization [facility] Referred Provider Ulysses Schuler Referred Address [address] [place],[address] Referred Provider Specialty Neurology Referral Priority Routine General Notes [facility] 022 08:44:34 AM >Received today and waiting for office notes to be locked before sending referral Additional Source Comments INFORMATION SOURCE (unrecogn ized section and content) DATE CREATED AUTHOR 10/01/2017 Som Sosa [facility] DATE CREATED AUTHOR AUTHOR'S ORGANIZ ATION 03/14/2022 [facility] DATE CREATED AUTHOR AUTHOR'S ORGANIZ ATION 07/11/2022 [facility] DATE CREATED AUTHOR AUTHOR'S ORGANIZ ATION 07/14/2022 [facility] DATE CREATED AUTHOR AUTHOR'S ORGANIZ ATION 12/16/2022 [facility] DATE CREATED AUTHOR AUTHOR'S ORGANIZ ATION 06/24/2023 [facility] EPIC REASON FOR VISIT (unrecogniz ed section and content) Reason Comments bulging ear drum New Patient Care Teams (unrecognized sec tion and content) Product Development Chemist Relationship Specialty Start Date End Date No, Physician [facility] PCP - General 03/13/22 FOR RECORDS [...] BE BASED ON THE PRIMARY CLINICAL RECORDS. [facility] Only [facility]. provides no warranty or guarantee of the accuracy or completeness of information in this document.
== END 2023-07-13 11:25 | disposition home or self-care (01) ==
LOC: NOMS 11:24
PROVIDERS: Family Provider Nurse Practitioner Family; Visit Provider Obstetrics & Gynecology
DX: Z36.89 Encounter for other specified antenatal screening (principal); Z3A.20 20 weeks gestation of pregnancy
CPT/HCPCS: 76805; 76817

== ENCOUNTER 2023-09-09 12:42 | Outpatient (OUT) | payer MEDICAID, SELFPAY ==
[2023-09-09 14:06] LABS: Basophils Percent Auto 0.2 % (0.2-2.0); Eosinophils Absolute Auto 0.1 10^3/uL (0.0-0.7); Eosinophils Percent Auto 0.7 % (0.9-7.0); Hematocrit 34.3 % (36.0-48.0); Hemoglobin 11.3 g/dL (12.0-16.0); Immature Granulocytes Abs Auto 0.04 10^3/uL (0.00-0.03); Immature Granulocytes Pct Auto 0.4 % (0.0-0.5); Lymphocytes Absolute Auto 0.8 10^3/uL (1.2-3.8); Mean Corpuscular HGB Conc 32.9 g/dL (29.9-35.2); Mean Corpuscular Hemoglobin 30.3 pg (26.7-34.0); Mean Platelet Volume 10.2 fL (9.5-13.5); Monocytes Absolute Auto 0.4 10^3/uL (0.3-0.8); Monocytes Percent Auto 4.6 % (1.7-12.0); Neutrophils Absolute Auto 8.3 10^3/uL (1.4-6.5); Neutrophils Percent Auto 86.1 % (43.0-75.0); Platelet Count 235 10^3/uL (150-450); Red Blood Count 3.73 10^6/uL (4.20-5.40); Red Cell Distribution Width 12.9 % (11.0-15.0); White Blood Count 9.6 10^3/uL (4.0-11.0)
[2023-09-09 14:29] LABS: Glucose 1 Hour 89 mg/dL (<130)
== END 2023-09-09 12:43 | disposition home or self-care (01) ==
LOC: LAB 12:44
PROVIDERS: Family Provider Nurse Practitioner Family; Visit Provider Obstetrics & Gynecology
DX: Z34.93 Encounter for supervision of normal pregnancy, unspecified, third trimester (principal)
CPT/HCPCS: 36415; 82950; 85025

== ENCOUNTER 2023-09-17 09:36 | Outpatient (OUT) | payer MEDICAID, SELFPAY ==
--- NOTE | 2023-09-17 09:38 | US_ITS ---
[address] [address] Patient Name: KRISHNA GLOVER MRN: [id number] date: 1995 Sex: F Assigned Patient Location: [facility] Current Patient Location: [facility] Accession/Order Number: [id number] Exam Date: 09/17/2023 09:39 Report Date: 09/17/2023 12:21 At the request of: MILAN GO Procedure: US OB growth EXAMINATION: US OB growth, US OB cervical length HISTORY: SIZE INCONSISTENT WITH DATES COMPARISON: Ultrasound OB anatomy 07/13/2023 FINDINGS: Heart Rate: 146 bpm Amniotic Fluid Volume: 15.6 cm; normal range Number: 1 Position: CEPHALIC BIOMETRY: BPD: 8.14 cm; 32 weeks 5 days; >97 % HC: 29.19 cm; 32 weeks 1 day; 77.30 % AC: 26.55 cm; 30 weeks 5 days; 65.50 % FL: 5.85 cm; 30 weeks 4 days; 51.30 % EFW: 1784.41 g; 71 % FL/AC: 22.03 FL/BPD: 71.87 HC/AC: 1.10 GESTATIONAL AGE: Age by EDC: 30 weeks 0 days DEBBY by EDC: 2023-11-26 Age by US: 31 weeks 4 days DEBBY by US: 2023-11-15 US/US OB growth IMPRESSION: 1. Single live intrauterine with growth detailed above. 2. Biparietal diameter is greater than 97th percentile. Electronically authenticated by: IESHA LIZAMA Date: 09/17/2023 12:21
--- NOTE | 2023-09-17 09:38 | US_ITS ---
[address] [address] Patient Name: KRISHNA GLOVER MRN: [id number] date: 1995 Sex: F Assigned Patient Location: [facility] Current Patient Location: [facility] Accession/Order Number: [id number] Exam Date: 09/17/2023 09:39 Report Date: 09/17/2023 12:21 At the request of: MILAN GO Procedure: US OB cervical length EXAMINATION: US OB growth, US OB cervical length HISTORY: SIZE INCONSISTENT WITH DATES COMPARISON: Ultrasound OB anatomy 07/13/2023 FINDINGS: Heart Rate: 146 bpm Amniotic Fluid Volume: 15.6 cm; normal range Number: 1 Position: CEPHALIC BIOMETRY: BPD: 8.14 cm; 32 weeks 5 days; >97 % HC: 29.19 cm; 32 weeks 1 day; 77.30 % AC: 26.55 cm; 30 weeks 5 days; 65.50 % FL: 5.85 cm; 30 weeks 4 days; 51.30 % EFW: 1784.41 g; 71 % FL/AC: 22.03 FL/BPD: 71.87 HC/AC: 1.10 GESTATIONAL AGE: Age by EDC: 30 weeks 0 days DEBBY by EDC: 2023-11-26 Age by US: 31 weeks 4 days DEBBY by US: 2023-11-15 US/US OB cervical length IMPRESSION: 1. Single live intrauterine with growth detailed above. 2. Biparietal diameter is greater than 97th percentile. Electronically authenticated by: IESHA LIZAMA Date: 09/17/2023 12:21
--- OUTSIDE RECORDS SUMMARY | 2023-09-17 09:39 | XMS_ITS | CCD ---
Author Organization [facility] Care Team Providers Care Crime Scene Investigator Name Role Phone Milan Esparza Unavailable Unavailable [...] Unavailable REQUEST, DR LOUISE LISTED Consulting Unavaila yassine YOUNG, PETRA Primary Care Unavailable Wisam Morales Consulting Unavailable PAY ., DR ZALDIVAR Attending Unavailable PAY ., DR ZALDIVAR Admitting Unavailable GRECHNY ., JAVON NICOLE Consulting Unavailabl e HECTOR, PETRA Admitting Unavailable PETRA YOUNG Attending Unavailable HECTOR, PETRA Primary Care Unavailable Nba Guaman Attending Unavailable Nba Guaman Admitting Unavailable Provider, None Primary Care Unavailable Petra Young Attending Unavailable Hector, Petra Primary Care Unavailable Hector, Petra Admitting Unavailable MILAN ESPARZA Attending Unavailable MILAN ESPARZA Attending Unavailable MILAN ESPARZA Attending Unavailable ANY QUINONES Attending Unavailable MILAN ESPARZA Attending Unavailable MILAN ESPARZA Attending Unavailable Medications Current Medications Medication Drug Class(es) Dates Sig (Normalized) Sig (Original) [id number] 200 actuat albuterol 0.09 mg/actuat metered dose [...] oral tablet (8 sources) alpha-Adrenergic Agonist, Uncompetitive C-psxxcj-H-aspartat e Receptor Antagonist, Sigma-1 Agonist Start: 03-06-2020 [...] Not-Taking Start: 11-19-2021 take 1 capsule by mo ut once daily FLUoxetine HCl 10 MG 1 [...] Resolved: 04-14-2021 Episodic Other aftercare (1 source) overlocker (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) use of hormonal contraceptives; Translations: [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 CONTRACEPTIVES] Onset: 09-18-2021 Episodic Syncope (1 source) Syncope and collapse Onset: 09-03-2021 Resolved: 09-03-2021 Episodic Results Test Name Value Interpretation Reference Range Facility Coding Summaryon 07-07-2022 Coding Summary HTMLBase 64 OorahnhpJBz5kNq+PGh lYWQ+RA2UBGXjJ28mvZ SacO1GX1xWUY9PQDCZO FGIFN9PFT5sqWX5VCoh W4TgczYr YwqscBPlVZ70HCs2UVD 3sDpnNBxnlP0ztQVwT2 k2ZrRiLQ55iP32CYtvX ZCxYfG1IkUfsjzqtWQf I5bwFeOzuUWjFmf+PHR hYmxlIHdpZHRoPScxMD VqIpSefAneYP3rKq0pP GVyLWNvbGxhcHNlOiBj v1opHXBeSUnaBX3mnPn jC6GdxRF0MQYbg3l7Hj 48dHI+BGEoTXH5kEiuK Eajs749PgNhq0ucRKY2 fCDzAPorEZS2Q03ws8R 1TNYbEMHfMVV2aAY1pF 7dwEdazxluY0KptOVjP qB1RCP0eNBaoO5jhGxw equshV6mGbf+V13MVF5 NIZIDIN3VQwf9Q4CrQm wvdHI+QQ10CTVxPP10d ZEnnMVsw2ucvDo0XzSj SIBwCYO7qQwnAWuxy9K fCDIqG68lgYLuy4T9LO XlpWsxzMDwOvLlbWD3o W7iORxaxvwvg6ucxahe Ljhji9gshg92yO37C64 mJSiuQECpUSW2ZJMzRR CflSdhhx9vkW2uRm3+I Ztxr0zpf5pgkHq1JhKo PSWpsdIiqWoiKEX3m5V cYi59H7HzdDlam9KdLi z7qf68tLEak7Y4qUT0O NoyQHVolD9gLUbhXsJ0 ZINlPhHutC30oBCoPTr cDe5ftGhbvLblTR5fUT YdirdfGLQfoU5fVDFom YKpzUkePL5oJKSphmgk r165DoYdOVN5WXIymKP wV0KorB5bElAySZYsSD UkW4LtxZYhFGwvQ717D EshOuI5DSOtklFpG5Fe DTQnjXqqCoD2i6K5Aj0 Cf5FmwehlMRB6XJocRT X5JsP2HcNqDtU2N1EfB pl5DMPddGvgYS1oK9Ew BCDpebunoaossWY4HKK eQHBthC02oPFtDPwzJu 6pd8N9u266ASWhUCWxa D24Jr2vqDkcNFTosVDI vH8emxkvv1lnunwoZzH zYMYkDYt5GOc6ZZJopL ayEpTcATU8BbK8NOH0t MMtbM2ykCckkrmhmS2z Oyc+U30daY0kDMM6SKL 1kejcXYLjgpJlAN88OT 18M7CcIiywwLPsqBD+P PXrmaTkbSvvTY4mOlLf d9eha5KsEJrvT1UbLBI wUGqrFpm3DHXqRXT0lI L6nE0iOHUtYNrxe5U2u UZ4E1CxtnWzxj2gm4zk ESJzIRmwR12ftSSts1P 1UOTimKI8VYBrfNwyUu FdgR92Hqx+PGNvbGdyb 7SbGukxq2srr3qfeLj2 IjMwJSIgdmFsaWduPSJ 3z1GpFw62V38xOEhlBK RoPSIxNSUiIHZhbGlnb j5eoO0iGw5+PGNvbCB3 iBH8rP2bOYVgFvN5MZl zT100SlYhhPSqOjcms3 weu9golNh6JnNtHSZfz bFftPhmILR2t2UgAb41 F85eGIwjXEUjVHAiLJN kUCZeqZymuv4hcG2qOo 8+SY9up1hgev48xM25d HI+FGRiNSN3xNlyQVxk VXOjyM2zQUhfLbB8NAI aQlZmfO17yDHjNTtuOe 1ezVcbsJkeFE3jKMNub apds667SbHin8srLEGp jBCxAZnsTJM6B60ax5Q 1HLHtOEGlDKR7aIS5zE 1hbGlnbjogbGVmdDsgd kSbtDcbWCtgBZbiY393 IHRvcDsnPlBhdGllbnQ eLtBdTZz3T0FtPge9MK ZuyGaaLP7nrMFhPUqcD r7euZqmcWseYA7hWKPq oqvtg046NjFqf3hzDBQ riWRmVMnjEUC7A59wu0 Y7LMTxDVNiQUZ2sVW3r Z9mcExvkozyoQQpbHpf ijFmkFrxUKkxSNfyV68 6IHRvcDsnPkJpcnRoIE XedYG8MP22BK91tSExc 1J4cRH6D5VoVLFlhiva cyxvmSL3LEToTNCxfS9 3Ut4gfFnvAc7dMOPaRT C4WDQxuSJqU2MwfY7xE zMzWFVyCKKkB6DfzDPa GCmhA443CKneQmL7NJG amgEgF5YhNGTooLytGu L6g0U9Ld5AA5R2XA12S Q13aJYjs7O1hEM1L3Xj QOJcddakvcwexXF3NCE qUYKutE81Gl0wyMkfSa 0iOZMwHUU1FTMwcIItJ 7QkrJ6cYdQlJDJnFVFw G4OfxIHjFJqaT464CIo bIhL8CGZupsXpU0ZeHE ZjfTbuUmC4h1W2Mb8WC Ep7CG81WR65bPNxh2K2 pXP9P0TrLVKanvddizm ggGN3PPYePQNksQ81Qy 0gzHkuUq8jMWPkGLE3R TWgdYXeK6PrpK9lLxYf KXUhTUEoO8RjxSEtHEj jF487OTizZwD3RUKohe VyT8SpZJTjqEivScI3c 5G9Sf1FZCDdVV47MOV1 gWO4JP88EH34G9UwVkh vdGFibGU+PHRhYmxlIH dpZHRoPScxMDAlJyBzd FcaEV2zNk5oCWRbWOSj pRxxhEAsBjRef4tuBUT rYHxqPL6meNqbL4WnoO C4QWYao4i8Ws05I59gU 3JvdXA+DWSttXT0yGY0 eY6xDoBlMyS1QJzaQ18 6UkCgvPJnUqyiz0uqv9 uodAf1UoM7GRIunmQyh LjzKJN9v7EiQc46U08o IHdpZHRoPSIxNSUiIHZ rtWqzoz2azY2nDh2+PG GdhNA6tMU9wS7nAtWfH zJ0CVdkV949ZkBghUMb Hlmhj0lfr8qjnCe3PrM jXTCoxuIdbEuhAJC4u8 IxZj74E4MgkQyzm7GnW pj3bv38rFYoi5W0hAE7 V0ApLVHllqbycDZudEu lSQ7lPSPioujmUQBfqO 3pRCSpA5y2LdHtAhQ2A VocR4LzrrR1MNUxfGPk STozQTQ1S76mt8M3DGE wQFAtKUL1pTY3zN2jzW lnbjogbGVmdDsgdmVyd PnbBNfzBJliU718CQSt lGqwBZBjcN5pVINaiTO zwJkkQW3hLLPjraonKv RPUlNFWSwgQUxFWEEgT jwvdGQ+OYOfJSY1rRhg CExzOICnzG4qIOQsH5e 1OuJrDoB5DGwrN0HxEZ XqtxepKv27lS4yPsSiB iT6HZngR8XvcuP1JTSu gCYlOOzpGLJ4M07eu3Z 5MNVzXUEuYIE7hLX4eS 1hbGlnbjogbGVmdDsgd xMxgXnzVHqlPIyqA650 GWIbyJopArYxLlX8MhX 1IIP0J4NjCml2URDnuT iiUS9ekBBjDZjjOn0jc FgukDbaXF3eZUJkrnhc FCXekK2oDVCcmRJlqGb iGG1cRTCmfgwjd764Py YjOXF7JXUupXTrG3Tvg I2xIjJaOFXmPMFxE8Mi mMQbWAiaZ847AWquJuY 5QQIjkjXwR6EyZEOsfN vbBiX4v8D3Bo9hGmTUM WFyczwvdGQ+PHRkIHN0 uGnxPZlpFHSxcB1aOBE nP4v7OkOxJiU4STjoQ1 LtJQCrdrzuOo15sI1lT bBzOfI0RAtsS7MqisR0 QBNhoIFlXJnbTTI0E40 ac9H4ECOaVCEpVUZ7aO G3kD0pnQjdginivFRob DsgdmVydGljYWwtYWxp L961UYCbiGhkWoDZJNN MRTwvdGQ+TVTzXOD0yN pxKNeyQLClrQ3yDLJvU 1j2MxDgZvI1WBodB0Gf XDZwhayjVa52jC0iOcH cXrQ9WVxlF0HukvR2NP XnuKFlUQqdIAI3J84kr 4J8DAGoWNVlFWN8hOQ0 eH6mfFvxthaqiCWaaRg gdmVydGljYWwtYWxpZ2 46IHRvcDsnPkVtZXJnZ X9cdHgivMP+VD74mx76 N2IpOlwkAuv1EGLzAIH 1pPP7yC4aKWIsJBjdx1 D1dPQ7E0IgkbNfmx7uc 5tjOAPnEJcsD22zoVAk u3J5XKJryAD5XYInnZd eFmSgwM82Mvd+PGNvbG tlj9HiYntcq9mew4hea Cc5ZdPaOLUjyzVpjWkf FNA3d1ZhFa65Z03rLNn pZHRoPSIzMCUiIHZhbG igoi3kgP1lIe7+PGNvb VA0yHU0zL5uCdHzVuK6 GAxtZ264SrMymSTzIve mx6xhj4xvfHf2WnAuUH ZvgqUohEtcTRP8r5OdX y93O8CeeTpes6WnUkb0 zm97uOPqt7R4mNN8T0X hZGRpbmctbGVmdDogMC 8mTSWszmtdQKWhsQ4sS AJzZ5e3CfIuXwJ5BDvc S4NjluP9WKQmnFZoYAU ayKFQnR9vtttfq9rsmy qgPbQnUNQbFEd2IUc8E LXfwQewTkLtXEQ0OsU5 JGC2pFCwvO4aqJzqsuf kuT7bDrm+DKx6l6fsdG YqRA7uaHR6QC44FU16m ENrn0D6jQR8Z4OkSLBh auocewgcfHC8THDxKGD anG06Nr5muCzkUl7yHN OsVOG4MGBynPTvZ3Sdy B9xLiIlIPOkZOWcJ7Tq kAKeANxnK742MOaoBxY 8EWNggnJjX0XzPEXzlR qhXjU4s9T1Ze7ZSJ01N W88FU94hGKwu3I1zKA5 K8PrWRCjdeeidujzkDX 1VKDyHMGdlU78Af8ghE mnUp3nXWDkFCI4YUTsv GKqW5BipE2oJaIkVCZq VRQvN4EurWIhWThbI11 6PHceUoX0YPCayiWnD2 UgQCKloYtqHqW9o1F6P z0SGa23TM61QM90tYNx b8O5oBS9G4YiRDXxlss qpsnzrTO6CRScALRfqF 91Aq5lrUoiLo0qWQLeX MX9RXDfuYSwD7SarB7g XbBcSPMnHKViU0XxfLD aSWkbQ366RAwnMmX2VN HqmkWaO0PpVSYxmXsqA yE0j0A0Xv9OSRxntpk3 F0ThGcyplJL+XC38IMR pZL62hNOvaXZse3ibiP b3RePgLAPoSUN0tUkeE Bilx9AaEQMgF15dtKHi c2U (more content not included)... Normal [facility] US PELVIS AND TRANSVAGon US PELVIS AND [...] WISAM MORALES Date: 2022-07-07 10:40 Normal [facility] C Throaton 07-03-2022 C Throat Ordered by [employer]. Normal throat christian isolated No pathogens isolated [place] Comment on above: Performed By: #### [id number] #### [facility] (DEFAULT) [address] [place] [address] .QC SARS-CoV-2 (COVID-19)/Fl u/RSV (GeneXpert)on 07-01-2022 Internal Control Pass [place] Comment on above: Order Comment: Order ed by [employer]. [[email or web address]] Performed By: #### 7 [id number] #### [facility] (DEFAULT) [address] [place] [address] COVID/Flu/RSV (GeneXpert)on 07-01-2022 Flu A (GXpert COVFLURSV) Negative Normal Negative [facility] Comment on above: Performed By: #### 7 [id number] #### [facility] (DEFAULT) [address] [place] [address] Flu B (GXpert COVFLURSV) Negative Normal Negative [facility] Comment on above: Performed By: #### 7 [id number] #### [facility] (DEFAULT) [address] [place] [address] RSV (GXpert COVFLURSV) Negative Normal Negative [facility] Comment on above: Performed By: #### [id number] #### [facility] (DEFAULT) [address] [place] [address] SARS-CoV-2 (COVID-19) RNA JOAN+probe Ql (Unsp spec) Negative Normal Negative [facility] Comment on above: Result Comment: Perf ormed by PCR methodology. Performed By: #### 7 [id number] #### [facility] (DEFAULT) [address] [place] [address] ED Clinical Summaryon 2022 ED Clinical Summary [facility] Emergency Department [address] [place] [address] ED Clinical Summary PERSON INFORMATION Name: KRISHNA GLOVER Age: 27 Years Sex: FEMALE : 1995 MRN: Acct#: Visit Reason: Headache; Ear pain; UC - Sore Throat; SORE THROAT, CONGESTION, BILAT EAR PAIN Arrival: 07/01/2022 09:15:55 Discharge: 07/01/2022 11:05:00 LOS: 000 01:50 Check In: 07/01/2022 09:15:55 Checkout:07/01/2022 11:05:00 Address: [address] [place] [address] PCP: Provider, None PROVIDER INFORMATION Provider Role [...] INFORMATION Instructions: Viral Illness, Adult; Hypertension, Adult, Drgo-nm-Uypv Follow-Up: With: Address: When: Follow up with primary care provider Within 3 to 5 days DIAGNOSIS: 1:Viral syndrome; 2:Elevated blood pressure reading Patient Understands: Yes - Patient/family/career services director verbalizes understanding of instructions given Comment: Normal [facility] ED Patient Summaryon 023 ED Patient Summary [facility] Emergency Department [address] [place] [id number] PATIENT DISCHARGE INSTRUCTIONS Patient Information Name: KRISHNA GLOVER Age: 27 Years Date of : 1995 [facility]: [id number] Reason For Visit: Headache; Ear pain; UC - Sore Throat; SORE THROAT, CONGESTION, BILAT EAR PAIN Arrival Time: 07/01/2022 09:15:55 Primary Care Physician: Provider, None Attending Physician: Nba Guaman MD Comment: Visit Diagnosis: Diagnoses This Visit Ear pain ([id number]) Elevated blood pressure reading (R03.0) Headache ([id number]) UC - Sore Throat ([id number]) Viral syndrome (B34.9) The Pharmacy at [facility] is open Thursday through Thursday from [...] alcohol and/or drug addiction problems; contact the [facility] 22/09 Crisis Hotline -Text [phone]. If you received any narcotics, sedation, or [...] and treatment you received today in the [facility] Emergency Department were for an urgent problem and are not intended as complete care. It is important for you to follow up with a doctor, nurse practitioner, or physician?s assistant merchandise manager for ongoing care. If your symptoms [...] so we can reach you if necessary. [facility] Emergency Department has provided you with a complete list of medications post discharge. Please inform your market researcher/provider of your visit and for further instruction [...] (influenza). Long-term (more content not included)... Normal [facility] Strep Aon 07-01-2022 Strep procedure control Pass Normal [facility] Comment on above: Performed By: #### 4 [id number] #### [facility] (DEFAULT) [address] [place] [address] Streptococcus A Negative Normal Negative [facility] Comment on above: Performed By: #### 4 [id number] #### [facility] (DEFAULT) [address] [place] [address] CBC AUTO DIFFon 09-16-2021 BASO # 0.0 103/ul Normal 0.0-0.1 [facility] Comment on above: Performed By: #### C BC #### [facility] [address] [place] [address] Dr. Jake Gallardo Basophils/100 WBC (Bld) 0.3 % Normal 0.2-2.0 [facility] Comment on above: Performed By: #### C BC #### [facility] [address] [place] [address] Dr. Jake Gallardo EO # 0.1 103/ul Normal 0.0-0.7 [facility] Comment on above: Performed By: #### C BC #### [facility] [address] [place] [address] Dr. Jake Gallardo Eosinophils/100 WBC (Bld) 1.9 % Normal 0.9-7.0 [facility] Comment on above: Performed By: #### C BC #### [facility] [address] [place] [address] Dr. Jake Gallardo Erythrocyte distribution width (RBC) [Ratio] 12.6 % Normal 11.0-15.0 [facility] Comment on above: Performed By: #### C BC #### [facility] [address] [place] [address] Dr. Jake Gallardo Hematocrit (Bld) [Volume fraction] 42.4 % Normal 36.0-48.0 [facility] Comment on above: Performed By: #### C BC #### [facility] [address] [address] [address] Jake Gallardo Hemoglobin (Bld) [Mass/Vol] 14.0 g/dL Normal 12.0-16.0 [facility] Comment on above: Performed By: #### C BC #### [facility] [address] [place] [address] Dr. Jake Gallardo IG # 0.01 10e3/ul Normal 0.00-0.03 [facility] Comment on above: Performed By: #### C BC #### [facility] [address] [place] [address] Dr. Jake Gallardo IG % 0.1 % Normal 0.0-0.5 [facility] Comment on above: Performed By: #### C BC #### [facility] [address] [place] [address] Dr. Jake Gallardo LYMPH # 1.0 103/ul Critically low 1.2-3.8 [facility] Comment on above: Performed By: #### C BC #### [facility] [address] [place] [address] Dr. Jake Gallardo Lymphocytes/100 WBC (Bld) 14.9 % Critically low 20.5-60.0 [facility] Comment on above: Performed By: #### C BC #### [facility] [address] [place] [address] Dr. Jake Gallardo MANUAL DIFF REQ NO Normal [facility] Comment on above: Performed By: #### C BC #### [facility] [address] [place] [address] Dr. Jake Gallardo MCH (RBC) [Entitic mass] 30.4 pg Normal 26.7-34.0 [facility] Comment on above: Performed By: #### C BC #### [facility] [address] [place] [address] Dr. Jake Gallardo MCHC (RBC) [Mass/Vol] 33.0 g/dL Normal 29.9-35.2 [facility] Comment on above: Performed By: #### C BC #### [facility] [address] [address] [address] Jake Gallardo MCV (RBC) [Entitic vol] 92.2 fL Normal 81.0-99.0 [facility] Comment on above: Performed By: #### C BC #### [facility] [address] [address] [address] Jake Gallardo MONO # 0.3 103/ul Normal 0.3-0.8 [facility] Comment on above: Performed By: #### C BC #### [facility] [address] [place] [address] Dr. Jake Gallardo Monocytes/100 WBC (Bld) 4.9 % Normal 1.7-12.0 [facility] Comment on above: Performed By: #### C BC #### [facility] [address] [place] [address] Dr. aJke Gallardo NEUT # 5.2 103/ul Normal 1.4-6.5 [facility] Comment on above: Performed By: #### C BC #### [facility] [address] [place] [address] Dr. Jake Gallardo Neutrophils/100 WBC (Bld) 77.9 % Critically high 43.0-75.0 [facility] Comment on above: Performed By: #### C BC #### [facility] [address] [place] [address] Dr. Jake Gallardo Platelet mean volume (Bld) [Entitic vol] 10.5 fL Normal 9.5-13.5 [facility] Comment on above: Performed By: #### C BC #### [facility] [address] [place] [address] Dr. Jake Gallardo PLT 226 103/ul Normal 150-450 [facility] Comment on above: Performed By: #### C BC #### [facility] [address] [address] [address] Jake Gallardo RBC 4.60 106/ul Normal 4.20-5.40 [facility] Comment on above: Performed By: #### C BC #### [facility] [address] [place] [address] Dr. Jake Gallardo WBC 6.7 103/ul Normal 4.0-11.0 [facility] Comment on above: Performed By: #### C BC #### [facility] [address] [place] [address] HEAD WO CONon [...] WISAM MORALES Date: 2021-09-16 15:09 Normal [facility] CULTURE URINEon 09-16-2021 CULTURE URINE Culture Observations: LIGHT GROWTH OF MIXED GENITAL CHRISTIAN. NO POTENTIAL PATHOGENS SEEN. Normal [facility] Comment on above: Performed By: #### U RCX #### [facility] [address] [place] [address] Dr. Jake Gallardo DRUG SCREEN RAPID (URINE)on 09-16-2021 AMP Negative Normal NEGATIVE [facility] Comment on above: Performed By: #### C BC #### [facility] [address] [place] [address] Dr. Jake Gallardo BAR Negative Normal NEGATIVE [facility] Comment on above: Performed By: #### C BC #### [facility] [address] [place] [address] Dr. Jake Gallardo BUP Negative Normal NEGATIVE [facility] Comment on above: Performed By: #### C BC #### [facility] [address] [place] [address] Dr. Jake Gallardo BZO Negative Normal NEGATIVE [facility] Comment on above: Performed By: #### C BC #### [facility] [address] [place] [address] Dr. Jake Gallardo SUNDEEP Negative Normal NEGATIVE [facility] Comment on above: Performed By: #### C BC #### [facility] [address] [place] [address] Dr. Jake Gallardo CUT-OFFS SEE BELOW Normal [facility] Comment on above: Result Comment: AMP [...] ng/mL Performed By: #### C BC #### [facility] [address] [place] [address] Dr. Jake Gallardo DRUG CUT HEADER DRUG CLASS TEST SYSTEM CUT-OFF CONCENTRATIONS ARE FOLLOWS: Normal [facility] Comment on above: Performed By: #### C BC #### [facility] [address] [place] [address] Dr. Jake Gallardo mAMP Negative Normal NEGATIVE [facility] Comment on above: Performed By: #### C BC #### [facility] [address] [place] [address] Dr. Jake Gallardo MTD Negative Normal NEGATIVE [facility] Comment on above: Performed By: #### C BC #### [facility] [address] [place] [address] Dr. Jake Gallardo OPI Negative Normal NEGATIVE [facility] Comment on above: Performed By: #### C BC #### [facility] [address] [place] [address] Dr. Jake Gallardo OXY Negative Normal NEGATIVE [facility] Comment on above: Performed By: #### C BC #### [facility] [address] [place] [address] Dr. Jake Gallardo PCP Negative Normal NEGATIVE [facility] Comment on above: Performed By: #### C BC #### [facility] [address] [place] [address] Dr. Jake Gallardo PPX Negative Normal NEGATIVE [facility] Comment on above: Performed By: #### C BC #### [facility] [address] [place] [address] Dr. Jake Gallardo TCA Negative Normal NEGATIVE [facility] Comment on above: Performed By: #### C BC #### [facility] [address] [place] [address] Dr. Jake Gallardo THC Negative Normal NEGATIVE [facility] Comment on above: Performed By: #### C BC #### [facility] [address] [place] [address] Dr. Jake Gallardo ER URINE PROFILEon 2 Bilirubin Ql (U) Negative Normal NEGATIVE [facility] Comment on above: Performed By: #### C BC #### [facility] [address] [place] [address] Dr. Jake Gallardo Clarity (U) CLEAR Normal CLEAR [facility] Comment on above: Performed By: #### C BC #### [facility] [address] [place] [address] Dr. Jake Gallardo Color (U) LT. YELLOW Normal YELLOW [facility] Comment on above: Performed By: #### C BC #### [facility] [address] [place] [address] Dr. Jake TESFAYE A micrscopic examination will be performed if indicated. Normal [facility] Comment on above: Performed By: #### C BC #### [facility] [address] [place] [address] Dr. Jake Gallardo Glucose Ql (U) Negative Normal NEGATIVE [facility] Comment on above: Performed By: #### C BC #### [facility] [address] [place] [address] Dr. Jake Gallardo Hemoglobin Ql (U) TRACE-INTACT Abnormal NEGATIVE [facility] Comment on above: Performed By: #### C BC #### [facility] [address] [place] [address] Dr. Jake Gallardo Ketones Ql (U) Negative Normal NEGATIVE [facility] Comment on above: Performed By: #### C BC #### [facility] [address] [place] [address] Dr. Jake Gallardo LEUKOCYTES TRACE Abnormal NEGATIVE [facility] Comment on above: Performed By: #### C BC #### [facility] [address] [place] [address] Dr. Jake Gallardo Nitrite Ql (U) Negative Normal NEGATIVE [facility] Comment on above: Performed By: #### C BC #### [facility] [address] [place] [address] Dr. Jake Gallardo pH (U) 6.0 [pH] Normal 5-9 [facility] Comment on above: Performed By: #### C BC #### [facility] [address] [place] [address] Dr. Jake Gallardo SPEC GRAVITY 1.025 Normal 1.005-<=1.025 [facility] Comment on above: Performed By: #### C BC #### [facility] [address] [place] [address] Dr. Jake Gallardo UA PROTEIN Negative Normal NEGATIVE/ TRACE [facility] Comment on above: Performed By: #### C BC #### [facility] [address] [place] [address] Dr. Jake Gallardo UR MICRO IND INDICATED Normal [facility] Comment on above: Performed By: #### C BC #### [facility] [address] [place] [address] Dr. Jake Gallardo Urobilinogen Qn (U) 0.2 {Manny'U}/dL Normal 0.2 - 1.0 [facility] Comment on above: Performed By: #### C BC #### [facility] [address] [address] [address] Jake Gallardo PREG HCG QUALon 09-16-2021 , QUAL Negative Normal NEGATIVE [facility] Comment on above: Performed By: #### P REG #### [facility] [address] [address] [address] Jake Gallardo PROF 14(COMP METB)on 022 Albumin [Mass/Vol] 3.5 g/dL Normal 3.4-5.0 [facility] Comment on above: Performed By: #### C MP, TSH, HSTROPN #### [facility] [address] [place] [address] Dr. Jake Gallardo Albumin/Globulin [Mass ratio] 0.9 {ratio} Normal [facility] Comment on above: Performed By: #### C MP, TSH, HSTROPN #### [facility] [address] [place] [address] Dr. Jake Gallardo ALP [Catalytic activity/Vol] 42 U/L Critically low 46-116 [facility] Comment on above: Performed By: #### C MP, TSH, HSTROPN #### [facility] [address] [place] [address] Dr. Jake Gallardo ALT [Catalytic activity/Vol] 22 U/L Normal 14-59 [facility] Comment on above: Performed By: #### C MP, TSH, HSTROPN #### [facility] [address] [place] [address] Dr. Jake Gallardo Anion gap [Moles/Vol] 15.0 mmol/L Normal [facility] Comment on above: Performed By: #### C MP, TSH, HSTROPN #### [facility] Laboratory [address] [place] [address] Dr. Jake Gallardo AST [Catalytic activity/Vol] 15 U/L Normal 15-37 [facility] Comment on above: Performed By: #### C MP, TSH, HSTROPN #### [facility] [address] [address] [address] Jake Gallardo Bilirubin [Mass/Vol] 0.4 mg/dL Normal 0.2-1.0 [facility] Comment on above: Performed By: #### C MP, TSH, HSTROPN #### [facility] [address] [address] [address] Jake Gallardo Calcium [Mass/Vol] 9.1 mg/dL Normal 8.5-10.1 [facility] Comment on above: Performed By: #### C MP, TSH, HSTROPN #### [facility] [address] [address] [address] Jake Gallardo Chloride [Moles/Vol] 106 mmol/L Normal 98-107 [facility] Comment on above: Performed By: #### C MP, TSH, HSTROPN #### [facility] [address] [place] [address] Dr. Jake Gallardo CO2 [Moles/Vol] 22.9 mmol/L Normal 21.0-32.0 The [facility] Comment on above: Performed By: #### C MP, TSH, HSTROPN #### [facility] [address] [address] [address] Jake Gallardo Creatinine [Mass/Vol] 0.74 mg/dL Normal 0.55-1.02 [facility] Comment on above: Performed By: #### C MP, TSH, HSTROPN #### [facility] [address] [place] [address] Dr. Jake Gallardo EGFR-AF NIUEAN >60 Normal >=60 The [facility] Comment on above: Performed By: #### C MP, TSH, HSTROPN #### [facility] [address] [address] [address] Jake Gallardo EGFR-NON AF NIUEAN >60 Normal >=60 [facility] Comment on above: Performed By: #### C MP, TSH, HSTROPN #### [facility] [address] [place] [address] Dr. Jake Gallardo Globulin (S) [Mass/Vol] 4.0 g/dL Normal The [facility] Comment on above: Performed By: #### C MP, TSH, HSTROPN #### [facility] [address] [address] [address] Jaek Gallardo Glucose [Mass/Vol] 84 mg/dL Normal 74-106 The [facility] Comment on above: Performed By: #### C MP, TSH, HSTROPN #### [facility] [address] [place] [address] Dr. Jake Gallardo Potassium [Moles/Vol] 3.9 mmol/L Normal 3.5-5.1 The [facility] Comment on above: Performed By: #### C MP, TSH, HSTROPN #### [facility] [address] [place] [address] Dr. Jake Gallardo Protein [Mass/Vol] 7.5 g/dL Normal 6.4-8.2 [facility] Comment on above: Performed By: #### C MP, TSH, HSTROPN #### [facility] [address] [place] [address] Dr. Jake Gallardo Sodium [Moles/Vol] 140 mmol/L Normal 136-145 [facility] Comment on above: Performed By: #### C MP, TSH, HSTROPN #### [facility] [address] [place] [address] Dr. Jake Gallardo Urea nitrogen [Mass/Vol] 8.0 mg/dL Normal 7.0-18.0 [facility] Comment on above: Performed By: #### C MP, TSH, HSTROPN #### [facility] [address] [place] [address] Dr. Jake Gallardo Urea nitrogen/Creatinin e [Mass ratio] 10.8 mg/mg Normal The [facility] Comment on above: Performed By: #### C MP, TSH, HSTROPN #### [facility] [address] [place] [address] Dr. Jake Gallardo PROTIMEon 09-16-2021 INR Coag (PPP) [Relative time] 0.96 {INR} Normal [facility] Comment on above: Performed By: #### P T, PTT #### [facility] [address] [place] [address] Dr. Jake Gallardo INR GUIDELINES SEE BELOW Normal [facility] Comment on above: Result Comment: NASH RED INR: 2.0 - 3.0 CONDITIONS NOT LISTED BELOW 2.5 - 3.5 FOR PROSTHETIC HEART VALVE REPLACEMENT 2.5 - 3.5 RECURRENT THROMBOSIS Performed By: #### P T, PTT #### [facility] [address] [place] [address] Dr. Jake Gallardo PT Coag (PPP) [Time] 10.4 s Normal 9.0-11.6 The [facility] Comment on above: Performed By: #### P T, PTT #### [facility] [address] [place] [address] Dr. Jake Gallardo PTTon 09-16-2021 aPTT Coag (Bld) [Time] 29.2 s Normal 22.3-36.2 The [facility] Comment on above: Performed By: #### P T, PTT #### [facility] [address] [place] [address] Dr. Jake Gallardo TROPONIN, HIGH SENSITIVITYon 09-16-2021 HSTROP <4.0 Normal 4.0-51.3 The [facility] Comment on above: Result Comment: CUT- OFF POINTS HAVE BEEN ESTABLISHED BASED ON THE FOURTH UNIVERSAL DEFINITIONS OF MYOCARDIAL INFARCTION. THE UPPER REFERENCE LIMIT (URL) OF TROPONIN, DEFINED THE 99TH PERCENTILE OF cTnI DISTRIBUTION IN A REFERENCE POPULATION, HAS BEEN CONFIRMED THE DECISION THRESHOLD FOR OR DIAGNOSIS. Performed By: #### C MP, TSH, HSTROPN #### [facility] [address] [place] [address] Dr. Jake Gallardo TSHon 09-16-2021 TSH 2.037 uIU/mL Normal 0.358-3.740 The [facility] Comment on above: Performed By: #### C MP, TSH, HSTROPN #### [facility] [address] [place] [address] Dr. Jake Gallardo URINE MICROSCOPIC ONLYon BACTERIA SMALL Abnormal NONE SEEN The [facility] Comment on above: Performed By: #### C BC #### [facility] [address] [place] [address] Dr. Jake Gallardo Bacteria identified Cx Nom (U) INDICATED Normal The [facility] Comment on above: Performed By: #### C BC #### [facility] [address] [place] [address] Dr. Jake Gallardo CAST NONE SEEN Normal NONE SEEN The [facility] Comment on above: Performed By: #### C BC #### [facility] [address] [place] [address] Dr. Jake Gallardo Crystals LM Nom (Urine sed) NONE SEEN Normal NONE SEEN [facility] Comment on above: Performed By: #### C BC #### [facility] [address] [place] [address] Dr. Jake Gallardo Epithelial cells LM Ql (Urine sed) FEW Abnormal NONE SEEN /RARE The [facility] Comment on above: Performed By: #### C BC #### [facility] [address] [place] [address] Dr. Jake Gallardo MUCOUS NONE SEEN Normal NONE SEEN The [facility] Comment on above: Performed By: #### C BC #### [facility] [address] [place] [address] Dr. Jake Gallardo RBC 0-2 Normal 0-2 The [facility] Comment on above: Performed By: #### C BC #### [facility] [address] [place] [address] Dr. Jake Gallardo WBC 2-5 Abnormal NONE SEEN [facility] Comment on above: Performed By: #### C BC #### [facility] [address] [place] [address] Dr. Jake Gallardo COVID Quick Testingon 2021 Result Negative [facility] Other Quick Fluon 04-14-2021 FLUAV Ab CF (S) [Titer] Positive [facility] Other FLUBV Ab CF (S) [Titer] Negative [employer] [facility] [employer] Other Quick Strepon 04-14-2021 S. pyogenes Org specific cx Ql (Throat) Negative [facility] Other Quick Strep [facility] Other U29 Proteinon 09-30-2017 Protein mass conc (24H U) 75 mg/24hr Normal 28-141 [facility] Comment on above: Performed By: #### 2 [id number], [id number] ####[facility] [id number] [place] [address] Albumin/Protein.to popeye Elph mass fraction (U) 21.4 mg/dL Invalid Interpretation Code [facility] Comment on above: Result Comment: The reference range and other method performance specifications have not been established for this test; results should be integrated into the clinical context for interpretation. Performed By: #### 2 [id number], [id number] ####[facility] [address] [place] [address] U24 Total Volon 09-30-2017 Hrs Kenny 24 hour(s) Invalid Interpretation Code [facility] Comment on above: Order Comment: Order added by Discern Expert Performed By: #### 2 [id number] ####[facility] [id number] [place] [address] Specimen volume Unsp time (U) 350 mL Invalid Interpretation Code [facility] Comment on above: Order Comment: Order added by Discern Expert Performed By: #### 2 [id number], [id number] ####[facility] [address] [place] [address] Vital Signs Date Time Vital Sign Value Performing Clinician Facility 06-18-2022 15:15-0400 Body height 162.56 cm Scarlett Blankenship Other [facility] Other 06-18-2022 15:15-0400 Body mass index (BMI) [Ratio] 29.92 kg/m2 Scarlett Blankenship Other [facility] Other 06-18-2022 15:15-0400 Body weight 79.06 kg Scarlett Blankenship Other [facility] Other 06-18-2022 15:15-0400 Diastolic blood pressure 86 mm[Hg] Scarlett Missler Other [facility] Other 06-18-2022 15:15-0400 Respiratory rate 18 /min Scarlett Missler Other [facility] Other 06-18-2022 15:15-0400 SaO2% (BldA) [Mass fraction] 96 % Scarlett Missler Other [facility] Other 06-18-2022 15:15-0400 Systolic blood pressure 122 mm[Hg] Scarlett Missler Other [facility] Other 04-24-2022 14:00-0500 Body height 165.1 cm Petra Hector Other [facility] Other 04-24-2022 14:00-0500 Body mass index (BMI) [Ratio] 28.29 kg/m2 Petra Hector Other [facility] Other 04-24-2022 14:00-0500 Body temperature 98.6 [degF] Petra Young Other [facility] Other 04-24-2022 14:00-0500 Body weight 77.11 kg Petra Hector Other [facility] Other 04-24-2022 14:00-0500 Diastolic blood pressure 83 mm[Hg] Petra Young Other [facility] Other 04-24-2022 14:00-0500 Respiratory rate 18 /min Petra Young Other [facility] Other 04-24-2022 14:00-0500 SaO2% (BldA) [Mass fraction] 97 % Petra Young Other [facility] Other 04-24-2022 14:00-0500 Systolic blood pressure 124 mm[Hg] Petra Khalilault Other [facility] Other 03-13-2022 15:37-0500 Body weight 75.75 kg Ivanna Gomez MD Work Phone: [facility] 03-13-2022 15:37-0500 Diastolic blood pressure 83 mm[Hg] Ivanna Gomez MD Work Phone: [facility] 03-13-2022 15:37-0500 Heart rate 79 /min Ivanna Gomez MD Work Phone: [facility] 03-13-2022 15:37-0500 SaO2% (BldA) [Mass fraction] 99 % Ivanna Gomez MD Work Phone: [facility] 03-13-2022 15:37-0500 Systolic blood pressure 116 mm[Hg] vIanna Gomez MD Work Phone: [facility] 12-31-2021 14:30-0400 Body height 165.1 cm Petra Hector Other [facility] Other 12-31-2021 14:30-0400 Body mass index (BMI) [Ratio] 27.45 kg/m2 Petra Khalilault Other [facility] Other 12-31-2021 14:30-0400 Body temperature 98.3 [degF] Petra Hector Other [facility] Other 12-31-2021 14:30-0400 Body weight 74.84 kg Petra Young Other [facility] Other 12-31-2021 14:30-0400 Diastolic blood pressure 83 mm[Hg] Petra Young Other [facility] Other 12-31-2021 14:30-0400 Respiratory rate 18 /min Petra Young Other [facility] Other 12-31-2021 14:30-0400 SaO2% (BldA) [Mass fraction] 100 % Petra Young Other [facility] Other 12-31-2021 14:30-0400 Systolic blood pressure 124 mm[Hg] Perta Young Other [facility] Other 11-19-2021 15:00-0400 Body height 165.1 cm Petra Young Other [facility] Other 11-19-2021 15:00-0400 Body mass index (BMI) [Ratio] 26.36 kg/m2 Petra Young Other [facility] Other 11-19-2021 15:00-0400 Body temperature 97.7 [degF] Petra Young Other [facility] Other 11-19-2021 15:00-0400 Body weight 71.85 kg Petra Young Other [facility] Other 11-19-2021 15:00-0400 Diastolic blood pressure 89 mm[Hg] Petra Khalilault Other [facility] Other 11-19-2021 15:00-0400 Respiratory rate 18 /min Petra Young Other [facility] Other 11-19-2021 15:00-0400 SaO2% (BldA) [Mass fraction] 99 % Petra Young Other [facility] Other 11-19-2021 15:00-0400 Systolic blood pressure 128 mm[Hg] Petra Young Other [facility] Other 09-03-2021 15:30-0400 Body height 165.1 cm Petra Young Other [facility] Other 09-03-2021 15:30-0400 Body mass index (BMI) [Ratio] 23.29 kg/m2 Petra Young Other [facility] Other 09-03-2021 15:30-0400 Body temperature 98.8 [degF] Petra Young Other [facility] Other 09-03-2021 15:30-0400 Body weight 63.5 kg Petra Young Other [facility] Other 09-03-2021 15:30-0400 Diastolic blood pressure 69 mm[Hg] Petra Young Other [facility] Other 09-03-2021 15:30-0400 Respiratory rate 18 /min Petra Young Other [facility] Other 09-03-2021 15:30-0400 SaO2% (BldA) [Mass fraction] 100 % Petra Khalilault Other [facility] Other 09-03-2021 15:30-0400 Systolic blood pressure 135 mm[Hg] Petra Young Other [facility] Other 06-11-2021 15:30-0400 Body height 165.1 cm Petra Khalilault Other [facility] Other 06-11-2021 15:30-0400 Body mass index (BMI) [Ratio] 24.63 kg/m2 Petra Khalilault Other [facility] Other 06-11-2021 15:30-0400 Body temperature 97.8 [degF] Petra Khalilault Other [facility] Other 06-11-2021 15:30-0400 Body weight 67.13 kg Petra Khalilault Other [facility] Other 06-11-2021 15:30-0400 Diastolic blood pressure 97 mm[Hg] Petra Khalilault Other [facility] Other 06-11-2021 15:30-0400 Respiratory rate 18 /min Petra Khalilault Other [facility] Other 06-11-2021 15:30-0400 SaO2% (BldA) [Mass fraction] 100 % Petra Khalilault Other [facility] Other 06-11-2021 15:30-0400 Systolic blood pressure 128 mm[Hg] Petra Khalilault Other [facility] Other 04-14-2021 10:30-0500 Body height 165.1 cm Petra Young Other [facility] Other 04-14-2021 10:30-0500 Body mass index (BMI) [Ratio] 22.46 kg/m2 Petra Young Other [facility] Other 04-14-2021 10:30-0500 Body temperature 99.6 [degF] Petra Khalilault Other [facility] Other 04-14-2021 10:30-0500 Body weight 61.24 kg Petra Khalilault Other [facility] Other 04-14-2021 10:30-0500 Respiratory rate 18 /min Petra Khalilault Other [facility] Other 04-14-2021 10:30-0500 SaO2% (BldA) [Mass fraction] 98 % Petra Young Other [facility] Other 04-14-2021 09:30-0500 Body height 165.1 cm Petra Khalilault Other [facility] Other 04-14-2021 09:30-0500 Body mass index (BMI) [Ratio] 22.46 kg/m2 Petra Khalilault Other [facility] Other 04-14-2021 09:30-0500 Body temperature 99.6 [degF] Petra Khalilault Other [facility] Other 04-14-2021 09:30-0500 Body weight 61.24 kg Petra Khalilault Other [facility] Other 04-14-2021 09:30-0500 Respiratory rate 18 /min Petra Young Other [facility] Other 04-14-2021 09:30-0500 SaO2% (BldA) [Mass fraction] 98 % Petra Young Other [facility] Other Encounters Encounter Date Encounter Type Care Provider Facility Start: 09-02-2023 End: 09-02-2023 ambulatory MILAN DONAVAN Not Available Start: 08-19-2023 End: 08-19-2023 ambulatory MILAN DONAVAN Not Available Start: 07-21-2023 End: 07-21-2023 ambulatory ANY STACIE Not Available Start: 06-23-2023 End: 06-23-2023 ambulatory MILAN DONAVAN Not Available Start: 05-25-2023 End: 05-25-2023 ambulatory MILAN DONAVAN Not Available Start: 04-24-2023 End: 04-24-2023 ambulatory MILAN DONAVAN Not Available Start: 03-23-2023 End: 03-23-2023 ambulatory MILAN DONAVAN Not Available Start: 08-18-2022 End: 08-18-2022 ambulatory Scarlett Blankenship Other [facility] Other Start: 08-18-2022 Telephone encounter Scarlett [facility] Start: 07-07-2022 End: 07-08-2022 ambulatory PETRA YOUNG Facility: Start: 07-01-2022 End: 07-01-2022 Emergency department patient visit [facility] Facility:[facility] Start: 06-18-2022 End: 06-19-2022 ambulatory Petra Young [facility] Other Start: 06-18-2022 Nutrition therapy Scarlett Blankenship [facility] Start: 04-28-2022 End: 04-28-2022 ambulatory Sara Landrumt Other [facility] Other Start: 04-28-2022 Telephone encounter Sara Cooley [facility] Start: 04-24-2022 End: 04-24-2022 ambulatory Petra Young Other [facility] Other Start: 04-24-2022 Office outpatient vi sit 15 minutes Petra oYung [facility] Start: 04-07-2022 End: 04-07-2022 ambulatory Petra Young Other [facility] Other Start: 04-07-2022 Telephone encounter Petra cohn [facility] Start: 03-13-2022 End: 03-13-2022 ambulatory PHYSICIAN NO [facility] Start: 03-13-2022 End: 03-13-2022 Office outpatient new 30 minutes Ivanna Gomez MD Work Phone: [facility] Comment on above: Otalgia, left (Prima ry Dx); Non-recurrent acute serous otitis media of left ear; Conductive hearing loss of left ear with unrestricted hearing of right ear Start: 02-04-2022 End: 02-04-2022 ambulatory Petra Young Other [facility] Other Start: 02-04-2022 Telephone encounter Petra cohn [facility] Start: 12-31-2021 End: 12-31-2021 ambulatory Petra Young Other [facility] Other Start: 12-31-2021 Office outpatient vi sit 15 minutes Petra Young [facility] Start: 11-19-2021 End: 11-19-2021 ambulatory Petra Young Other [facility] Other Start: 11-19-2021 Office outpatient vi sit 25 minutes Petra Young [facility] Start: 10-28-2021 End: 10-28-2021 ambulatory Petra Hector Other [facility] Other Start: 10-28-2021 Telephone encounter Petra Breaul t [facility] Start: 10-15-2021 End: 10-15-2021 ambulatory Petra Hector Other [facility] Other Start: 10-15-2021 Telephone encounter Petra Breaul t [facility] Start: 09-18-2021 End: 09-18-2021 ambulatory Petra Hector Other [facility] Other Start: 09-18-2021 Telephone encounter Petra Breaul t [facility] Start: 09-16-2021 End: 09-16-2021 ambulatory PETRA HECTOR Facility: Start: 09-09-2021 End: 09-09-2021 ambulatory Petra Hector Other [facility] Other Start: 09-09-2021 Telephone encounter Petra Breaul t [facility] Start: 09-03-2021 End: 09-03-2021 ambulatory PETRA HECTOR [facility] Other Start: 09-03-2021 Office outpatient vi sit 15 minutes Petra Hector [facility] Start: 06-11-2021 End: 06-11-2021 ambulatory Petra Hector Other [facility] Other Start: 06-11-2021 Office outpatient vi sit 10 minutes Petra Hector [facility] Start: 04-14-2021 End: 04-14-2021 ambulatory Petra Hector Other [facility] Other Start: 02-13-2022 Office outpatient vi sit 15 minutes Petra Hector [facility] Start: 09-30-2017 End: 10-01-2017 Patient encounter Milan Esparza Facility:[facility] Plan of Treatment Date Care Activity Detail Author Start: 03-19-2023 Tetanus vaccination Tetanus: Every 10yrs [facility] Start: 06-12-2022 End: 06-12-2022 Patient encounter procedure 06/12/2022 Office Visit Otolaryngology Ivanna Gomez MD [address] [place] [id number] [facility] Start: 10-31-2021 Influenza vaccination Sequential Influenza Vaccine (#1) [facility] Start: 07-08-2021 COVID-19 Vaccine (3 - Booster for Moderna series) COVID-19 Vaccine (3 - Booster for Moderna series) [facility] Start: 04-29-2013 Hepatitis C screening Hepatitis C Screening [facility] Start: 04-29-2010 HIV screening HIV Screening [facility] Start: 2007 Depression screening using PHQ-9 (Patient Health Questionnaire 9) score Depression Screening (PHQ-2/9) [facility] Start: 04-29-1998 History and physical examination, annual for health maintenance Wellness Visit [facility] Start: 1995 Screening for malignant neoplasm of cervix Pap Smear [facility] Payers Date Payer Category Payer Private Health Insurance 2022 Medicaid MEDICAID [facility] [id number] 2022-Present [phone] [address] [place] [address] [id number] 1.315 1995 Unknown [id number] 1995 Unknown [id number] [id number] 1995 Unknown [id number] 2.16.840.1.624003.3.579.2.593 1995 Unknown [id number] 2.16.840.1.040740.3.579.2.593 1995 Unknown [id number] 2.16.840.1.077693.3.579.2.718 1995 Unknown [id number] 2.16.840.1.555711.3.579.2.1259 1995 Unknown [id number] 2.16.840.1.838949.3.579.2.9 1995 Unknown [id number] 2.16.840.1.264986.3.579.2.1259 1995 Unknown [id number] 2.16.840.1.771926.3.579.2.9 1995 Unknown [id number] 2.16840.1.209448.3.579.2.9 1995 Unknown [id number] 2.16840.1.075507.3.579.2.9 1995 Unknown [id number] 2.16.840.1.187568.3.579.2.1259 1959 Medicaid [id number] 2. [id number] 1959 Self-pay [facility] [id number] 2..840.1.1138 83.19 Unknown [id number] Unknown [id number] Unknown [id number] Social History Date Type Detail Facility Unknown if ever smoked [facility] Other Sex Assigned At Sex Assigned At Bir th [facility] Other Start: 03-13-2022 Tobacco smoking status NHIS Smokes tobacco daily [facility] History of tobacco use Cigarette Smoker [facility] Start: 03-13-2022 Tobacco use and exposure User of smokeless tobacco [facility] Start: 03-13-2022 Alcohol intake Lifetime non-d isael (finding) [facility] Start: 1995 Sex Assigned At Not on file [facility] Start: 03-03-2022 End: 03-13-2022 Exposure to SARS-CoV-2 (event) Not sure [facility] Medical Equipment Procedure Code Equipment Code Equipment Origin al Text Equipment Identifier Dates Pen [place] [id number] X 4 MM Start: 06-18-2022 Clinical [...] Restless legs Medical History Scoliosis Hospitalization History [employer] Other 05-02-2023 NoteEducation Materials Cardiovascular Hypertension, Adult [...] doctor. This is important. Medicines ? Take xwju-jpz-dxyumvs and prescription medicines only as told by [...] weak or numb. ? (more content not included)...[id number]* Encounter Date Diagnosis Assessment Notes [...] to reestablish with a PCP, list to [facility] providers available in the area given [...] the week. Encouraged to take advantage of electric wirer available at [facility] that can help work around limitations. May, Scoliosis (ICD-10 - M41.9) [facility] Other 02-23-2023 Evaluation note* Encounter Date Diagnosis Assessment Notes Treatment Notes Treatment Clinical Notes Apr, Overweight (BMI 25.0-29.9) (ICD-10 - E66.3) Referral being sent to Weight management to help [facility] Other 02-06-2023 Evaluation note* Encounter Date Diagnosis Assessment Notes Treatment Notes Treatment Clinical Notes Apr, Seizure disorder (ICD-10 - G40.909) Apr, control counseling (ICD-10 - Z30.09) [facility] Other 01-12-2023 History of Present illness Narrative* Ivanna Gomze MD - 03/13/2022 3:47 PM EST [facility] [id number] ([address]) [facility] [address] MED[facility] OFF[address] [facility] [address] Dept: [phone] Loc: [phone] Ivanna Gomez MD [facility] 26 y.o. female Patient presents with [...] subma ndibular glands, clear salivary flow from Apache's ducts, no stones of Apache's ducts Temporomandibular Joint: no crepitus with motion, [...] mood, normal affect MYRINGOTOMY WITH ASPIRATION NOTE ([id number]) PROCEDURE PERFORMED BY: Ivanna Gomez MD PROCEDURE [...] well tolerated in the office today with worship of her hearing in the left ear. [...] Hematological: Negative. Psychiatric/Behavioral: Negative. documented in this [id number] Evaluation note* Encounter Date Diagnosis Assessment Notes Treatment Notes Treatment Clinical Notes Dec, Seizure disorder (ICD-10 - G40.909) Continue to take Depakote. Spoke about importance of follow up with neurology so we can determine cause of seizures Dec, control counseling (ICD-10 - Z30.09) Discussed patient options for control. Recommend follow up with Dr. Esparza to discuss options such as Mirena and Kileena [employer] Other 09-20-2022 Evaluation note* Encounter Date Diagnosis [...] to be seen. Also always know the [facility] Emergency Number is 24 hours a day available, even on holidays there is someone you can reach out to. Also we will check other labs yearly to screen for other health issues. Please remember we are a team and your opinion is very important in all of your healthcare decisions [employer] Other 07-05-2022 Evaluation note* Encounter Date Diagnosis [...] and family are in agreement with plan. [employer] Other 04-12-2022 Evaluation note* Encounter Date Diagnosis Assessment Notes Treatment Notes Treatment Clinical Notes May, control counseling (ICD-10 - Z30.09) Patient would like to stay on her current dose and form of OBC. [employer] [facility] Other 02-13-2022 Evaluation note* Encounter Date Diagnosis [...] Patient care instructions given in writting by [facility] document. [employer] Other [facility] Other Evaluation note* Diagnosis Otalgia, left- Primary Non-recurrent acute serous otitis media of left ear Conductive hearing loss of left ear with unrestricted hearing of right ear [facility] - [facility] Type Description Date Hospitalization History [facility] [facility] Other Hishbhy general Narrative - Reported* Type Description Date Medical History seizures Hospitalization History [facility] Other [facility] general Narrative - Reported* Type Description Date [...] Restless legs Medical History Scoliosis Hospitalization History [facility] [facility] Other Summary Purpose Family History No Family [...] would p refer to be [facility] facilility Diagnosis 1 Seizure disorder (G4 0.909) Referral Organization [facility] Referring Provider First Name Petra Referring Provider Last Name Hector Referring Provider Specialty Nurse Pract itioner Referred Organization [facility] Referred Address [address],[place], [place],[address] Referred Provider Specialty Neurology Referral Priority Routine General Notes Sara Jackson 022 09:44:52 AM >Received today and waiting for office notes to be locked before sending referral Clinical Notes Office [phone] Reason withnessed seiz ure like activity for last few months Diagnosis 1 Observed seizure-lik e activity (R56.9) Diagnosis 2 Syncope, unspecified syncope type (R55) Referral Organization [facility] Referring Provider First Name Petra Referring Provider Last Name Hector Referring Provider Specialty Nurse Joseph chen Referred Organization [facility] Referred Provider Ulysses Schuler [place] [address] [place],[address] Referred Provider Specialty Neurology Referral Priority Routine General Notes Sara Jackson 022 08:44:34 AM >Received today and waiting for office notes to be locked before sending referral Additional Source Comments INFORMATION SOURCE (unrecogn ized section and content) DATE CREATED AUTHOR 10/01/2017 [facility] DATE CREATED AUTHOR AUTHOR'S ORGANIZ ATION 03/14/2022 [facility] DATE CREATED AUTHOR AUTHOR'S ORGANIZ ATION 07/11/2022 [facility] DATE CREATED AUTHOR AUTHOR'S ORGANIZ ATION 07/14/2022 [facility] DATE CREATED AUTHOR AUTHOR'S ORGANIZ ATION 12/16/2022 [facility] DATE CREATED AUTHOR AUTHOR'S ORGANIZ ATION 09/03/2023 [facility] Specialists EPIC REASON FOR VISIT (unrecogniz ed section and content) Reason Comments bulging ear drum New Patient Care Teams (unrecognized sec tion and content) Crime Scene Investigator Relationship Specialty Start Date End Date No, Physician [facility] PCP - General 03/13/22 FOR [...] BE BASED ON THE PRIMARY CLINICAL RECORDS. [facility]. provides no warranty or guarantee of the accuracy or completeness of information in this document.
== END 2023-09-17 09:37 | disposition home or self-care (01) ==
LOC: NOMS 09:36
PROVIDERS: Family Provider Nurse Practitioner Family; Visit Provider Obstetrics & Gynecology
DX: O26.849 Uterine size-date discrepancy, unspecified trimester (principal); R10.2 Pelvic and perineal pain; Z36.86 Encounter for antenatal screening for cervical length; Z3A.31 31 weeks gestation of pregnancy
CPT/HCPCS: 76816; 76817

== ENCOUNTER 2023-09-22 13:32 | Observation (INO) | payer MEDICAID, SELFPAY ==
[2023-09-22 13:43] VITALS: BP 107/75; PULSE 105
[2023-09-22 14:42] LABS: Bilirubin Urine NEGATIVE (NEGATIVE); Blood Urine NEGATIVE (NEGATIVE); Clarity Urine SL CLOUDY (CLEAR); Color Urine YELLOW (YELLOW); Glucose Urine UA NEGATIVE (NEGATIVE); Ketones Urine NEGATIVE (NEGATIVE); Leukocyte Esterase Urine TRACE (NEGATIVE); Nitrite Urine NEGATIVE (NEGATIVE); Protein Urine TRACE mg/dL (NEG/TRACE); Specific Gravity Urine 1.025 (1.005-1.025); Urobilinogen Urine 0.2 EU/dL (0.2-1.0); pH Urine 6.5 (5.0-9.0)
[2023-09-22 14:51] LABS: Urine Microscopic Indicated YES
[2023-09-22 15:09] LABS: Bacteria Urine LARGE #/HPF (NONE SEEN); Cast Seen? NONE SEEN #/LPF (NONE SEEN); Crystals Seen? None Seen #/HPF (None Seen); Mucus Urine MODERATE (NONE SEEN); RBC Urine 0-2 #/HPF (0-2); Squamous Epithelial Cell Urine MANY #/LPF (NONE/RARE); Urine Culture Indicated YES
[2023-09-22 16:53] LABS: Bilirubin Urine NEGATIVE (NEGATIVE); Blood Urine NEGATIVE (NEGATIVE); Clarity Urine CLEAR (CLEAR); Color Urine YELLOW (YELLOW); Glucose Urine UA NEGATIVE (NEGATIVE); Ketones Urine NEGATIVE (NEGATIVE); Leukocyte Esterase Urine NEGATIVE (NEGATIVE); Nitrite Urine NEGATIVE (NEGATIVE); Protein Urine NEGATIVE (NEG/TRACE); Urobilinogen Urine 0.2 EU/dL (0.2-1.0)
[2023-09-22 16:55] LABS: Urine Microscopic Indicated NO
== END 2023-09-22 17:22 | disposition home or self-care (01) ==
LOC: FBC 13:34
PROVIDERS: Admitting Provider Obstetrics & Gynecology; Family Provider Nurse Practitioner Family; Visit Provider Obstetrics & Gynecology
DX: O26.893 Other specified pregnancy related conditions, third trimester (principal); R10.2 Pelvic and perineal pain; M54.9 Dorsalgia, unspecified; N89.8 Other specified noninflammatory disorders of vagina; Z3A.30 30 weeks gestation of pregnancy
CPT/HCPCS: 59025; 81001; 81003; 87086; 87150; 87186; G0378; G0379

== ENCOUNTER 2023-09-29 12:58 | Outpatient (OUT) | payer MEDICAID, SELFPAY ==
[2023-09-29 13:07] VITALS: BP 148/72; PULSE 100
[2023-09-29 13:18] VITALS: BP 114/77; PULSE 96
[2023-09-29 13:28] VITALS: BP 110/77; PULSE 99
== END 2023-09-29 13:35 | disposition home or self-care (01) ==
LOC: FBCO 12:59 → FBC 13:04
PROVIDERS: Family Provider Nurse Practitioner Family; Visit Provider Obstetrics & Gynecology
DX: O41.00X0 Oligohydramnios, unspecified trimester, not applicable or unspecified (principal)
CPT/HCPCS: 59025

== ENCOUNTER 2023-10-04 01:57 | Observation (INO) | payer MEDICAID, SELFPAY ==
--- OUTSIDE RECORDS SUMMARY | 2023-10-04 02:01 | XMS_ITS | CCD ---
Author Organization [facility] Inform ion Partnership [facility] Care Team Providers Care Factory Clerk Name Role Phone Milan Esparza Unavailable Unavailable Petra Young Unavailable No, Physician Primary Care Provider Unavailabl e NO, PHYSICIAN Primary Care Unavailable IVANNA GOMEZ Attending Unavailable Sara Cooley Unavailable Scarlett Blankenship Unavailable HECTOR, PETRA Primary Care Unavailable DONAVAN ., DR YATES Attending Unavailable DONAVAN ., DR YATES Consulting Unavailable DONAVAN ., DR YATES Admitting Unavailable Wisam Morales Consulting Unavailable REQUEST, DR LOUISE LISTED Consulting Unavaila ble HECTOR, PETRA Primary Care Unavailable Wisam Morales Consulting Unavailable PAY ., DR ZALDIVAR Attending Unavailable PAY ., DR ZALDIVAR Admitting Unavailable GRECHNY ., JAVON NICOLE Consulting Unavailabl e HECTOR, PETRA Admitting Unavailable HECTOR, PETRA Attending Unavailable HECTOR, PETRA Primary Care Unavailable Nba Guaman Attending Unavailable Nba Guaman Admitting Unavailable Provider, None Primary Care Unavailable Petra Young Attending Unavailable Hector, Petra Primary Care Unavailable Hector, Petra Admitting Unavailable MILAN ESPARZA Attending Unavailable MILAN ESPARZA Attending Unavailable MILAN ESPARZA Attending Unavailable ANY QUINONES Attending Unavailable MILAN ESPARZA Attending Unavailable MILAN ESPARZA Attending Unavailable NAY QUINONES Attending Unavailable ANY QUINONES Attending Unavailable Medications Current Medications Medication Drug Class(es) Dates Sig (Normalized) Sig (Original) [id number] 200 actuat albuterol 0.09 mg/actuat metered dose [...] oral tablet (8 sources) alpha-Adrenergic Agonist, Uncompetitive I-hxxpde-Q-aspartat e Receptor Antagonist, Sigma-1 Agonist Start: 03-06-2020 [...] Not-Taking Start: 11-19-2021 take 1 capsule by [facility] once daily FLUoxetine HCl 10 MG [...] Resolved: 04-14-2021 Episodic Other aftercare (1 source) [facility] (current) use of hormonal contraceptives; Translations: [LONG-TERM HORMONAL CONTRACEPTIVES] Onset: 09-18-2021 Episodic Syncope (1 source) Syncope and collapse Onset: 09-03-2021 Resolved: 09-03-2021 Episodic Results Test Name Value Interpretation Reference Range Facility Coding Summaryon 07-07-2022 Coding Summary HTMLBase 64 AeqmvbqoBUk7pRg+PGh lYWQ+EG6YPYHzJ52lfE TjpP8NN1dUZO3KICNBL ORVED0SBJ4nlGZ5UPjp Q7ElnvJv CfeuoYAyFE30SWr4OXF 7mMznLHgroE8zaYDvR3 d2WnTfDM21fT71FFevM RBcCmH3MrOmfbulfTTs R7niVjVbsMTlHcg+PHR hYmxlIHdpZHRoPScxMD JpQmCpwYsvOT8nHr2sU GVyLWNvbGxhcHNlOiBj t1mfPDCxHMkyKW3vlOj tV6XaaEE4UOAvo3y9Yp 48dHI+HJCrDZI8lUrfM Rpsx044YcUet4yjTFC4 nRVeIDpdAQR6Q97eq9F 1WDUcNWTwUDS8wIV7gM 7heWqucehyI4WrxOUiD tW3GGX0fVYmdB0wlUgx znqdtB5eOqc+X78DBA6 XMGXTRN6PFvr7R2LxCj wvdHI+RV88GHMxRQ79d GRggJCur1bgqCu8NsDs FBVaNCM3bBvoUAkuv3X dVUXdY78vcZMjm2N8PI VrmQokmSCoOpHzvDF7n X3qVYjfdzuhq3dhyelh Snpuv0cupf00fI80G34 wMIsjUWPsHIT1RZEtFQ KezCnccd9gwZ5lTq8+I Kmrf7yow0rojAb6VuWy REJgyeHueKyuPXR7q6Z nCi53N3VpxGfun5LrPf i4gw79rECpo9C3lBR4Y XnsMHTfeG6lAJrgEtJ8 VQAyKxSpmH59eILuNKy yEo0vvSsuyWmbWP5hZI DmpgezSKYbcT5zZAZsj WNtcZatZC9aDNDjwjby l797DwXmQTM1KIHppNV uB7PkdJ1cDaUmZHEwLR IhM9TenJGwNUfiV340G DzsJkC3VYRjjeErS4Ny ZRBnkXhbOwH1f8G3Zt7 Nn5VloaidJSN5OIraTM D8KaR7JgWtXkV7F4RpS lq0NTAcjLgoKL1pA2Eh EFTsyyeyfeqiuYP9JFK yQOLzzW85gKYkFPpyYe 9zn8W5m485WWBfYBTev I78Mv8mvYhbTXWyfIAL pF6ospndy9lgxzkpZpD kVYEpCVu2TZx0XBLlrA egFnXrBFE6TvZ3TSO3g LShqW8vnBtzjchahB4u Oyc+W43ffF9wJAQ8TVN 0hhcgOAZnwzHiQX23YQ 01Y4RpPjyjjJYfqJN+P PJokuDduLwhID9fQtQd h1efz0HbGSnzV5HbLHW mZWcqWkp5TFAxRFS3wL A6zB6lSJMaGQapk2X6x RQ5D2MkbsEtup4qe2cb ULHnEYzdY85qhXOzf9O 4ALEkdHO4WHQswAeeXa YhnT87Qjz+PGNvbGdyb 1XkXrcbr4mbp0ccmRi1 IjMwJSIgdmFsaWduPSJ 6u4KbGx90Q01oUGhgXX RoPSIxNSUiIHZhbGlnb l0iaF1yUe7+PGNvbCB3 wSY1wY8yIRAuYoV0AOt pA793YiMcdMVnLeqls2 cim8khsGd5GyOtKCPkd wCufLwgDKZ9t3SpVh04 L98eQVfwRIRgELGgGDT oMTIegTctjf9btP8kLj 8+ZB8zc1geeu71cQ62u HI+HORmDRL8rOejUNwo JDQybR5pUYsrYoE8GKS jYpCguL01gRVbPPxiHz 9ztRukkImyTY9sVBVjw agzq239LpYgo4eaCOXz eADjTYcgOVQ5V94yq3C 2VBUsLYHjNBT0aJE1fO 1hbGlnbjogbGVmdDsgd lTrwXwxHVksVFviK339 IHRvcDsnPlBhdGllbnQ oGfKnHVz3J6RdOma6DP QwyBmeYX1sgAAdUAddE m4qcNcpxUdmMK6bQDGq pwvqv601WjNhs5suTOD feKCbARpbASR9N82ka2 N2THVqGHGlTLX2pFG7o W3ghRtwpxbweYSjbQiv nnHhjPjnNPrmLDtyX84 6IHRvcDsnPkJpcnRoIE OvcGP1SF10GY82jQDcb 4R0xIW0C1ZfAOZthhzc fzsjeHI5JGVfHZLazR9 3Rz9orMigZr8rOXFlPF F3RWLwoBQpB0RezE4dB oNnOFTvEJTaS1ValKJp MSsaO841EVxjZmQ7RUB jrcUhA0DkODMxnUnwGu E1z5D7Yw4BM7K4TX02E E48dAMxw6F2rEA4H0Pu WGPquydudedbcYE2MEL cARMapP19Qt1juCblRc 8eIHGdDSK5YSMkoQWpG 4GatG5yWlXmJTNkOBWe F5CkhZSpCTkeP371GVg vPpY7COEoyhYuQ9RxCQ TjsLzlCgW1u2V7Lo9ZR Bt4NO03EA50qJBvs7C8 eBF9N5NcNWKleuuicog fcQW0ASExLWWybJ05Yw 7vsEhfWu7oGONtBUF1L NSwsTXtO4AemD3zLkYp RWYcCTZdB9UgiZUdDDh hG905BUjxOxP6ZDSnhl OtM1ZcRMYugLleScK4f 6J6Fb9RBUJiHT28MNT1 oDI6PG03HW45T4ZqWxz vdGFibGU+PHRhYmxlIH dpZHRoPScxMDAlJyBzd LujMT0zWe0uVLPjQRKx yXacfSAkCiTqm8qnVQT kCNhjAI8jqOvlM1WvwO A2MFVvo0r8Ax78I59wG 3JvdXA+QAJqcLF5uDN4 yY2kBwJxSmH0TPxoH06 7VrLbzKOpMiode6lzf8 vrcAq6VyB2EAGqchNyc EukLRI6t4VqVs41C72f IHdpZHRoPSIxNSUiIHZ slMuksz4ukP1vRe3+PG ZotSW3sYQ1oG0sJcCoK lI9JUjxI512LoStdDHt Pswtr0xoi9vwnFa6MpA pUXHuwgDlzExdVWQ6m4 YlRf83R0PbpJxwg9GwQ lt6tg03jRGok1F8zXY6 G4SjRRXvgvneoWSeuZe yNB2zWKLcgysxCNWbzH 9tFQAaW9a1NmUnOmX2D ZifV7StapN1MHWscUCb QIamFNU9W54wq2Z5ZUX kZEBoXKN6qDE8yZ5ckT lnbjogbGVmdDsgdmVyd EffRAinQIjpT706AXSi dKflIZWcwZ2qXHZriIV fbPmtVQ5yHQYwpeymMi RPUlNFWSwgQUxFWEEgT jwvdGQ+IDTfRPX1rZon PIriCACqxP2hKRGyS3j 4SwYzUwU9JGvpV6HwVM EevwenBa57iP6kPaQtM oA2LLwoC0RxrjR6GAUl lAToJRpuTDO4I92ld8I 8SDBmGNQiGZU8fRO1oT 1hbGlnbjogbGVmdDsgd iDmbMswXLhzGTcaJ705 FRPywFohUiPpDtV2JlD 4JQS8J7MzRvm7DJOdiB fvUM4vkJZzXHnlWv2ww NftkKtsID2dXAEjklmw LYIijZ5bALYxdIXmyKw qJX7cFCGkrnimc251Ge DsMQE2GRYpdMIrX8Hgh T1sBgDoHRDjPTOlP9Ss sKOrLNopO531REjbYiN 7WSCrnxRlN7VuBMGlhU ajFzJ9g6S4Rq8bLbFOE WFyczwvdGQ+PHRkIHN0 nKjfNWrpHZMpbY5bTTT nK8t4GyMxZkB7GJgqW0 CqTXXlwjqcFf00mJ8kH tCoOaJ2BDtiQ2TtduD7 JPEwgAVrOYluOHR8X52 cm8K7SWVuSYWmZRP0lB O3cD2gaHnvgcxicYXci DsgdmVydGljYWwtYWxp X460IWFroKuuHjACNXG MRTwvdGQ+FEHgLDL7vC vmXAwzPPPsyF3rSPBcS 5z0ZuBgZkR5KKrrV4Un WLXtostlNz75zO2iNqI tXfX2WIqcS4BiqhV8FO AscWUwWFxrGMX5C02cr 4R3KGKcNYJyISP0uHZ3 hI5nsDemmrvcnUIbuXl gdmVydGljYWwtYWxpZ2 46IHRvcDsnPkVtZXJnZ S3rzVusyBB+KE06um18 X8XpXqoyOmc9POBhEEJ 7yYD7gK9dUFYjFOipj5 Y2wZW0V3YfpnQsmk6tl 7dsTPTvDHrbI11hfQAf t8O4TORyaJL1JKUcfIg iYkSjoJ46Ksy+PGNvbG njw4EyJoekb0fet1qix Cl1UhEsAORzocHqhPdg RDS8s6YaSv95G36kKUs pZHRoPSIzMCUiIHZhbG kqji0mjT4bHh9+PGNvb HS3lXL2jK7eMjCcRmT1 EEwsG711AdFttYRqOsm vw9ruh5odvEr9EiSbHJ AmhlJjlYmfVDG9t0YuU k48G7VxjPxxq8ZhNru5 ua99dVIpx1L0jBZ6X0S hZGRpbmctbGVmdDogMC 9jMYVpnynuPUZaeQ3aP MMzA6r4EdDtIhJ4FVit O3VxkxK3ZTMxsJJcACT ssUAGdG6zsvbgk9fusi uuYmMeENUrXYf2DDt4L ILapZnkJkHyCJM8LeD9 TTT3uYKpzU5oeLalkug aaX2sYzk+ZSn7o4hcqY HnUI7qtTG8JR88MZ87j TNzx5T5uRF7V7KzLMYh tlsqtbzzsYK0SUAwUYM kaB34Aj5hfQvbGe2eJE XqLMZ4LXBzmZMtP9Ghx G9fCkLiAJMoXCMvB5Gs nPLnNTdzE931AMvkTkQ 0KKSplmVvY2ZaWCIctS fmLqT9i7A4Fd6VIX76K E00FF06uIXct2D7dNX0 T8OqYOFifoyrxzvyhBG 5NNXhKUJfrX55En4ryR vcSg7zBONaCFJ4YSXue YAnN1IjaV0aRqHnSWFm WWFeE0XvhAYgXWpkP88 4UEyuDoS6OQSyzoBpN8 IkLCRslLowYmO1o0Z5K p6HGa63CD75SM89hJFg z3F5jKL8Q7AtYLWhxzp crleplWP4VFCeIZPpcW 27Xn4kwUflKg7uTYUhU HK4FYSsuRMrG9HqxO1d DhQlMIWeOUNcA4QilET uKCvgB941OLjaHjB3OS GkjsJlZ1PpLLYatXziG jX7l6X5Kk8SBPmprdj2 X4IyWvkovJT+AS51SFG uRL76qFKlbXVhg8aydR s4BmIfAFHuGKU1eZdbQ Uwyq6JcDZDmW41kfZJx c2U (more content not included)... Normal [facility] US PELVIS AND TRANSVAGon US PELVIS [...] WISAM MORALES Date: 2022-07-07 10:40 Normal [facility] C Throaton 07-03-2022 C Throat Ordered by [employer]. Normal throat christian isolated No pathogens isolated [facility] Comment on above: Performed By: #### [id number] #### [facility] (DEFAULT) [address] [place] [address] .QC SARS-CoV-2 (COVID-19)/Fl u/RSV (GeneXpert)on 07-01-2022 Internal Control Pass [facility] Comment on above: Order Comment: Order ed by [employer]. [[email or web address]] Performed By: #### 7 [id number] #### [facility] (DEFAULT) [address] [place] [address] COVID/Flu/RSV (GeneXpert)on 07-01-2022 Flu A (GXpert COVFLURSV) Negative Normal Negative [facility] Comment on above: Performed By: #### 7 [id number] #### [facility] (DEFAULT) [address] [place] [address]8049 Flu B (GXpert COVFLURSV) Negative Normal Negative [facility] Comment on above: Performed By: #### 7 [id number] #### [facility] (DEFAULT) [address] [place] [address] 29198 RSV (GXpert COVFLURSV) Negative Normal [facility] Comment on above: Performed By: #### 7 [id number] #### [facility] (DEFAULT) [address] [place] [address] 17307 SARS-CoV-2 (COVID-19) RNA JOAN+probe Ql (Unsp spec) Negative Normal Negative [facility] Comment on above: Result Comment: Perf ormed by PCR methodology. Performed By: #### 7 [id number] #### [facility] (DEFAULT) [address] [place] [address]93 ED Clinical Summaryon 2022 ED Clinical Summary [facility] Emergency Department [address] [place] [address] ED Clinical Summary PERSON INFORMATION Name: KRISHNA GLOVER Age: 27 Years Sex: FEMALE : 1995 MRN: Acct#: Visit Reason: Headache; Ear pain; UC - Sore Throat; SORE THROAT, CONGESTION, BILAT EAR PAIN Arrival: 07/01/2022 09:15:55 Discharge: 07/01/2022 11:05:00 LOS: 000 01:50 Check In: 07/01/2022 09:15:55 Checkout:07/01/2022 11:05:00 Address: [address] [place] [address] PCP: Provider, None PROVIDER INFORMATION Provider Role [...] INFORMATION Instructions: Viral Illness, Adult; Hypertension, Adult, [id number] Follow-Up: With: Address: When: Follow up with primary care provider Within 3 to 5 days DIAGNOSIS: 1:Viral syndrome; 2:Elevated blood pressure reading Patient Understands: Yes - Patient/family/intensive care specialist verbalizes understanding of instructions given Comment: Normal [facility] ED Patient Summaryon 023 ED Patient Summary [facility] - Emergency Department [address] [place] [address] PATIENT DISCHARGE INSTRUCTIONS Patient Information Name: KRISHNA GLOVER Age: 27 Years Date of : 1995 [facility]: [id number] Reason For Visit: Headache; Ear pain; UC - Sore Throat; SORE THROAT, CONGESTION, BILAT EAR PAIN Arrival Time: 07/01/2022 09:15:55 Primary Care Physician: Provider, None Attending Physician: Nba Guaman MD Comment: Visit Diagnosis: Diagnoses This Visit Ear pain ([id number]) Elevated blood pressure reading (R03.0) Headache ([id number]) UC - Sore Throat ([id number]) Viral syndrome (B34.9) The Pharmacy at [facility] is open Thursday through Thursday from 9A [...] alcohol and/or drug addiction problems; contact the [facility] 22/09 Crisis Hotline -Text 4LYSS uq [phone]. If you received any narcotics, sedation, or [...] and treatment you received today in the [facility] Emergency Department were for an urgent problem and are not intended as complete care. It is important for you to follow up with a doctor, nurse practitioner, or physician?s surveyor's assistant for ongoing care. If your symptoms [...] so we can reach you if necessary. [facility] Emergency Department has provided you with a complete list of medications post discharge. Please inform your pneumatic press hand/provider of your visit and for further instruction [...] (influenza). Long-term (more content not included)... Normal [facility] Strep Aon 07-01-2022 Strep procedure control Pass Normal [facility] Comment on above: Performed By: #### 4 [id number] #### [facility] (DEFAULT) [address] [place] [address] 63858 Streptococcus A Negative Normal Negative [facility] Comment on above: Performed By: #### 4 [id number] #### [facility] (DEFAULT) [address] [place] [address] 77080 CBC AUTO DIFFon 09-16-2021 BASO # 0.0 103/ul Normal 0.0-0.1 [facility] Comment on above: Performed By: #### C BC #### [facility] [address] [place] [address] Dr. Jake Gallardo Basophils/100 WBC (Bld) 0.3 % Normal 0.2-2.0 [facility] Comment on above: Performed By: #### C BC #### [facility] [address] [place] [address] Dr. Jake Gallardo EO # 0.1 103/ul Normal 0.0-0.7 [facility] Comment on above: Performed By: #### C BC #### [facility] [address] [place] [address] Dr. Jake Gallardo Eosinophils/100 WBC (Bld) 1.9 % Normal 0.9-7.0 [facility] Comment on above: Performed By: #### C BC #### [facility] [address] [place] [address] Dr. Jake Gallardo Erythrocyte distribution width (RBC) [Ratio] 12.6 % Normal 11.0-15.0 [facility] Comment on above: Performed By: #### C BC #### [facility] [address] [place] [address] Dr. Jake Gallardo Hematocrit (Bld) [Volume fraction] 42.4 % Normal 36.0-48.0 [facility] Comment on above: Performed By: #### C BC #### [facility] [address] [place] [address] Dr. Jake Gallardo Hemoglobin (Bld) [Mass/Vol] 14.0 g/dL Normal 12.0-16.0 [facility] Comment on above: Performed By: #### C BC #### [facility] [address] [place] [address] Dr. Jake Gallardo IG # 0.01 10e3/ul Normal 0.00-0.03 [facility] Comment on above: Performed By: #### C BC #### [facility] [address] [place] [address] Dr. Jake Gallardo IG % 0.1 % Normal 0.0-0.5 [facility] Comment on above: Performed By: #### C BC #### [facility] [address] [place] [address] Dr. Jake Gallardo LYMPH # 1.0 103/ul Critically low 1.2-3.8 [facility] Comment on above: Performed By: #### C BC #### [facility] [address] [place] [address] Dr. Jake Gallardo Lymphocytes/100 WBC (Bld) 14.9 % Critically low 20.5-60.0 [facility] Comment on above: Performed By: #### C BC #### [facility] [address] [place] [address] Dr. Jake Gallardo MANUAL DIFF REQ NO Normal [facility] Comment on above: Performed By: #### C BC #### [facility] [address] [place] [address] Dr. Jake Gallardo MCH (RBC) [Entitic mass] 30.4 pg Normal 26.7-34.0 [facility] Comment on above: Performed By: #### C BC #### [facility] [address] [address] [address] Jake Gallardo MCHC (RBC) [Mass/Vol] 33.0 g/dL Normal 29.9-35.2 [facility] Comment on above: Performed By: #### C BC #### [facility] [address] [address] [address] Jake Gallardo MCV (RBC) [Entitic vol] 92.2 fL Normal 81.0-99.0 [facility] Comment on above: Performed By: #### C BC #### [facility] [address] [address] [address] Jake Gallardo MONO # 0.3 103/ul Normal 0.3-0.8 [facility] Comment on above: Performed By: #### C BC #### [facility] [address] [place] [address] Dr. Jake Gallardo Monocytes/100 WBC (Bld) 4.9 % Normal 1.7-12.0 [facility] Comment on above: Performed By: #### C BC #### [facility] [address] [place] [address] Dr. Jake Gallardo NEUT # 5.2 103/ul Normal 1.4-6.5 [facility] Comment on above: Performed By: #### C BC #### [facility] [address] [place] [address] Dr. Jake Gallardo Neutrophils/100 WBC (Bld) 77.9 % Critically high 43.0-75.0 [facility] Comment on above: Performed By: #### C BC #### [facility] [address] [address] [address] Jake Gallardo Platelet mean volume (Bld) [Entitic vol] 10.5 fL Normal 9.5-13.5 [facility] Comment on above: Performed By: #### C BC #### [facility] [address] [address] [address] Jake Gallardo PLT 226 103/ul Normal 150-450 [facility] Comment on above: Performed By: #### C BC #### [facility] [address] [address] [address] Jake Gallardo RBC 4.60 106/ul Normal 4.20-5.40 [facility] Comment on above: Performed By: #### C BC #### [facility] [address] [address] [address] Jake Gallardo WBC 6.7 103/ul Normal 4.0-11.0 [facility] Comment on above: Performed By: #### C BC #### [facility] [address] [address] HEAD WO CONon [...] WISAM MORALES Date: 2021-09-16 15:09 Normal [facility] CULTURE URINEon 09-16-2021 CULTURE URINE Culture Observations: LIGHT GROWTH OF MIXED GENITAL CHRISTIAN. NO POTENTIAL PATHOGENS SEEN. Normal [facility] Comment on above: Performed By: #### U RCX #### [facility] [address] [place] [address] Dr. Jake Gallardo DRUG SCREEN RAPID (URINE)on 09-16-2021 AMP Negative Normal NEGATIVE [facility] Comment on above: Performed By: #### C BC #### [facility] [address] [address] [address] Jake Gallardo BAR Negative Normal NEGATIVE [facility] Comment on above: Performed By: #### C BC #### [facility] [address] [place] [address] Dr. Jake Gallardo BUP Negative Normal NEGATIVE [facility] Comment on above: Performed By: #### C BC #### [facility] [address] [place] [address] Dr. Jake Gallardo BZO Negative Normal NEGATIVE [facility] Comment on above: Performed By: #### C BC #### [facility] [address] [place] [address] Dr. Jake Gallardo SUNDEEP Negative Normal NEGATIVE [facility] Comment on above: Performed By: #### C BC #### [facility] [address] [place] [address] Dr. Jake Gallardo CUT-OFFS SEE BELOW Normal [facility] Comment on above: Result Comment: AMP [...] ng/mL Performed By: #### C BC #### [facility] [address] [place] [address] Dr. Jake Gallardo DRUG CUT HEADER DRUG CLASS TEST SYSTEM CUT-OFF CONCENTRATIONS ARE FOLLOWS: Normal [facility] Comment on above: Performed By: #### C BC #### [facility] [address] [place] [address] Dr. Jake Gallardo mAMP Negative Normal NEGATIVE [facility] Comment on above: Performed By: #### C BC #### [facility] [address] [place] [address] Dr. Jake Gallardo MTD Negative Normal NEGATIVE [facility] Comment on above: Performed By: #### C BC #### [facility] [address] [place], [place] [id number] Dr. Jake Gallardo OPI Negative Normal NEGATIVE [facility] Comment on above: Performed By: #### C BC #### [facility] [address] [place] [address] Dr. Jake Gallardo OXY Negative Normal NEGATIVE [facility] Comment on above: Performed By: #### C BC #### [facility] [address] [place] [address] Dr. Jake Gallardo PCP Negative Normal NEGATIVE [facility] Comment on above: Performed By: #### C BC #### [facility] [address] [place] [address] Dr. Jake Gallardo PPX Negative Normal NEGATIVE [facility] Comment on above: Performed By: #### C BC #### [facility] [address] [place] [address] Dr. Jake Gallardo TCA Negative Normal NEGATIVE [facility] Comment on above: Performed By: #### C BC #### [facility] [address] [place] [address] Dr. Jake Gallardo THC Negative Normal NEGATIVE [facility] Comment on above: Performed By: #### C BC #### [facility] [address] [place] [address] Dr. Jake Gallardo ER URINE PROFILEon 2 Bilirubin Ql (U) Negative Normal NEGATIVE [facility] Comment on above: Performed By: #### C BC #### [facility] [address] [place] [address] Dr. Jake Gallardo Clarity (U) CLEAR Normal CLEAR [facility] Comment on above: Performed By: #### C BC #### [facility] [address] [place] [address] Dr. Jake Gallardo Color (U) LT. YELLOW Normal YELLOW [facility] Comment on above: Performed By: #### C BC #### [facility] [address] [place] [address] Dr. Jake TESFAYE A micrscopic examination will be performed if indicated. Normal [facility] Comment on above: Performed By: #### C BC #### [facility] [address] [place] [address] Dr. Jake Gallardo Glucose Ql (U) Negative Normal NEGATIVE [facility] Comment on above: Performed By: #### C BC #### [facility] [address] [place] [address] Dr. Jake Gallardo Hemoglobin Ql (U) TRACE-INTACT Abnormal NEGATIVE [facility] Comment on above: Performed By: #### C BC #### [facility] [address] [place] [address] Dr. Jake Gallardo Ketones Ql (U) Negative Normal NEGATIVE [facility] Comment on above: Performed By: #### C BC #### [facility] [address] [place] [address] Dr. Jake Gallardo LEUKOCYTES TRACE Abnormal NEGATIVE [facility] Comment on above: Performed By: #### C BC #### [facility] [address] [place] [address] Dr. Jake Gallardo Nitrite Ql (U) Negative Normal NEGATIVE [facility] Comment on above: Performed By: #### C BC #### [facility] [address] [place] [address] Dr. Jake Gallardo pH (U) 6.0 [pH] Normal 5-9 [facility] Comment on above: Performed By: #### C BC #### [facility] [address] [place] [address] Dr. Jake Gallardo SPEC GRAVITY 1.025 Normal 1.005-<=1.025 [facility] Comment on above: Performed By: #### C BC #### [facility] [address] [place] [address] Dr. Jake Gallardo UA PROTEIN Negative Normal NEGATIVE/ TRACE [facility] Comment on above: Performed By: #### C BC #### [facility] [address] [place] [address] Dr. Jake Gallardo UR MICRO IND INDICATED Normal [facility] Comment on above: Performed By: #### C BC #### [facility] [address] [place] [address] Dr. Jake Gallardo Urobilinogen Qn (U) 0.2 {Manny'U}/dL Normal 0.2 - 1.0 [facility] Comment on above: Performed By: #### C BC #### [facility] [address] [place] [address] Dr. Jake Gallardo PREG HCG QUALon 09-16-2021 , QUAL Negative Normal NEGATIVE [facility] Comment on above: Performed By: #### P REG #### [facility] [address] [place] [address] Dr. Jake Gallardo PROF 14(COMP METB)on 022 Albumin [Mass/Vol] 3.5 g/dL Normal 3.4-5.0 [facility] Comment on above: Performed By: #### C MP, TSH, HSTROPN #### [facility] [address] [place] [address] Dr. Jake Gallardo Albumin/Globulin [Mass ratio] 0.9 {ratio} Normal [facility] Comment on above: Performed By: #### C MP, TSH, HSTROPN #### [facility] [address] [place] [address] Dr. Jake Gallardo ALP [Catalytic activity/Vol] 42 U/L Critically low 46-116 [facility] Comment on above: Performed By: #### C MP, TSH, HSTROPN #### [facility] [address] [place] [address] Dr. Jake Gallardo ALT [Catalytic activity/Vol] 22 U/L Normal 14-59 [facility] Comment on above: Performed By: #### C MP, TSH, HSTROPN #### [facility] [address] [place] [address] Dr. Jake Gallardo Anion gap [Moles/Vol] 15.0 mmol/L Normal [facility] Comment on above: Performed By: #### C MP, TSH, HSTROPN #### [facility] [address] [place] [address] Dr. Jake Gallardo AST [Catalytic activity/Vol] 15 U/L Normal 15-37 [facility] Comment on above: Performed By: #### C MP, TSH, HSTROPN #### [facility] [address] [place] [address] Dr. Jake Gallardo Bilirubin [Mass/Vol] 0.4 mg/dL Normal 0.2-1.0 [facility] Comment on above: Performed By: #### C MP, TSH, HSTROPN #### [facility] [address] [place] [address] Dr. Jake Gallardo Calcium [Mass/Vol] 9.1 mg/dL Normal 8.5-10.1 [facility] Comment on above: Performed By: #### C MP, TSH, HSTROPN #### [facility] [address] [place] [address] Dr. Jake Gallardo Chloride [Moles/Vol] 106 mmol/L Normal 98-107 [facility] Comment on above: Performed By: #### C MP, TSH, HSTROPN #### [facility] [address] [place] [address] Dr. Jake Gallardo CO2 [Moles/Vol] 22.9 mmol/L Normal 21.0-32.0 [facility] Comment on above: Performed By: #### C MP, TSH, HSTROPN #### [facility] [address] [place] [address] Dr. Jake Gallardo Creatinine [Mass/Vol] 0.74 mg/dL Normal 0.55-1.02 [facility] Comment on above: Performed By: #### C MP, TSH, HSTROPN #### [facility] [address] [place] [address] Dr. Jake Gallardo EGFR-AF TAIWANESE >60 Normal >=60 [facility] Comment on above: Performed By: #### C MP, TSH, HSTROPN #### [facility] [address] [place] [address] Dr. Jake Gallardo EGFR-NON AF TAIWANESE >60 Normal >=60 [facility] Comment on above: Performed By: #### C MP, TSH, HSTROPN #### [facility] [address] [place] [address] Dr. Jake Gallardo Globulin (S) [Mass/Vol] 4.0 g/dL Normal [facility] Comment on above: Performed By: #### C MP, TSH, HSTROPN #### [facility] [address] [address] [address] Jake Gallardo Glucose [Mass/Vol] 84 mg/dL Normal 74-106 [facility] Comment on above: Performed By: #### C MP, TSH, HSTROPN #### [facility] [address] [address] [address] Jake Gallardo Potassium [Moles/Vol] 3.9 mmol/L Normal 3.5-5.1 [facility] Comment on above: Performed By: #### C MP, TSH, HSTROPN #### [facility] [address] [place] [address] Dr. Jake Gallardo Protein [Mass/Vol] 7.5 g/dL Normal 6.4-8.2 [facility] Comment on above: Performed By: #### C MP, TSH, HSTROPN #### [facility] [address] [address] [address] Jake Gallardo Sodium [Moles/Vol] 140 mmol/L Normal 136-145 [facility] Comment on above: Performed By: #### C MP, TSH, HSTROPN #### [facility] [address] [place] [address] Dr. Jake Gallardo Urea nitrogen [Mass/Vol] 8.0 mg/dL Normal 7.0-18.0 [facility] Comment on above: Performed By: #### C MP, TSH, HSTROPN #### [facility] [address] [place] [address] Dr. Jake Gallardo Urea nitrogen/Creatinin e [Mass ratio] 10.8 mg/mg Normal [facility] Comment on above: Performed By: #### C MP, TSH, HSTROPN #### [facility] [address] [address] [address] Jake Gallardo PROTIMEon 09-16-2021 INR Coag (PPP) [Relative time] 0.96 {INR} Normal [facility] Comment on above: Performed By: #### P T, PTT #### [facility] [address] [address] [address] Jake Gallardo INR GUIDELINES SEE BELOW Normal [facility] Comment on above: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
[2023-10-04 02:15] VITALS: BP 117/81; PULSE 100; TEMP 36
[2023-10-04 03:01] LABS: Bilirubin Urine NEGATIVE (NEGATIVE); Blood Urine NEGATIVE (NEGATIVE); Clarity Urine CLEAR (CLEAR); Color Urine LT. YELLOW (YELLOW); Glucose Urine UA NEGATIVE (NEGATIVE); Ketones Urine NEGATIVE (NEGATIVE); Leukocyte Esterase Urine NEGATIVE (NEGATIVE); Nitrite Urine NEGATIVE (NEGATIVE); Protein Urine NEGATIVE (NEG/TRACE); Urobilinogen Urine 0.2 EU/dL (0.2-1.0); pH Urine 6.5 (5.0-9.0)
[2023-10-04 03:02] LABS: Urine Microscopic Indicated NO
== END 2023-10-04 03:40 | disposition home or self-care (01) ==
LOC: FBC 01:58
PROVIDERS: Admitting Provider Obstetrics & Gynecology; Family Provider Nurse Practitioner Family; Visit Provider Obstetrics & Gynecology
DX: O47.03 False labor before 37 completed weeks of gestation, third trimester (principal); Z3A.32 32 weeks gestation of pregnancy
CPT/HCPCS: 59025; 81003; G0378; G0379

== ENCOUNTER 2023-10-28 19:51 | Outpatient (REF) | payer MEDICAID, SELFPAY ==
--- OUTSIDE RECORDS SUMMARY | 2023-10-28 20:07 | XMS_ITS | CCD ---
Author Organization [facility] Inform ion Partnership [facility] Care Team Providers Care Drafter Electronic Name Role Phone Milan Esparza Unavailable Unavailable [...] ESPARZA Attending Unavailable ANY QUINONES Attending Unavailable ANY QUINONES Attending Unavailable Medications Current Medications Medication Drug Class(es) Dates Sig (Normalized) Sig (Original) [id number] 200 actuat albuterol 0.09 mg/actuat metered dose [...] oral tablet (8 sources) alpha-Adrenergic Agonist, Uncompetitive D-djmzwm-K-aspartat e Receptor Antagonist, Sigma-1 Agonist Start: 03-06-2020 [...] Start: 11-19-2021 take 1 capsule by [facility] once daily FLUoxetine HCl 10 MG 1 [...] Resolved: 04-14-2021 Episodic 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; Translations: [LONGTERM HORMONAL CONTRACEPTIVES] Onset: 09-18-2021 Episodic Syncope (1 source) Syncope and collapse Onset: 09-03-2021 Resolved: 09-03-2021 Episodic Results Test Name Value Interpretation Reference Range Facility Coding Summaryon 07-07-2022 Coding Summary HTMLBase 64 NkseekdnPSy7eIm+PGh lYWQ+XS1HAIQnR54erY KuaQ8PG5rFPY9OJYEKQ GRJXC1XYC0zcDZ2HYuw Z0TqzkZy UqmhgSYzLC52LSh9CYZ 1tIoiSOthpL9uqHAbS7 i1QfLvAP55yH13NDhgO HLcAmL3SfKmvnwplQPp P6ljZbHfxMUmZem+PHR hYmxlIHdpZHRoPScxMD SeLeLyqQkdWL9sMu6cN GVyLWNvbGxhcHNlOiBj g6mmUKHwKCeeFS2opNt aL6UxeMW1RSLtm7w7Xa 48dHI+JNXfQJS2iHhwS Vtay139AaTva5pdPAM5 lXVmXHpxANC2R64mp7F 1JDVcLOEjSUI2oJN6lJ 9djLlmfpayO3DrmFKvE kZ7XHY5qLMyaL7naZrn nslymV8mDpr+B31IOV2 UXLLBMV7EQiu9V8DsNr wvdHI+GU93FHRuNN99b OAnaJSey3exvSm4UlUa ETSnZLT5rWikCPlch9Z vCVRwE72whCWdn1G6EB BxxVfpiNPlNdBloJX4t D6zVJhftvmip1drddpp Xkabv5usgm16kX74L73 wZDwxUPBaYFX2EOWfXX DvgWlbwi4zhA6iUk9+I Zyzq1ers9taaSs8NiXv CFFjfnNvvJyeKEO8v3L pVj97O3GqaJwzs2KdEv s3ad22oDYxo1M8xIV5J GmaOFYtzQ9nYRwaRrV7 KVDnEaKstE79jCOfPTg hRe8wcQsehHvyCK0lBB MyavzgPDOksN9nWEBsv URcwTqeRU5sLWYmygro n324RaHqAJX0RDBcpCE lA0QdhD5iZpDvSJYnYU XhZ6TwpHYmBUwrF803K KsnVsN2HUOnulRoO8Sj YLUzsPdvUoX9x9Q0Wr0 Hy7IkpzmjSPC9RJsvFK V0NtQ1NeEbTyD2T3HdN as0XEUnxLplLA8iY0Ue FPDxjxirbzvygJJ1BHK tGJZkcN88cHEgJZilEw 1ol3P7u674ZQPsOMNtt M13Ln0ymRxxGLBcqZYR cC0hxjsyb0hpjgvqOxQ eGXExISm2RNm3XOEuoF xmSgJkDAR2NuH3FWW5j YWczO3nnOvlstmayQ8w Oyc+T55byF2oAAG5TXT 9wrmhFCFrbmKlPA08EB 92J7NwMlqymCHcsSN+P UReuzOvrNxrYW5uAeUw q8vvz8BeXTckL1HoSGZ xZYmiVko5AURhNPA5nE U6cW2hWOBmQWltz1K3g CV0H2VitdHgvy0aa3ix BWIiFChpD66qiHUgq0J 6UVYieFW2ZZKyeOxzBs CpzP77Wzz+PGNvbGdyb 7OqUvxpx7zkc6luqPk8 IjMwJSIgdmFsaWduPSJ 2q1ZfQt71W98xLJnuBE RoPSIxNSUiIHZhbGlnb o8ngT8yVd4+PGNvbCB3 eVA7mB9xTJMyOkU8QDm pU873PdTlnKLtWarel0 aty5cwvIq3VpWqIAXvo iMgxZwaXZW3y8MsJe52 V79hFHstYDLkCJLeLDO aTIOmvHhqrh0tqV2sMr 8+YS5la5azgj11mS44p HI+XUWtSGL8xFnsEOlt PLTgsH1qYVyzQoC9UDI mYbJvnV70kCNuDIofIp 5ztFmwxJpeTA1gHEHwt wrpz746IyQua4nfEOPk oBYrTOvgEDT6A56rl1X 2ROIbYWOuQBF8tQO4mU 1hbGlnbjogbGVmdDsgd jNueSpmDJmfPAwzC301 IHRvcDsnPlBhdGllbnQ sKgPcVJd5A3VwPoy6GA IutAojON1rlFEvKGzhX m5ivJrizFyjBF0mQKVr eiulj627LwEpz2nuOSV xgWFbKLwnDZG2W03rz3 I1ZYFhUJZjHKP1cNK9i G6kyAbszthieDPzfZaf vxWwrTrwFRubUKvnM85 6IHRvcDsnPkJpcnRoIE SupCN1MJ87XP60cKRrv 4J6uKS7I4BxDXDnrzma gtcdiUV0HDQvTFYnkE0 7Js1wsNyrQq6mTVVyRF O2NHXrxEOhN6MqmD9dA yQrEBBzHGCxI8HhjJTa FNtsD504UXmiQyI5XEM gziHiM4KsUHNjkPuhEa Y0c5Q1Iv8QW2J2RU89L D33nWFhg7A4lKF0V3Uu CXMcjuiagyetkDX3GWI sYZMkeT31Zu9soPsoMu 7uHJCjHJD3IBNveTVhI 0WyiX7xEjVtZAOkKIOz H3DpbNMlUFihQ005UMf uFiN0YHEzthNxE4HrYZ NilPqeQaY4n5W5Ox7CC Yc3RE83DQ77bHLsy5J8 pAC8J5UqNRUcclspzgb ogGY0KWKsWVZlrL36Mu 6deEesFc2kWQHbXVS1W DRluFOvO5FimT9hYoPf EQVtOOCkV7ErrSTjEVj iN636XKgdDfI1VYOtuh XqZ1ReROEgaAlzFkN3b 8W9Zg4TXBUbYK79UUK3 vBR6PP53ER21Z8ZxLlt vdGFibGU+PHRhYmxlIH dpZHRoPScxMDAlJyBzd RdqXA5vFj7lPQPxYBPd xJvraNRkZyRkf7pbPHU xRCbpYI5puOdlU3TqxL Q1XFAuw4z6Nm76Y96jM 3JvdXA+ETWurPJ8iST1 uD8xKySzDfD1KCzbS59 3HoDqdJBaAoqhn7ijd9 sdaSv1TdF8HHRdqaZss LwuTXB4z9UlUb92C94h IHdpZHRoPSIxNSUiIHZ vyRtrog1gwS2pNw4+PG PodTT2xXL9bG3gRwRmP kQ9JTayB019UqCzwRJu Jhjed5kdc2vasYs3BaG oTVUuhaPiaZwiOZM7l7 WdTm28Z3CsaIlsb1BlV fa8sm07kMSof5U5hOF5 W3SfQEAuqprlxQWrbTp yOL6xJBYyuovtOMDmmJ 6jJNWqB5k5PuKuUmQ1L BjuO0ZawrI3EDBicKOt RQczMHH3L41jw8X8HCL uIIHtXBC5nUS4fX9neC lnbjogbGVmdDsgdmVyd BlwAQqnPTcbC486BFLv bEboVBJqiZ7sXKUhnEY jtAijEA0gAIEjbolzEk RPUlNFWSwgQUxFWEEgT jwvdGQ+GHDrPOX4bMcg TZqoSBFclF3hFHKqI6j 9AxYgWgL3SSgnL0AeDU XrknziRs58mF9yIxKyS iB5ZZjeG2AwtcR0ZBDb xVLpKUjdVHA8J04wg4K 5KCLyKMScSPS7gXO2bC 1hbGlnbjogbGVmdDsgd xDurSwqPRieJLndW911 RQDkhDxbUxZsJbS4RfX 3LJZ9G4TaFzx2GRTfmT ovOD7siSAsIYzqEt4ns JtegIipEQ4oNYSapxbx QGCzhD4hUUFzlNQhtOr nVI6tEUVlzktzj365Uy KlBPR8UEJtwVQpI5Tva I9fYbRzGJXrFIZrX5Os aIXuKVfkU270QGpvRaY 6KKPvduLpT5NaYAIbhL ayPeJ1r2F5Si8zNfXAD WFyczwvdGQ+PHRkIHN0 eRemZLjsFHQhfA0lCXZ eH6u8MoVsWlO6ESshH4 DiIVAvzisoDv33eF1qI tBbUbC3QAeeD1ScoiH1 RSFhrHIjOOeqDYC4V70 fh5J6GLDcKTEfAMD1pE L6jB8bfXfotqbkmXCqp DsgdmVydGljYWwtYWxp N838AFHyyUfiJbOCEVM MRTwvdGQ+UCFuSCD4iG hsEDoxASTtkT6sHXZjJ 8x2OyDtQvE5TUexX5Yq TGFfegsiGa21cJ1gYaH iSwO8MZtuP7FcpsA8XW HpfPXwDNmwOZV3L93df 2W3QZOyHMRsFMD8hTG9 cV1fwFbjfejxaPVsjCy gdmVydGljYWwtYWxpZ2 46IHRvcDsnPkVtZXJnZ V9idOhbsJC+SH95wd69 Q0BbLmlaLvr9BNJgJJB 4zQJ9gI4nLHLfQDitb5 Y9jYZ1P4TqgwErhw8zr 7dfJOXyJNoiU37ttUFm c0G9FBMxfZV7ROKrkSo eVbBdeL84Lhi+PGNvbG vqk0TkXcxdu4agx4sgv Ex9XoQwXZZuvbUudOgb FFY0i0UpOs54V13aRTu pZHRoPSIzMCUiIHZhbG aedf6rqA4yPr9+PGNvb KW9aIL1nT7oVpPtOgE5 RAkxU937StExxDQpRdy mr6bvd3oxlLn9WwCfMZ ZubxNfzLuvPQT7h8AvZ p00P6McrPsja2ZrThm1 hc29xLUeg5U5gQC8J6Y hZGRpbmctbGVmdDogMC 6nBHAuwxcwDHGbuI5fM SKiS9b3LhMfNwR4OLuq Y5NuupV9UCKjlZHhFRD ffNAClQ8ufsfpx6iegy hfCzTsOJLyJRt8LWa4B KRyaPyiSoNsGVS5QfY8 UWA0kWHowX8xfIrjvet zxR3xZjy+CIg4v8qstP KjHS2fbLH0FN79IB31a NNgu8G3cAZ9D4UaHBMm vafgeelqxUN4OPLxWHR irP36Yc3djZqqZw9aHG NbPLT0YHIkuTIuL3Ptn N1bRdTsMMDvEXKfR7Pd lHKqCSgvD525EGetAsM 2WCBersTvQ3PlFXPwjJ zjBgQ3q0Z6Eb8LIT89Z C37TC89zLDcn6J2tNN2 J7ReVYSyamzvegzacDC 6JMQkMVEfsC63Fg6ofP cdHh1jJIQzTNR8QHGbe CRqW5TyiC5iHkEyIEBu SCWmD8EnqSUeQJroJ75 2BRinYnE0MQJrceMvJ5 YyDWEvkPcnDrA9l5O3P p3NCv88QQ75QC39zUGo n7E8vRH0P6HrJUFdlsf jgpxeiES2UYZhMRAmyC 70Cf5pcPizGz8eZPEcJ SW3GSEfgUNfH2QjaZ9t VlVmHFHdRUXuO0EnuRO wOUtxW845ZOmvWuH3PR CdrdLgF9NdDZIpsGzxI vI7f0F5Kl2HERlfqyx9 J5PxJktxoDN+EA47RRA sUV82wAQpwSGzy6wfwT t2TyPsWKZhNHS9bMyoZ Pvpm5XjTELpD55rpZPj c2U (more content not included)... Normal [facility] US PELVIS AND TRANSVAGon US [...] WISAM MORALES Date: 2022-07-07 10:40 Normal [facility] C Throaton 07-03-2022 C Throat Ordered by [employer]. Normal throat christian isolated No pathogens isolated [facility] Comment on above: Performed By: #### [id number] #### [facility] (DEFAULT) [address] [place] [address] .QC SARS-CoV-2 (COVID-19)/Fl u/RSV (GeneXpert)on 07-01-2022 Internal Control Pass [facility] Comment on above: Order Comment: Order ed by [employer]. [[email or web address]] Performed By: #### 7 [id number], [id number] #### [facility] (DEFAULT) [address] [place] [address] COVID/Flu/RSV (GeneXpert)on 07-01-2022 Flu A (GXpert COVFLURSV) Negative Normal Negative [facility] Comment on above: Performed By: #### 7 [id number] #### [facility] (DEFAULT) [address] [place] [address] Flu B (GXpert COVFLURSV) Negative Normal Negative [facility] Comment on above: Performed By: #### 7 [id number], [id number] #### [facility] (DEFAULT) [address] [place] [address] RSV (GXpert COVFLURSV) Negative Normal [facility] Comment on above: Performed By: #### 7 [id number] #### [facility] (DEFAULT) [address] [place] [address] SARS-CoV-2 (COVID-19) RNA JOAN+probe Ql (Unsp spec) Negative Normal Negative [facility] Comment on above: Result Comment: Perf ormed by PCR methodology. Performed By: #### 7 [id number] #### [facility] (DEFAULT) [address] [place] [address] ED Clinical Summaryon 2022 ED Clinical Summary [facility] Emergency Department [address] [place] [id number] ED Clinical Summary PERSON INFORMATION Name: KRISHNA GLOVER Age: 27 Years Sex: FEMALE : 1995 MRN: Acct#: Visit Reason: Headache; Ear pain; UC - Sore Throat; SORE THROAT, CONGESTION, BILAT EAR PAIN Arrival: 07/01/2022 09:15:55 Discharge: 07/01/2022 11:05:00 LOS: 000 01:50 Check In: 07/01/2022 09:15:55 Checkout:07/01/2022 11:05:00 Address: [address] [place] [address] PCP: Provider, None PROVIDER INFORMATION Provider Role [...] INFORMATION Instructions: Viral Illness, Adult; Hypertension, Adult, Xoni-bq-Wdoj Follow-Up: With: Address: When: Follow up with primary care provider Within 3 to 5 days DIAGNOSIS: 1:Viral syndrome; 2:Elevated blood pressure reading Patient Understands: Yes - Patient/family/managed care liaison verbalizes understanding of instructions given Comment: Normal [facility] ED Patient Summaryon 023 ED Patient Summary [facility] - Emergency Department [address] [place] [address] PATIENT DISCHARGE INSTRUCTIONS Patient Information Name: KRISHNA GLOVER Age: 27 Years Date of : 1995 [facility]: [id number] Reason For Visit: Headache; Ear pain; UC - Sore Throat; SORE THROAT, CONGESTION, BILAT EAR PAIN Arrival Time: 07/01/2022 09:15:55 Primary Care Physician: Provider, None Attending Physician: Nba Guaman MD Comment: Visit Diagnosis: Diagnoses This Visit Ear pain ([id number]) Elevated blood pressure reading (R03.0) Headache ([id number]) UC - Sore Throat ([id number]) Viral syndrome (B34.9) The Pharmacy at [facility] is open Thursday through Thursday [...] alcohol and/or drug addiction problems; contact the [facility] 22/09 Crisis Hotline -Text [address] [phone]. If you received any narcotics, sedation, or [...] and treatment you received today in the [facility] Emergency Department were for an urgent problem and are not intended as complete care. It is important for you to follow up with a doctor, nurse practitioner, or physician?s medical assistant for ongoing care. If your symptoms [...] so we can reach you if necessary. [facility] Emergency Department has provided you with a complete list of medications post discharge. Please inform your extracorporeal circulation specialist/provider of your visit and for further instruction [...] (influenza). Long-term (more content not included)... Normal [facility] Strep Aon 07-01-2022 Strep procedure control Pass Normal [facility] Comment on above: Performed By: #### 4 [id number] #### [facility] (DEFAULT) [address] [place] [id number] Streptococcus A Negative Normal Negative [facility] Comment on above: Performed By: #### 4 [id number] #### [facility] (DEFAULT) [address] [place] [address] CBC AUTO DIFFon 09-16-2021 BASO # 0.0 103/ul Normal 0.0-0.1 [facility] Comment on above: Performed By: #### C BC #### [facility] [address] [place] [address] Dr. Jake Gallardo Basophils/100 WBC (Bld) 0.3 % Normal 0.2-2.0 [facility] Comment on above: Performed By: #### C BC #### [facility] [address] [place] [address] Dr. Jake Gallardo EO # 0.1 103/ul Normal 0.0-0.7 [facility] Comment on above: Performed By: #### C BC #### [facility] [address] [place] [address] Dr. Jake Gallardo Eosinophils/100 WBC (Bld) 1.9 % Normal 0.9-7.0 [facility] Comment on above: Performed By: #### C BC #### [facility] [address] [place] [address] Dr. Jake Gallardo Erythrocyte distribution width (RBC) [Ratio] 12.6 % Normal 11.0-15.0 [facility] Comment on above: Performed By: #### C BC #### [facility] [address] [place] [address] Dr. Jake Gallardo Hematocrit (Bld) [Volume fraction] 42.4 % Normal 36.0-48.0 [facility] Comment on above: Performed By: #### C BC #### [facility] [address] [place] [address] Dr. Jake Gallardo Hemoglobin (Bld) [Mass/Vol] 14.0 g/dL Normal 12.0-16.0 [facility] Comment on above: Performed By: #### C BC #### [facility] [address] [place] [address] Dr. Jake Gallardo IG # 0.01 10e3/ul Normal 0.00-0.03 [facility] Comment on above: Performed By: #### C BC #### [facility] [address] [place] [address] Dr. Jake Gallardo IG % 0.1 % Normal 0.0-0.5 [facility] Comment on above: Performed By: #### C BC #### [facility] [address] [place] [address] Dr. Jake Gallardo LYMPH # 1.0 103/ul Critically low 1.2-3.8 [facility] Comment on above: Performed By: #### C BC #### [facility] [address] [place] [address] Dr. Jake Gallardo Lymphocytes/100 WBC (Bld) 14.9 % Critically low 20.5-60.0 [facility] Comment on above: Performed By: #### C BC #### [facility] [address] [place] [address] Dr. Jake Gallardo MANUAL DIFF REQ NO Normal [facility] Comment on above: Performed By: #### C BC #### [facility] [address] [place] [address] Dr. Jake Gallardo MCH (RBC) [Entitic mass] 30.4 pg Normal 26.7-34.0 [facility] Comment on above: Performed By: #### C BC #### [facility] [address] [address] [address] Jake Gallardo MCHC (RBC) [Mass/Vol] 33.0 g/dL Normal 29.9-35.2 [facility] Comment on above: Performed By: #### C BC #### [facility] [address] [address] [address] Jake Gallardo MCV (RBC) [Entitic vol] 92.2 fL Normal 81.0-99.0 [facility] Comment on above: Performed By: #### C BC #### [facility] [address] [address] [address] Jake Gallardo MONO # 0.3 103/ul Normal 0.3-0.8 [facility] Comment on above: Performed By: #### C BC #### [facility] [address] [place] [address] Dr. Jake Gallardo Monocytes/100 WBC (Bld) 4.9 % Normal 1.7-12.0 [facility] Comment on above: Performed By: #### C BC #### [facility] [address] [place] [address] Dr. Jake Gallardo NEUT # 5.2 103/ul Normal 1.4-6.5 [facility] Comment on above: Performed By: #### C BC #### [facility] [address] [place] [address] Dr. Jake Gallardo Neutrophils/100 WBC (Bld) 77.9 % Critically high 43.0-75.0 [facility] Comment on above: Performed By: #### C BC #### [facility] [address] [address] [address] Jake Gallardo Platelet mean volume (Bld) [Entitic vol] 10.5 fL Normal 9.5-13.5 [facility] Comment on above: Performed By: #### C BC #### [facility] [address] [address] [address] Jake Gallardo PLT 226 103/ul Normal 150-450 [facility] Comment on above: Performed By: #### C BC #### [facility] [address] [address] [address] Jake Gallardo RBC 4.60 106/ul Normal 4.20-5.40 [facility] Comment on above: Performed By: #### C BC #### [facility] [address] [address] [address] Jake Gallardo WBC 6.7 103/ul Normal 4.0-11.0 [facility] Comment on above: Performed By: #### C BC #### [facility] [address] [address] [address] HEAD WO CONon [...] WISAM MORALES Date: 2021-09-16 15:09 Normal [facility] CULTURE URINEon 09-16-2021 CULTURE URINE Culture Observations: LIGHT GROWTH OF MIXED GENITAL CHRISTIAN. NO POTENTIAL PATHOGENS SEEN. Normal [facility] Comment on above: Performed By: #### U RCX #### [facility] [address] [place] [address] Dr. Jake Gallardo DRUG SCREEN RAPID (URINE)on 09-16-2021 AMP Negative Normal NEGATIVE [facility] Comment on above: Performed By: #### C BC #### [facility] [address] [address] [address] Jake Gallardo BAR Negative Normal NEGATIVE [facility] Comment on above: Performed By: #### C BC #### [facility] [address] [place] [address] Dr. Jake Gallardo BUP Negative Normal NEGATIVE [facility] Comment on above: Performed By: #### C BC #### [facility] [address] [place] [address] Dr. Jake Gallardo BZO Negative Normal NEGATIVE [facility] Comment on above: Performed By: #### C BC #### [facility] [address] [place] [address] Dr. Jake Gallardo SUNDEEP Negative Normal NEGATIVE [facility] Comment on above: Performed By: #### C BC #### [facility] [address] [place] [address] Dr. Jake Gallardo CUT-OFFS SEE BELOW Normal [facility] Comment on above: Result Comment: AMP [...] ng/mL Performed By: #### C BC #### [facility] [address] [place] [address] Dr. Jake Gallardo DRUG CUT HEADER DRUG CLASS TEST SYSTEM CUT-OFF CONCENTRATIONS ARE FOLLOWS: Normal [facility] Comment on above: Performed By: #### C BC #### [facility] [address] [place] [address] Dr. Jake Gallardo mAMP Negative Normal NEGATIVE [facility] Comment on above: Performed By: #### C BC #### [facility] [address] [place] [address] Dr. Jake Gallardo MTD Negative Normal NEGATIVE [facility] Comment on above: Performed By: #### C BC #### [facility] [address] [place], [place] [id number] Dr. Jake Gallardo OPI Negative Normal NEGATIVE [facility] Comment on above: Performed By: #### C BC #### [facility] [address] [place] [address] Dr. Jake Gallardo OXY Negative Normal NEGATIVE [facility] Comment on above: Performed By: #### C BC #### [facility] [address] [place] [address] Dr. Jake Gallardo PCP Negative Normal NEGATIVE [facility] Comment on above: Performed By: #### C BC #### [facility] [address] [place] [address] Dr. Jake Gallardo PPX Negative Normal NEGATIVE [facility] Comment on above: Performed By: #### C BC #### [facility] [address] [place] [address] Dr. Jake Gallardo TCA Negative Normal NEGATIVE [facility] Comment on above: Performed By: #### C BC #### [facility] [address] [place] [address] Dr. Jake Gallardo THC Negative Normal NEGATIVE [facility] Comment on above: Performed By: #### C BC #### [facility] [address] [place] [address] Dr. Jake Gallardo ER URINE PROFILEon 2 Bilirubin Ql (U) Negative Normal NEGATIVE [facility] Comment on above: Performed By: #### C BC #### [facility] [address] [place] [address] Dr. Jake Gallardo Clarity (U) CLEAR Normal CLEAR [facility] Comment on above: Performed By: #### C BC #### [facility] [address] [place] [address] Dr. Jake Gallardo Color (U) LT. YELLOW Normal YELLOW [facility] Comment on above: Performed By: #### C BC #### [facility] [address] [place] [address] Dr. Jake TESFAYE A micrscopic examination will be performed if indicated. Normal [facility] Comment on above: Performed By: #### C BC #### [facility] [address] [place] [address] Dr. Jake Gallardo Glucose Ql (U) Negative Normal NEGATIVE [facility] Comment on above: Performed By: #### C BC #### [facility] [address] [place] [address] Dr. Jake Gallardo Hemoglobin Ql (U) TRACE-INTACT Abnormal NEGATIVE [facility] Comment on above: Performed By: #### C BC #### [facility] [address] [place] [address] Dr. Jake Gallardo Ketones Ql (U) Negative Normal NEGATIVE [facility] Comment on above: Performed By: #### C BC #### [facility] [address] [place] [address] Dr. Jake Gallardo LEUKOCYTES TRACE Abnormal NEGATIVE [facility] Comment on above: Performed By: #### C BC #### [facility] [address] [place] [address] Dr. Jake Gallardo Nitrite Ql (U) Negative Normal NEGATIVE [facility] Comment on above: Performed By: #### C BC #### [facility] [address] [place] [address] Dr. Jake Gallardo pH (U) 6.0 [pH] Normal 5-9 [facility] Comment on above: Performed By: #### C BC #### [facility] [address] [place] [address] Dr. Jake Gallardo SPEC GRAVITY 1.025 Normal 1.005-<=1.025 [facility] Comment on above: Performed By: #### C BC #### [facility] [address] [place] [address] Dr. Jake Gallardo UA PROTEIN Negative Normal NEGATIVE/ TRACE [facility] Comment on above: Performed By: #### C BC #### [facility] [address] [place] [address] Dr. Jake Gallardo UR MICRO IND INDICATED Normal [facility] Comment on above: Performed By: #### C BC #### [facility] [address] [place] [address] Dr. Jake Gallardo Urobilinogen Qn (U) 0.2 {Manny'U}/dL Normal 0.2 - 1.0 [facility] Comment on above: Performed By: #### C BC #### [facility] [address] [place] [address] Dr. Jake Gallardo PREG HCG QUALon 09-16-2021 , QUAL Negative Normal NEGATIVE [facility] Comment on above: Performed By: #### P REG #### [facility] [address] [place] [address] Dr. Jake Gallardo PROF 14(COMP METB)on 022 Albumin [Mass/Vol] 3.5 g/dL Normal 3.4-5.0 [facility] Comment on above: Performed By: #### C MP, TSH, HSTROPN #### [facility] [address] [place] [address] Dr. Jake Gallardo Albumin/Globulin [Mass ratio] 0.9 {ratio} Normal [facility] Comment on above: Performed By: #### C MP, TSH, HSTROPN #### [facility] [address] [place] [address] Dr. Jake Gallardo ALP [Catalytic activity/Vol] 42 U/L Critically low 46-116 [facility] Comment on above: Performed By: #### C MP, TSH, HSTROPN #### [facility] [address] [place] [address] Dr. Jake Gallardo ALT [Catalytic activity/Vol] 22 U/L Normal 14-59 [facility] Comment on above: Performed By: #### C MP, TSH, HSTROPN #### [facility] [address] [place] [address] Dr. Jake Gallardo Anion gap [Moles/Vol] 15.0 mmol/L Normal [facility] Comment on above: Performed By: #### C MP, TSH, HSTROPN #### [facility] [address] [place] [address] Dr. Jake Gallardo AST [Catalytic activity/Vol] 15 U/L Normal 15-37 [facility] Comment on above: Performed By: #### C MP, TSH, HSTROPN #### [facility] [address] [place] [address] Dr. Jake Gallardo Bilirubin [Mass/Vol] 0.4 mg/dL Normal 0.2-1.0 [facility] Comment on above: Performed By: #### C MP, TSH, HSTROPN #### [facility] [address] [place] [address] Dr. Jake Gallardo Calcium [Mass/Vol] 9.1 mg/dL Normal 8.5-10.1 [facility] Comment on above: Performed By: #### C MP, TSH, HSTROPN #### [facility] [address] [place] [address] Dr. Jake Gallardo Chloride [Moles/Vol] 106 mmol/L Normal 98-107 [facility] Comment on above: Performed By: #### C MP, TSH, HSTROPN #### [facility] [address] [place] [address] Dr. Jake Gallardo CO2 [Moles/Vol] 22.9 mmol/L Normal 21.0-32.0 [facility] Comment on above: Performed By: #### C MP, TSH, HSTROPN #### [facility] [address] [place] [address] Dr. Jake Gallardo Creatinine [Mass/Vol] 0.74 mg/dL Normal 0.55-1.02 [facility] Comment on above: Performed By: #### C MP, TSH, HSTROPN #### [facility] [address] [place] [address] Dr. Jake Gallardo EGFR-AF BAHAMIAN >60 Normal >=60 [facility] Comment on above: Performed By: #### C MP, TSH, HSTROPN #### [facility] [address] [place] [address] Dr. Jake Gallardo EGFR-NON AF BAHAMIAN >60 Normal >=60 [facility] Comment on above: Performed By: #### C MP, TSH, HSTROPN #### [facility] [address] [place] [address] Dr. Jake Gallardo Globulin (S) [Mass/Vol] 4.0 g/dL Normal [facility] Comment on above: Performed By: #### C MP, TSH, HSTROPN #### [facility] [address] [address] [address] Jake Gallardo Glucose [Mass/Vol] 84 mg/dL Normal 74-106 [facility] Comment on above: Performed By: #### C MP, TSH, HSTROPN #### [facility] [address] [address] [address] Jake Gallardo Potassium [Moles/Vol] 3.9 mmol/L Normal 3.5-5.1 [facility] Comment on above: Performed By: #### C MP, TSH, HSTROPN #### [facility] [address] [place] [address] Dr. Jake Gallardo Protein [Mass/Vol] 7.5 g/dL Normal 6.4-8.2 [facility] Comment on above: Performed By: #### C MP, TSH, HSTROPN #### [facility] [address] [address] [address] Jake Gallardo Sodium [Moles/Vol] 140 mmol/L Normal 136-145 [facility] Comment on above: Performed By: #### C MP, TSH, HSTROPN #### [facility] [address] [place] [address] Dr. Jake Gallardo Urea nitrogen [Mass/Vol] 8.0 mg/dL Normal 7.0-18.0 [facility] Comment on above: Performed By: #### C MP, TSH, HSTROPN #### [facility] [address] [place] [address] Dr. Jake Gallardo Urea nitrogen/Creatinin e [Mass ratio] 10.8 mg/mg Normal [facility] Comment on above: Performed By: #### C MP, TSH, HSTROPN #### [facility] [address] [address] [address] Jake Gallardo PROTIMEon 09-16-2021 INR Coag (PPP) [Relative time] 0.96 {INR} Normal [facility] Comment on above: Performed By: #### P T, PTT #### [facility] [address] [address] [address] Jake Gallardo INR GUIDELINES SEE BELOW Normal [facility] Comment on above: Result Comment: NASH RED INR: 2.0 - 3.0 CONDITIONS NOT LISTED BELOW 2.5 - 3.5 FOR PROSTHETIC HEART VALVE REPLACEMENT 2.5 - 3.5 RECURRENT THROMBOSIS Performed By: #### P T, PTT #### [facility] [address] [address] [address] Jake Gallardo PT Coag (PPP) [Time] 10.4 s Normal 9.0-11.6 [facility] Comment on above: Performed By: #### P T, PTT #### [facility] [address] [place] [address] Dr. Jake Gallardo PTTon 09-16-2021 aPTT Coag (Bld) [Time] 29.2 s Normal 22.3-36.2 [facility] Comment on above: Performed By: #### P T, PTT #### [facility] [address] [place] [address] Dr. Jake Gallardo TROPONIN, HIGH SENSITIVITYon 09-16-2021 HSTROP <4.0 Normal 4.0-51.3 [facility] Comment on above: Result Comment: CUT- OFF POINTS HAVE BEEN ESTABLISHED BASED ON THE FOURTH UNIVERSAL DEFINITIONS OF MYOCARDIAL INFARCTION. THE UPPER REFERENCE LIMIT (URL) OF TROPONIN, DEFINED THE 99TH PERCENTILE OF cTnI DISTRIBUTION IN A REFERENCE POPULATION, HAS BEEN CONFIRMED THE DECISION THRESHOLD FOR [place] DIAGNOSIS. Performed By: #### C MP, TSH, HSTROPN #### [facility] [address] [place] [address] Dr. Jake Gallardo TSHon 09-16-2021 TSH 2.037 uIU/mL Normal 0.358-3.740 [facility] Comment on above: Performed By: #### C MP,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
== END 2023-10-28 19:52 | disposition home or self-care (01) ==
LOC: LAB 19:51
PROVIDERS: Family Provider Nurse Practitioner Family; Visit Provider Physician Assistant
DX: Z34.93 Encounter for supervision of normal pregnancy, unspecified, third trimester (principal)
CPT/HCPCS: 87081; 87150

== ENCOUNTER 2023-11-05 15:38 | Observation (INO) | payer MEDICAID, SELFPAY ==
[2023-11-05 16:00] VITALS: BP 113/69; PULSE 116
[2023-11-05 16:22] LABS: Bilirubin Urine NEGATIVE (NEGATIVE); Blood Urine NEGATIVE (NEGATIVE); Clarity Urine CLEAR (CLEAR); Color Urine LT. YELLOW (YELLOW); Glucose Urine UA NEGATIVE (NEGATIVE); Ketones Urine NEGATIVE (NEGATIVE); Leukocyte Esterase Urine NEGATIVE (NEGATIVE); Nitrite Urine NEGATIVE (NEGATIVE); Protein Urine NEGATIVE (NEG/TRACE); Urobilinogen Urine 0.2 EU/dL (0.2-1.0); pH Urine 7.5 (5.0-9.0)
[2023-11-05 16:25] LABS: Urine Microscopic Indicated NO
[2023-11-05 17:15] VITALS: BP 110/78; PULSE 97
[2023-11-05 19:33] VITALS: BP 115/77; PULSE 90
== END 2023-11-05 19:50 | disposition home or self-care (01) ==
PROVIDERS: Admitting Provider Obstetrics & Gynecology; Family Provider Nurse Practitioner Family; Visit Provider Obstetrics & Gynecology
DX: O26.893 Other specified pregnancy related conditions, third trimester (principal); M54.9 Dorsalgia, unspecified; N89.8 Other specified noninflammatory disorders of vagina; O26.813 Pregnancy related exhaustion and fatigue, third trimester; O36.8130 Decreased fetal movements, third trimester, not applicable or unspecified; Z3A.37 37 weeks gestation of pregnancy
CPT/HCPCS: 81003; G0378; G0379

== ENCOUNTER 2023-11-19 00:05 | Inpatient (IN) | payer MEDICAID, SELFPAY ==
[2023-11-19] VITALS (61 sets, daily range): BP systolic 92–138; BP diastolic 57–100; PULSE 73–121; TEMP 35.8–37.2
--- OUTSIDE RECORDS SUMMARY | 2023-11-19 | XMS_ITS | CCD ---
Author Organization [facility] Care Team Providers Care Programmer Analyst Consultant Name Role Phone Milan Esparza R Unavailable Unavailable Petra Young Unavailable No, Physician [...] Admitting Unavailable Provider, None Primary Care Unavailable Hector, Petra Attending Unavailable Hector, Petra Primary Care Unavailable Hector, Petra Admitting Unavailable DONAVANMILAN Attending Unavailable DONAVAN, MILAN Attending Unavailable DONAVAN, MILAN Attending Unavailable ANY QUINONES Attending Unavailable DONAVAN, MILAN Attending Unavailable DONAVAN, MILAN Attending Unavailable STACIE, ANY Attending Unavailable STACIE, ANY Attending Unavailable DONAVAN, MILAN Attending Unavailable DONAVAN, MILAN Attending Unavailable DONAVAN, MILAN Attending Unavailable DONAVAN, MILAN Attending Unavailable Medications Current Medications Medication Drug Class(es) Dates Sig (Normalized) Sig (Original) [id number] 200 actuat albuterol 0.09 mg/actuat metered dose [...] 02/19/2022 Active take 1 tablet by eleazar every twenty-four hours Isibloom 0.15-30 MG-MCG 1 [...] oral tablet (8 sources) alpha-Adrenergic Agonist, Uncompetitive Z-czwoxv-Q-aspartat e Receptor Antagonist, Sigma-1 Agonist Start: 03-06-2020 [...] Resolved: 04-14-2021 Episodic Other aftercare (1 source) FDC (current) use of hormonal contraceptives; Translations: [[facility] HORMONAL CONTRACEPTIVES] Onset: 09-18-2021 Episodic Syncope (1 source) Syncope and collapse Onset: 09-03-2021 Resolved: 09-03-2021 Episodic Results Test Name Value Interpretation Reference Range Facility Coding Summaryon 07-07-2022 Coding Summary HTMLBase 64 QcipalawTRe1qZd+PGh lYWQ+UC7ERHLwH02quA VznO2VY6rQVS9WEOQUL IVPTX3JTD7ivTC4AEqf Q6NvzaDq XkllcWDcEZ08DKh2TAN 2xBdnMOjssU1zrEDaG8 s6RtMcNS30pQ52RRnsD ZYmBhR9SqZvdozwkSLf T1aaWdNukTGuCyi+PHR hYmxlIHdpZHRoPScxMD JfZzJtfUuaIX3zDd1xL GVyLWNvbGxhcHNlOiBj u6exHEIgLCtcLG3zsXx dM7KcfFO5WFHbc5t5Mx 48dHI+WIRmZNV2cVzkE Ecsp019FfYtv0gkPDQ0 yCRpTIslAEC7P57ui4W 0GBPgTUIgZYI2eXU2lT 3diItrcfttP5RoqLIcE oE4IJR5kTUepM8qkEtf qdxgfO5gMzd+Y10QSL1 PWBQYJU5PCle3Y9SwLv wvdHI+MV64JBYxGV67f SYfgYDws1oueTv8JqPq TZUgADE7qKbhZVwzg6C nZKEdC18zkDAil3R9KJ EakJrliJLbBeFrtAW7k S2hCEqsnxhaj5frvcxz Nxdve3tehr35dU05K51 xVEfmVLVhXMH2KYFaAW QysEqnhv0mgV8xVc5+I Kchn4xav5pvxRt6ViPu JNHolfIjoQrvCGS4p6C vWt30G6KirNosj2GgRb y3eh73cGVyq6I9cED2L LfgANOlyB4uVMgwUaM8 XJDzCxSflK74cOPxFTb aTh5gfTxbxJonWK9sBP VxfifnWIXulF0nNAGtt TOokEjxSW8lZQVxacdx d343QtMkCGA1IHGpwLS eA8VjfG1nFtVeRPEpJV KrU5BwaPWrNMayV867E OrvPwS9LDLmtwPhQ1Vf EKDbdIqeZzB8g2K6Tz6 Nl9MgiuqmDEH7OXvzEQ H9RnY8BuQpScL8L4WcH nx0CAHvwQuuNM5rM4Vd MNCuwxoscrcolOC1FUE dYMLkbH98vOQuFYknHs 0xj8Q9w410MBSfMJDry L33Zc2dmWugKEQdmTQZ uW4zccrrk6zimhheKqX rIFAvKIl5NPg8KBLrmC ruZrTvVVL6RiE5HDF8s FRpaA4prNzsjjievN4n Oyc+P55swD5jRPF0CLX 7ghzqLVZmxkRzFS56PS 51G9CqHijcuMThkSM+P IWnmlOcaAbzBM2wKuAk q1zxz9PiSJizX6KzWBS dXBjzUhb9MVHdHOP4oA C3cT2yRYQxEDyei8D7t IF9P4KowjGhay8ak6za QFLsZDdhO93pmBAai1J 7LAHimVQ1ROOqhCikPd FluJ49Ind+PGNvbGdyb 3OsRsrgx7kxh2bsfBq8 IjMwJSIgdmFsaWduPSJ 9d2CfOy14B05iTBwyXT RoPSIxNSUiIHZhbGlnb g1raF9xFg8+PGNvbCB3 tLC0iH8wXMBbJgC9BJs bG066ZkCdpMXcAzkuc9 syq0yvcVn3AcXfQVMlt yBfxJruECC0d9HrTs35 D74zSRecBUImRROyHHB mNWQfrCblrs9tmX5aAs 8+QX4fx8gdpx96xQ29j HI+BROuBKP3yBcsUWvg LGOlcK1pLGbvRoO8DUK jUgBzlT07iNHlTKkaNf 3bwXvjjLmyTC4oSHTpz nhsr351IcHrq9szFPPy uFViECjiLTF4I23gk1Q 2RCDhHXVuIIW0gYC9qR 1hbGlnbjogbGVmdDsgd aOvoLgeBSvsFJkuF651 IHRvcDsnPlBhdGllbnQ fUrKrKRo4S7LdFok5FA KrvGwpBC4joZBmDTvpH g6csYtojYusQX3cVGYy ncqkr859ChDgo8nbXMW mbQIqMUjyCCN8N33nh7 V0OVUnKDQgTGS3iWZ9t J7mrEozymbptEUrxYdi ghCpgCvrGOpuTNkpA71 6IHRvcDsnPkJpcnRoIE YffZB1JK75EJ27pDJmz 1B3pPG3G2TqAHSnxoaz txohfLP0BGDcHKYpqQ2 2Rf5abCnzQt3mMJHsCB F9TSWchJUcB0LglE1vJ jGoXYGwDCPvL3RxjYCc IIejC583XQuzWgH0XCN edkFdE0WrLEEbiKveSo H6i4E7Ni0QT8F6RA55Y A37aUTct0Y1nZH3I1Ik QYWstytugoawgRB7JNA mMAKvmN98Dn1zpShwZv 2oMALjJSQ3UAJuiLJyP 2ScmE4hRuHcZTYwOKMg Z7DbsABfTGxfX694AEe dJhL9YQXjluAjB7XkXU FngLafGiM0q3S9Jx8RA Dr8YE33EN38jTJjy1E6 nVY8Y9BeLASujyrlfwt xlPH0XFIjUKFlbN09Yr 4mxOobMr4vNZDoUGF8C CFlaVZtH7SatR8rUqUt LVHfNTEfH8CodJFwSXn pG675LLtxVrQ6RLTyak YmB7EhBQXiaLfgOlI5v 5Z9Gs9DADFgSL60YPU8 pBQ5LB67SZ17V4NvVqx vdGFibGU+PHRhYmxlIH dpZHRoPScxMDAlJyBzd TypBD8gVi8pXJXpPBFk fSbxbXSdIcFaq1twMSP iIGjaYG5yxLqiO6GskZ H4NETld0x9Au42O75qH 3JvdXA+MJJmsLL1rBQ8 kH9pWeUpZsD2JVkrC54 1TaOrqCPyGkbwk7wpd2 puuNi2XcY1OXYhipVzi CadKTC1g5ZhLd05V53e IHdpZHRoPSIxNSUiIHZ gzTarlk3axG2rLr8+PG TvcEG4kRJ3wT1xYgBeI zQ5SNqpM578UdBijBJx Jfmkp0kxd5kagLl3RmV gWWDrhxVdrGimILX1v4 GdXi28V3DewPlkq1IeZ uw3ch41jMIfh2M2bIF2 G0HcWUKqzculoCTjsDn jNK4cRTVyytdcULXumW 0mBAAsS4d7MtMjNuB5Z DdzA8EcquB7EUQehFWz UMdjZEG9H94qx2U2DPU nYXHuCEM2aIP8tQ1zhQ lnbjogbGVmdDsgdmVyd OwmZTpnJCbuU450UCDj jZawBCZiqY9nDAZouNE bzLaqSP9nMSPqobggVt RPUlNFWSwgQUxFWEEgT jwvdGQ+VGAxMOF5tBus MVsgWPJwoY3eHUMbZ0d 7YhYsEsW9BZsrK0KkGQ CriownKz16wI9dRbPuC mI6MVsvN7YelyY8ZTKg fFFzWEhnHGT6B92kc8X 6WBMxDFXnAAF6jFU1jR 1hbGlnbjogbGVmdDsgd hOwtSmgOQuoBTjsK110 JRWwgTdmXyUwFkU7LlT 1IRU4K3LdEok1CRDdeH llZC3vyBTbGElyPb1ir KdobCxmCY9fSTHiafqa NETmdZ7iULRrxUSqfAy eWV9mMKBvxbxur980Vx IzTNM6KCYlzPPgR9Tra C0pZuDxCHPdEQNrX6Vv vAUtJNhqG721LPjjGhC 9JHAdxzKfC2KrHXQitC aqMbI6b9L8Gm9yKfVZE WFyczwvdGQ+PHRkIHN0 rHcaKUsbYLCqzF0gMSP eE5u0ZdJxNyZ6ELziL3 GxHOEkhrnvUg18nY6fN uTiCcF1JEtcX9HbwvB9 XUHcbPFiICuuPVB6I30 mu7C4TGOdQZIuWAO5tR Z7vO6nkXuaahpxqQYul DsgdmVydGljYWwtYWxp L877BUHmhHfgJaGTZPL MRTwvdGQ+UFDgHWJ0eK iqWTxfXEJryD6nVHVaH 6b5IdIkRlQ8SRjvI8Dm ZEPkmqffQs97wQ9cRgE aZfQ8LNbbX4PcipQ1EC GgoPOhVQfoEIW8R73sr 6P2HXYeHOZwGTO9dXV3 lR6mwPyqyiwbcEHlwTp gdmVydGljYWwtYWxpZ2 46IHRvcDsnPkVtZXJnZ E7zwQwgdTH+ET44wi87 X4LfTjlyIit1BCPrVSG 7zBY1dK8kKNSoOFiyr8 T0rHW5V4ZoueRnsl5dp 3uwOILpDVoyQ18tuFTp d4X6MDFueTQ9LHHltFg pOhNlcQ46Cph+PGNvbG bab8MyBjuow4nnh0kms Ii1NqQcFGCepjPpfLyx AUD1c9RqGf25P61nCOh pZHRoPSIzMCUiIHZhbG xzrq0izV6xHc2+PGNvb UB9aTA8hG7qEdGxJhU2 MEvvL539DjQyuJHaQob nu5iye8likEz4BxDgCL MvjrPcsQwxYNR5u9NaU g15O7XwxWevt0SeJlo4 nd63aETbj7X6aMG2H1J hZGRpbmctbGVmdDogMC 1nSKDswaehNPDdlT6oI PIbW1n8ZrHqMuQ6UHzv J0NlxfL3BXCujRNxUZU zgQPCwA6eunygq2ppol kzKvXnLVJhHFo1ZLp2L UCcbDblHyJhMAM3WpE8 DZR2hQZxaO5hiDpttdp mdF1tAeh+JDn1d7gicE BsHY2yrWE7LR59TK25i YGpi8J1mKD8A9JgCUSx lsuwozawvOO8CCTlLOZ tyI03Mw2ryNtrDh9mQM FyDKO4ULMoaLXxA3Ztf Q0kOsLzUWYhETErF6Kq bHTiQWneW891WCxeUyR 2WQJtpfZmZ9ObAYTmnQ foViB3y8W2Ku7OOJ38Z H83UN77oWFpr1H3xHY7 D4WjDQTplfpgakialQS 0KOLpHMIveQ98Np1sjN bxYc5bFUTnVKI4SPJfj WNlF2PkwT2nPhTeNBBb ORUhL9EidSCdWConE93 6ONcsDkN2QJFjksEhJ4 FaPVTjxRxtVhC0d2L9U h6LKl58II58SG15aCGe i0V7gNZ7L4LgOPHoype vcjqmwIQ0RAQtSNXjaU 50Cs2loXrgZn8kWPVpG GU4ZIRzqKCyX4ZilO4m PpBcTGYrRFQgQ9FarPE wBNeqT700OFolTqV0RP MgvwJuC5MrPGZinIqyD mM3h3M0Cx7SFZcjqbg3 C7JuMkpabVA+YX96CHS pKE29hZYweNFva5nlhY s8DxWbGZBjTFM7mZxvL Mdow9RaBFTuF50yhYKu c2U (more content not included)... [facility] US PELVIS AND TRANSVAGon US PELVIS [...] WISAM MORALES Date: 2022-07-07 10:40 Normal [facility] C Throaton 07-03-2022 C Throat Ordered by [employer]. Normal throat christian isolated No pathogens isolated [facility] Comment on above: Performed By: #### [id number] #### [facility] (DEFAULT) [address] [place] [address] .QC SARS-CoV-2 (COVID-19)/Fl u/RSV (GeneXpert)on 07-01-2022 Internal Control Pass Normal [facility] Comment on above: Order Comment: Order ed by [employer]. [[email or web address]] Performed By: #### 7 [id number] #### [facility] (DEFAULT) [address] [place] [address] COVID/Flu/RSV (GeneXpert)on 07-01-2022 Flu A (GXpert COVFLURSV) Negative Normal Negative [facility] Comment on above: Performed By: #### 7 [id number] #### [facility] (DEFAULT) [address] [place] [id number] Flu B (GXpert COVFLURSV) Negative Normal Negative [facility] Comment on above: Performed By: #### 7 [id number] #### [facility] (DEFAULT) [address] [place] [address] RSV (GXpert COVFLURSV) Negative Normal Negative [facility] Comment on above: Performed By: #### 7 [id number] #### [facility] (DEFAULT) [address] [place] [address] SARS-CoV-2 (COVID-19) RNA JOAN+probe Ql (Unsp spec) Negative Normal Negative [facility] Comment on above: Result Comment: Perf ormed by PCR methodology. Performed By: #### 7 [id number] #### [facility] (DEFAULT) [address] [place] [id number] ED Clinical Summaryon 2022 ED Clinical Summary [facility] Emergency Department [address] [place] [address] ED Clinical Summary PERSON INFORMATION Name: KRISHNA GLOVER Age: 27 Years Sex: FEMALE : 1995 MRN: Acct#: Visit Reason: Headache; Ear pain; UC - Sore Throat; SORE THROAT, CONGESTION, BILAT EAR PAIN Arrival: 07/01/2022 09:15:55 Discharge: 07/01/2022 11:05:00 LOS: 000 01:50 Check In: 07/01/2022 09:15:55 Checkout:07/01/2022 11:05:00 Address: [address] [place] [address] PCP: Provider, None PROVIDER INFORMATION Provider Role [...] INFORMATION Instructions: Viral Illness, Adult; Hypertension, Adult, Frop-hj-Vypa Follow-Up: With: Address: When: Follow up with primary care provider Within 3 to 5 days DIAGNOSIS: 1:Viral syndrome; 2:Elevated blood pressure reading Patient Understands: Yes - Patient/family/career services assistant verbalizes understanding of instructions given Comment: Normal [facility] ED Patient Summaryon 023 ED Patient Summary [facility] - Emergency Department [address] [place] [address] PATIENT DISCHARGE INSTRUCTIONS Patient Information Name: KRISHNA GLOVER Age: 27 Years Date of : 1995 Reason For Visit: Headache; Ear pain; UC - Sore Throat; SORE THROAT, CONGESTION, BILAT EAR PAIN Arrival Time: 07/01/2022 09:15:55 Primary Care Physician: Provider, None Attending Physician: Nba Guaman MD Comment: Visit Diagnosis: Diagnoses This Visit Ear pain ([id number]) Elevated blood pressure reading (R03.0) Headache ([id number]) UC - Sore Throat ([id number]) Viral syndrome (B34.9) The Pharmacy at [facility] is open Thursday through Thursday from [...] alcohol and/or drug addiction problems; contact the [facility] 22/09 Crisis Hotline -Text 6MMSI kt [phone]. If you received any narcotics, sedation, or [...] and treatment you received today in the [facility] Emergency Department were for an urgent problem and are not intended as complete care. It is important for you to follow up with a doctor, nurse practitioner, or physician?s surgical supply assistant for ongoing care. If your symptoms [...] so we can reach you if necessary. [facility] Emergency Department has provided you with a complete list of medications post discharge. Please inform your cabinet professional/provider of your visit and for further instruction [...] (influenza). Long-term (more content not included)... Normal [facility] Strep Aon 07-01-2022 Strep procedure control Pass Normal [facility] Comment on above: Performed By: #### 4 [id number] #### [facility] (DEFAULT) [address] [place] [address] Streptococcus A Negative Normal Negative [facility] Comment on above: Performed By: #### 4 [id number] #### [facility] (DEFAULT) [address] [place] [id number] CBC AUTO DIFFon 09-16-2021 BASO # 0.0 103/ul Normal 0.0-0.1 [facility] Comment on above: Performed By: #### C BC #### [facility] [address] [place] [address] Dr. Jake Gallardo Basophils/100 WBC (Bld) 0.3 % Normal 0.2-2.0 [facility] Comment on above: Performed By: #### C BC #### [facility] [address] [place] [address] Dr. Jake Gallardo EO # 0.1 103/ul Normal 0.0-0.7 [facility] Comment on above: Performed By: #### C BC #### [facility] [address] [place] [address] Dr. Jake Gallardo Eosinophils/100 WBC (Bld) 1.9 % Normal 0.9-7.0 [facility] Comment on above: Performed By: #### C BC #### [facility] [address] [place] [address] Dr. Jake Gallardo Erythrocyte distribution width (RBC) [Ratio] 12.6 % Normal 11.0-15.0 [facility] Comment on above: Performed By: #### C BC #### [facility] [address] [place] [address] Dr. Jake Gallardo Hematocrit (Bld) [Volume fraction] 42.4 % Normal 36.0-48.0 [facility] Comment on above: Performed By: #### C BC #### [facility] [address] [place] [address] Dr. Jake Gallardo Hemoglobin (Bld) [Mass/Vol] 14.0 g/dL Normal 12.0-16.0 [facility] Comment on above: Performed By: #### C BC #### [facility] [address] [place] [address] Dr. Jake Gallardo IG # 0.01 10e3/ul Normal 0.00-0.03 [facility] Comment on above: Performed By: #### C BC #### [facility] [address] [place] [address] Dr. Jake Gallardo IG % 0.1 % Normal 0.0-0.5 [facility] Comment on above: Performed By: #### C BC #### [facility] [address] [place] [address] Dr. Jake Gallardo LYMPH # 1.0 103/ul Critically low 1.2-3.8 [facility] Comment on above: Performed By: #### C BC #### [facility] [address] [place] [address] Dr. Jake Gallardo Lymphocytes/100 WBC (Bld) 14.9 % Critically low 20.5-60.0 [facility] Comment on above: Performed By: #### C BC #### [facility] [address] [place] [address] Dr. Jake Gallardo MANUAL DIFF REQ NO Normal [facility] Comment on above: Performed By: #### C BC #### [facility] [address] [place] [address] Dr. Jake Gallardo MCH (RBC) [Entitic mass] 30.4 pg Normal 26.7-34.0 [facility] Comment on above: Performed By: #### C BC #### [facility] [address] [place] [address] Dr. Jake Gallardo MCHC (RBC) [Mass/Vol] 33.0 g/dL Normal 29.9-35.2 [facility] Comment on above: Performed By: #### C BC #### [facility] [address] [place] [address] Dr. Jake Gallardo MCV (RBC) [Entitic vol] 92.2 fL Normal 81.0-99.0 [facility] Comment on above: Performed By: #### C BC #### [facility] [address] [place] [address] Dr. Jake Gallardo MONO # 0.3 103/ul Normal 0.3-0.8 [facility] Comment on above: Performed By: #### C BC #### [facility] [address] [place] [address] Dr. Jake Gallardo Monocytes/100 WBC (Bld) 4.9 % Normal 1.7-12.0 [facility] Comment on above: Performed By: #### C BC #### [facility] [address] [place] [address] Dr. Jake Gallardo NEUT # 5.2 103/ul Normal 1.4-6.5 [facility] Comment on above: Performed By: #### C BC #### [facility] [address] [place] [address] Dr. Jake Gallardo Neutrophils/100 WBC (Bld) 77.9 % Critically high 43.0-75.0 [facility] Comment on above: Performed By: #### C BC #### [facility] [address] [place] [address] Dr. Jake Gallardo Platelet mean volume (Bld) [Entitic vol] 10.5 fL Normal 9.5-13.5 [facility] Comment on above: Performed By: #### C BC #### [facility] [address] [place] [address] Dr. Jake Gallardo PLT 226 103/ul Normal 150-450 [facility] Comment on above: Performed By: #### C BC #### [facility] [address] [address] [address] Jake Gallardo RBC 4.60 106/ul Normal 4.20-5.40 [facility] Comment on above: Performed By: #### C BC #### [facility] [address] [place], [place] [address] Dr. Jake Gallardo WBC 6.7 103/ul Normal 4.0-11.0 [facility] Comment on above: Performed By: #### C BC #### [facility] [id number] Jake Gallardo CT HEAD WO CONon [...] WISAM MORALES Date: 2021-09-16 15:09 Normal [facility] CULTURE URINEon 09-16-2021 CULTURE URINE Culture Observations: LIGHT GROWTH OF MIXED GENITAL CHRISTIAN. NO POTENTIAL PATHOGENS SEEN. Normal [facility] Comment on above: Performed By: #### U RCX #### [facility] [address] [place], [place] [id number] Dr. Jake Gallardo DRUG SCREEN RAPID (URINE)on 09-16-2021 AMP Negative Normal NEGATIVE [facility] Comment on above: Performed By: #### C BC #### [facility] [address] [place], [place] [id number] Dr. Jake Gallardo BAR Negative Normal NEGATIVE [facility] Comment on above: Performed By: #### C BC #### [facility] [address] [place] [address] Dr. Jake Gallardo BUP Negative Normal NEGATIVE [facility] Comment on above: Performed By: #### C BC #### [facility] [address] [place] [address] Dr. Jake Gallardo BZO Negative Normal NEGATIVE [facility] Comment on above: Performed By: #### C BC #### [facility] [address] [place] [address] Dr. Jake Gallardo SUNDEEP Negative Normal NEGATIVE [facility] Comment on above: Performed By: #### C BC #### [facility] [address] [place] [address] Dr. Jake Gallardo CUT-OFFS SEE BELOW Normal [facility] Comment on above: Result Comment: [...] ng/mL Performed By: #### C BC #### [facility] [address] [place] [address] Dr. Jake Gallardo DRUG CUT HEADER DRUG CLASS TEST SYSTEM CUT-OFF CONCENTRATIONS ARE FOLLOWS: Normal [facility] Comment on above: Performed By: #### C BC #### [facility] [address] [place] [address] Dr. Jake Gallardo mAMP Negative Normal NEGATIVE [facility] Comment on above: Performed By: #### C BC #### [facility] [address] [place] [address] Dr. Jake Gallardo MTD Negative Normal NEGATIVE [facility] Comment on above: Performed By: #### C BC #### [facility] [address] [address] [address] Jake Gallardo OPI Negative Normal NEGATIVE [facility] Comment on above: Performed By: #### C BC #### [facility] [address] [place] [address] Dr. Jake Gallardo OXY Negative Normal NEGATIVE [facility] Comment on above: Performed By: #### C BC #### [facility] [address] [place] [address] Dr. Jake Gallardo PCP Negative Normal NEGATIVE [facility] Comment on above: Performed By: #### C BC #### [facility] [address] [place] [address] Dr. Jake Gallardo PPX Negative Normal NEGATIVE [facility] Comment on above: Performed By: #### C BC #### [facility] [address] [place] [address] Dr. Jake Gallardo TCA Negative Normal NEGATIVE [facility] Comment on above: Performed By: #### C BC #### [facility] [address] [place] [address] Dr. Jake Gallardo THC Negative Normal NEGATIVE [facility] Comment on above: Performed By: #### C BC #### [facility] [address] [place] [address] Dr. Jake Gallardo ER URINE PROFILEon 2 Bilirubin Ql (U) Negative Normal NEGATIVE [facility] Comment on above: Performed By: #### C BC #### [facility] [address] [place] [address] Dr. Jake Gallardo Clarity (U) CLEAR Normal CLEAR [facility] Comment on above: Performed By: #### C BC #### [facility] [address] [place] [address] Dr. Jake Gallardo Color (U) LT. YELLOW Normal YELLOW [facility] Comment on above: Performed By: #### C BC #### [facility] [address] [place] [address] Dr. Jake TESFAYE A micrscopic examination will be performed if indicated. Normal [facility] Comment on above: Performed By: #### C BC #### [facility] [address] [place] [address] Dr. Jake Gallardo Glucose Ql (U) Negative Normal NEGATIVE [facility] Comment on above: Performed By: #### C BC #### [facility] [address] [place] [address] Dr. Jake Gallardo Hemoglobin Ql (U) TRACE-INTACT Abnormal NEGATIVE [facility] Comment on above: Performed By: #### C BC #### [facility] [address] [place] [address] Dr. Jake Gallardo Ketones Ql (U) Negative Normal NEGATIVE [facility] Comment on above: Performed By: #### C BC #### [facility] [address] [place] [address] Dr. Jake Gallardo LEUKOCYTES TRACE Abnormal NEGATIVE [facility] Comment on above: Performed By: #### C BC #### [facility] [address] [place] [address] Dr. Jake Gallardo Nitrite Ql (U) Negative Normal NEGATIVE [facility] Comment on above: Performed By: #### C BC #### [facility] [address] [place] [address] Dr. Jake Gallardo pH (U) 6.0 [pH] Normal 5-9 [facility] Comment on above: Performed By: #### C BC #### [facility] [address] [place] [address] Dr. Jake Gallardo SPEC GRAVITY 1.025 Normal 1.005-<=1.025 [facility] Comment on above: Performed By: #### C BC #### [facility] [address] [place] [address] Dr. Jake Gallardo UA PROTEIN Negative Normal NEGATIVE/ TRACE [facility] Comment on above: Performed By: #### C BC #### [facility] [address] [place] [address] Dr. Jake Gallardo UR MICRO IND INDICATED Normal [facility] Comment on above: Performed By: #### C BC #### [facility] [address] [place] [address] Dr. Jake Gallardo Urobilinogen Qn (U) 0.2 {Manny'U}/dL Normal 0.2 - 1.0 [facility] Comment on above: Performed By: #### C BC #### [facility] [address] [place] [address] Dr. Jake Gallardo PREG HCG QUALon 09-16-2021 , QUAL Negative Normal NEGATIVE [facility] Comment on above: Performed By: #### P REG #### [facility] [address] [place] [address] Dr. Jake Gallardo PROF 14(COMP METB)on 022 Albumin [Mass/Vol] 3.5 g/dL Normal 3.4-5.0 [facility] Comment on above: Performed By: #### C MP, TSH, HSTROPN #### [facility] [address] [place] [address] Dr. Jake Gallardo Albumin/Globulin [Mass ratio] 0.9 {ratio} Normal [facility] Comment on above: Performed By: #### C MP, TSH, HSTROPN #### [facility] [address] [place] [address] Dr. Jake Gallardo ALP [Catalytic activity/Vol] 42 U/L Critically low 46-116 [facility] Comment on above: Performed By: #### C MP, TSH, HSTROPN #### [facility] [address] [place] [address] Dr. Jake Gallardo ALT [Catalytic activity/Vol] 22 U/L Normal 14-59 [facility] Comment on above: Performed By: #### C MP, TSH, HSTROPN #### [facility] [address] [place] [address] Dr. Jake Gallardo Anion gap [Moles/Vol] 15.0 mmol/L Normal [facility] Comment on above: Performed By: #### C MP, TSH, HSTROPN #### [facility] [address] [place] [address] Dr. Jake Gallardo AST [Catalytic activity/Vol] 15 U/L Normal 15-37 [facility] Comment on above: Performed By: #### C MP, TSH, HSTROPN #### [facility] [address] [place] [address] Dr. Jake Gallardo Bilirubin [Mass/Vol] 0.4 mg/dL Normal 0.2-1.0 [facility] Comment on above: Performed By: #### C MP, TSH, HSTROPN #### [facility] [address] [place] [address] Dr. Jake Gallardo Calcium [Mass/Vol] 9.1 mg/dL Normal 8.5-10.1 [facility] Comment on above: Performed By: #### C MP, TSH, HSTROPN #### [facility] [address] [place] [address] Dr. Jake Gallardo Chloride [Moles/Vol] 106 mmol/L Normal 98-107 [facility] Comment on above: Performed By: #### C MP, TSH, HSTROPN #### [facility] [address] [place] [address] Dr. Jake Gallardo CO2 [Moles/Vol] 22.9 mmol/L Normal 21.0-32.0 [facility] Comment on above: Performed By: #### C MP, TSH, HSTROPN #### [facility] [address] [place] [address] Dr. Jake Gallardo Creatinine [Mass/Vol] 0.74 mg/dL Normal 0.55-1.02 [facility] Comment on above: Performed By: #### C MP, TSH, HSTROPN #### [facility] [address] [place] [address] Dr. Jake Gallardo EGFR-AF LATVIAN >60 Normal >=60 [facility] Comment on above: Performed By: #### C MP, TSH, HSTROPN #### [facility] [address] [place] [address] Dr. Jake aGllardo EGFR-NON AF LATVIAN >60 Normal >=60 [facility] Comment on above: Performed By: #### C MP, TSH, HSTROPN #### [facility] [address] [address] [address] Jake Gallardo Globulin (S) [Mass/Vol] 4.0 g/dL Normal [facility] Comment on above: Performed By: #### C MP, TSH, HSTROPN #### [facility] [address] [place] [address] Dr. Jake Gallardo Glucose [Mass/Vol] 84 mg/dL Normal 74-106 [facility] Comment on above: Performed By: #### C MP, TSH, HSTROPN #### [facility] [address] [place] [address] Dr. Jake Gallardo Potassium [Moles/Vol] 3.9 mmol/L Normal 3.5-5.1 [facility] Comment on above: Performed By: #### C MP, TSH, HSTROPN #### [facility] [address] [place] [address] Dr. Jake Gallardo Protein [Mass/Vol] 7.5 g/dL Normal 6.4-8.2 [facility] Comment on above: Performed By: #### C MP, TSH, HSTROPN #### [facility] [address] [place] [address] Dr. Jake Gallardo Sodium [Moles/Vol] 140 mmol/L Normal 136-145 [facility] Comment on above: Performed By: #### C MP, TSH, HSTROPN #### [facility] [address] [place] [address] Dr. Jake Gallardo Urea nitrogen [Mass/Vol] 8.0 mg/dL Normal 7.0-18.0 [facility] Comment on above: Performed By: #### C MP, TSH, HSTROPN #### [facility] [address] [place] [address] Dr. Jake Gallardo Urea nitrogen/Creatinin e [Mass ratio] 10.8 mg/mg Normal [facility] Comment on above: Performed By: #### C MP, TSH, HSTROPN #### [facility] [address] [place] [address] Dr. Jake Gallardo PROTIMEon 09-16-2021 INR Coag (PPP) [Relative time] 0.96 {INR} Normal [facility] Comment on above: Performed By: #### P T, PTT #### [facility] [address] [place] [address] Dr. Jake Gallardo INR GUIDELINES SEE BELOW Normal [facility] Comment on above: Result Comment: NASH RED INR: 2.0 - 3.0 CONDITIONS NOT LISTED BELOW 2.5 - 3.5 FOR PROSTHETIC HEART VALVE REPLACEMENT 2.5 - 3.5 RECURRENT THROMBOSIS Performed By: #### P T, PTT #### [facility] [address] [place] [address] Dr. Jake Gallardo PT Coag (PPP) [Time] 10.4 s Normal 9.0-11.6 [facility] Comment on above: Performed By: #### P T, PTT #### [facility] [address] [place] [address] Dr. Jake Gallardo PTTon 09-16-2021 aPTT Coag (Bld) [Time] 29.2 s Normal 22.3-36.2 [facility] Comment on above: Performed By: #### P T, PTT #### [facility] [address] [place] [address] Dr. Jake Gallardo TROPONIN, HIGH SENSITIVITYon 09-16-2021 HSTROP <4.0 Normal 4.0-51.3 [facility] Comment on above: Result Comment: CUT- OFF POINTS HAVE BEEN ESTABLISHED BASED ON THE FOURTH UNIVERSAL DEFINITIONS OF MYOCARDIAL INFARCTION. THE UPPER REFERENCE LIMIT (URL) OF TROPONIN, DEFINED THE 99TH PERCENTILE OF cTnI DISTRIBUTION IN A REFERENCE POPULATION, HAS BEEN CONFIRMED THE DECISION THRESHOLD FOR DE DIAGNOSIS. Performed By: #### C MP, TSH, HSTROPN #### [facility] [address] [place] [address] Dr. Jake Gallardo TSHon 09-16-2021 TSH 2.037 uIU/mL Normal 0.358-3.740 [facility] Comment on above: Performed By: #### C MP, TSH, HSTROPN #### [facility] [address] [place] [address] Dr. Jake Gallardo URINE MICROSCOPIC ONLYon BACTERIA SMALL Abnormal NONE SEEN [facility] Comment on above: Performed By: #### C BC #### [facility] [address] [place] [address] Dr. Jake Gallardo Bacteria identified Cx Nom (U) INDICATED Normal [facility] Comment on above: Performed By: #### C BC #### [facility] [address] [place] [address] Dr. Jake Gallardo CAST NONE SEEN Normal NONE SEEN [facility] Comment on above: Performed By: #### C BC #### [facility] [address] [place] [address] Dr. Jake Gallardo Crystals LM Nom (Urine sed) NONE SEEN Normal NONE SEEN [facility] Comment on above: Performed By: #### C BC #### [facility] [address] [place] [address] Dr. Jake Gallardo Epithelial cells LM Ql (Urine sed) FEW Abnormal NONE SEEN /RARE [facility] Comment on above: Performed By: #### C BC #### [facility] [address] [place] [address] Dr. Jake Gallardo MUCOUS NONE SEEN Normal NONE SEEN [facility] Comment on above: Performed By: #### C BC #### [facility] [address] [place] [address] Dr. Jake Gallardo RBC 0-2 Normal 0-2 [facility] Comment on above: Performed By: #### C BC #### [facility] [address] [place] [address] Dr. Jake Gallardo WBC 2-5 Abnormal NONE SEEN [facility] Comment on above: Performed By: #### C BC #### [facility] [address] [place] [address] Dr. Jake Gallardo COVID Quick Testingon 2021 Result Negative [facility] Other Quick Fluon 04-14-2021 FLUAV Ab CF (S) [Titer] Positive [facility] Other FLUBV Ab CF (S) [Titer] Negative [facility] [facility] Other Quick Strepon 04-14-2021 S. pyogenes Org specific cx Ql (Throat) Negative [facility] [facility] Other Quick Strep [employer] Other U24 Proteinon 09-30-2017 Protein mass conc (24H U) 75 mg/24hr Normal 28-141 [facility] Comment on above: Performed By: #### 2 [id number] ####[facility] [id number] [place] [address] Albumin/Protein.to popeye Elph mass fraction (U) 21.4 mg/dL Invalid Interpretation Code [facility] Comment on above: Result Comment: The reference range and other method performance specifications have not been established for this test; results should be integrated into the clinical context for interpretation. Performed By: #### 2 [id number], [id number] ####[facility] [id number] [place] [address] U24 Total Volon 09-30-2017 Hrs Kenny 24 hour(s) Invalid Interpretation Code [facility] Comment on above: Order Comment: Order added by Discern Expert Performed By: #### 2 [id number] ####[facility] [id number] [place] [address] Specimen volume Unsp time (U) 350 mL Invalid Interpretation Code [facility] Comment on above: Order Comment: Order added by Discern Expert Performed By: #### 2 [id number], [id number] ####[facility] [id number] [facility] [place] [address] Vital Signs Date Time Vital Sign Value Performing Clinician Facility 06-18-2022 15:15-0400 Body height 162.56 cm Scarlett Blankenship Other [facility] Other 06-18-2022 15:15-0400 Body mass index (BMI) [Ratio] 29.92 kg/m2 Scarlett Blankenship Other [facility] Other 06-18-2022 15:15-0400 Body weight 79.06 kg Scarlett Missler Other [facility] Other 06-18-2022 15:15-0400 Diastolic blood pressure 86 mm[Hg] Scarlett Missler Other [facility] Other 06-18-2022 15:15-0400 Respiratory rate 18 /min Scarlett Missler Other [facility] Other 06-18-2022 15:15-0400 SaO2% (BldA) [Mass fraction] 96 % Scarlett Missler Other [facility] Other 06-18-2022 15:15-0400 Systolic blood pressure 122 mm[Hg] Scarlett Missler Other [facility] Other 04-24-2022 14:00-0500 Body height 165.1 cm Petra Hector Other [facility] Other 04-24-2022 14:00-0500 Body mass index (BMI) [Ratio] 28.29 kg/m2 Petra Young Other [facility] Other 04-24-2022 14:00-0500 Body temperature 98.6 [degF] Petra Young Other [facility] Other 04-24-2022 14:00-0500 Body weight 77.11 kg Petra Hector Other [facility] Other 04-24-2022 14:00-0500 Diastolic blood pressure 83 mm[Hg] Petra Young Other [facility] Other 04-24-2022 14:00-0500 Respiratory rate 18 /min Petra Young Other [facility] Other 04-24-2022 14:00-0500 SaO2% (BldA) [Mass fraction] 97 % Petra Young Other [facility] Other 04-24-2022 14:00-0500 Systolic blood pressure 124 mm[Hg] Petra Benavidesault Other [facility] Other 03-13-2022 15:37-0500 Body weight 75.75 kg Ivanna Gomez MD Work Phone: [facility] 03-13-2022 15:37-0500 Diastolic blood pressure 83 mm[Hg] Ivanna Gomez MD Work Phone: [facility] 03-13-2022 15:37-0500 Heart rate 79 /min Ivanna Gomez MD Work Phone: [facility] 03-13-2022 15:37-0500 SaO2% (BldA) [Mass fraction] 99 % Ivanna Gomez MD Work Phone: [facility] 03-13-2022 15:37-0500 Systolic blood pressure 116 mm[Hg] Ivanna Gomez MD Work Phone: [facility] 12-31-2021 14:30-0400 Body height 165.1 cm Petra Benavidesault Other [facility] Other 12-31-2021 14:30-0400 Body mass index (BMI) [Ratio] 27.45 kg/m2 Petra Benavidesault Other [facility] Other 12-31-2021 14:30-0400 Body temperature 98.3 [degF] Petra Young Other [facility] Other 12-31-2021 14:30-0400 Body weight 74.84 kg Petra Young Other [facility] Other 12-31-2021 14:30-0400 Diastolic blood pressure 83 mm[Hg] Petra Young Other [facility] Other 12-31-2021 14:30-0400 Respiratory rate 18 /min Petra Young Other [facility] Other 12-31-2021 14:30-0400 SaO2% (BldA) [Mass fraction] 100 % Petra Young Other [facility] Other 12-31-2021 14:30-0400 Systolic blood pressure 124 mm[Hg] Petra Young Other [facility] [facility] Other 11-19-2021 15:00-0400 Body height 165.1 cm Petra Young Other [facility] Other 11-19-2021 15:00-0400 Body mass index (BMI) [Ratio] 26.36 kg/m2 Petra Young Other [facility] Other 11-19-2021 15:00-0400 Body temperature 97.7 [degF] Petra Young Other [facility] Other 11-19-2021 15:00-0400 Body weight 71.85 kg Petra Benavidesault Other [facility] Other 11-19-2021 15:00-0400 Diastolic blood pressure 89 mm[Hg] Petra Young Other [facility] Other 11-19-2021 15:00-0400 Respiratory rate 18 /min Petra Young Other [facility] [facility] Other 11-19-2021 15:00-0400 SaO2% (BldA) [Mass fraction] 99 % Petra Young Other [facility] [facility] Other 11-19-2021 15:00-0400 Systolic blood pressure 128 mm[Hg] Petra Young Other [facility] [facility] Other 09-03-2021 15:30-0400 Body height 165.1 cm Petra Young Other [facility] Other 09-03-2021 15:30-0400 Body mass index (BMI) [Ratio] 23.29 kg/m2 Petra Young Other [facility] Other 09-03-2021 15:30-0400 Body temperature 98.8 [degF] Petra Young Other [facility] [facility] Other 09-03-2021 15:30-0400 Body weight 63.5 kg Petra Young Other [facility] Other 09-03-2021 15:30-0400 Diastolic blood pressure 69 mm[Hg] Petra Young Other [employer] Other 09-03-2021 15:30-0400 Respiratory rate 18 /min Petra Young Other [employer] Other 09-03-2021 15:30-0400 SaO2% (BldA) [Mass fraction] 100 % Petra Benavidesault Other [facility] [facility] Other 09-03-2021 15:30-0400 Systolic blood pressure 135 mm[Hg] Petra Benavidesault Other [employer] Other 06-11-2021 15:30-0400 Body height 165.1 cm Petra Benavidesault Other [employer] Other 06-11-2021 15:30-0400 Body mass index (BMI) [Ratio] 24.63 kg/m2 Petra Benavidesault Other [employer] Other 06-11-2021 15:30-0400 Body temperature 97.8 [degF] Petra Benavidesault Other [employer] Other 06-11-2021 15:30-0400 Body weight 67.13 kg Petra Benavidesault Other [employer] Other 06-11-2021 15:30-0400 Diastolic blood pressure 97 mm[Hg] Petra Benavidesault Other [employer] Other 06-11-2021 15:30-0400 Respiratory rate 18 /min Petra Benavidesault Other [employer] Other 06-11-2021 15:30-0400 SaO2% (BldA) [Mass fraction] 100 % Petra Benavidesault Other [employer] Other 06-11-2021 15:30-0400 Systolic blood pressure 128 mm[Hg] Petra Young Other [employer] Other 04-14-2021 10:30-0500 Body height 165.1 cm Petra Young Other [employer] [facility] Other 04-14-2021 10:30-0500 Body mass index (BMI) [Ratio] 22.46 kg/m2 Petra Young Other [facility] Other 04-14-2021 10:30-0500 Body temperature 99.6 [degF] Petra Young Other [employer] [facility] Other 04-14-2021 10:30-0500 Body weight 61.24 kg Petra Young Other [facility] Other 04-14-2021 10:30-0500 Respiratory rate 18 /min Petra Young Other [employer] Other 04-14-2021 10:30-0500 SaO2% (BldA) [Mass fraction] 98 % Petra Young Other [employer] Other 04-14-2021 09:30-0500 Body height 165.1 cm Petra Young Other [facility] [facility] Other 04-14-2021 09:30-0500 Body mass index (BMI) [Ratio] 22.46 kg/m2 Petra Young Other [employer] Other 04-14-2021 09:30-0500 Body temperature 99.6 [degF] Petra Young Other [facility] [facility] Other 04-14-2021 09:30-0500 Body weight 61.24 kg Petra Young Other [employer] Other 04-14-2021 09:30-0500 Respiratory rate 18 /min Petra Young Other [employer] Other 04-14-2021 09:30-0500 SaO2% (BldA) [Mass fraction] 98 % Petra Young Other [employer] Other Encounters Encounter Date Encounter Type Care Provider Facility Start: 11-11-2023 End: 11-11-2023 ambulatory MILAN DONAVAN Not Available Start: 11-04-2023 End: 11-04-2023 ambulatory MILAN DONAVAN Not Available Start: 10-28-2023 End: 10-28-2023 ambulatory MILAN DONAVAN Not Available Start: 10-14-2023 End: 10-14-2023 ambulatory MILAN DONAVAN Not Available Start: 09-29-2023 End: 09-29-2023 ambulatory ANY STACIE [...] Not Available Start: 08-18-2022 End: 08-18-2022 ambulatory Scarletther Patrickramo Other [employer] Other Start: 08-18-2022 Telephone encounter Scarlett Sug[facility] Start: 07-07-2022 End: 07-08-2022 ambulatory PETRA YOUNG Facility: Start: 07-01-2022 End: 07-01-2022 Emergency department patient visit [facility] Facility:[facility] Start: 06-18-2022 End: 06-19-2022 ambulatory Petra Young [employer] Other Start: 06-18-2022 Nutrition therapy Scarlett [facility] Start: 04-28-2022 End: 04-28-2022 ambulatory Sara Cooley Other [employer] Other Start: 04-28-2022 Telephone encounter Sara Cooley [facility] Start: 04-24-2022 End: 04-24-2022 ambulatory Petra Young Other [employer] Other Start: 04-24-2022 Office outpatient vi sit 15 minutes Petra Young [facility] Start: 04-07-2022 End: 04-07-2022 ambulatory Petra Young Other [employer] Other Start: 04-07-2022 Telephone encounter Petra cohn [facility] Start: 03-13-2022 End: 03-13-2022 ambulatory PHYSICIAN NO [facility] Start: 03-13-2022 End: 03-13-2022 Office outpatient new 30 minutes Ivanna Gomez MD Work Phone: [facility] Comment on above: Otalgia, left (Prima ry Dx); Non-recurrent acute serous otitis media of left ear; Conductive hearing loss of left ear with unrestricted hearing of right ear Start: 02-04-2022 End: 02-04-2022 ambulatory Petra Young Other [employer] Other Start: 02-04-2022 Telephone encounter Petra Breaul t [facility] Start: 12-31-2021 End: 12-31-2021 ambulatory Petra Hector Other [employer] Other Start: 12-31-2021 Office outpatient vi sit 15 minutes Petra Hector [facility] Start: 11-19-2021 End: 11-19-2021 ambulatory Petra Hector Other [facility] [facility] Other Start: 11-19-2021 Office outpatient vi sit 25 minutes Petra Hector [facility] Start: 10-28-2021 End: 10-28-2021 ambulatory Petra Hector Other [facility] [facility] Other Start: 10-28-2021 Telephone encounter Petra Breaul t [facility] Start: 10-15-2021 End: 10-15-2021 ambulatory Petra Hector Other [facility] Other Start: 10-15-2021 Telephone encounter Petra Breaul t [facility] Start: 09-18-2021 End: 09-18-2021 ambulatory Petra Hector Other [facility] Other Start: 09-18-2021 Telephone encounter Petra Breaul t [facility] Start: 09-16-2021 End: 09-16-2021 ambulatory PETRA HECTOR Facility:[facility] Start: 09-09-2021 End: 09-09-2021 ambulatory Petra Hector Other [facility] Other Start: 09-09-2021 Telephone encounter Petra Breaul t [facility] Start: 09-03-2021 End: 09-03-2021 ambulatory PETRA HECTOR [facility] Other Start: 09-03-2021 Office outpatient vi sit 15 minutes Petra Hector [facility] Start: 06-11-2021 End: 06-11-2021 ambulatory Petra Hector Other [employer] Other Start: 06-11-2021 Office outpatient vi sit 10 minutes Petra Hector [facility] Start: 04-14-2021 End: 04-14-2021 ambulatory Petraantione Young Other [employer] Other Start: 04-14-2021 Office outpatient vi sit 15 minutes Petra Hector [facility] Start: 09-30-2017 End: 10-01-2017 Patient encounter Milan Esparza Facility:[facility] Plan of Treatment Date Care Activity Detail Author Start: 03-19-2023 Tetanus vaccination Tetanus: Every 10yrs [facility] Start: 06-12-2022 End: 06-12-2022 Patient encounter procedure 06/12/2022 Office Visit Otolaryngology Ivanna Gomez MD [address] [place] [address] [facility] Start: 10-31-2021 Influenza vaccination Sequential Influenza Vaccine (#1) [facility] Start: 07-08-2021 COVID-19 Vaccine (3 - Booster for Moderna series) COVID-19 Vaccine (3 - Booster for Moderna series) [facility] Start: 04-29-2013 Hepatitis C screening Hepatitis C Screening [facility] Start: 04-29-2010 HIV screening HIV Screening [facility] Start: 2007 Depression screening using PHQ-9 (Patient Health Questionnaire 9) score Depression Screening (PHQ-2/9) [facility] Start: 04-29-1998 History and physical examination, annual for health maintenance Wellness Visit [facility] Start: 1995 Screening for malignant neoplasm of cervix Pap Smear [facility] Payers Date Payer Category Payer Private Health Insurance 2022 Medicaid MEDICAID [facility] [id number] 2022-Present [phone] [address] [place] [address] [id number] 1.315 1995 Unknown [id number] 2.16.840.1.693798.3.579.2.903 1995 Unknown [id number] 2.16.840.1.083412.3.579.2.593 1995 Unknown [id number] 2.16.840.1.859374.3.579.2.593 1995 Unknown [id number] 2.16.840.1.547745.3.579.2.593 1995 Unknown [id number] 2.16.840.1.660761.3.579.2.718 1995 Unknown [id number] 2.16.840.1.895858.3.579.2.1259 1995 Unknown [id number] 2.16.840.1.459624.3.579.2.1259 1995 Unknown [id number] 2.16.840.1.048789.3.579.2.1259 1995 Unknown [id number] 2.16.840.1.183368.3.579.2.1259 1995 Unknown [id number] 2.16.840.1.474660.3.579.2.1259 1995 Unknown [id number] 2.16.840.1.305341.3.579.2.1259 1995 Unknown [id number] 2.16.840.1.814837.3.579.2.1259 1995 Unknown [id number] 2.16.840.1.484768.3.579.2.1259 1995 Unknown [id number] 2.16.840.1.382450.3.579.2.1259 1995 Unknown [id number] 2.16.840.1.076289.3.579.2.1259 1995 Unknown [id number] 2.16.840.1.476253.3.579.2.1259 1995 Unknown [id number] 2.16.840.1.971770.3.579.2.9 1995 Unknown [id number] 2.16.840.1.177424.3.579.2.1259 1959 Medicaid [id number] 2. 16.840.1.127005.19 1959 Self-pay [facility] [id number] 2.16.840.1.1138 83.19 Unknown [id number] 2..840.1.012642.19 Unknown [id number] 2. [id number] Unknown [id number] 2.16.840.1.338494.3.579.2.531 Social History Date Type Detail Facility Unknown if ever smoked [facility] Other Sex Assigned At Sex Assigned At Bir th [employer] Other Start: 03-13-2022 Tobacco smoking status ARIS Smokes tobacco daily [facility] History of tobacco use Cigarette Smoker [facility] Start: 03-13-2022 Tobacco use and exposure User of smokeless tobacco [facility] Start: 03-13-2022 Alcohol intake Lifetime non-d isael (finding) [facility] Start: 1995 Sex Assigned At Not on file [facility] Start: 03-03-2022 End: 03-13-2022 Exposure to SARS-CoV-2 (event) Not sure [facility] Medical Equipment Procedure Code Equipment Code Equipment Origin al Text Equipment Identifier Dates Pen Benavides [id number] X 4 MM Start: 06-18-2022 Clinical [...] Restless legs Medical History Scoliosis Hospitalization History [facility] [employer] Other 05-02-2023 NoteEducation Materials Cardiovascular Hypertension, Adult [...] doctor. This is important. Medicines ? Take [id number] and prescription medicines only as told by [...] weak or numb. ? (more content not included)...[id number]* Encounter Date Diagnosis Assessment Notes [...] with a PCP, list to [facility] providers available in the area [...] the week. Encouraged to take advantage of delivery architect available at [facility] that can help work around limitations. May, Scoliosis (ICD-10 - M41.9) [facility] Other 02-23-2023 Evaluation note* Encounter Date Diagnosis Assessment Notes Treatment Notes Treatment Clinical Notes Apr, Overweight (BMI 25.0-29.9) (ICD-10 - E66.3) Referral being sent to Weight management to help [employer] Other 02-06-2023 Evaluation note* Encounter Date Diagnosis Assessment Notes Treatment Notes Treatment Clinical Notes Apr, Seizure disorder (ICD-10 - G40.909) Apr, control counseling (ICD-10 - Z30.09) [facility] [facility] Other 01-12-2023 History of Present illness Narrative* Ivanna Gomez MD - 03/13/2022 3:47 PM EST [facility] [address] [facility] (11) [facility] [address] [facility] [address] Dept: [phone] Loc: [phone] Ivanna Gomez MD [facility] 26 y.o. female Patient presents with a [...] subma ndibular glands, clear salivary flow from [place]'s ducts, no stones of [place]'s ducts Temporomandibular Joint: no crepitus with motion, [...] mood, normal affect MYRINGOTOMY WITH ASPIRATION NOTE ([id number]) PROCEDURE PERFORMED BY: Ivanna Gomez MD PROCEDURE [...] well tolerated in the office today with episcopalian of her hearing in the left ear. [...] Hematological: Negative. Psychiatric/Behavioral: Negative. documented in this [id number] Evaluation note* Encounter Date Diagnosis Assessment Notes Treatment Notes Treatment Clinical Notes Dec, Seizure disorder (ICD-10 - G40.909) Continue to take Depakote. Spoke about importance of follow up with neurology so we can determine cause of seizures Dec, control counseling (ICD-10 - Z30.09) Discussed patient options for control. Recommend follow up with Dr. Esparza to discuss options such as Mirena and enGreeta [employer] Other 09-20-2022 Evaluation note* Encounter Date Diagnosis [...] to be seen. Also always know the [facility] Emergency Number is 24 hours a day available, even on holidays there is someone you can reach out to. Also we will check other labs yearly to screen for other health issues. Please remember we are a team and your opinion is very important in all of your healthcare decisions [employer] Other 07-05-2022 Evaluation note* Encounter Date Diagnosis [...] and family are in agreement with plan. [employer] Other 04-12-2022 Evaluation note* Encounter Date Diagnosis Assessment Notes Treatment Notes Treatment Clinical Notes May, control counseling (ICD-10 - Z30.09) Patient would like to stay on her current dose and form of OBC. [employer] Other 02-13-2022 Evaluation note* Encounter Date Diagnosis [...] Patient care instructions given in writting by [facility] document. [employer] Other Evaluation noteNo [employer] Other Evaluation note* Diagnosis Otalgia, left- Primary Non-recurrent acute serous otitis media of left ear Conductive hearing loss of left ear with unrestricted hearing of right ear [facility] - [facility]* Type Description Date Hospitalization History [facility] [employer] Other Hisdqhb general Narrative - Reported* Type Description Date Medical History seizures Hospitalization History [facility] [employer] Other Hisqure general Narrative - Reported* Type Description Date [...] Restless legs Medical History Scoliosis Hospitalization History [facility] [employer] Other Summary Purpose Family History No Family [...] would p refer to be seen in [facility] facilility Diagnosis 1 Seizure disorder (G4 0.909) Referral Organization [facility] [employer] Referring Provider First Name Petra Referring Provider Last Name Hector Referring Provider Specialty Nurse Pract gustavo Referred Organization [facility] Referred Address [address],[place], [place],[address] Referred Provider Specialty Neurology Referral Priority Routine General Notes Sara Jackson 022 09:44:52 AM >Received today and waiting for office notes to be locked before sending referral Clinical Notes Office [phone] Reason withnessed seiz ure like activity for last few months Diagnosis 1 Observed seizure-lik e activity (R56.9) Diagnosis 2 Syncope, unspecified syncope type (R55) Referral Organization [facility] [employer] [facility] Referring Provider First Name Petra Referring Provider Last Name Hector Referring Provider Specialty Nurse Pract gustavo Referred Organization [facility] Referred Provider Ulysses Schuler Referred Address [address] [place], [place],[address] Referred Provider Specialty Neurology Referral Priority Routine General Notes Sara Jackson 022 08:44:34 AM >Received today and waiting for office notes to be locked before sending referral Additional Source Comments INFORMATION SOURCE (unrecogn ized section and content) DATE CREATED AUTHOR 10/01/2017 [facility] DATE CREATED AUTHOR AUTHOR'S ORGANIZ ATION 03/14/2022 [facility] DATE CREATED AUTHOR AUTHOR'S ORGANIZ ATION 07/11/2022 [facility] DATE CREATED AUTHOR AUTHOR'S ORGANIZ ATION 07/14/2022 [facility] DATE CREATED AUTHOR AUTHOR'S ORGANIZ ATION 12/16/2022 [facility] DATE CREATED AUTHOR AUTHOR'S ORGANIZ ATION 11/13/2023 [facility] d[facility] Specialists EPIC REASON FOR VISIT (unrecogniz ed section and content) Reason Comments bulging ear drum New Patient Care Teams (unrecognized sec tion and content) Programmer Analyst Consultant Relationship Specialty Start Date End Date No, Physician [facility] PCP - General 03/13/22 FOR [...] BE BASED ON THE PRIMARY CLINICAL RECORDS. [facility] [employer] [facility]. provides no warranty or guarantee of the accuracy or completeness of information in this document.
[2023-11-19] MEDS: 0.9 % SODIUM CHLORIDE 1,000 ML 125 ML IV ×3 (00:58→11:01)
[2023-11-19] MEDS: OXYTOCIN/0.9 % SODIUM CHLORIDE 10 UNITS/500 ML PLAST..BAG 6 UNIT IV (01:00)
[2023-11-19] MEDS: AMPICILLIN SODIUM 2,000 MG in 0.9 % SODIUM CHLORIDE 100 ML 200 MG IV (01:01)
[2023-11-19 01:25] LABS: Basophils Percent Auto 0.2 % (0.2-2.0); Eosinophils Absolute Auto 0.1 10^3/uL (0.0-0.7); Eosinophils Percent Auto 0.9 % (0.9-7.0); Hematocrit 30.2 % (36.0-48.0); Hemoglobin 9.6 g/dL (12.0-16.0); Immature Granulocytes Abs Auto 0.06 10^3/uL (0.00-0.03); Immature Granulocytes Pct Auto 0.7 % (0.0-0.5); Lymphocytes Absolute Auto 1.1 10^3/uL (1.2-3.8); Lymphocytes Percent Auto 12.2 % (20.5-60.0); Mean Corpuscular HGB Conc 31.8 g/dL (29.9-35.2); Mean Corpuscular Volume 81.8 fL (81.0-99.0); Mean Platelet Volume 10.8 fL (9.5-13.5); Monocytes Absolute Auto 0.7 10^3/uL (0.3-0.8); Monocytes Percent Auto 7.4 % (1.7-12.0); Neutrophils Percent Auto 78.6 % (43.0-75.0); Platelet Count 218 10^3/uL (150-450); Red Blood Count 3.69 10^6/uL (4.20-5.40); Red Cell Distribution Width 15.2 % (11.0-15.0); White Blood Count 8.9 10^3/uL (4.0-11.0)
[2023-11-19 01:28] LABS: Amphetamine Screen Urine NEGATIVE (NEGATIVE); Barbiturates Screen Urine NEGATIVE (NEGATIVE); Benzodiazepines Screen Urine NEGATIVE (NEGATIVE); Buprenorphine Screen Urine NEGATIVE (NEGATIVE); Cannabinoid Screen Urine NEGATIVE (NEGATIVE); Cocaine Screen Urine NEGATIVE (NEGATIVE); Methadone Screen Urine NEGATIVE (NEGATIVE); Methamphetamines Screen Urine NEGATIVE (NEGATIVE); Opiate Screen Urine NEGATIVE (NEGATIVE); Oxycodone Screen Urine NEGATIVE (NEGATIVE); Phencyclidine Screen Urine NEGATIVE (NEGATIVE); Tricyclic Antidepressant Urine NEGATIVE (NEGATIVE)
[2023-11-19] MEDS: AMPICILLIN SODIUM 1,000 MG in 0.9 % SODIUM CHLORIDE 50 ML 100 MG IV ×3 (05:00→12:55)
[2023-11-19] MEDS: NALBUPHINE HCL 10 MG/ML AMPULE IV (07:11)
--- OUTSIDE RECORDS SUMMARY | 2023-11-19 08:07 | XMS_ITS | CCD ---
Author Organization [facility] Care Team Providers Care B2B Managed Service Sales Exec Name Role Phone Milan Esparza R Unavailable Unavailable Petra Young Unavailable No, Physician Primary Care Provider Unavailabl e NO, PHYSICIAN Primary Care Unavailable IVANNA GOMEZ Attending Unavailable Sara Cooley Unavailable Scarlett Blankenship Unavailable HECTOR, PETRA Primary Care Unavailable DONAVAN ., DR YATES Attending Unavailable DONAVAN ., DR YATES Consulting Unavailable ODNAVAN ., DR YATES Admitting Unavailable Wisam Morales [...] Drug Class(es) Dates Sig (Normalized) Sig (Original) [id number] 200 actuat albuterol 0.09 mg/actuat metered dose [...] oral tablet (8 sources) alpha-Adrenergic Agonist, Uncompetitive S-wjmqil-H-aspartat e Receptor Antagonist, Sigma-1 Agonist Start: 03-06-2020 [...] Resolved: 04-14-2021 Episodic Other aftercare (1 source) correction (current) use of hormonal contraceptives; Translations: [SNF HORMONAL CONTRACEPTIVES] Onset: 09-18-2021 Episodic Syncope (1 source) Syncope and collapse Onset: 09-03-2021 Resolved: 09-03-2021 Episodic Results Test Name Value Interpretation Reference Range Facility Coding Summaryon 07-07-2022 Coding Summary HTMLBase 64 YfbulvkiYJy1bYc+PGh lYWQ+UY2TQIKdP73bvB IecK7CI3qLRX4PJAAJI DOXYN4ZYH1cdZQ3KPge S1RslgMv CtlmuRFcGV76IIl8OQU 3mKbpPGxbfC0wxLBnP3 i5OySoWT17tX77KVbyR OTpVaC6QbSumfenkMZg G1nvRcFedUBxBqc+PHR hYmxlIHdpZHRoPScxMD UkDdBqnZazEO8jQw4yB GVyLWNvbGxhcHNlOiBj o9kaNXQcRLwaWJ5iyQp kT0DrpYE2DWSsx2r4Oe 48dHI+XXUzZQD4aEgpI Trlg101JuCzf9reQZV9 fKXyYIhrDDY3H12yf4T 2NXBgOXCqACA3tBI2pY 3vuQtlzrvoJ8AjbUFhV rF3VWO4pLZshP4hdCdx sotbkH3nSpf+D67PRW2 EUETKNZ4RRkv8F4QcWw wvdHI+UY67LXAtIQ02o VOcrCFbv3kmlCa9XxNq HBFaXQX5eEwvTSqcv5I cBCVyM52qcDEhm6E8UW OpjHcllYYsLzQejLS9f V8vJYmypfhsc3tiaaeo Mqxus6wras49yC87Z88 qQSlpBYKhOYY5XDSxNN PckSymkw5kiZ7dMp7+I Wuri2vrs6zdrOo2CzBj GKFttoDdvXmgGDV7g6A wSl70F8FmhHpdt2UwAv v5oc40aPStx0R9vLG1K AjvZPPneF2hDRamTrY6 GKRgGmRgoE56mEIfDLn aAs7qfNitoWauVT0kYP WjssjqVLIfnV6gVEWsi QOllDxrWS9fIAEnofxn o834HrWiEKB3FKXiwJL jB6JnfX6jDkQhEHWdMP RuG8HooYZdIDhmX058T IeqBaQ6BPHyldPdU2Hb FTRsgQohOzZ5h5Q7Zp0 Nf0RokynlXSW9OYdjDP P2OeL2SbQdKtL9T9GkE bv8ZCKcvAznRZ2yU3Cx TETvkkktggyajBV6ABW wJFSyrF06tZWmNTbxMn 8du5D5i883FZFmRMWzx W57Da3soSbnIPFyyGKT dL2mzeqhw6xtfwugQcR dLXVmZOw2QHn0DOQftN glGsPtJGD3BaC8ECQ7x NZgcM0bfPwxylbsnM5x Oyc+J23yhT1hVZM4XIL 1bnjoRTUovlLrBM25YF 23A9CuNnwvkUCyvXW+P ARwitTjxPyyAR4qYaTt e3sqh1ZnDZbyT9OdHSR qOVmiDjm4VOQqTOJ5tQ P9vX0tWHRoJXxdx9T4r ND0E2TqmlPjxn4vm4rq HUEqLKqfC98bkHZtt3I 3BTMsgKC5TMJhwGfiPv ZqfX51Yby+PGNvbGdyb 1FiXptll2pdw5paxJl6 IjMwJSIgdmFsaWduPSJ 6m4EhIs90Q18sDWgeCS RoPSIxNSUiIHZhbGlnb n3icM0wDn2+PGNvbCB3 aER6gZ9bEZWsYgH4CKs jJ785CxQxpQMaOjjef7 llg5vwlBd5IuFoJNCnw zLvuZrkATZ1w4NhIv52 T64aQNlqJRReMESjNLI zUZHccGobek6qwX2iQt 8+XO8rc1naue32aE28e HI+PZIvWND3iZqkTHxa YKBgzL4zOEklCaJ8RIN oOlIksT08zDKuVMhaOl 1dmGhqjIpmKH1lMPZqc amip612YxBxe3vyTTMl tZSlGTvqCJJ9O17ct5S 9IEHuRINaORT8wJI7mR 1hbGlnbjogbGVmdDsgd dNgbMakDVfyCWgsO325 IHRvcDsnPlBhdGllbnQ yWgNjRVp6Y3AkXfp1YZ SbpMctHZ1laZMuXYgcS r0ufPizqNllJF8fSUXg wtgxt525ZlDyy0qkXZB nxVNfFCdwWQT6U44sh1 M0NYSaNGYzDRU1jVS7c Y0ulZaketvfnRYjnCqw nbVnrRliPNwtTRloT92 6IHRvcDsnPkJpcnRoIE EscWQ5SJ82YF88tPMzd 8H1bRA0V7RmKQRkoylm wijzqCJ7IIGdLNGkjV8 0Hw5yoXmxIz4pVCYtWS Q2ZJNrnWXnV9KocC0cY lIoSEIwCAUxX4AmvHAk FJhzT657MWesOrY4VIU emiXpJ4XqCRLflFhjOg B8t3X2Fn0GZ0I9ZC06Y C34nERwn0O5lZY5Z0Ov IQJjhzudghkwgPM8BJH oYMUclF92Dh8ikNhcZd 9pEFAkNET6ICLmpMRzD 4EfpH6wInSbHGPaAYDo B7UvwBNwERaqG625UMr nFzD2OGGmdfLeM1PfCN KbhGseLuJ3x6H5Vj7SK Iu8PV54PM21gVCbs1H5 zHP5T0TwJQBnejvajgl biCW0SWFwLYTnvL66Er 4qqEpxJe1dHMJuKXM1D CJguNGfB6XnmO8wCiCx QGAzYZJmP5XyaELsTRg aM702GNawLwG0HVJfbc VsD9LhTPBtqXxmYgB2o 9J4Ck8XJBOaDR54XBO1 hOO6SB34UI70M5QfZuw vdGFibGU+PHRhYmxlIH dpZHRoPScxMDAlJyBzd NgzIK5cKf6aJOGvYZLo mXkpdONiDyGox6jiTZU zSRvuOX2slGloU7YzyS G5ORIob1f4Le34U15zO 3JvdXA+LKQfqLV1gTM1 eK0eFpPuTiD0QZbtC72 2MsWwpFPhPxqcw9uqa3 vusHn6XiY3XRQxdsKyl MpfCVL2j3YcKj33D83d IHdpZHRoPSIxNSUiIHZ xzVsuap3tvU8mCv8+PG VdnZC7xAO2aB6eZdBzK hJ3ZBrvF885RnEvoVRm Pjvhp2pzd1yzlYg8EuB wYUBrvsFooUpmJHX1b9 TcVq87O7IdzKpmz3CaJ rg3au10tKSht7J8jCS2 Q7RzGJMvnygvcXDbhXc eNX8oXEKnleqoIYVemI 5dBQGeY2p2NtIhUxD2J DjvS2AdmyV0ZEHlkKJd JQflUAG0V41iv4O9XSB dLJPyMFC4sNC1yY1htT lnbjogbGVmdDsgdmVyd LzuZIyuSJaxT621JMXq oLzgCXLxtV5tAJVoaSV uhLzyUE7xPNWpascwPl RPUlNFWSwgQUxFWEEgT jwvdGQ+VPHsGSB3kJhe WWzpSZAvsB2kZDHpA2z 2CsXmXdC2AVjgX0SjDZ SyigmdNw17mO5oIgPyL zK7UPasE2OlmkY1BORt eHOsOOhxTEY3E08bc8N 4RWVgRUFtTWY9mUL9eD 1hbGlnbjogbGVmdDsgd mXonNbaPWckVDxoK032 JMHxqTprSmSyJhQ9AhO 2HKY9X5McYea5XJHapC qaYV1vcGPjULwbWu8pz WcgrWsqAR1tCCAskxos WPCfwL4mPUQxoCTwxHl uJQ8dPDIporump018Aj VxHSN0UDIjjEBaU1Ooy Y0kVeShLPPzVXDkH7Ul kRNnRIczL403NFssRwX 7CUOcjrCbN6JbLXYcdM nmKgB5w2W1Zm4eKsFEE WFyczwvdGQ+PHRkIHN0 qZuaABgmRDVyoQ4hIGA kO7a2RuJmZyK4TQalD2 FyBGCkmemjXm69iT7bO jNjDdX3FDmtJ8MjgkK4 UOAjlZMxGEmkKUG3Z45 jo9T7UFPjISPnXSB1rT Z1vU4dlYzqwyudtKUlq DsgdmVydGljYWwtYWxp H891OWMkeZrqDtTZDNT MRTwvdGQ+HFPrGMZ8kT rnNYxbPGJioD9pXAWzR 3l4SxAuTwP8DXvkP5Yg GDDasaiuWw75mG3kHzQ yYoF5YKtoI8MdumR0LD LxnDFeOEjzKPO1H71je 3W2ZICbKDPyCTK7tSF2 xY2csCffswnuuVZucBd gdmVydGljYWwtYWxpZ2 46IHRvcDsnPkVtZXJnZ J4faGgcbYK+DC96bv62 E9MhKyquVdx8CWSlDRJ 3aMK3vC4tXRUxSIsbc2 J6nSP3K2MlvjTfdp4de 6mqMEQfGRbfI62voGVg h4R8CVZynYF9MRGeuCj bPaJsiB34Pvf+PGNvbG yhk2SuDdqyb8grj5kzu Tm3DtHvPNVqdhDmySun ODV7y6DrXu58F71oZRu pZHRoPSIzMCUiIHZhbG ovgg1pxO2bDj4+PGNvb AC5wZY2aN3lFpQxJaQ4 HJmzV723ZcJpkZGgFde oo5jcu7uigGp2JqBwSS ZiddAdvSjlGOJ6w4JuT z44Q4GazUmvz7NmPkz9 ay68aHAkf3T7rJO4M3L hZGRpbmctbGVmdDogMC 4kSCNkzpagEPUduP5lH IWyB8d6DxEsZyH9OMio L5UvoxB8ITDzdOAaXTX ihSMJrK4dppore7zozo kcEgCtMBLuLKv2XHb0J DVsaWddBpNhVIW1WkM5 CMV4dZXsdE6ogIbaqwh etU2xDgw+MPp5e1hlvA LfSU0iaLJ2IC52ZY39y HFbk1U9fRJ7K1RlJVMu xywajbrueCH7HPAqSYZ hwC32Jv3ofIazJs6iTP QqRCI5JAYizGAnI9Fql X3mPsTtOURoKCKjE0Vy aOVeFKiyK995KSioWlY 6FFHtfhLkB6YlDSTmoJ ddSdX3i1O1Re1ZIR85X E88HC30kDNpw2O3qYO0 U8OtABIpibzqjglezIM 0COKaEOKyvI33Eh3fdS jbUn5uWGKgFAQ0NYLam UEvU7XreP9uNvDqFJWy JIAmQ3ZgyLHjCPdnR12 4AVouPgR5HWOsthZuH9 PvAZUshYmzKxE9v7O3R c7YXt25YK22RP88iIKl o6N5nUZ1Q1JaAVJnjea cpcdrjLE5FBTlHMGszB 52Hu2heXzpJh1tWMSfI RT7BHMmpBFrK6FsoU5l KxDqKGRdGTZkX4ZfiSZ qJCyxC811POulOwS5FW NvniBzY0PzWTTopGvaF kD3p6L4Fw5CQVjrbvk3 M7RcPtxemEL+AS22VDQ uFP04uUUvpLFly2dicW h9DkXwJEJeBJV2sKjsJ Eted0VdYCXhV83jvHZt c2U (more content not included)... [facility] US PELVIS AND TRANSVAGon US [...] WISAM MORALES Date: 2022-07-07 10:40 Normal [facility] C Throaton 07-03-2022 C Throat Ordered by [employer]. Normal throat christian isolated No pathogens isolated [facility] Comment on above: Performed By: #### [id number] #### [facility] (DEFAULT) [address] [place] [address] .QC SARS-CoV-2 (COVID-19)/Fl u/RSV (GeneXpert)on 07-01-2022 Internal Control Pass Normal [facility] Comment on above: Order Comment: Order ed by [employer]. [[email or web address]] Performed By: #### 7 [id number] #### [facility] (DEFAULT) [address] [place] [address] COVID/Flu/RSV (GeneXpert)on 07-01-2022 Flu A (GXpert COVFLURSV) Negative Normal Negative [facility] Comment on above: Performed By: #### 7 [id number] #### [facility] (DEFAULT) [address] [place] [id number] Flu B (GXpert COVFLURSV) Negative Normal Negative [facility] Comment on above: Performed By: #### 7 [id number] #### [facility] (DEFAULT) [address] [place] [id number] RSV (GXpert COVFLURSV) Negative Normal Negative [facility] Comment on above: Performed By: #### 7 [id number], [id number] #### [facility] (DEFAULT) [address] [place] [address] SARS-CoV-2 (COVID-19) RNA JOAN+probe Ql (Unsp spec) Negative Normal Negative [facility] Comment on above: Result Comment: Perf ormed by PCR methodology. Performed By: #### 7 [id number], [id number] #### [facility] (DEFAULT) [address] [place] [address] ED Clinical Summaryon 2022 ED Clinical Summary [facility] Emergency Department [address] [place] [address] ED Clinical Summary PERSON INFORMATION Name: KRISHNA GLOVER Age: 27 Years Sex: FEMALE : 1995 MRN: Acct#: Visit Reason: Headache; Ear pain; UC - Sore Throat; SORE THROAT, CONGESTION, BILAT EAR PAIN Arrival: 07/01/2022 09:15:55 Discharge: 07/01/2022 11:05:00 LOS: 000 01:50 Check In: 07/01/2022 09:15:55 Checkout:07/01/2022 11:05:00 Address: [address] [place] [address] PCP: Provider, None PROVIDER INFORMATION Provider Role [...] INFORMATION Instructions: Viral Illness, Adult; Hypertension, Adult, Cjzy-im-Ulnm Follow-Up: With: Address: When: Follow up with primary care provider Within 3 to 5 days DIAGNOSIS: 1:Viral syndrome; 2:Elevated blood pressure reading Patient Understands: Yes - Patient/family/medicare insurance specialist verbalizes understanding of instructions given Comment: Normal [facility] ED Patient Summaryon 023 ED Patient Summary [facility] - Emergency Department [address] [place] [address] PATIENT DISCHARGE INSTRUCTIONS Patient Information Name: KRISHNA GLOVER Age: 27 Years Date of : 1995 Reason For Visit: Headache; Ear pain; UC - Sore Throat; SORE THROAT, CONGESTION, BILAT EAR PAIN Arrival Time: 07/01/2022 09:15:55 Primary Care Physician: Provider, None Attending Physician: Nba Guaman MD Comment: Visit Diagnosis: Diagnoses This Visit Ear pain ([id number]) Elevated blood pressure reading (R03.0) Headache ([id number]) UC - Sore Throat ([id number]) Viral syndrome (B34.9) The Pharmacy at [facility] is open Thursday through Thursday [...] drug addiction problems; contact the [facility] 22/09 Crisis Hotline -Text 7FSNU lj 020264. If you received any narcotics, sedation, or [...] and treatment you received today in the [facility] Emergency Department were for an urgent problem and are not intended as complete care. It is important for you to follow up with a doctor, nurse practitioner, or physician?s music library assistant for ongoing care. If your symptoms [...] so we can reach you if necessary. [facility] Emergency Department has provided you with a complete list of medications post discharge. Please inform your conference concierge/provider of your visit and for further instruction [...] (influenza). Long-term (more content not included)... Normal [facility] Strep Aon 07-01-2022 Strep procedure control Pass Normal [facility] Comment on above: Performed By: #### 4 [id number] #### [facility] (DEFAULT) [address] [place] [address] Streptococcus A Negative Normal Negative [facility] Comment on above: Performed By: #### 4 [id number] #### [facility] (DEFAULT) [address] [place] [address] 18098 CBC AUTO DIFFon 09-16-2021 BASO # 0.0 103/ul Normal 0.0-0.1 [facility] Comment on above: Performed By: #### C BC #### [facility] [address] [place] [address] Dr. Jake Gallardo Basophils/100 WBC (Bld) 0.3 % Normal 0.2-2.0 [facility] Comment on above: Performed By: #### C BC #### [facility] [address] [place] [address] Dr. Jake Gallardo EO # 0.1 103/ul Normal 0.0-0.7 [facility] Comment on above: Performed By: #### C BC #### [facility] [address] [place] [address] Dr. Jake Gallardo Eosinophils/100 WBC (Bld) 1.9 % Normal 0.9-7.0 [facility] Comment on above: Performed By: #### C BC #### [facility] [address] [place] [address] Dr. Jake Gallardo Erythrocyte distribution width (RBC) [Ratio] 12.6 % Normal 11.0-15.0 [facility] Comment on above: Performed By: #### C BC #### [facility] [address] [place] [address] Dr. Jake Gallardo Hematocrit (Bld) [Volume fraction] 42.4 % Normal 36.0-48.0 [facility] Comment on above: Performed By: #### C BC #### [facility] [address] [place] [address] Dr. Jake Gallardo Hemoglobin (Bld) [Mass/Vol] 14.0 g/dL Normal 12.0-16.0 [facility] Comment on above: Performed By: #### C BC #### [facility] [address] [place] [address] Dr. Jake Gallardo IG # 0.01 10e3/ul Normal 0.00-0.03 [facility] Comment on above: Performed By: #### C BC #### [facility] [address] [place] [address] Dr. Jake Gallardo IG % 0.1 % Normal 0.0-0.5 [facility] Comment on above: Performed By: #### C BC #### [facility] [address] [place] [address] Dr. Jake Gallardo LYMPH # 1.0 103/ul Critically low 1.2-3.8 [facility] Comment on above: Performed By: #### C BC #### [facility] [address] [place] [address] Dr. Jake Gallardo Lymphocytes/100 WBC (Bld) 14.9 % Critically low 20.5-60.0 [facility] Comment on above: Performed By: #### C BC #### [facility] [address] [place] [address] Dr. Jake Gallardo MANUAL DIFF REQ NO Normal [facility] Comment on above: Performed By: #### C BC #### [facility] [address] [place] [address] Dr. Jake Gallardo MCH (RBC) [Entitic mass] 30.4 pg Normal 26.7-34.0 [facility] Comment on above: Performed By: #### C BC #### [facility] [address] [place] [address] Dr. Jake Gallardo MCHC (RBC) [Mass/Vol] 33.0 g/dL Normal 29.9-35.2 [facility] Comment on above: Performed By: #### C BC #### [facility] [address] [place] [address] Dr. Jake Gallardo MCV (RBC) [Entitic vol] 92.2 fL Normal 81.0-99.0 [facility] Comment on above: Performed By: #### C BC #### [facility] [address] [place] [address] Dr. Jake Gallardo MONO # 0.3 103/ul Normal 0.3-0.8 [facility] Comment on above: Performed By: #### C BC #### [facility] [address] [place] [address] Dr. Jake Gallardo Monocytes/100 WBC (Bld) 4.9 % Normal 1.7-12.0 [facility] Comment on above: Performed By: #### C BC #### [facility] [address] [place] [address] Dr. Jake Gallardo NEUT # 5.2 103/ul Normal 1.4-6.5 [facility] Comment on above: Performed By: #### C BC #### [facility] [address] [place] [address] Dr. Jake Gallardo Neutrophils/100 WBC (Bld) 77.9 % Critically high 43.0-75.0 [facility] Comment on above: Performed By: #### C BC #### [facility] [address] [place] [address] Dr. Jake Gallardo Platelet mean volume (Bld) [Entitic vol] 10.5 fL Normal 9.5-13.5 [facility] Comment on above: Performed By: #### C BC #### [facility] [address] [place] [address] Dr. Jake Gallardo PLT 226 103/ul Normal 150-450 [facility] Comment on above: Performed By: #### C BC #### [facility] [address] [address] [address] Jake Gallardo RBC 4.60 106/ul Normal 4.20-5.40 [facility] Comment on above: Performed By: #### C BC #### [facility] [address] [place], [place] [address] Dr. Jake Gallardo WBC 6.7 103/ul Normal 4.0-11.0 [facility] Comment on above: Performed By: #### C BC #### [facility] [id number] Jake Gallardo CT HEAD WO CONon [...] WISAM MORALES Date: 2021-09-16 15:09 Normal [facility] CULTURE URINEon 09-16-2021 CULTURE URINE Culture Observations: LIGHT GROWTH OF MIXED GENITAL CHRISTIAN. NO POTENTIAL PATHOGENS SEEN. Normal [facility] Comment on above: Performed By: #### U RCX #### [facility] [address] [place], [place] [id number] Dr. Jake Gallardo DRUG SCREEN RAPID (URINE)on 09-16-2021 AMP Negative Normal NEGATIVE [facility] Comment on above: Performed By: #### C BC #### [facility] [address] [place], [place] [id number] Dr. Jake Gallardo BAR Negative Normal NEGATIVE [facility] Comment on above: Performed By: #### C BC #### [facility] [address] [place] [address] Dr. Jake Gallardo BUP Negative Normal NEGATIVE [facility] Comment on above: Performed By: #### C BC #### [facility] [address] [place] [address] Dr. Jake Gallardo BZO Negative Normal NEGATIVE [facility] Comment on above: Performed By: #### C BC #### [facility] [address] [place] [address] Dr. Jake Gallardo SUNDEEP Negative Normal NEGATIVE [facility] Comment on above: Performed By: #### C BC #### [facility] [address] [place] [address] Dr. Jake Gallardo CUT-OFFS SEE BELOW Normal [facility] Comment on above: Result Comment: AMP [...] ng/mL Performed By: #### C BC #### [facility] [address] [place] [address] Dr. Jake Gallardo DRUG CUT HEADER DRUG CLASS TEST SYSTEM CUT-OFF CONCENTRATIONS ARE FOLLOWS: Normal [facility] Comment on above: Performed By: #### C BC #### [facility] [address] [place] [address] Dr. Jake Gallardo mAMP Negative Normal NEGATIVE [facility] Comment on above: Performed By: #### C BC #### [facility] [address] [place] [address] Dr. Jake Gallardo MTD Negative Normal NEGATIVE [facility] Comment on above: Performed By: #### C BC #### [facility] [address] [address] [address] Jake Gallardo OPI Negative Normal NEGATIVE [facility] Comment on above: Performed By: #### C BC #### [facility] [address] [place] [address] Dr. Jake Gallardo OXY Negative Normal NEGATIVE [facility] Comment on above: Performed By: #### C BC #### [facility] [address] [place] [address] Dr. Jake Gallardo PCP Negative Normal NEGATIVE [facility] Comment on above: Performed By: #### C BC #### [facility] [address] [place] [address] Dr. Jake Gallardo PPX Negative Normal NEGATIVE [facility] Comment on above: Performed By: #### C BC #### [facility] [address] [place] [address] Dr. Jake Gallardo TCA Negative Normal NEGATIVE [facility] Comment on above: Performed By: #### C BC #### [facility] [address] [place] [address] Dr. Jake Gallardo THC Negative Normal NEGATIVE [facility] Comment on above: Performed By: #### C BC #### [facility] [address] [place] [address] Dr. Jake Gallardo ER URINE PROFILEon 2 Bilirubin Ql (U) Negative Normal NEGATIVE [facility] Comment on above: Performed By: #### C BC #### [facility] [address] [place] [address] Dr. Jake Gallardo Clarity (U) CLEAR Normal CLEAR [facility] Comment on above: Performed By: #### C BC #### [facility] [address] [place] [address] Dr. Jake Gallardo Color (U) LT. YELLOW Normal YELLOW [facility] Comment on above: Performed By: #### C BC #### [facility] [address] [place] [address] Dr. Jake TESFAEY A micrscopic examination will be performed if indicated. Normal [facility] Comment on above: Performed By: #### C BC #### [facility] [address] [place] [address] Dr. Jake Gallardo Glucose Ql (U) Negative Normal NEGATIVE [facility] Comment on above: Performed By: #### C BC #### [facility] [address] [place] [address] Dr. Jake Gallardo Hemoglobin Ql (U) TRACE-INTACT Abnormal NEGATIVE [facility] Comment on above: Performed By: #### C BC #### [facility] [address] [place] [address] Dr. Jake Gallardo Ketones Ql (U) Negative Normal NEGATIVE [facility] Comment on above: Performed By: #### C BC #### [facility] [address] [place] [address] Dr. Jake Gallardo LEUKOCYTES TRACE Abnormal NEGATIVE [facility] Comment on above: Performed By: #### C BC #### [facility] [address] [place] [address] Dr. Jake Gallardo Nitrite Ql (U) Negative Normal NEGATIVE [facility] Comment on above: Performed By: #### C BC #### [facility] [address] [place] [address] Dr. Jake Gallardo pH (U) 6.0 [pH] Normal 5-9 [facility] Comment on above: Performed By: #### C BC #### [facility] [address] [place] [address] Dr. Jake Gallardo SPEC GRAVITY 1.025 Normal 1.005-<=1.025 [facility] Comment on above: Performed By: #### C BC #### [facility] [address] [place] [address] Dr. Jake Gallardo UA PROTEIN Negative Normal NEGATIVE/ TRACE [facility] Comment on above: Performed By: #### C BC #### [facility] [address] [place] [address] Dr. Jake Gallardo UR MICRO IND INDICATED Normal [facility] Comment on above: Performed By: #### C BC #### [facility] [address] [place] [address] Dr. Jake Gallardo Urobilinogen Qn (U) 0.2 {Manny'U}/dL Normal 0.2 - 1.0 [facility] Comment on above: Performed By: #### C BC #### [facility] [address] [place] [address] Dr. Jake Gallardo PREG HCG QUALon 09-16-2021 , QUAL Negative Normal NEGATIVE [facility] Comment on above: Performed By: #### P REG #### [facility] [address] [place] [address] Dr. Jake Gallardo PROF 14(COMP METB)on 022 Albumin [Mass/Vol] 3.5 g/dL Normal 3.4-5.0 [facility] Comment on above: Performed By: #### C MP, TSH, HSTROPN #### [facility] [address] [place] [address] Dr. Jake Gallardo Albumin/Globulin [Mass ratio] 0.9 {ratio} Normal [facility] Comment on above: Performed By: #### C MP, TSH, HSTROPN #### [facility] [address] [place] [address] Dr. Jake Gallardo ALP [Catalytic activity/Vol] 42 U/L Critically low 46-116 [facility] Comment on above: Performed By: #### C MP, TSH, HSTROPN #### [facility] [address] [place] [address] Dr. Jake Gallardo ALT [Catalytic activity/Vol] 22 U/L Normal 14-59 [facility] Comment on above: Performed By: #### C MP, TSH, HSTROPN #### [facility] [address] [place] [address] Dr. Jake Gallardo Anion gap [Moles/Vol] 15.0 mmol/L Normal [facility] Comment on above: Performed By: #### C MP, TSH, HSTROPN #### [facility] [address] [place] [address] Dr. Jake Gallardo AST [Catalytic activity/Vol] 15 U/L Normal 15-37 [facility] Comment on above: Performed By: #### C MP, TSH, HSTROPN #### [facility] [address] [place] [address] Dr. Jake Gallardo Bilirubin [Mass/Vol] 0.4 mg/dL Normal 0.2-1.0 [facility] Comment on above: Performed By: #### C MP, TSH, HSTROPN #### [facility] [address] [place] [address] Dr. Jake Gallardo Calcium [Mass/Vol] 9.1 mg/dL Normal 8.5-10.1 [facility] Comment on above: Performed By: #### C MP, TSH, HSTROPN #### [facility] [address] [place] [address] Dr. Jake Gallardo Chloride [Moles/Vol] 106 mmol/L Normal 98-107 [facility] Comment on above: Performed By: #### C MP, TSH, HSTROPN #### [facility] [address] [place] [address] Dr. Jake Gallardo CO2 [Moles/Vol] 22.9 mmol/L Normal 21.0-32.0 [facility] Comment on above: Performed By: #### C MP, TSH, HSTROPN #### [facility] [address] [place] [address] Dr. Jake Gallardo Creatinine [Mass/Vol] 0.74 mg/dL Normal 0.55-1.02 [facility] Comment on above: Performed By: #### C MP, TSH, HSTROPN #### [facility] [address] [place] [address] Dr. Jake Gallardo EGFR-AF MACANESE >60 Normal >=60 [facility] Comment on above: Performed By: #### C MP, TSH, HSTROPN #### [facility] [address] [place] [address] Dr. Jake Gallardo EGFR-NON AF MACANESE >60 Normal >=60 [facility] Comment on above: Performed By: #### C MP, TSH, HSTROPN #### [facility] [address] [address] [address] Jake Gallardo Globulin (S) [Mass/Vol] 4.0 g/dL Normal [facility] Comment on above: Performed By: #### C MP, TSH, HSTROPN #### [facility] [address] [place] [address] Dr. Jake Gallardo Glucose [Mass/Vol] 84 mg/dL Normal 74-106 [facility] Comment on above: Performed By: #### C MP, TSH, HSTROPN #### [facility] [address] [place] [address] Dr. Jake Gallardo Potassium [Moles/Vol] 3.9 mmol/L Normal 3.5-5.1 [facility] Comment on above: Performed By: #### C MP, TSH, HSTROPN #### [facility] [address] [place] [address] Dr. Jake Gallardo Protein [Mass/Vol] 7.5 g/dL Normal 6.4-8.2 [facility] Comment on above: Performed By: #### C MP, TSH, HSTROPN #### [facility] [address] [place] [address] Dr. Jake Gallardo Sodium [Moles/Vol] 140 mmol/L Normal 136-145 [facility] Comment on above: Performed By: #### C MP, TSH, HSTROPN #### [facility] [address] [place] [address] Dr. Jake Gallardo Urea nitrogen [Mass/Vol] 8.0 mg/dL Normal 7.0-18.0 [facility] Comment on above: Performed By: #### C MP, TSH, HSTROPN #### [facility] [address] [place] [address] Dr. Jake Gallardo Urea nitrogen/Creatinin e [Mass ratio] 10.8 mg/mg Normal [facility] Comment on above: Performed By: #### C MP, TSH, HSTROPN #### [facility] [address] [place] [address] Dr. Jake Gallardo PROTIMEon 09-16-2021 INR Coag (PPP) [Relative time] 0.96 {INR} Normal [facility] Comment on above: Performed By: #### P T, PTT #### [facility] [address] [place] [address] Dr. Jake Gallardo INR GUIDELINES SEE BELOW Normal [facility] Comment on above: Result Comment: NASH RED INR: 2.0 - 3.0 CONDITIONS NOT LISTED BELOW 2.5 - 3.5 FOR PROSTHETIC HEART VALVE REPLACEMENT 2.5 - 3.5 RECURRENT THROMBOSIS Performed By: #### P T, PTT #### [facility] [address] [place] [address] Dr. Jake Gallardo PT Coag (PPP) [Time] 10.4 s Normal 9.0-11.6 [facility] Comment on above: Performed By: #### P T, PTT #### [facility] [address] [place] [address] Dr. Jake Gallardo PTTon 09-16-2021 aPTT Coag (Bld) [Time] 29.2 s Normal 22.3-36.2 [facility] Comment on above: Performed By: #### P T, PTT #### [facility] [address] [place] [address] Dr. Jake Gallardo TROPONIN, HIGH SENSITIVITYon 09-16-2021 HSTROP <4.0 Normal 4.0-51.3 [facility] Comment on above: Result Comment: CUT- OFF POINTS HAVE BEEN ESTABLISHED BASED ON THE FOURTH UNIVERSAL DEFINITIONS OF MYOCARDIAL INFARCTION. THE UPPER REFERENCE LIMIT (URL) OF TROPONIN, DEFINED THE 99TH PERCENTILE OF cTnI DISTRIBUTION IN A REFERENCE POPULATION, HAS BEEN CONFIRMED THE DECISION THRESHOLD FOR WA DIAGNOSIS. Performed By: #### C MP, TSH, HSTROPN #### [facility] [address] [place] [address] Dr. Jake Gallardo TSHon 09-16-2021 TSH 2.037 uIU/mL Normal 0.358-3.740 [facility] Comment on above: Performed By: #### C MP, TSH, HSTROPN #### [facility] [address] [place] [address] Dr. Jake Gallardo URINE MICROSCOPIC ONLYon BACTERIA SMALL Abnormal NONE SEEN [facility] Comment on above: Performed By: #### C BC #### [facility] [address] [place] [address] Dr. Jake Gallardo Bacteria identified Cx Nom (U) INDICATED Normal [facility] Comment on above: Performed By: #### C BC #### [facility] [address] [place] [address] Dr. Jake Gallardo CAST NONE SEEN Normal NONE SEEN [facility] Comment on above: Performed By: #### C BC #### [facility] [address] [place] [address] Dr. Jake Gallardo Crystals LM Nom (Urine sed) NONE SEEN Normal NONE SEEN [facility] Comment on above: Performed By: #### C BC #### [facility] [address] [place] [address] Dr. Jake Gallardo Epithelial cells LM Ql (Urine sed) FEW Abnormal NONE SEEN /RARE [facility] Comment on above: Performed By: #### C BC #### [facility] [address] [place] [address] Dr. Jake Gallardo MUCOUS NONE SEEN Normal NONE SEEN [facility] Comment on above: Performed By: #### C BC #### [facility] [address] [place] [address] Dr. Jake Gallardo RBC 0-2 Normal 0-2 [facility] Comment on above: Performed By: #### C BC #### [facility] [address] [place] [address] Dr. Jake Gallardo WBC 2-5 Abnormal NONE SEEN [facility] Comment on above: Performed By: #### C BC #### [facility] [address] [place] [address] Dr. Jake Gallardo COVID Quick Testingon 2021 Result Negative [facility] Other Quick Fluon 04-14-2021 FLUAV Ab CF (S) [Titer] Positive [facility] Other FLUBV Ab CF (S) [Titer] Negative [facility] Other Quick Strepon 04-14-2021 S. pyogenes Org specific cx Ql (Throat) Negative [facility] Other Quick Strep [facility] Other U24 Proteinon 09-30-2017 Protein mass conc (24H U) 75 mg/24hr Normal 28-141 [facility] Comment on above: Performed By: #### 2 [id number] ####[facility] [id number] [place] [address] Albumin/Protein.to popeye Elph mass fraction (U) 21.4 mg/dL Invalid Interpretation Code [facility] Comment on above: Result Comment: The reference range and other method performance specifications have not been established for this test; results should be integrated into the clinical context for interpretation. Performed By: #### 2 [id number], [id number] ####[facility] [id number] [place] [address] U24 Total Volon 09-30-2017 Hrs Kenny 24 hour(s) Invalid Interpretation Code [facility] Comment on above: Order Comment: Order added by Discern Expert Performed By: #### 2 [id number] ####[facility] [id number] [place] [address] Specimen volume Unsp time (U) 350 mL Invalid Interpretation Code [facility] Comment on above: Order Comment: Order added by Discern Expert Performed By: #### 2 [id number] ####[facility] [id number] [place] [address] Vital Signs Date Time Vital Sign Value Performing Clinician Facility 06-18-2022 15:15-0400 Body height 162.56 cm Scarlett Blankenship Other [facility] Other 06-18-2022 15:15-0400 Body mass index (BMI) [Ratio] 29.92 kg/m2 Scarlett Blankenship Other [facility] Other 06-18-2022 15:15-0400 Body weight 79.06 kg Scarlett Missler Other [facility] Other 06-18-2022 15:15-0400 Diastolic blood pressure 86 mm[Hg] Scarlett Missler Other [facility] Other 06-18-2022 15:15-0400 Respiratory rate 18 /min Scarltet Missler Other [facility] Other 06-18-2022 15:15-0400 SaO2% (BldA) [Mass fraction] 96 % Scarlett Missler Other [facility] Other 06-18-2022 15:15-0400 Systolic blood pressure 122 mm[Hg] Scarlett Missler Other [facility] Other 04-24-2022 14:00-0500 Body height 165.1 cm Petra Hector Other [facility] Other 04-24-2022 14:00-0500 Body mass index (BMI) [Ratio] 28.29 kg/m2 Petra Young Other [facility] Other 04-24-2022 14:00-0500 Body temperature 98.6 [degF] Petra Young Other [facility] Other 04-24-2022 14:00-0500 Body weight 77.11 kg Petra Hector Other [facility] Other 04-24-2022 14:00-0500 Diastolic blood pressure 83 mm[Hg] Petra oYung Other [facility] Other 04-24-2022 14:00-0500 Respiratory rate 18 /min Petra Young Other [facility] Other 04-24-2022 14:00-0500 SaO2% (BldA) [Mass fraction] 97 % Petra Young Other [facility] Other 04-24-2022 14:00-0500 Systolic blood pressure 124 mm[Hg] Petra Benavidesault Other [facility] Other 03-13-2022 15:37-0500 Body weight 75.75 kg Ivanna Gomez MD Work Phone: [facility] 03-13-2022 15:37-0500 Diastolic blood pressure 83 mm[Hg] Ivanna Gomez MD Work Phone: [facility] 03-13-2022 15:37-0500 Heart rate 79 /min Ivanna Gomez MD Work Phone: [facility] 03-13-2022 15:37-0500 SaO2% (BldA) [Mass fraction] 99 % Ivanna Gomez MD Work Phone: [facility] 03-13-2022 15:37-0500 Systolic blood pressure 116 mm[Hg] Ivanna Gomez MD Work Phone: [facility] 12-31-2021 14:30-0400 Body height 165.1 cm Petra Benavidesault Other [facility] Other 12-31-2021 14:30-0400 Body mass index (BMI) [Ratio] 27.45 kg/m2 Petra Benavidesault Other [facility] Other 12-31-2021 14:30-0400 Body temperature 98.3 [degF] Petra Young Other [facility] Other 12-31-2021 14:30-0400 Body weight 74.84 kg Petra Young Other [facility] Other 12-31-2021 14:30-0400 Diastolic blood pressure 83 mm[Hg] Petra Young Other [facility] Other 12-31-2021 14:30-0400 Respiratory rate 18 /min Petra Young Other [facility] Other 12-31-2021 14:30-0400 SaO2% (BldA) [Mass fraction] 100 % Petra Young Other [facility] Other 12-31-2021 14:30-0400 Systolic blood pressure 124 mm[Hg] Petra Young Other [facility] Other 11-19-2021 15:00-0400 Body height 165.1 cm Petra Young Other [facility] Other 11-19-2021 15:00-0400 Body mass index (BMI) [Ratio] 26.36 kg/m2 Petra Young Other [facility] Other 11-19-2021 15:00-0400 Body temperature 97.7 [degF] Petra Young Other [facility] Other 11-19-2021 15:00-0400 Body weight 71.85 kg Petra Benavidesault Other [facility] Other 11-19-2021 15:00-0400 Diastolic blood pressure 89 mm[Hg] Petra Young Other [facility] Other 11-19-2021 15:00-0400 Respiratory rate 18 /min Petra Young Other [facility] Other 11-19-2021 15:00-0400 SaO2% (BldA) [Mass fraction] 99 % Petra Young Other [facility] Other 11-19-2021 15:00-0400 Systolic blood pressure 128 mm[Hg] Petra Young Other [facility] Other 09-03-2021 15:30-0400 Body height 165.1 cm Petra Young Other [facility] Other 09-03-2021 15:30-0400 Body mass index (BMI) [Ratio] 23.29 kg/m2 Petra Young Other [facility] Other 09-03-2021 15:30-0400 Body temperature 98.8 [degF] Petra Young Other [facility] Other 09-03-2021 15:30-0400 Body weight 63.5 kg Petra Young Other [facility] Other 09-03-2021 15:30-0400 Diastolic blood pressure 69 mm[Hg] Petra Young Other [facility] Other 09-03-2021 15:30-0400 Respiratory rate 18 /min Petra Young Other [facility] Other 09-03-2021 15:30-0400 SaO2% (BldA) [Mass fraction] 100 % Petra Benavidesault Other [facility] Other 09-03-2021 15:30-0400 Systolic blood pressure 135 mm[Hg] Petra Benavidesault Other [facility] Other 06-11-2021 15:30-0400 Body height 165.1 cm Petra Benavidesault Other [facility] Other 06-11-2021 15:30-0400 Body mass index (BMI) [Ratio] 24.63 kg/m2 Petra Benavidesault Other [facility] Other 06-11-2021 15:30-0400 Body temperature 97.8 [degF] Petra Benavidesault Other [facility] Other 06-11-2021 15:30-0400 Body weight 67.13 kg Petra Benavidesault Other [facility] Other 06-11-2021 15:30-0400 Diastolic blood pressure 97 mm[Hg] Petra Benavidesault Other [facility] Other 06-11-2021 15:30-0400 Respiratory rate 18 /min Petra Benavidesault Other [facility] Other 06-11-2021 15:30-0400 SaO2% (BldA) [Mass fraction] 100 % Petra Benavidesault Other [facility] Other 06-11-2021 15:30-0400 Systolic blood pressure 128 mm[Hg] Petra Young Other [facility] Other 04-14-2021 10:30-0500 Body height 165.1 cm Petra Young Other [facility] Other 04-14-2021 10:30-0500 Body mass index (BMI) [Ratio] 22.46 kg/m2 Petra Young Other [facility] Other 04-14-2021 10:30-0500 Body temperature 99.6 [degF] Petra Young Other [facility] Other 04-14-2021 10:30-0500 Body weight 61.24 kg Petra Young Other [facility] Other 04-14-2021 10:30-0500 Respiratory rate 18 /min Petra Young Other [facility] Other 04-14-2021 10:30-0500 SaO2% (BldA) [Mass fraction] 98 % Petra Young Other [facility] Other 04-14-2021 09:30-0500 Body height 165.1 cm Perta Young Other [facility] Other 04-14-2021 09:30-0500 Body mass index (BMI) [Ratio] 22.46 kg/m2 Petra Young Other [facility] Other 04-14-2021 09:30-0500 Body temperature 99.6 [degF] Petra Young Other [facility] Other 04-14-2021 09:30-0500 Body weight 61.24 kg Petra Young Other [facility] Other 04-14-2021 09:30-0500 Respiratory rate 18 /min Petra Young Other [facility] Other 04-14-2021 09:30-0500 SaO2% (BldA) [Mass fraction] 98 % Petra Young Other [facility] Other Encounters Encounter Date Encounter Type [...] 08-18-2022 End: 08-18-2022 ambulatory Scarletther Patrickramo Other [facility] Other Start: 08-18-2022 Telephone encounter Scarlett Suggs [facility] Start: 07-07-2022 End: 07-08-2022 ambulatory PETRA YONUG Facility: Start: 07-01-2022 End: 07-01-2022 Emergency department patient visit [facility] Facility:[facility] Start: 06-18-2022 End: 06-19-2022 ambulatory Petra Young [facility] Other Start: 06-18-2022 Nutrition therapy Scarlett Deleon [facility] Start: 04-28-2022 End: 04-28-2022 ambulatory Sara Cooley Other [facility] Other Start: 04-28-2022 Telephone encounter Sara Cooley [facility] Start: 04-24-2022 End: 04-24-2022 ambulatory Petra Young Other [facility] Other Start: 04-24-2022 Office outpatient vi sit 15 minutes Petra Young [facility] Start: 04-07-2022 End: 04-07-2022 ambulatory Petra Young Other [facility] Other Start: 04-07-2022 Telephone encounter Petra cohn [facility] Start: 03-13-2022 End: 03-13-2022 ambulatory PHYSICIAN NO [facility] Start: 03-13-2022 End: 03-13-2022 Office outpatient new 30 minutes Ivanna Gomez MD Work Phone: [facility] Comment on above: Otalgia, left (Prima ry Dx); Non-recurrent acute serous otitis media of left ear; Conductive hearing loss of left ear with unrestricted hearing of right ear Start: 02-04-2022 End: 02-04-2022 ambulatory Petra Young Other [facility] Other Start: 02-04-2022 Telephone encounter Petra Breaul t [facility] Start: 12-31-2021 End: 12-31-2021 ambulatory Petra Hector Other [facility] Other Start: 12-31-2021 Office outpatient vi sit 15 minutes Petra Hector [facility] Start: 11-19-2021 End: 11-19-2021 ambulatory Petra Hector Other [facility] Other Start: 11-19-2021 Office outpatient vi sit 25 minutes Petra Hector [facility] Start: 10-28-2021 End: 10-28-2021 ambulatory Petra Hector Other [facility] Other Start: 10-28-2021 Telephone encounter Petra Breaul t [facility] Start: 10-15-2021 End: 10-15-2021 ambulatory Petra Hector Other [facility] Other Start: 10-15-2021 Telephone encounter Petra Breaul t [facility] Start: 09-18-2021 End: 09-18-2021 ambulatory Petra Hector Other [facility] Other Start: 09-18-2021 Telephone encounter Petra Breaul t [facility] Start: 09-16-2021 End: 09-16-2021 ambulatory PETRA HECTOR Facility:[facility] Start: 09-09-2021 End: 09-09-2021 ambulatory Petra Hector Other [facility] Other Start: 09-09-2021 Telephone encounter Petra Breaul t [facility] Start: 09-03-2021 End: 09-03-2021 ambulatory PETRA HECTOR [facility] Other Start: 09-03-2021 Office outpatient vi sit 15 minutes Petra Hector [facility] Start: 06-11-2021 End: 06-11-2021 ambulatory Petra Hector Other [facility] Other Start: 06-11-2021 Office outpatient vi sit 10 minutes Petra Hector [facility] Start: 04-14-2021 End: 04-14-2021 ambulatory Petraantione Young Other [facility] Other Start: 04-14-2021 Office outpatient vi sit 15 minutes Petra Hector [facility] Start: 09-30-2017 End: 10-01-2017 Patient encounter Milan Esparza Facility:[facility] Plan of Treatment Date Care Activity Detail Author Start: 03-19-2023 Tetanus vaccination Tetanus: Every 10yrs [facility] Start: 06-12-2022 End: 06-12-2022 Patient encounter procedure 06/12/2022 Office Visit Otolaryngology Ivanna Gomez MD [address] [place] [address] [facility] Start: 10-31-2021 Influenza vaccination Sequential Influenza Vaccine (#1) [facility] Start: 07-08-2021 COVID-19 Vaccine (3 - Booster for Moderna series) COVID-19 Vaccine (3 - Booster for Moderna series) [facility] Start: 04-29-2013 Hepatitis C screening Hepatitis C Screening [facility] Start: 04-29-2010 HIV screening HIV Screening [facility] Start: 2007 Depression screening using PHQ-9 (Patient Health Questionnaire 9) score Depression Screening (PHQ-2/9) [facility] Start: 04-29-1998 History and physical examination, annual for health maintenance Wellness Visit [facility] Start: 1995 Screening for malignant neoplasm of cervix Pap Smear [facility] Payers Date Payer Category Payer Private Health Insurance 2022 Medicaid [facility] [id number] 2022-Present [phone] [address] [place] [address] [id number] 1.315 1995 Unknown [id number] [id number]3 1995 Unknown [id number] 2.16.840.1.511680.3.579.2.593 1995 Unknown [id number] 2.16.840.1.631453.3.579.2.593 1995 Unknown [id number] 2.16.840.1.842536.3.579.2.593 1995 Unknown [id number] 2.16.840.1.995116.3.579.2.718 1995 Unknown [id number] 2.16.840.1.347652.3.579.2.1259 1995 Unknown [id number] 2.16.840.1.358888.3.579.2.1259 1995 Unknown [id number] 2.16.840.1.794303.3.579.2.1259 1995 Unknown [id number] 2.16.840.1.760599.3.579.2.1259 1995 Unknown [id number] 2.16.840.1.035995.3.579.2.1259 1995 Unknown [id number] 2.16.840.1.488463.3.579.2.1259 1995 Unknown [id number] 2.16.840.1.121199.3.579.2.1259 1995 Unknown [id number] 2.16.840.1.143327.3.579.2.1259 1995 Unknown [id number] 2.16.840.1.444721.3.579.2.1259 1995 Unknown [id number] 2.16.840.1.952143.3.579.2.1259 1995 Unknown [id number] 2.16.840.1.715001.3.579.2.1259 1995 Unknown [id number] 2.16.840.1.064942.3.579.2.9 1995 Unknown [id number] 2.16.840.1.528808.3.579.2.1259 1959 Medicaid [id number] 2. 16.840.1.176587.19 1959 Self-pay [facility] [id number] 2.16.840.1.1138 83.19 Unknown [id number] 2..840.1.612523.19 Unknown [id number] 2. 840.1.153415.19 Unknown [id number] 2.16.840.1.450574.3.579.2.531 Social History Date Type Detail Facility Unknown if ever smoked [facility] Other Sex Assigned At Sex Assigned At Bir th [facility] Other Start: 03-13-2022 Tobacco smoking status PAIS Smokes tobacco daily [facility] History of tobacco use Cigarette Smoker [facility] Start: 03-13-2022 Tobacco use and exposure User of smokeless tobacco [facility] Start: 03-13-2022 Alcohol intake Lifetime non-d isael (finding) [facility] Start: 1995 Sex Assigned At Not on file [facility] Start: 03-03-2022 End: 03-13-2022 Exposure to SARS-CoV-2 (event) Not sure [facility] Medical Equipment Procedure Code Equipment Code Equipment Origin al Text Equipment Identifier Dates [facility] 32G X 4 MM Start: 06-18-2022 Clinical [...] Restless legs Medical History Scoliosis Hospitalization History [facility] Other 05-02-2023 NoteEducation Materials Cardiovascular Hypertension, [...] doctor. This is important. Medicines ? Take ijka-dry-bsqqnwh and prescription medicines only as told by [...] weak or numb. ? (more content not included)...[id number] Evaluation [facility]* Encounter Date Diagnosis Assessment Notes [...] to reestablish with a PCP, list to [facility] providers available in the area given [...] the week. 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 May, Scoliosis (ICD-10 - M41.9) [facility] Other 02-23-2023 Evaluation note* Encounter Date Diagnosis Assessment Notes Treatment Notes Treatment Clinical Notes Apr, Overweight (BMI 25.0-29.9) (ICD-10 - E66.3) Referral being sent to Weight management to help [facility] Other 02-06-2023 Evaluation note* Encounter Date Diagnosis Assessment Notes Treatment Notes Treatment Clinical Notes Apr, Seizure disorder (ICD-10 - G40.909) Apr, control counseling (ICD-10 - Z30.09) [facility] Other 01-12-2023 History of Present illness Narrative* Ivanna Gomez MD - 03/13/2022 3:47 PM EST [facility] [address] [facility] [address] (11) [facility] [address] [facility] [address] Dept: [phone] Loc: [phone] Ivanna Gomez MD [facility] 26 y.o. female Patient presents [...] subma ndibular glands, clear salivary flow from [place]'s ducts, no stones of [place]'s ducts Temporomandibular Joint: no crepitus with motion, [...] mood, normal affect MYRINGOTOMY WITH ASPIRATION NOTE (16801) PROCEDURE PERFORMED BY: Ivanna Gomez MD PROCEDURE [...] well tolerated in the office today with moravian of her hearing in the left ear. [...] Hematological: Negative. Psychiatric/Behavioral: Negative. documented in this [id number] Evaluation note* Encounter Date Diagnosis Assessment Notes Treatment Notes Treatment Clinical Notes Dec, Seizure disorder (ICD-10 - G40.909) Continue to take Depakote. Spoke about importance of follow up with neurology so we can determine cause of seizures Dec, control counseling (ICD-10 - Z30.09) Discussed patient options for control. Recommend follow up with Dr. Esparza to discuss options such as Mirena and Freepatha [employer] Other 09-20-2022 Evaluation note* Encounter Date [...] to be seen. Also always know the [facility] Emergency Number is 24 hours a day available, even on holidays there is someone you can reach out to. Also we will check other labs yearly to screen for other health issues. Please remember we are a team and your opinion is very important in all of your healthcare decisions [employer] Other 07-05-2022 Evaluation note* Encounter Date [...] and family are in agreement with plan. [employer] Other 04-12-2022 Evaluation note* Encounter Date Diagnosis Assessment Notes Treatment Notes Treatment Clinical Notes May, control counseling (ICD-10 - Z30.09) Patient would like to stay on her current dose and form of OBC. [employer] Other 02-13-2022 Evaluation note* Encounter Date [...] writting by [facility] document. [employer] Other Evaluation noteNo InformationNort [employer] Other Evaluation note* Diagnosis Otalgia, left- Primary Non-recurrent acute serous otitis media of left ear Conductive hearing loss of left ear with unrestricted hearing of right ear [facility] - [facility] Type Description Date Hospitalization History [facility] RE[facility] Qualified [facility] Other Hisrrqn general Narrative - Reported* Type Description Date Medical History seizures Hospitalization History [facility] Other Histpqd general Narrative - Reported* Type Description Date [...] Restless legs Medical History Scoliosis Hospitalization History [facility] RE[facility] Qualified [facility] Other Summary Purpose Family History No Family [...] refer to be seen in [facility] facilility Diagnosis 1 Seizure disorder (G4 0.909) Referral Organization [facility] Referring Provider First Name Petra Referring Provider Last Name Hector Referring Provider Specialty Nurse Pract gustavo Referred Organization [facility] Referred Address [address],[place], [place],[address] Referred Provider Specialty Neurology Referral Priority Routine General Notes Sara Jackson 022 09:44:52 AM >Received today and waiting for office notes to be locked before sending referral Clinical Notes Office [phone] Reason withnessed seiz ure like activity for last few months Diagnosis 1 Observed seizure-lik e activity (R56.9) Diagnosis 2 Syncope, unspecified syncope type (R55) Referral Organization [facility] Referring Provider First Name Petra Referring Provider Last Name Hector Referring Provider Specialty Nurse Pract gustavo Referred Organization [facility] Referred Provider Ulysses Schuler Referred Address [address] [place], [place],[address] Referred Provider Specialty Neurology Referral Priority Routine General Notes Sara Jackson 022 08:44:34 AM >Received today and waiting for office notes to be locked before sending referral Additional Source Comments INFORMATION SOURCE (unrecogn ized section and content) DATE CREATED AUTHOR 10/01/2017 [facility] DATE CREATED AUTHOR AUTHOR'S ORGANIZ ATION 03/14/2022 [facility] DATE CREATED AUTHOR AUTHOR'S ORGANIZ ATION 07/11/2022 [facility] DATE CREATED AUTHOR AUTHOR'S ORGANIZ ATION 07/14/2022 [facility] DATE CREATED AUTHOR AUTHOR'S ORGANIZ ATION 12/16/2022 [facility] DATE CREATED AUTHOR AUTHOR'S ORGANIZ ATION 11/13/2023 [facility] EPIC REASON FOR VISIT (unrecogniz ed section and content) Reason Comments bulging ear drum New Patient Care Teams (unrecognized sec tion and content) [employer] Managed Service Sales Exec Relationship Specialty Start Date End Date No, Physician [facility] PCP - General 03/13/22 FOR [...] THE PRIMARY CLINICAL RECORDS. [facility]. provides no warranty or guarantee of the accuracy or completeness of information in this document.
[2023-11-19] MEDS: ROPIVACAINE HCL/PF 400 MG/200 ML PREMIX 6 MG EPIDURAL (10:01)
[2023-11-19] MEDS: EPHEDRINE SULFATE 50 MG/ML VIAL IV ×2 (10:48→10:55)
[2023-11-19] MEDS: ONDANSETRON PF 4 MG/2 ML VIAL IV (10:52)
[2023-11-19] MEDS: OXYTOCIN/0.9 % SODIUM CHLORIDE 10 UNITS/500 ML PLAST..BAG 54 UNIT IV (13:23)
[2023-11-19] MEDS: OXYTOCIN/0.9 % SODIUM CHLORIDE 20 UNITS/1,000 ML PLAST..BAG 125 UNIT IV (14:43)
--- NOTE | 2023-11-19 14:45 | PM.OBPRCVD ---
Procedure Intrapartal events: None Induction method: per pitocin protocol Delivery augmentation: rupture of membranes and pitocin Delivery monitor: external FHT and external uterine Route of delivery: Episiotomy Description: none L&D Laceration Description: none Estimated blood loss (mL): 250 Anesthesia type: Epidural Disposition: floor Delivery date: 12/02/23 Gender: male presentation: vertex Placental delivery description: Spontaneous cord description: 3 Vessels and Nuchal Cord
[2023-11-19] MEDS: IBUPROFEN 600 MG TABLET PO (18:44)
[2023-11-20] MEDS: IBUPROFEN 600 MG TABLET PO ×3 (04:14→20:03)
[2023-11-20 06:18] LABS: Basophils Percent Auto 0.1 % (0.2-2.0); Eosinophils Absolute Auto 0.1 10^3/uL (0.0-0.7); Eosinophils Percent Auto 0.8 % (0.9-7.0); Hematocrit 25.9 % (36.0-48.0); Hemoglobin 8.2 g/dL (12.0-16.0); Immature Granulocytes Abs Auto 0.05 10^3/uL (0.00-0.03); Immature Granulocytes Pct Auto 0.5 % (0.0-0.5); Lymphocytes Absolute Auto 0.9 10^3/uL (1.2-3.8); Lymphocytes Percent Auto 8.7 % (20.5-60.0); Mean Corpuscular HGB Conc 31.7 g/dL (29.9-35.2); Mean Corpuscular Hemoglobin 25.5 pg (26.7-34.0); Mean Corpuscular Volume 80.7 fL (81.0-99.0); Mean Platelet Volume 10.5 fL (9.5-13.5); Monocytes Absolute Auto 0.7 10^3/uL (0.3-0.8); Monocytes Percent Auto 6.9 % (1.7-12.0); Neutrophils Absolute Auto 8.2 10^3/uL (1.4-6.5); Platelet Count 190 10^3/uL (150-450); Red Blood Count 3.21 10^6/uL (4.20-5.40); White Blood Count 9.8 10^3/uL (4.0-11.0)
--- NOTE | 2023-11-20 08:09 | PM.OBPN ---
OB - PN: Subj Subjective Patient comments: no complaints and pain well controlled [place] status: doing well Exam Constitutional Vital Signs, click to edit/add: Last Vital Signs Temp 97.5 F L 11/19/23 12:32 Pulse 80 11/19/23 23:17 Resp 16 11/19/23 23:25 BP 94/60 11/19/23 23:17 O2 Del Method Room Air 11/19/23 23:25 Documenting provider has reviewed patient's vital signs: yes Common normals: no apparent distress Respiratory Common normals: normal respiratory effort and clear to auscultation bilaterally Cardio Common normals: regular rate and regular rhythm GI Common normals: Normal to inspection, nondistended, normoactive bowel sounds present Extremity Common normals: no calf tenderness Results Labs Labs: Short CBC 11/20/23 Range/Units 06:10 WBC 9.8 (4.0-11.0) 10^3/uL Hgb 8.2 L (12.0-16.0) g/dL Hct 25.9 L (36.0-48.0) % Plt Count 190 (150-450) 10^3/uL OB - PN: A/P Plan - Vaginal Delivery day: 1 Plan: routine care, discharge home and follow up 6 weeks Time Spent with Patient Time: Total time spent is greater than 50% in coordination of care (as documented) at patient's floor/unit and/or counseling patient: Total time spent with greater than 50% in coordination of care (as documented) at patient's floor/unit and/or counseling patient: less than 15 minutes
[2023-11-20 08:33] VITALS: BP 113/76; PULSE 86
[2023-11-20] MEDS: DOCUSATE SODIUM 100 MG CAPSULE PO (08:33)
[2023-11-20 08:35] VITALS: TEMP 36.6
[2023-11-20 12:10] VITALS: BP 102/74; PULSE 75; TEMP 36.8
[2023-11-20 20:05] VITALS: BP 139/92; PULSE 80
[2023-11-20 20:06] VITALS: BP 134/88; PULSE 81; TEMP 36.7
[2023-11-20 23:32] VITALS: BP 123/79; PULSE 78; TEMP 36.8
[2023-11-21 08:30] VITALS: TEMP 37.3
[2023-11-21 09:06] VITALS: BP 131/83; PULSE 80
--- NOTE | 2023-11-21 10:38 | PM.OBDS ---
DS: Providers Provider Date of admission: 11/19/23 00:05 Primary care physician: Non-Staff Physician, Admitting clinician: Bennett Esparza Consults: 11/19/23 Consult to Anesthesiology Routine Consulting Provider: Diogo Cuevas Reason for consultation: epidural Discharging clinician: Vandana Thorpe Anticipated date of discharge: 11/21/23 DS: Diagnosis Discharge Diagnosis (1) Normal vaginal delivery: Assessment and plan: condition good, voices no problems Plan discharge home OB - DS: Summary Hospital Course Hospital Course: uncomplicated Time spent discussing smoking cessation with patient: 3 to 10 minutes Peripartum Data - Vaginal Delivery Procedures: perineal repair in layers without complication Complications complications: none Delivery method: spontaneous vaginal delivery Gender: male Discharge plan: home Status at Discharge Cognitive/behavioral status at discharge: wnl Functional status at discharge: independent ambulation Time Spent with Patient Time attestation: Total time spent providing and/or coordinating discharge services: Time spent: less than 30 minutes Exam Narrative Exam Narrative: voicing no complaints Constitutional Vital Signs, click to edit/add: Last Vital Signs Temp 98.3 F 11/20/23 23:32 Pulse 80 11/21/23 09:06 Resp 14 11/20/23 23:32 BP 131/83 11/21/23 09:06 O2 Del Method Room Air 11/21/23 00:00 Documenting provider has reviewed patient's vital signs: yes Common normals: no apparent distress, oriented x3, no limitations, healthy appearing, alert and well nourished General appearance: cooperative, comfortable, well kempt and well developed Orientation/consciousness: Yes awake, Yes oriented to person, Yes oriented to place and Yes oriented to time HENMT Common normals: normocephalic and head/scalp atraumatic Eye Pupil: PERRL and accommodation reflex normal Neck & C-Spine Common normals: full ROM and supple Respiratory Common normals: normal respiratory effort Auscultation: clear to auscultation bilaterally Cardio Common normals: regular rate and regular rhythm GI Common normals: Normal to inspection, nondistended, normoactive bowel sounds present, soft to palpation and non-tender Common normals: no CVA tenderness Back & Pelvis Common normals: no thoracic nor lumbar tenderness Extremity Common normals: normal to inspection, full ROM and no calf tenderness Neuro Common normals: CN's II-XII intact bilaterally, moves all extremities, no focal motor deficits and no sensory deficits noted Motor exam: strength 5/5 throughout Psych Common normals: mental status grossly normal, thought process normal, cooperative, affect normal, speech normal and activity/motor behavior normal Discharge Plan Discharge Disposition: Home, Self-Care Discharge Medications: Continued metformin 500 mg tablet extended release 24 hr 500 mg PO DAILY omeprazole 20 mg capsule,delayed release(DR/EC) 20 mg PO DAILY aspirin [Adult Low Dose Aspirin] 81 mg tablet,delayed release (DR/EC) 81 mg PO DAILY Print Language: Bulgarian Forms: Vaginal Delivery - Discharge, Portal Instructions
== END 2023-11-21 10:40 | disposition home or self-care (01) | DRG 560 ==
PROVIDERS: Admitting Provider Obstetrics & Gynecology; Family Provider Nurse Practitioner Family; Visit Provider Obstetrics & Gynecology
DX: O99.824 Streptococcus B carrier state complicating childbirth (principal); O69.81X0 Labor and delivery complicated by cord around neck, without compression, not applicable or unspecified; Z3A.39 39 weeks gestation of pregnancy; Z37.0 Single live birth
CPT/HCPCS: 36415; 51702; 59050; 59410; 80307; 85025; 86850; 86900; 86901; 96365; 96366; 96368; 96375; 96376; J0290; J2300; J2405; J2795

== ENCOUNTER 2024-05-02 12:02 | Outpatient (OUT) | payer MEDICAID, SELFPAY ==
[2024-05-02 12:53] LABS: Estimated Average Glucose 103 mg/dL; Glycohemoglobin A1C 5.2 % (4.5-6.2)
== END 2024-05-02 12:03 | disposition home or self-care (01) ==
PROVIDERS: Family Provider Nurse Practitioner Family; Visit Provider Nurse Practitioner Family
DX: Z76.89 Persons encountering health services in other specified circumstances (principal)
CPT/HCPCS: 36415; 83036